=== PATIENT | female | born 1950 | race Hispanic/Latino ===

== ENCOUNTER 2022-05-21 13:04 | Emergency (ER) | payer MEDICARE, OTHER ==
--- OUTSIDE RECORDS SUMMARY | 2022-05-21 13:12 | XMS REPORT | Continuity of Care Document ---
:1950 Author Organization [facility] t Address [address] [place] [address] [address] [place] [address] Care Team Providers Name Role Phone Gisela Diggs MD Primary Care Physician [phone] SHABNAM MILLER Attending Clinician Unavailable QUAN TEMPLE Attending Clinician Unavailable Gisela Diggs MD Attending Clinician [phone] GISELA DIGGS Attending Clinician Unavailable Doctor Unassigned, [place] Attending Clinician Unavailable Quan Temple MD Attending Clinician Kacy Kennedy LMSW Attending Clinician Pob, [facility] Lab Main Attending Clinician Unavailable Richard Chery MD Attending Clinician Radiology Attending Clinician Unavailable BERNARD FREEMAN Attending Clinician Unavailable Ashley Chang Attending Clinician ASHLEY HDEZ Attending Clinician Unavailable CORNELIUS ANTHONY Attending Clinician Unavailable CORNELIUS ANTHONY Attending Clinician Unavailable Cornelius Anthony MD Attending Clinician Bernard Freeman DO Attending Clinician Shabnam Miller MD Attending Clinician Only, Adc Test Attending Clinician Unavailable NURSE, NURSE Attending Clinician Unavailable Gramm ASTROBIOLOGIST, Michell A Attending Clinician Carrillo DO, Darren Attending Clinician Lab, Adc Fam Pob I Attending Clinician Unavailable Gina COPPOLA, Dov Attending Clinician DOV FUENTES Attending Clinician Unavailable Molina Ellis MD Attending Clinician 2, [facility] Attending Clinician Unavailable RICHARD CHERY Attending Clinician Unavailable MOLINA ELLIS Attending Clinician Unavailable Amanda TRIANA Attending Clinician Unavailable Amanda Roth Attending Clinician RJ EMERY Attending Clinician Unavailable Rj Marcus Attending Clinician Molina Ovalle MD Attending Clinician SHABNAM MILLER Admitting Clinician Unavailable Shabnam Miller MD Admitting Clinician Amanda TRIANA Admitting Clinician Unavailable RJ EMERY Admitting Clinician Unavailable Payers Payer Name Policy Type Policy Number Effective Date Expiration Date Mateusz cleaning MEDICARE PART A [id number] 2011 \T\ B 00:00:00 Problems Condition Condition Condition Status Onset Resolution Last Treating Co mments Source Name Details Category Date Date Treatment Clinician Date Bulging of Bulging of Disease Active U nivers cervical cervical 4-17 [place] [place] interverte [place]verte [place] bral disc bral disc 00 [facility] kassandra Branch Spinal Spinal Disease Active Univers stenosis stenosis 4-17 ity of of of 00:00: [place] cervical cervical 00 Medica l region region Branch Myalgia Myalgia Disease Active Univers 4-17 ity of 00:00: [place] 00 Medical Branch Anxiety Anxiety Disease Active Univers 4-17 ity of 00:00: [place] 00 Medical Branch Numbness Numbness Disease Active Unive rs in feet in feet 4-17 ity of 00:00: [place] Medical [facility] Numbness Numbness Disease Active Unive rs in both in both 4-17 ity of hands hands 00:00: [place] 00 Medical Branch Chronic Chronic Disease Active 2020-0 Univers pain of pain of 8-10 ity of both knees both knees 00:00[place] Bilateral Bilateral Disease Active 2020-0 Uni vers arm pain arm pain 8-10 ity of 00:00: [place] 00 Medical Branch Chronic Chronic Disease Active 2020-0 Univers bilateral bilateral 8-10 ity of low back low back 00:00: [place] pain pain 00 Medical without without Branch sciatica sciatica Fibromyalg Fibromyalg Disease Active 2020-0 U nivers ia ia 8-10 ity of 00:00: [place] 00 Medical Branch Chronic Chronic Disease Active 2020-0 Univers pain pain 8-10 ity of syndrome syndrome 00:00: [place] 00 Medical Branch Myofascial Myofascial Disease Active 2020-0 U nivers pain pain 8-10 ity of 00:00: [place] 00 Medical Branch Back Back Disease Active 2019-0 Univers muscle muscle 9-06 ity of spasm spasm 00:00: [place] 00 Medical Branch Chronic Chronic Disease Active 2019-0 Univers neck and neck and 9-06 ity of back pain back pain 00:[place] [facility] [place] Primary Primary Disease Active 2018-0 Univers osteoarthr osteoarthr 1-05 it y of itis of itis of 00:00: [place] both knees both knees 00 Mt dical Branch Essential Essential Disease Active 2017 Uni vers hypertensi hypertensi 5-05 it y of on, benign on, benign 00:00: [place] [facility] Allergies, Adverse Reactions, Alerts Allergy Allergy Status Severity Reaction(s) Onset Inactive Treating Comm ents Source Name Type Date Date Clinician PEACH DRUG Active High SOB 2020-0 Univers INGREDI 3-03 ity of 00:00: [place] 00 Medical Branch [place] Prop[facility] Active Swelling 2020-0 Univer s ty to 3-03 ity of adverse 00:00: [place] reaction 00 Medical s Branch Social History Social Habit Start Date Stop Date Quantity Comments Source History of tobacco 1986-10-23 Cigarette Smoker [facility] use 00:00:00 Medical Branch Sex Assigned At Female [facility] Exposure to 2022-04-21 2022-05-01 Not sure [facility] SARS-CoV-2 (event) 00:00:00 13:00:00 Medica l Branch Alcohol intake 2022-04-15 2022-04-15 Current [facility] 00:00:00 00:00:00 non-drinker of Medical Br anch alcohol (finding) Tobacco use and 2020-07-15 2020-07-15 Smokeless [facility] exposure 00:00:00 00:00:00 tobacco non-user Medical Branch Cigarettes smoked 2020-07-15 2020-07-15 [facility] current (pack per 00:00:00 00:00:00 Medical Branch day) - Reported Cigarette 2020-07-15 2020-07-15 [facility] pack-years 00:00:00 00:00:00 Medical Branch Smoking Status Start Date Stop Date Source Unknown if ever smoked [facility] Ex-smoker 2020-07-15 00:00:00 2020-07-15 [place] [facility] [place] 00:00:00 Medical Branch Medications Ordered Filled Start Stop Current Ordering Indication Dosage Frequency Signature Comments Components Source Medication Medication Date Date Medication? Clinician (SIG) Name Name amitriptyli 2021-06 Yes [id number] TAKE 1 AND Univers ne 50 mg 0-06 1/2 TABLET ity o f tablet 00:00: BY MOUTH [place] 00 AT NIGHT Medical FOR 1 WEEK Branch IF PAIN/ANXIE TY/DEPRESS ION NOT IMPROVED THEN TAKE 2 AT NIGHT lisinopriL- 2021-06 Yes [id number] 1{tbl} Take 1 Univers hydrochloro 0-06 tablet by ity of thiazide 00:00: mouth in [place] 20-25 mg 00 the Medical per tablet morning. Branc h cloNIDine 2021-06 Yes [id number] TAKE ONE U nivers 0.1 mg 0-06 TABLET BY ity of tablet 00:00: MOUTH [place] 00 THREE Medical TIMES A Branch DAY ONLY IF FOR BLOOD PRESSURE HIGHER THAN 180/90 amitriptyli 2021-06 Yes [id number] TAKE 1 AND Univers ne 50 mg 0-06 1/2 TABLET ity o f tablet 00:00: BY MOUTH [place] 00 AT NIGHT Medical FOR 1 WEEK Branch IF PAIN/ANXIE TY/DEPRESS ION NOT IMPROVED THEN TAKE 2 AT NIGHT lisinopriL- 2021-06 Yes [id number] 1{tbl} Take 1 Univers hydrochloro 0-06 tablet by ity of thiazide 00:00: mouth in [place] 20-25 mg 00 the Medical per tablet morning. [facility] cloNIDine 2021-06 Yes [id number] TAKE ONE U nivers 0.1 mg 0-06 TABLET BY ity of tablet 00:00: MOUTH [place] 00 THREE Medical TIMES A Branch DAY ONLY IF FOR BLOOD PRESSURE HIGHER THAN 180/90 amitriptyli 2021-06 Yes [id number] TAKE 1 AND Univers ne 50 mg 0-06 1/2 TABLET ity o f tablet 00:00: BY MOUTH [place] 00 AT NIGHT Medical FOR 1 WEEK Branch IF PAIN/ANXIE TY/DEPRESS ION NOT IMPROVED THEN TAKE 2 AT NIGHT lisinopriL- 2021-06 Yes [id number] 1{tbl} Take 1 Univers hydrochloro 0-06 tablet by ity of thiazide 00:00: mouth in [place] -25 mg 00 the Medical per tablet morning. [facility] cloNIDine 2021-06 Yes [id number] TAKE ONE U nivers 0.1 mg 0-06 TABLET BY ity of tablet 00:00: MOUTH [place] 00 THREE Medical TIMES A Branch DAY ONLY IF FOR BLOOD PRESSURE HIGHER THAN 180/90 amitriptyli 2021-06 Yes [id number] TAKE 1 AND Univers ne 50 mg 0-06 1/2 TABLET ity o f tablet 00:00: BY MOUTH [place] 00 AT NIGHT Medical FOR 1 WEEK Branch IF PAIN/ANXIE TY/DEPRESS ION NOT IMPROVED THEN TAKE 2 AT NIGHT lisinopriL- 2021-06 Yes [id number] 1{tbl} Take 1 Univers hydrochloro 0-06 tablet by ity of thiazide 00:00: mouth in [place] -25 mg 00 the Medical per tablet morning. [facility] cloNIDine 2021-06 Yes [id number] TAKE ONE U nivers 0.1 mg 0-06 TABLET BY ity of tablet 00:00: MOUTH [place] 00 THREE Medical TIMES A Branch DAY ONLY IF FOR BLOOD PRESSURE HIGHER THAN 180/90 amitriptyli 2021-06 Yes [id number] TAKE 1 AND Univers ne 50 mg 0-06 1/2 TABLET ity o f tablet 00:00: BY MOUTH [place] 00 AT NIGHT Medical FOR 1 WEEK Branch IF PAIN/ANXIE TY/DEPRESS ION NOT IMPROVED THEN TAKE 2 AT NIGHT lisinopriL- 2021-06 Yes [id number] 1{tbl} Take 1 Univers hydrochloro 0-06 tablet by ity of thiazide 00:00: mouth in [place] 20-25 mg 00 the Medical per tablet morning. [facility] cloNIDine 2021-06 Yes [id number] TAKE ONE U nivers 0.1 mg 0-06 TABLET BY ity of tablet 00:00: MOUTH [place] 00 THREE Medical TIMES A Branch DAY ONLY IF FOR BLOOD PRESSURE HIGHER THAN 180/90 amitriptyli 2021-06 Yes [id number] TAKE 1 AND Univers ne 50 mg 0-06 1/2 TABLET ity o f tablet 00:00: BY MOUTH [place] 00 AT NIGHT Medical FOR 1 WEEK Branch IF PAIN/ANXIE TY/DEPRESS ION NOT IMPROVED THEN TAKE 2 AT NIGHT lisinopriL- 2021-06 Yes [id number] 1{tbl} Take 1 Univers hydrochloro 0-06 tablet by ity of thiazide 00:00: mouth in [place] 20-25 mg 00 the Medical per tablet morning. [facility] cloNIDine 2021-06 Yes [id number] TAKE ONE U nivers 0.1 mg 0-06 TABLET BY ity of tablet 00:00: MOUTH [place] 00 THREE Medical TIMES A Branch DAY ONLY IF FOR BLOOD PRESSURE HIGHER THAN 180/90 amitriptyli 2021-06 Yes [id number] TAKE 1 AND Univers ne 50 mg 0-06 1/2 TABLET ity o f tablet 00:00: BY MOUTH [place] 00 AT NIGHT Medical FOR 1 WEEK Branch IF PAIN/ANXIE TY/DEPRESS ION NOT IMPROVED THEN TAKE 2 AT NIGHT lisinopriL- 2021-06 Yes [id number] 1{tbl} Take 1 Univers hydrochloro 0-06 tablet by ity of thiazide 00:00: mouth in [place] 20-25 mg 00 the Medical per tablet morning. [facility] cloNIDine 2021-06 Yes [id number] TAKE ONE U nivers 0.1 mg 0-06 TABLET BY ity of tablet 00:00: MOUTH [place] 00 THREE Medical TIMES A Branch DAY ONLY IF FOR BLOOD PRESSURE HIGHER THAN 180/90 amitriptyli 2021-06 Yes [id number] TAKE 1 AND Univers ne 50 mg 0-06 1/2 TABLET ity o f tablet 00:00: BY MOUTH [place] 00 AT NIGHT Medical FOR 1 WEEK Branch IF PAIN/ANXIE TY/DEPRESS ION NOT IMPROVED THEN TAKE 2 AT NIGHT lisinopriL- 2021-06 Yes [id number] 1{tbl} Take 1 Univers hydrochloro 0-06 tablet by ity of thiazide 00:00: mouth in [place] 20-25 mg 00 the Medical per tablet morning. [facility] cloNIDine 2021-06 Yes [id number] TAKE ONE U nivers 0.1 mg 0-06 TABLET BY ity of tablet 00:00: MOUTH [place] 00 THREE Medical TIMES A Branch DAY ONLY IF FOR BLOOD PRESSURE HIGHER THAN 180/90 amitriptyli 2021-06 Yes [id number] TAKE 1 AND Univers ne 50 mg 0-06 1/2 TABLET ity o f tablet 00:00: BY MOUTH [place] 00 AT NIGHT Medical FOR 1 WEEK Branch IF PAIN/ANXIE TY/DEPRESS ION NOT IMPROVED THEN TAKE 2 AT NIGHT lisinopriL- 2021-06 Yes [id number] 1{tbl} Take 1 Univers hydrochloro 0-06 tablet by ity of thiazide 00:00: mouth in [place] 20-25 mg 00 the Medical per tablet morning. [facility] cloNIDine 2021-06 Yes [id number] TAKE ONE U nivers 0.1 mg 0-06 TABLET BY ity of tablet 00:00: MOUTH [place] 00 THREE Medical TIMES A Branch DAY ONLY IF FOR BLOOD PRESSURE HIGHER THAN 180/90 amitriptyli 2021-06 Yes [id number] TAKE 1 AND Univers ne 50 mg 0-06 1/2 TABLET ity o f tablet 00:00: BY MOUTH [place] 00 AT NIGHT Medical FOR 1 WEEK Branch IF PAIN/ANXIE TY/DEPRESS ION NOT IMPROVED THEN TAKE 2 AT NIGHT lisinopriL- 2021-06 Yes [id number] 1{tbl} Take 1 Univers hydrochloro 0-06 tablet by ity of thiazide 00:00: mouth in [place] 20-25 mg 00 the Medical per tablet morning. [facility] cloNIDine 2021-06 Yes [id number] TAKE ONE U nivers 0.1 mg 0-06 TABLET BY ity of tablet 00:00: MOUTH [place] 00 THREE Medical TIMES A Branch DAY ONLY IF FOR BLOOD PRESSURE HIGHER THAN 180/90 amitriptyli 2021-06 Yes [id number] TAKE 1 AND Univers ne 50 mg 0-06 1/2 TABLET ity o f tablet 00:00: BY MOUTH [place] 00 AT NIGHT Medical FOR 1 WEEK Branch IF PAIN/ANXIE TY/DEPRESS ION NOT IMPROVED THEN TAKE 2 AT NIGHT lisinopriL- 2021-06 Yes [id number] 1{tbl} Take 1 Univers hydrochloro 0-06 tablet by ity of thiazide 00:00: mouth in [place] 20-25 mg 00 the Medical per tablet morning. [facility] cloNIDine 2021-06 Yes [id number] TAKE ONE U nivers 0.1 mg 0-06 TABLET BY ity of tablet 00:00: MOUTH [place] 00 THREE Medical TIMES A Branch DAY ONLY IF FOR BLOOD PRESSURE HIGHER THAN 180/90 amitriptyli 2021-06 Yes [id number] TAKE 1 AND Univers ne 50 mg 0-06 1/2 TABLET ity o f tablet 00:00: BY MOUTH [place] 00 AT NIGHT Medical FOR 1 WEEK Branch IF PAIN/ANXIE TY/DEPRESS ION NOT IMPROVED THEN TAKE 2 AT NIGHT lisinopriL- 2021-06 Yes [id number] 1{tbl} Take 1 Univers hydrochloro 0-06 tablet by ity of thiazide 00:00: mouth in [place] 20-25 mg 00 the Medical per tablet morning. [facility] cloNIDine 2021-06 Yes [id number] TAKE ONE U nivers 0.1 mg 0-06 TABLET BY ity of tablet 00:00: MOUTH [place] [address] THREE Medical TIMES A Branch DAY ONLY IF FOR BLOOD PRESSURE HIGHER THAN 180/90 amitriptyli 2021-06 Yes [id number] TAKE 1 AND Univers ne 50 mg 0-06 1/2 TABLET ity o f tablet 00:00: BY MOUTH [place] 00 AT NIGHT Medical FOR 1 WEEK Branch IF PAIN/ANXIE TY/DEPRESS ION NOT IMPROVED THEN TAKE 2 AT NIGHT lisinopriL- 2021-06 Yes [id number] 1{tbl} Take 1 Univers hydrochloro 0-06 tablet by ity of thiazide 00:00: mouth in [place] 20-25 mg 00 the Medical per tablet morning. [facility] cloNIDine 2021-06 Yes [id number] TAKE ONE U nivers 0.1 mg 0-06 TABLET BY ity of tablet 00:00: MOUTH [place] 00 THREE Medical TIMES A Branch DAY ONLY IF FOR BLOOD PRESSURE HIGHER THAN 180/90 amitriptyli 2021-06 Yes [id number] TAKE 1 AND Univers ne 50 mg 0-06 1/2 TABLET ity o f tablet 00:00: BY MOUTH [place] 00 AT NIGHT Medical FOR 1 WEEK Branch IF PAIN/ANXIE TY/DEPRESS ION NOT IMPROVED THEN TAKE 2 AT NIGHT lisinopriL- 2021-06 Yes [id number] 1{tbl} Take 1 Univers hydrochloro 0-06 tablet by ity of thiazide 00:00: mouth in [place] 20-25 mg 00 the Medical per tablet morning. [facility] cloNIDine 2021-06 Yes [id number] TAKE ONE U nivers 0.1 mg 0-06 TABLET BY ity of tablet 00:00: MOUTH [place] 00 THREE Medical TIMES A Branch DAY ONLY IF FOR BLOOD PRESSURE HIGHER THAN 180/90 amitriptyli 2021-06 Yes [id number] TAKE 1 AND Univers ne 50 mg 0-06 1/2 TABLET ity o f tablet 00:00: BY MOUTH [place] 00 AT NIGHT Medical FOR 1 WEEK Branch IF PAIN/ANXIE TY/DEPRESS ION NOT IMPROVED THEN TAKE 2 AT NIGHT lisinopriL- 2021-06 Yes [id number] 1{tbl} Take 1 Univers hydrochloro 0-06 tablet by ity of thiazide 00:00: mouth in [place] 20-25 mg 00 the Medical per tablet morning. [facility] cloNIDine 2021-06 Yes [id number] TAKE ONE U nivers 0.1 mg 0-06 TABLET BY ity of tablet 00:00: MOUTH [place] [address] THREE Medical TIMES A Branch DAY ONLY IF FOR BLOOD PRESSURE HIGHER THAN 180/90 amitriptyli 2021-06 Yes [id number] TAKE 1 AND Univers ne 50 mg 0-06 1/2 TABLET ity o f tablet 00:00: BY MOUTH [place] 00 AT NIGHT Medical FOR 1 WEEK Branch IF PAIN/ANXIE TY/DEPRESS ION NOT IMPROVED THEN TAKE 2 AT NIGHT lisinopriL- 2021-06 Yes [id number] 1{tbl} Take 1 Univers hydrochloro 0-06 tablet by ity of thiazide 00:00: mouth in [place] 20-25 mg 00 the Medical per tablet morning. [facility] cloNIDine 2021-06 Yes [id number] TAKE ONE U nivers 0.1 mg 0-06 TABLET BY ity of tablet 00:00: MOUTH [place] [address] THREE Medical TIMES A Branch DAY ONLY IF FOR BLOOD PRESSURE HIGHER THAN 180/90 tiZANidine 2021-06 Yes Univers 4 mg tablet 0-04 ity of 00:00: [place] Medical Branch tiZANidine 2021-06 Yes Univers 4 mg tablet 0-04 ity of 00:00: [place] Medical [facility] tiZANidine 2021-06 Yes Univers 4 mg tablet 0-04 ity of 00:00: [place] Medical Branch tiZANidine 2021-06 Yes Univers 4 mg tablet 0-04 ity of 00:00: Medical Branch tiZANidine 2021-06 Yes Univers 4 mg tablet 0-04 ity of 00:00: Medical Branch tiZANidine 2021-06 Yes Univers 4 mg tablet 0-04 ity of 00:00: Medical Branch tiZANidine 2021-06 Yes Univers 4 mg tablet 0-04 ity of 00:00: Medical Branch tiZANidine 2021-06 Yes Univers 4 mg tablet 0-04 ity of 00:00: Medical Branch tiZANidine 2021-06 Yes Univers 4 mg tablet 0-04 ity of 00:00: Medical Branch tiZANidine 2021-06 Yes Univers 4 mg tablet 0-04 ity of 00:00: Medical Branch tiZANidine 2021-06 Yes Univers 4 mg tablet 0-04 ity of 00:00: [facility] Branch tiZANidine 2021-06 Yes Univers 4 mg tablet 0-04 ity of 00:00: Medical Branch tiZANidine 2021-06 Yes Univers 4 mg tablet 0-04 ity of 00:00: [facility] Branch tiZANidine 2021-06 Yes Univers 4 mg tablet 0-04 ity of 00:00: [facility] Branch tiZANidine 2021-06 Yes Univers 4 mg tablet 0-04 ity of 00:00: [facility] Branch tiZANidine 2021-06 Yes Univers 4 mg tablet 0-04 ity of 00:00: [facility] ALPRAZolam 2021-0 2021- Yes [id number] 1mg Take 1 Univers 1 mg tablet 03-10 tablet by it y of 00:00: 04:59 mouth once [place] 00 :00 now for 1 Medical dose. Branch albuterol Yes [id number] 2{puff} Inhale 2 Univers 90 9-08 Puffs ity of mcg/actuati 00:00: every 6 [place] as on inhaler 00 (six) Medical hours as Branch needed for Wheezing or Shortness of Breath. albuterol Yes [id number] 2{puff} Inhale 2 Univers 90 9-08 Puffs ity of mcg/actuati 00:00: every 6 [place] as on inhaler 00 (six) Medical hours as Branch needed for Wheezing or Shortness of Breath. albuterol Yes [id number] 2{puff} Inhale 2 Univers 90 9-08 Puffs ity of mcg/actuati 00:00: every 6 [place] as on inhaler 00 (six) Medical hours as Branch needed for Wheezing or Shortness of Breath. albuterol Yes [id number] 2{puff} Inhale 2 Univers 90 9-08 Puffs ity of mcg/actuati 00:00: every 6 [place] as on inhaler 00 (six) Medical hours as Branch needed for Wheezing or Shortness of Breath. albuterol Yes [id number] 2{puff} Inhale 2 Univers 90 9-08 Puffs ity of mcg/actuati 00:00: every 6 [place] as on inhaler 00 (six) Medical hours as Branch needed for Wheezing or Shortness of Breath. albuterol Yes [id number] 2{puff} Inhale 2 Univers 90 9-08 Puffs ity of mcg/actuati 00:00: every 6 [place] as on inhaler 00 (six) Medical hours as Branch needed for Wheezing or Shortness of Breath. albuterol Yes [id number] 2{puff} Inhale 2 Univers 90 9-08 Puffs ity of mcg/actuati 00:00: every 6 [place] as on inhaler 00 (six) Medical hours as Branch needed for Wheezing or Shortness of Breath. albuterol Yes [id number] 2{puff} Inhale 2 Univers 90 9-08 Puffs ity of mcg/actuati 00:00: every 6 [place] as on inhaler 00 (six) Medical hours as Branch needed for Wheezing or Shortness of Breath. albuterol Yes [id number] 2{puff} Inhale 2 Univers 90 9-08 Puffs ity of mcg/actuati 00:00: every 6 [place] as on inhaler 00 (six) Medical hours as Branch needed for Wheezing or Shortness of Breath. albuterol Yes [id number] 2{puff} Inhale 2 Univers 90 9-08 Puffs ity of mcg/actuati 00:00: every 6 [place] as on inhaler 00 (six) Medical hours as Branch needed for Wheezing or Shortness of Breath. albuterol Yes [id number] 2{puff} Inhale 2 Univers 90 9-08 Puffs ity of mcg/actuati 00:00: every 6 [place] as on inhaler 00 (six) Medical hours as Branch needed for Wheezing or Shortness of Breath. albuterol Yes [id number] 2{puff} Inhale 2 Univers 90 9-08 Puffs ity of mcg/actuati 00:00: every 6 [place] as on inhaler 00 (six) Medical hours as Branch needed for Wheezing or Shortness of Breath. albuterol Yes [id number] 2{puff} Inhale 2 Univers 90 9-08 Puffs ity of mcg/actuati 00:00: every 6 [place] as on inhaler 00 (six) Medical hours as Branch needed for Wheezing or Shortness of Breath. albuterol Yes [id number] 2{puff} Inhale 2 Univers 90 9-08 Puffs ity of mcg/actuati 00:00: every 6 [place] as on inhaler 00 (six) Medical hours as Branch needed for Wheezing or Shortness of Breath. albuterol Yes [id number] 2{puff} Inhale 2 Univers 90 9-08 Puffs ity of mcg/actuati 00:00: every 6 [place] as on inhaler 00 (six) Medical hours as Branch needed for Wheezing or Shortness of Breath. albuterol Yes [id number] 2{puff} Inhale 2 Univers 90 9-08 Puffs ity of mcg/actuati 00:00: every 6 [place] as on inhaler 00 (six) Medical hours as Branch needed for Wheezing or Shortness of Breath. albuterol Yes [id number] 2{puff} Inhale 2 Univers 90 9-08 Puffs ity of mcg/actuati 00:00: every 6 [place] as on inhaler 00 (six) Medical hours as Branch needed for Wheezing or Shortness of Breath. albuterol Yes [id number] 2{puff} Inhale 2 Univers 90 9-08 Puffs ity of mcg/actuati 00:00: every 6 [place] as on inhaler 00 (six) Medical hours as Branch needed for Wheezing or Shortness of Breath. albuterol Yes [id number] 2{puff} Inhale 2 Univers 90 9-08 Puffs ity of mcg/actuati 00:00: every 6 [place] as on inhaler 00 (six) Medical hours as Branch needed for Wheezing or Shortness of Breath. albuterol Yes [id number] 2{puff} Inhale 2 Univers 90 9-08 Puffs ity of mcg/actuati 00:00: every 6 [place] as on inhaler 00 (six) Medical hours as Branch needed for Wheezing or Shortness of Breath. albuterol Yes [id number] 2{puff} Inhale 2 Univers 90 9-08 Puffs ity of mcg/actuati 00:00: every 6 [place] as on inhaler 00 (six) Medical hours as Branch needed for Wheezing or Shortness of Breath. albuterol Yes [id number] 2{puff} Inhale 2 Univers 90 9-08 Puffs ity of mcg/actuati 00:00: every 6 [place] as on inhaler 00 (six) Medical hours as Branch needed for Wheezing or Shortness of Breath. albuterol Yes [id number] 2{puff} Inhale 2 Univers 90 9-08 Puffs ity of mcg/actuati 00:00: every 6 [place] as on inhaler 00 (six) Medical hours as Branch needed for Wheezing or Shortness of Breath. albuterol Yes [id number] 2{puff} Inhale 2 Univers 90 9-08 Puffs ity of mcg/actuati 00:00: every 6 [place] as on inhaler 00 (six) Medical hours as Branch needed for Wheezing or Shortness of Breath. albuterol Yes [id number] 2{puff} Inhale 2 Univers 90 9-08 Puffs ity of mcg/actuati 00:00: every 6 [place] as on inhaler 00 (six) Medical hours as Branch needed for Wheezing or Shortness of Breath. albuterol Yes [id number] 2{puff} Inhale 2 Univers 90 9-08 Puffs ity of mcg/actuati 00:00: every 6 [place] as on inhaler 00 (six) Medical hours as Branch needed for Wheezing or Shortness of Breath. albuterol Yes [id number] 2{puff} Inhale 2 Univers 90 9-08 Puffs ity of mcg/actuati 00:00: every 6 [place] as on inhaler 00 (six) Medical hours as Branch needed for Wheezing or Shortness of Breath. albuterol 0 Yes [id number] 2{puff} Inhale 2 Univers 90 9-08 Puffs ity of mcg/actuati 00:00: every 6 [place] as on inhaler 00 (six) Medical hours as Branch needed for Wheezing or Shortness of Breath. albuterol Yes [id number] 2{puff} Inhale 2 Univers 90 9-08 Puffs ity of mcg/actuati 00:00: every 6 [place] as on inhaler 00 (six) Medical hours as Branch needed for Wheezing or Shortness of Breath. albuterol Yes [id number] 2{puff} Inhale 2 Univers 90 9-08 Puffs ity of mcg/actuati 00:00: every 6 [place] as on inhaler 00 (six) Medical hours as Branch needed for Wheezing or Shortness of Breath. albuterol Yes [id number] 2{puff} Inhale 2 Univers 90 9-08 Puffs ity of mcg/actuati 00:00: every 6 [place] as on inhaler 00 (six) Medical hours as Branch needed for Wheezing or Shortness of Breath. SERTRALINE 0 Yes [id number] TAKE ONE Univers 100 mg 8-09 105 TABLET BY ity of tablet 00:00: MOUTH [place] 00 DAILY Medical Branch SERTRALINE 2021-0 Yes [id number] TAKE ONE Univers 100 mg 8-09 105 TABLET BY ity of tablet 00:00: MOUTH [place] 00 DAILY Medical Branch SERTRALINE 2021-0 Yes [id number] TAKE ONE Univers 100 mg 8-09 105 TABLET BY ity of tablet 00:00: MOUTH [place] 00 DAILY Medical Branch SERTRALINE 2021-0 Yes [id number] TAKE ONE Univers 100 mg 8-09 105 TABLET BY ity of tablet 00:00: MOUTH [place] 00 DAILY Medical Branch SERTRALINE 2021-0 Yes [id number] TAKE ONE Univers 100 mg 8-09 105 TABLET BY ity of tablet 00:00: MOUTH [place] 00 DAILY Medical Branch SERTRALINE 2022-0 Yes [id number] TAKE ONE Univers 100 mg 8-09 105 TABLET BY ity of tablet 00:00: MOUTH DAILY Medical Branch SERTRALINE 2-0 Yes [id number] TAKE ONE Univers 100 mg 8-09 105 TABLET BY ity of tablet 00:00: MOUTH DAILY Medical Branch SERTRALINE 2-0 Yes [id number] TAKE ONE Univers 100 mg 8-09 105 TABLET BY ity of tablet 00:00: [facility] DAILY Medical Branch SERTRALINE 2-0 Yes [id number] TAKE ONE Univers 100 mg 8-09 105 TABLET BY ity of tablet 00:00: MOUTH DAILY Medical Branch SERTRALINE 2-0 Yes [id number] TAKE ONE [facility] 100 mg 8-09 105 TABLET BY [facility] tablet 00:00: [facility] DAILY Medical Branch SERTRALINE 2-0 Yes [id number] TAKE ONE [facility] 100 mg 8-09 105 TABLET BY [facility] of tablet 00:00: [facility] DAILY Medical Branch SERTRALINE 2-0 Yes [id number] TAKE ONE [facility] 100 mg 8-09 105 TABLET BY [facility] of tablet 00:00: [facility] DAILY Medical Branch SERTRALINE 2-0 Yes [id number] TAKE ONE [facility] 100 mg 8-09 105 TABLET BY [facility] of tablet 00:00: [facility] DAILY Medical Branch SERTRALINE 2-0 Yes [id number] TAKE ONE [facility] 100 mg 8-09 105 TABLET BY [facility] of tablet 00:00: [facility] DAILY Medical Branch SERTRALINE 2-0 Yes [id number] TAKE ONE [facility] 100 mg 8-09 105 TABLET BY [facility] of tablet 00:00: [facility] DAILY Medical Branch SERTRALINE 2-0 Yes [id number] TAKE ONE [facility] 100 mg 8-09 105 TABLET BY [facility] of tablet 00:00: [facility] DAILY Medical Branch SERTRALINE 2-0 Yes [id number] TAKE ONE [facility] 100 mg 8-09 105 TABLET BY [facility] of tablet 00:00: [facility] DAILY Medical Branch SERTRALINE 2-0 Yes [id number] TAKE ONE [facility] 100 mg 8-09 105 TABLET BY [facility] of tablet 00:00: [facility] DAILY Medical Branch SERTRALINE 2-0 Yes [id number] TAKE ONE [facility] 100 mg 8-09 105 TABLET BY ity of tablet 00:00: MOUTH DAILY Medical Branch SERTRALINE 2-0 Yes [id number] TAKE ONE [facility] 100 mg 8-09 105 TABLET BY [facility] of tablet 00:00: MOUTH DAILY Medical Branch SERTRALINE 2-0 Yes [id number] TAKE ONE [facility] 100 mg 8-09 105 TABLET BY [facility] of tablet 00:00: MOUTH DAILY Medical Branch SERTRALINE 2-0 Yes [id number] TAKE ONE [facility] 100 mg 8-09 105 TABLET BY [facility] of tablet 00:00: MOUTH DAILY Medical Branch SERTRALINE 2-0 Yes [id number] TAKE ONE [facility] 100 mg 8-09 105 TABLET BY [facility] of tablet 00:00: MOUTH DAILY Medical Branch SERTRALINE 2-0 Yes [id number] TAKE ONE [facility] 100 mg 8-09 105 TABLET BY [facility] of tablet 00:00: MOUTH DAILY Medical Branch SERTRALINE 2-0 Yes [id number] TAKE ONE [facility] 100 mg 8-09 105 TABLET BY [facility] of tablet 00:00: MOUTH DAILY Medical Branch SERTRALINE 2-0 Yes [id number] TAKE ONE [facility] 100 mg 8-09 105 TABLET BY [facility] of tablet 00:00: MOUTH DAILY Medical Branch SERTRALINE 2-0 Yes [id number] TAKE ONE [facility] 100 mg 8-09 105 TABLET BY [facility] of tablet 00:00: [facility] DAILY Medical Branch SERTRALINE 2-0 Yes [id number] TAKE ONE [facility] 100 mg 8-09 105 TABLET BY [facility] of tablet 00:00: [facility] DAILY Medical Branch SERTRALINE 2-0 Yes [id number] TAKE ONE [facility] 100 mg 8-09 105 TABLET BY [facility] of tablet 00:00: [facility] DAILY Medical Branch SERTRALINE 2-0 Yes [id number] TAKE ONE [facility] 100 mg 8-09 105 TABLET BY [facility] of tablet 00:00: [facility] DAILY Medical Branch SERTRALINE 2-0 Yes [id number] TAKE ONE [facility] 100 mg 8-09 105 TABLET BY ity of tablet 00:00: [facility] DAILY Medical Branch SERTRALINE 2-0 Yes [id number] TAKE ONE [facility] 100 mg 8-09 105 TABLET BY ity of tablet 00:00: MOUTH DAILY Medical Branch AMITRIPTYLI Yes TAKE 1 AND [facility] [place] 50 mg 5-26 1/2 TABLET ity o f tablet 00:00: BY MOUTH [place] 00 AT NIGHT Medical FOR 1 WEEK Branch IF PAIN/ANXIE TY/DEPRESS ION NOT IMPROVED THEN TAKE 2 AT NIGHT AMITRIPTYLI Yes TAKE 1 AND [facility] [place] 50 mg 5-26 1/2 TABLET ity o f tablet 00:00: BY MOUTH [place] 00 AT NIGHT Medical FOR 1 WEEK Branch IF PAIN/ANXIE TY/DEPRESS ION NOT IMPROVED THEN TAKE 2 AT NIGHT AMITRIPTYLI Yes TAKE 1 AND [facility] [place] 50 mg 5-26 1/2 TABLET ity o f tablet 00:00: BY MOUTH [place] 00 AT NIGHT Medical FOR 1 WEEK Branch IF PAIN/ANXIE TY/DEPRESS ION NOT IMPROVED THEN TAKE 2 AT NIGHT AMITRIPTYLI Yes TAKE 1 AND [facility] [place] 50 mg 5-26 1/2 TABLET ity o f tablet 00:00: BY MOUTH [place] 00 AT NIGHT Medical FOR 1 WEEK Branch IF PAIN/ANXIE TY/DEPRESS ION NOT IMPROVED THEN TAKE 2 AT NIGHT AMITRIPTYLI Yes TAKE 1 AND [facility] [place] 50 mg 5-26 1/2 TABLET ity o f tablet 00:00: BY MOUTH [place] 00 AT NIGHT Medical FOR 1 WEEK Branch IF PAIN/ANXIE TY/DEPRESS ION NOT IMPROVED THEN TAKE 2 AT NIGHT AMITRIPTYLI Yes TAKE 1 AND [facility] [place] 50 mg 5-26 1/2 TABLET ity o f tablet 00:00: BY MOUTH [place] 00 AT NIGHT Medical FOR 1 WEEK Branch IF PAIN/ANXIE TY/DEPRESS ION NOT IMPROVED THEN TAKE 2 AT NIGHT AMITRIPTYLI Yes TAKE 1 AND [facility] [place] 50 mg 5-26 1/2 TABLET ity o f tablet 00:00: BY MOUTH [place] 00 AT NIGHT Medical FOR 1 WEEK Branch IF PAIN/ANXIE TY/DEPRESS ION NOT IMPROVED THEN TAKE 2 AT NIGHT AMITRIPTYLI Yes TAKE 1 AND [facility] [place] 50 mg 5-26 1/2 TABLET ity o f tablet 00:00: BY MOUTH [place] 00 AT NIGHT Medical FOR 1 WEEK Branch IF PAIN/ANXIE TY/DEPRESS ION NOT IMPROVED THEN TAKE 2 AT NIGHT AMITRIPTYLI Yes TAKE 1 AND [facility] [place] 50 mg 5-26 1/2 TABLET ity o f tablet 00:00: BY MOUTH [place] 00 AT NIGHT Medical FOR 1 WEEK Branch IF PAIN/ANXIE TY/DEPRESS ION NOT IMPROVED THEN TAKE 2 AT NIGHT AMITRIPTYLI Yes TAKE 1 AND [facility] [place] 50 mg 5-26 1/2 TABLET ity o f tablet 00:00: BY MOUTH [place] 00 AT NIGHT Medical FOR 1 WEEK Branch IF PAIN/ANXIE TY/DEPRESS ION NOT IMPROVED THEN TAKE 2 AT NIGHT AMITRIPTYLI Yes TAKE 1 AND [facility] NE 50 mg 5-26 1/2 TABLET ity o f tablet 00:00: BY MOUTH [place] 00 AT NIGHT Medical FOR 1 WEEK Branch IF PAIN/ANXIE TY/DEPRESS ION NOT IMPROVED THEN TAKE 2 AT NIGHT AMITRIPTYLI 0 Yes TAKE 1 AND [facility] [place] 50 mg 5-26 1/2 TABLET ity o f tablet 00:00: BY MOUTH [place] 00 AT NIGHT Medical FOR 1 WEEK Branch IF PAIN/ANXIE TY/DEPRESS ION NOT IMPROVED THEN TAKE 2 AT NIGHT AMITRIPTYLI Yes TAKE 1 AND [facility] [place] 50 mg 5-26 1/2 TABLET ity o f tablet 00:00: BY MOUTH [place] 00 AT NIGHT Medical FOR 1 WEEK Branch IF PAIN/ANXIE TY/DEPRESS ION NOT IMPROVED THEN TAKE 2 AT NIGHT AMITRIPTYLI Yes TAKE 1 AND [facility] [place] 50 mg 5-26 1/2 TABLET ity o f tablet 00:00: BY MOUTH [place] 00 AT NIGHT Medical FOR 1 WEEK Branch IF PAIN/ANXIE TY/DEPRESS ION NOT IMPROVED THEN TAKE 2 AT NIGHT AMITRIPTYLI 0 Yes TAKE 1 AND [facility] [place] 50 mg 5-26 1/2 TABLET ity o f tablet 00:00: BY MOUTH [place] 00 AT NIGHT Medical FOR 1 WEEK Branch IF PAIN/ANXIE TY/DEPRESS ION NOT IMPROVED THEN TAKE 2 AT NIGHT AMITRIPTYLI 0 Yes TAKE 1 AND [facility] [place] 50 mg 5-26 1/2 TABLET ity o f tablet 00:00: BY MOUTH [place] 00 AT NIGHT Medical FOR 1 WEEK Branch IF PAIN/ANXIE TY/DEPRESS ION NOT IMPROVED THEN TAKE 2 AT NIGHT AMITRIPTYLI 0 Yes TAKE 1 AND [facility] [place] 50 mg 5-26 1/2 TABLET ity o f tablet 00:00: BY MOUTH [place] 00 AT NIGHT Medical FOR 1 WEEK Branch IF PAIN/ANXIE TY/DEPRESS ION NOT IMPROVED THEN TAKE 2 AT NIGHT AMITRIPTYLI 2021-2021- No TAKE 1 AND [facility] [place] 50 mg 5-26 03-26 1/2 TABLET ity of tablet 00:00: 00:00 BY MOUTH [place] 00 :00 AT NIGHT Medical FOR 1 WEEK Branch IF PAIN/ANXIE TY/DEPRESS ION NOT IMPROVED THEN TAKE 2 AT NIGHT Diclofenac 2021-0 Yes APPLY 2 TO [facility] Sodium 1 % 4-08 4 GRAMS 3 ity of gel 00:00: TIMES [place] 00 DAILY Medical NEEDED FOR Branch PAIN gabapentin 2021-0 Yes [id number] 600mg Take 2 [facility] 300 mg 4-08 105 capsules [facility] capsule 00:00: [place] mouth [place] 00 (three) Medical times Branch daily. SERTraline 2021- Yes [id number] 100mg Take 1 [facility] (ZOLOFT) 4-08 105 tablet by ity of 100 mg 00:00: mouth [place] tablet 00 daily. Medical Branch Diclofenac 2021-0 Yes APPLY 2 TO [facility] Sodium 1 % 4-08 4 GRAMS 3 ity of gel 00:00: TIMES [place] 00 DAILY Medical NEEDED FOR Branch PAIN gabapentin 2021-0 Yes [id number] 600mg Take 2 [facility] 300 mg 4-08 105 capsules [facility] of capsule 00:00: by mouth 3 [place] 00 (three) Medical times Branch daily. SERTraline 2021- Yes [id number] 100mg Take 1 [facility] (ZOLOFT) 4-08 105 tablet by ity of 100 mg 00:00: mouth [place] tablet 00 daily. Medical Branch Diclofenac 2021-0 Yes APPLY 2 TO [facility] Sodium 1 % 4-08 4 GRAMS 3 ity of gel 00:00: TIMES [place] 00 DAILY Medical NEEDED FOR Branch PAIN gabapentin 2021-0 Yes [id number] 600mg Take 2 [facility] 300 mg 4-08 105 capsules [facility] of capsule 00:00: by mouth 3 [place] 00 (three) Medical times Branch daily. Diclofenac 2021-0 Yes APPLY 2 TO [facility] Sodium 1 % 4-08 4 GRAMS 3 ity of gel 00:00: TIMES [place] 00 DAILY Medical NEEDED FOR Branch PAIN gabapentin 2021-0 Yes [id number] 600mg Take 2 [facility] 300 mg 4-08 105 capsules [facility] of capsule 00:00: by mouth 3 [place] 00 (three) Medical times Branch daily. Diclofenac 2021-0 Yes APPLY 2 TO [facility] Sodium 1 % 4-08 4 GRAMS 3 ity of gel 00:00: TIMES [place] 00 DAILY Medical NEEDED FOR Branch PAIN gabapentin 2021-0 Yes [id number] 600mg Take 2 [facility] 300 mg 4-08 105 capsules [facility] of capsule 00:00: by mouth 3 [place] 00 (three) Medical times Branch daily. Diclofenac 2021-0 Yes APPLY 2 TO [facility] Sodium 1 % 4-08 4 GRAMS 3 ity of gel 00:00: TIMES [place] 00 DAILY Medical NEEDED FOR Branch PAIN gabapentin 2021-0 Yes [id number] 600mg Take 2 [facility] 300 mg 4-08 105 capsules [facility] of capsule 00:00: by mouth 3 [place] 00 (three) Medical times Branch daily. Diclofenac 2021-0 Yes APPLY 2 TO [facility] Sodium 1 % 4-08 4 GRAMS 3 ity of gel 00:00: TIMES [place] 00 DAILY Medical NEEDED FOR Branch PAIN gabapentin 2021-0 Yes [id number] 600mg Take 2 [facility] 300 mg 4-08 105 capsules [facility]y of capsule 00:00: by mouth 3 [place] 00 (three) Medical times Branch daily. Diclofenac 2021-0 Yes APPLY 2 TO [facility] Sodium 1 % 4-08 4 GRAMS 3 ity of gel 00:00: TIMES [place] 00 DAILY Medical NEEDED FOR Branch PAIN gabapentin 2021-0 Yes [id number] 600mg Take 2 [facility] 300 mg 4-08 105 capsules [facility]y of capsule 00:00: by mouth 3 [place] 00 (three) Medical times Branch daily. Diclofenac 2021-0 Yes APPLY 2 TO [facility] Sodium 1 % 4-08 4 GRAMS 3 ity of gel 00:00: TIMES [place] 00 DAILY Medical NEEDED FOR Branch PAIN gabapentin 2-0 Yes [id number] 600mg Take 2 [facility] 300 mg 4-08 105 capsules ity of capsule 00:00: by mouth 3 [place] 00 (three) Medical times Branch daily. Diclofenac 2-0 Yes APPLY 2 TO [facility] Sodium 1 % 4-08 4 GRAMS 3 ity of gel 00:00: TIMES [place] 00 DAILY Medical NEEDED FOR Branch PAIN gabapentin 2-0 Yes [id number] 600mg Take 2 [facility] 300 mg 4-08 105 capsules ity of capsule 00:00: by mouth 3 [place] 00 (three) Medical times Branch daily. Diclofenac 2021-0 Yes APPLY 2 TO [facility] Sodium 1 % 4-08 4 GRAMS 3 ity of gel 00:00: TIMES [place] 00 DAILY Medical NEEDED FOR Branch PAIN gabapentin 2021-0 Yes [id number] 600mg Take 2 [facility] 300 mg 4-08 105 capsules [facility]y of capsule 00:00: by mouth 3 [place] 00 (three) Medical times Branch daily. Diclofenac 2021-0 Yes [id number] APPLY 2 TO [facility] Sodium 1 % 4-08 4 GRAMS 3 ity of gel 00:00: TIMES [place] 00 DAILY Medical NEEDED FOR Branch PAIN gabapentin 2021-0 Yes [id number] 600mg Take 2 [facility] 300 mg 4-08 105 capsules ity of capsule 00:00: by mouth 3 [place] 00 (three) Medical times Branch daily. Diclofenac 2021-0 Yes APPLY 2 TO [facility] Sodium 1 % 4-08 4 GRAMS 3 ity of gel 00:00: TIMES [place] 00 DAILY Medical NEEDED FOR Branch PAIN gabapentin 2021-0 Yes [id number] 600mg Take 2 [facility] 300 mg 4-08 105 capsules [facility]y of capsule 00:00: by mouth 3 [place] 00 (three) Medical times Branch daily. Diclofenac 2021-0 Yes APPLY 2 TO [facility] Sodium 1 % 4-08 4 GRAMS 3 ity of gel 00:00: TIMES [place] 00 DAILY Medical NEEDED FOR Branch PAIN gabapentin 2021-0 Yes [id number] 600mg Take 2 [facility] 300 mg 4-08 105 capsules ity of capsule 00:00: by mouth 3 [place] 00 (three) Medical times Branch daily. Diclofenac 2021-0 Yes [id number] APPLY 2 TO [facility] Sodium 1 % 4-08 4 GRAMS 3 ity of gel 00:00: TIMES [place] 00 DAILY Medical NEEDED FOR Branch PAIN gabapentin 2-0 Yes [id number] 600mg Take 2 [facility] 300 mg 4-08 105 capsules ity of capsule 00:00: by mouth 3 [place] 00 (three) Medical times Branch daily. Diclofenac 2021-0 Yes [id number] APPLY 2 TO [facility] Sodium 1 % 4-08 4 GRAMS 3 ity of gel 00:00: TIMES [place] 00 DAILY Medical NEEDED FOR Branch PAIN gabapentin 2021-0 Yes [id number] 600mg Take 2 [facility] 300 mg 4-08 105 capsules ity of capsule 00:00: by mouth 3 [place] 00 (three) Medical times Branch daily. Diclofenac 2022-0 Yes [id number] APPLY 2 TO [facility] Sodium 1 % 4-08 4 GRAMS 3 ity of gel 00:00: TIMES [place] 00 DAILY Medical NEEDED FOR Branch PAIN gabapentin 2021-0 Yes [id number] 600mg Take 2 [facility] 300 mg 4-08 105 capsules ity of capsule 00:00: by mouth 3 [place] 00 (three) Medical times Branch daily. Diclofenac 2021-0 Yes [id number] APPLY 2 TO [facility] Sodium 1 % 4-08 4 GRAMS 3 ity of gel 00:00: TIMES [place] 00 DAILY Medical NEEDED FOR Branch PAIN gabapentin 2021-0 Yes [id number] 600mg Take 2 [facility] 300 mg 4-08 105 capsules ity of capsule 00:00: by mouth 3 [place] 00 (three) Medical times Branch daily. Diclofenac 2021-0 Yes APPLY 2 TO [facility] Sodium 1 % 4-08 4 GRAMS 3 ity of gel 00:00: TIMES [place] 00 DAILY Medical NEEDED FOR Branch PAIN gabapentin 2021-0 Yes [id number] 600mg Take 2 [facility] 300 mg 4-08 105 capsules ity of capsule 00:00: by mouth 3 [place] 00 (three) Medical times Branch daily. Diclofenac 2021-0 Yes APPLY 2 TO [facility] Sodium 1 % 4-08 4 GRAMS 3 ity of gel 00:00: TIMES [place] 00 DAILY Medical NEEDED FOR Branch PAIN gabapentin 2021-0 Yes [id number] 600mg Take 2 [facility] 300 mg 4-08 105 capsules ity of capsule 00:00: by mouth 3 [place] 00 (three) Medical times Branch daily. Diclofenac 2021-0 Yes APPLY 2 TO [facility] Sodium 1 % 4-08 4 GRAMS 3 ity of gel 00:00: TIMES [place] 00 DAILY Medical NEEDED FOR Branch PAIN gabapentin 2-0 Yes [id number] 600mg Take 2 [facility] 300 mg 4-08 105 capsules ity of capsule 00:00: by mouth 3 [place] 00 (three) Medical times Branch daily. Diclofenac 2-0 Yes APPLY 2 TO [facility] Sodium 1 % 4-08 4 GRAMS 3 ity of gel 00:00: TIMES [place] 00 DAILY Medical NEEDED FOR Branch PAIN gabapentin 2021-0 Yes [id number] 600mg Take 2 [facility] 300 mg 4-08 105 capsules ity of capsule 00:00: by mouth 3 [place] 00 (three) Medical times Branch daily. Diclofenac 2021-0 Yes APPLY 2 TO [facility] Sodium 1 % 4-08 4 GRAMS 3 ity of gel 00:00: TIMES [place] 00 DAILY Medical NEEDED FOR Branch PAIN gabapentin 2021-0 Yes [id number] 600mg Take 2 [facility] 300 mg 4-08 105 capsules ity of capsule 00:00: by mouth 3 [place] 00 (three) Medical times Branch daily. Diclofenac 2021-0 Yes [id number] APPLY 2 TO [facility] Sodium 1 % 4-08 4 GRAMS 3 ity of gel 00:00: TIMES [place] 00 DAILY Medical NEEDED FOR Branch PAIN gabapentin 2021-0 Yes [id number] 600mg Take 2 [facility] 300 mg 4-08 105 capsules ity of capsule 00:00: by mouth 3 [place] 00 (three) Medical times Branch daily. Diclofenac 2021-0 Yes APPLY 2 TO [facility] Sodium 1 % 4-08 4 GRAMS 3 ity of gel 00:00: TIMES [place] 00 DAILY Medical NEEDED FOR Branch PAIN gabapentin 2021-0 Yes [id number] 600mg Take 2 [facility] 300 mg 4-08 105 capsules ity of capsule 00:00: by mouth 3 [place] 00 (three) Medical times Branch daily. Diclofenac 2021-0 Yes APPLY 2 TO [facility] Sodium 1 % 4-08 4 GRAMS 3 ity of gel 00:00: TIMES [place] 00 DAILY Medical NEEDED FOR Branch PAIN gabapentin 2021-0 Yes [id number] 600mg Take 2 [facility] 300 mg 4-08 105 capsules ity of capsule 00:00: by mouth 3 [place] 00 (three) Medical times Branch daily. Diclofenac 2021-0 Yes APPLY 2 TO [facility] Sodium 1 % 4-08 4 GRAMS 3 ity of gel 00:00: TIMES [place] 00 DAILY Medical NEEDED FOR Branch PAIN gabapentin 2-0 Yes [id number] 600mg Take 2 [facility] 300 mg 4-08 105 capsules ity of capsule 00:00: by mouth 3 [place] 00 (three) Medical times Branch daily. Diclofenac 2-0 Yes APPLY 2 TO [facility] Sodium 1 % 4-08 4 GRAMS 3 ity of gel 00:00: TIMES [place] 00 DAILY Medical NEEDED FOR Branch PAIN gabapentin 2021-0 Yes [id number] 600mg Take 2 [facility] 300 mg 4-08 105 capsules ity of capsule 00:00: by mouth 3 [place] 00 (three) Medical times Branch daily. Diclofenac 2021-0 Yes APPLY 2 TO [facility] Sodium 1 % 4-08 4 GRAMS 3 ity of gel 00:00: TIMES [place] 00 DAILY Medical NEEDED FOR Branch PAIN gabapentin 2021-0 Yes [id number] 600mg Take 2 [facility] 300 mg 4-08 105 capsules ity of capsule 00:00: by mouth 3 [place] 00 (three) Medical times Branch daily. Diclofenac 2021-0 Yes APPLY 2 TO [facility] Sodium 1 % 4-08 4 GRAMS 3 ity of gel 00:00: TIMES [place] 00 DAILY Medical NEEDED FOR Branch PAIN gabapentin 2021-0 Yes [id number] 600mg Take 2 [facility] 300 mg 4-08 105 capsules ity of capsule 00:00: by mouth 3 [place] 00 (three) Medical times Branch daily. Diclofenac 2021-0 Yes APPLY 2 TO [facility] Sodium 1 % 4-08 4 GRAMS 3 ity of gel 00:00: TIMES [place] 00 DAILY Medical NEEDED FOR Branch PAIN gabapentin 2021-0 Yes [id number] 600mg Take 2 [facility] 300 mg 4-08 105 capsules ity of capsule 00:00: by mouth 3 [place] 00 (three) Medical times Branch daily. Diclofenac 2021-0 Yes APPLY 2 TO [facility] Sodium 1 % 4-08 4 GRAMS 3 ity of gel 00:00: TIMES [place] 00 DAILY Medical NEEDED FOR Branch PAIN gabapentin 2021-0 Yes [id number] 600mg Take 2 [facility] 300 mg 4-08 105 capsules ity of capsule 00:00: by mouth 3 [place] 00 (three) Medical times Branch daily. Diclofenac 2021-0 Yes APPLY 2 TO [facility] Sodium 1 % 4-08 4 GRAMS 3 ity of gel 00:00: TIMES [place] 00 DAILY Medical NEEDED FOR Branch PAIN gabapentin 2021-0 Yes [id number] 600mg Take 2 [facility] 300 mg 4-08 105 capsules ity of capsule 00:00: by mouth 3 [place] 00 (three) Medical times Branch daily. Diclofenac 2-0 Yes APPLY 2 TO [facility] Sodium 1 % 4-08 4 GRAMS 3 ity of gel 00:00: TIMES [place] 00 DAILY Medical NEEDED FOR Branch PAIN gabapentin Yes [id number] 600mg Take 2 [facility] 300 mg 09-26 105 capsules ity of capsule 00:00: by mouth 3 [place] 00 (three) Medical times Branch daily. SERTraline 2021- No [id number] 100mg Take 1 [facility] (ZOLOFT) 09-26- 105 tablet by ity o f 100 mg 00:00: 00:00 mouth [place] tablet 00 :00 daily. Medical Branch amitriptyli 2021- No [id number] TAKE 1 AND [facility] ne 50 mg 09-08 1/2 TABLET ity of tablet 00:00: 00:00 BY MOUTH [place] 00 :00 AT NIGHT Medical FOR 1 WEEK Branch IF PAIN/ANXIE TY/DEPRESS ION NOT IMPROVED THEN TAKE 2 AT NIGHT lisinopriL- 2020-06 Yes [id number] 1{tbl} Take 1 [facility] hydrochloro 0-22 tablet by ity of thiazide 00:00: mouth [place] 20-25 mg 00 daily. Medical per tablet Branch lisinopriL- 2020-06 Yes [id number] 1{tbl} Take 1 [facility] hydrochloro 0-22 tablet by ity of thiazide 00:00: mouth [place] 20-25 mg 00 daily. Medical per tablet Branch lisinopriL- 2020-06 Yes [id number] 1{tbl} Take 1 [facility] hydrochloro 0-22 tablet by ity of thiazide 00:00: mouth [place] 20-25 mg 00 daily. Medical per tablet Branch lisinopriL- 2020-06 Yes [id number] 1{tbl} Take 1 [facility] hydrochloro 0-22 tablet by ity of thiazide 00:00: mouth [place] 20-25 mg 00 daily. Medical per tablet Branch lisinopriL- 2020-06 Yes [id number] 1{tbl} Take 1 [facility] hydrochloro 0-22 tablet by ity of thiazide 00:00: mouth [place] 20-25 mg 00 daily. Medical per tablet Branch lisinopriL- 2020-06 Yes [id number] 1{tbl} Take 1 [facility] hydrochloro 0-22 tablet by ity of thiazide 00:00: mouth [place] 20-25 mg 00 daily. Medical per tablet Branch lisinopriL- 2020-06 Yes [id number] 1{tbl} Take 1 [facility] hydrochloro 0-22 tablet by ity of thiazide 00:00: mouth [place] 20-25 mg 00 daily. Medical per tablet Branch lisinopriL- 2020-06 Yes [id number] 1{tbl} Take 1 [facility] hydrochloro 0-22 tablet by ity of thiazide 00:00: mouth [place] 20-25 mg 00 daily. Medical per tablet Branch lisinopriL- 2020-06 Yes [id number] 1{tbl} Take 1 [facility] hydrochloro 0-22 tablet by ity of thiazide 00:00: mouth [place] 20-25 mg 00 daily. Medical per tablet Branch lisinopriL- 2020-06 Yes [id number] 1{tbl} Take 1 [facility] hydrochloro 0-22 tablet by ity of thiazide 00:00: mouth [place] 20-25 mg 00 daily. Medical per tablet Branch lisinopriL- 2020-06 Yes [id number] 1{tbl} Take 1 [facility] hydrochloro 0-22 tablet by ity of thiazide 00:00: mouth [place] 20-25 mg 00 daily. Medical per tablet Branch lisinopriL- 2020-06 Yes [id number] 1{tbl} Take 1 [facility] hydrochloro 0-22 tablet by ity of thiazide 00:00: mouth [place] 20-25 mg 00 daily. Medical per tablet Branch lisinopriL- 2020-06 Yes [id number] 1{tbl} Take 1 [facility] hydrochloro 0-22 tablet by ity of thiazide 00:00: mouth [place] 20-25 mg 00 daily. Medical per tablet Branch lisinopriL- 2020-06 Yes [id number] 1{tbl} Take 1 [facility] hydrochloro 0-22 tablet by ity of thiazide 00:00: mouth [place] 20-25 mg 00 daily. Medical per tablet Branch lisinopriL- 2020-06 Yes [id number] 1{tbl} Take 1 [facility] hydrochloro 0-22 tablet by ity of thiazide 00:00: mouth [place] 20-25 mg 00 daily. Medical per tablet Branch lisinopriL- 2020-06 Yes [id number] 1{tbl} Take 1 [facility] hydrochloro 0-22 tablet by ity of thiazide 00:00: mouth [place] 20-25 mg 00 daily. Medical per tablet Branch lisinopriL- 2020-06 Yes [id number] 1{tbl} Take 1 [facility] hydrochloro 0-22 tablet by ity of thiazide 00:00: mouth [place] 20-25 mg 00 daily. Medical per tablet Branch lisinopriL- 2020-06 Yes [id number] 1{tbl} Take 1 [facility] hydrochloro 0-22 tablet by ity of thiazide 00:00: mouth [place] 20-25 mg 00 daily. Medical per tablet Branch lisinopriL- 2020-06- No [id number] 1{tbl} Take 1 [facility] hydrochloro 0-22 10-06 tablet by it y of thiazide 00:00: 00:00 mouth [place] 20-25 mg 00 :00 daily. Medical per tablet Branch tiZANidine 2021- No [id number] 2mg Take 1 [facility] 2 mg tablet 03-20 [id number] tablet by ity of 00:00: 00:00 mouth [place] 00 :00 every 8 Medical (eight) Branch hours as needed (muscle spasms). CLONIDINE Yes [id number] TAKE ONE U nivers 0.1 mg 8-19 TABLET BY ity of tablet 00:00: MOUTH [place] 00 THREE Medical TIMES A Branch DAY ONLY IF FOR BLOOD PRESSURE HIGHER THAN 180/90 CLONIDINE 2020-0 Yes [id number] TAKE ONE U nivers 0.1 mg 8-19 TABLET BY ity of tablet 00:00: MOUTH [place] 00 THREE Medical TIMES A Branch DAY ONLY IF FOR BLOOD PRESSURE HIGHER THAN 180/90 CLONIDINE 2020-0 Yes [id number] TAKE ONE U nivers 0.1 mg 8-19 TABLET BY ity of tablet 00:00: MOUTH [place] 00 THREE Medical TIMES A Branch DAY ONLY IF FOR BLOOD PRESSURE HIGHER THAN 180/90 CLONIDINE 2020-0 Yes [id number] TAKE ONE U nivers 0.1 mg 8-19 TABLET BY ity of tablet 00:00: MOUTH [place] 00 THREE Medical TIMES A Branch DAY ONLY IF FOR BLOOD PRESSURE HIGHER THAN 180/90 CLONIDINE 2020-0 Yes [id number] TAKE ONE U nivers 0.1 mg 8-19 TABLET BY ity of tablet 00:00: MOUTH [place] 00 THREE Medical TIMES A Branch DAY ONLY IF FOR BLOOD PRESSURE HIGHER THAN 180/90 CLONIDINE 2020-0 Yes [id number] TAKE ONE U nivers 0.1 mg 8-19 TABLET BY ity of tablet 00:00: MOUTH [place] 00 THREE Medical TIMES A Branch DAY ONLY IF FOR BLOOD PRESSURE HIGHER THAN 180/90 CLONIDINE 2021-0 Yes [id number] TAKE ONE U nivers 0.1 mg 8-19 TABLET BY ity of tablet 00:00: THREE Medical TIMES A Branch DAY ONLY IF FOR BLOOD PRESSURE HIGHER THAN 180/90 CLONIDINE 2021-0 Yes [id number] TAKE ONE U nivers 0.1 mg 8-19 TABLET BY ity of tablet 00:00: THREE Medical TIMES A Branch DAY ONLY IF FOR BLOOD PRESSURE HIGHER THAN 180/90 CLONIDINE 2021-0 Yes [id number] TAKE ONE U nivers 0.1 mg 8-19 TABLET BY ity of tablet 00:00: THREE Medical TIMES A Branch DAY ONLY IF FOR BLOOD PRESSURE HIGHER THAN 180/90 CLONIDINE 2021-0 Yes [id number] TAKE ONE U nivers 0.1 mg 8-19 TABLET BY ity of tablet 00:00: THREE Medical TIMES A Branch DAY ONLY IF FOR BLOOD PRESSURE HIGHER THAN 180/90 CLONIDINE 2021-0 Yes [id number] TAKE ONE U nivers 0.1 mg 8-19 TABLET BY ity of tablet 00:00: THREE Medical TIMES A Branch DAY ONLY IF FOR BLOOD PRESSURE HIGHER THAN 180/90 CLONIDINE 2021-0 Yes [id number] TAKE ONE U nivers 0.1 mg 8-19 TABLET BY ity of tablet 00:00: THREE Medical TIMES A Branch DAY ONLY IF FOR BLOOD PRESSURE HIGHER THAN 180/90 CLONIDINE 2021-0 Yes [id number] TAKE ONE U nivers 0.1 mg 8-19 TABLET BY ity of tablet 00:00: THREE Medical TIMES A Branch DAY ONLY IF FOR BLOOD PRESSURE HIGHER THAN 180/90 CLONIDINE 2021-0 Yes [id number] TAKE ONE U nivers 0.1 mg 8-19 TABLET BY ity of tablet 00:00: THREE Medical TIMES A Branch DAY ONLY IF FOR BLOOD PRESSURE HIGHER THAN 180/90 CLONIDINE 2021-0 Yes [id number] TAKE ONE U nivers 0.1 mg 8-19 TABLET BY ity of tablet 00:00: THREE Medical TIMES A Branch DAY ONLY IF FOR BLOOD PRESSURE HIGHER THAN 180/90 CLONIDINE 2021-0 Yes [id number] TAKE ONE [facility] nivers 0.1 mg 8-19 TABLET BY ity of tablet 00:00: 00 THREE Medical TIMES A Branch DAY ONLY IF FOR BLOOD PRESSURE HIGHER THAN 180/90 CLONIDINE 2020-0 Yes [id number] TAKE ONE U nivers 0.1 mg 8-19 TABLET BY ity of tablet 00:00: MOUTH [place] 00 THREE Medical TIMES A Branch DAY ONLY IF FOR BLOOD PRESSURE HIGHER THAN 180/90 CLONIDINE 2020-0 Yes [id number] TAKE ONE U nivers 0.1 mg 8-19 TABLET BY ity of tablet 00:00: MOUTH [place] 00 THREE Medical TIMES A Branch DAY ONLY IF FOR BLOOD PRESSURE HIGHER THAN 180/90 CLONIDINE 2020-0 2022- No [id number] TAKE ONE Univers 0.1 mg 8-19 10-06 TABLET BY ity of tablet 00:00: 00:00 MOUTH [place] 00 :00 THREE Medical TIMES A Branch DAY ONLY IF FOR BLOOD PRESSURE HIGHER THAN 180/90 Diclofenac 2020-0 2022- No [id number] APPLY 2 TO Univers Sodium 1 % - 04-08 4 GRAMS 3 ity of gel 00:00: 00:00 TIMES [place] 00 :00 DAILY Medical NEEDED FOR Branch PAIN hydrOXYzine 2020-0 202- No [id number] 25mg Take 1 [facility] 25 mg 4-16 -08 capsule by ity of capsule 00:00: 00:00 mouth 4 [place] 00 :00 (four) Medical times Branch daily as needed for Anxiety. HYDROcodone 2020- Yes 1{tbl} 1 tablet 2 Univers -acetaminop 3-23 (two) ity of hen 7.5-325 00:00: times [place] mg per 00 daily. Medical tablet Branch HYDROcodone 2020-0 Yes 1{tbl} 1 tablet 2 Univers -acetaminop 3-23 (two) ity of hen 7.5-325 00:00: times [place] mg per 00 daily. Medical tablet Branch HYDROcodone 2020-0 Yes 1{tbl} 1 tablet 2 Univers -acetaminop 3-23 (two) ity of hen 7.5-325 00:00: times [place] mg per 00 daily. Medical tablet Branch HYDROcodone 2020-0 Yes 1{tbl} 1 tablet 2 Univers -acetaminop 3-23 (two) ity of hen 7.5-325 00:00: times [place] mg per 00 daily. Medical tablet Branch HYDROcodone 2020-0 Yes 1{tbl} 1 tablet 2 Univers -acetaminop 3-23 (two) ity of hen 7.5-325 00:00: times [place] mg per 00 daily. Medical tablet Branch HYDROcodone 2020-0 Yes 1{tbl} 1 tablet 2 Univers -acetaminop 3-23 (two) ity of hen 7.5-325 00:00: times [place] mg per 00 daily. Medical tablet Branch HYDROcodone 2020-0 Yes 1{tbl} 1 tablet 2 Univers -acetaminop 3-23 (two) ity of hen 7.5-325 00:00: times [place] mg per 00 daily. Medical tablet Branch HYDROcodone 2020-0 Yes 1{tbl} 1 tablet 2 Univers -acetaminop 3-23 (two) ity of hen 7.5-325 00:00: times [place] mg per 00 daily. Medical tablet Branch HYDROcodone 2020-0 Yes 1{tbl} 1 tablet 2 Univers -acetaminop 3-23 (two) ity of hen 7.5-325 00:00: times [place] mg per 00 daily. Medical tablet Branch HYDROcodone 2020-0 Yes 1{tbl} 1 tablet 2 Univers -acetaminop 3-23 (two) ity of hen 7.5-325 00:00: times [place] mg per 00 daily. Medical tablet Branch HYDROcodone 2020-0 Yes 1{tbl} 1 tablet 2 Univers -acetaminop 3-23 (two) ity of hen 7.5-325 00:00: times [place] mg per 00 daily. Medical tablet Branch HYDROcodone 2020-0 Yes 1{tbl} 1 tablet 2 Univers -acetaminop 3-23 (two) ity of hen 7.5-325 00:00: times [place] mg per 00 daily. Medical tablet Branch HYDROcodone 2020-0 Yes 1{tbl} 1 tablet 2 Univers -acetaminop 3-23 (two) ity of hen 7.5-325 00:00: times [place] mg per 00 daily. Medical tablet Branch HYDROcodone 2020-0 Yes 1{tbl} 1 tablet 2 Univers -acetaminop 3-23 (two) ity of hen 7.5-325 00:00: times [place] mg per 00 daily. Medical tablet Branch HYDROcodone 2020-0 Yes 1{tbl} 1 tablet 2 Univers -acetaminop 3-23 (two) ity of hen 7.5-325 00:00: times [place] mg per 00 daily. Medical tablet Branch HYDROcodone 2020-0 Yes 1{tbl} 1 tablet 2 Univers -acetaminop 3-23 (two) ity of hen 7.5-325 00:00: times [place] mg per 00 daily. Medical tablet Branch HYDROcodone 2020-0 Yes 1{tbl} 1 tablet 2 Univers -acetaminop 3-23 (two) ity of hen 7.5-325 00:00: times [place] mg per 00 daily. Medical tablet Branch HYDROcodone 2020-0 Yes 1{tbl} 1 tablet 2 Univers -acetaminop 3-23 (two) ity of hen 7.5-325 00:00: times [place] mg per 00 daily. Medical tablet Branch HYDROcodone 2020-0 Yes 1{tbl} 1 tablet 2 Univers -acetaminop 3-23 (two) ity of hen 7.5-325 00:00: times [place] mg per 00 daily. Medical tablet Branch HYDROcodone 2020-0 Yes 1{tbl} 1 tablet 2 Univers -acetaminop 3-23 (two) ity of hen 7.5-325 00:00: times [place] mg per 00 daily. Medical tablet Branch HYDROcodone 2020-0 Yes 1{tbl} 1 tablet 2 Univers -acetaminop 3-23 (two) ity of hen 7.5-325 00:00: times [place] mg per 00 daily. Medical tablet Branch HYDROcodone 2020-0 Yes 1{tbl} 1 tablet 2 Univers -acetaminop 3-23 (two) ity of hen 7.5-325 00:00: times [place] mg per 00 daily. Medical tablet Branch HYDROcodone 2020-0 Yes 1{tbl} 1 tablet 2 Univers -acetaminop 3-23 (two) ity of hen 7.5-325 00:00: times [place] mg per 00 daily. Medical tablet Branch HYDROcodone 2020-0 Yes 1{tbl} 1 tablet 2 Univers -acetaminop 3-23 (two) ity of hen 7.5-325 00:00: times [place] mg per 00 daily. Medical tablet Branch HYDROcodone 2020-0 Yes 1{tbl} 1 tablet 2 Univers -acetaminop 3-23 (two) ity of hen 7.5-325 00:00: times [place] mg per 00 daily. Medical tablet Branch HYDROcodone 2020-0 Yes 1{tbl} 1 tablet 2 Univers -acetaminop 3-23 (two) ity of hen 7.5-325 00:00: times [place] mg per 00 daily. Medical tablet Branch HYDROcodone 2020-0 Yes 1{tbl} 1 tablet 2 Univers -acetaminop 3-23 (two) ity of hen 7.5-325 00:00: times [place] mg per 00 daily. Medical tablet Branch HYDROcodone 2020-0 Yes 1{tbl} 1 tablet 2 Univers -acetaminop 3-23 (two) ity of hen 7.5-325 00:00: times [place] mg per 00 daily. Medical tablet Branch HYDROcodone 2020-0 Yes 1{tbl} 1 tablet 2 Univers -acetaminop 3-23 (two) ity of hen 7.5-325 00:00: times [place] mg per 00 daily. Medical tablet Branch HYDROcodone 2020-0 Yes 1{tbl} 1 tablet 2 Univers -acetaminop 3-23 (two) ity of hen 7.5-325 00:00: times [place] mg per 00 daily. Medical tablet Branch HYDROcodone 2020-0 Yes 1{tbl} 1 tablet 2 Univers -acetaminop 3-23 (two) ity of hen 7.5-325 00:00: times [place] mg per 00 daily. Medical tablet Branch HYDROcodone 2020-0 Yes 1{tbl} 1 tablet 2 Univers -acetaminop 3-23 (two) ity of hen 7.5-325 00:00: times [place] mg per 00 daily. Medical tablet Branch HYDROcodone 2020-0 Yes 1{tbl} 1 tablet 2 Univers -acetaminop 3-23 (two) ity of hen 7.5-325 00:00: times [place] mg per 00 daily. Medical tablet Branch HYDROcodone 2020-0 Yes 1{tbl} 1 tablet 2 Univers -acetaminop 3-23 (two) ity of hen 7.5-325 00:00: times [place] mg per 00 daily. Medical tablet Branch pregabalin 0 2022- No Univer s 150 mg 2-11 22-08 ity of capsule 00:00: 00:00 [place] 00 :00 Medical Branch Immunizations Ordered Filled Immunization Date Status Comments [facility] Immunization Name Name Influenza Virus 2021-05-05 Completed [facility] Vaccine,quad 00:00:00 [place] [facility] 65+ Influenza Virus 2021-05-05 Completed [facility]it [facility] of Vaccine,quad 00:00:00 [place] [facility] 65+ Influenza Virus 2021-05-05 Completed [facility]it y of Vaccine,quad 00:00:00 [place] [facility] 65+ Influenza Virus 2021-05-05 Completed [facility]it y of Vaccine,quad 00:00:00 [place] [facility] 65+ Influenza Virus 2021-05-05 Completed [facility]it y of Vaccine,quad 00:00:00 [place] [facility] 65+ Influenza Virus 2021-05-05 Completed [facility]it y of Vaccine,quad 00:00:00 [place] [facility] Free [facility] 65+ Influenza Virus 2021-05-05 Completed [facility]it y of Vaccine,quad 00:00:00 [place] [facility] 65+ Influenza Virus 2021-05-05 Completed [facility]it y of Vaccine,quad 00:00:00 [place] [facility] 65+ Influenza Virus 2021-05-05 Completed [facility]it y of Vaccine,quad 00:00:00 [place] [facility],preserve Free [facility] 65+ Influenza Virus 2021-05-05 Completed [facility]it y of Vaccine,quad 00:00:00 [place] [facility] 65+ Influenza Virus 2021-05-05 Completed [facility]it y of Vaccine,quad 00:00:00 [place] [facility],preserve [facility] 65+ Influenza Virus 2021-05-05 Completed [facility]it y of Vaccine,quad 00:00:00 [place] [facility] 65+ Influenza Virus 2021-05-05 Completed [facility]it y of Vaccine,quad 00:00:00 [place] [facility] Free [facility] 65+ Influenza Virus 2021-05-05 Completed [facility]it y of Vaccine,quad 00:00:00 [place] [facility] 65+ Influenza Virus 2021-05-05 Completed [facility]it y of Vaccine,quad 00:00:00 [place] [facility] 65+ Influenza Virus 2021-05-05 Completed Universit y of Vaccine,quad 00:00:00 [place] [facility],preserve Free Branch 65+ Influenza Virus 2021-05-05 Completed [facility]it y of Vaccine,quad 00:00:00 [place] [facility] Free Branch 65+ Influenza Virus 2021-05-05 Completed Universit y of Vaccine,quad 00:00:00 [place] [facility] Free Branch 65+ Influenza Virus 2021-05-05 Completed [facility]it y of Vaccine,quad 00:00:00 [place] [facility] Free [facility] 65+ Influenza Virus 2021-05-05 Completed [facility]it y of Vaccine,quad 00:00:00 [place] [facility],preserve Free Branch 65+ Influenza Virus 2021-05-05 Completed [facility]it y of Vaccine,quad 00:00:00 [place] [facility] Free [facility] 65+ Influenza Virus 2021-05-05 Completed [facility]it y of Vaccine,quad 00:00:00 [place] [facility] Free Branch 65+ Influenza Virus 2021-05-05 Completed [facility]it y of Vaccine,quad 00:00:00 [place] [facility],preserve Free Branch 65+ Influenza Virus 2021-05-05 Completed [facility]it y of Vaccine,quad 00:00:00 [place] [facility] Free Branch 65+ Influenza Virus 2021-05-05 Completed Universit y of Vaccine,quad 00:00:00 [place] [facility],preserve Free Branch 65+ Influenza Virus 2021-05-05 Completed Universit y of Vaccine,quad 00:00:00 [place] [facility],preserve Free Branch 65+ Influenza Virus 2021-05-05 Completed Universit y of Vaccine,quad 00:00:00 [place] [facility],preserve Free Branch 65+ Influenza Virus 2021-05-05 Completed Universit y of Vaccine,quad 00:00:00 [place] [facility],preserve Free Branch 65+ Influenza Virus 2021-05-05 Completed Universit y of Vaccine,quad 00:00:00 [place] [facility] Free Branch 65+ Influenza Virus 2021-05-05 Completed Universit y of Vaccine,quad 00:00:00 [place] [facility],preserve Free Branch 65+ Influenza Virus 2021-05-05 Completed Universit y of Vaccine,quad 00:00:00 [place] [facility] Free Branch 65+ Influenza Virus 2021-05-05 Completed Universit y of Vaccine,quad 00:00:00 [place] [facility] Branch 65+ Influenza Virus 2021-05-05 Completed Universit y of Vaccine,quad 00:00:00 [place] [facility],preserve Free Branch 65+ Influenza Virus 2021-05-05 Completed Universit y of Vaccine,quad 00:00:00 [place] [facility],preserve Free Branch 65+ SARS-COV-2 COVID-19 2020-09-04 Completed Unive rsity of PFIZER VACCINE 00:00:00 [facility] Branch SARS-COV-2 COVID-19 2020-09-04 Completed Unive rsity of PFIZER VACCINE 00:00:00 [facility] Branch SARS-COV-2 COVID-19 2020-09-04 Completed Unive rsity of PFIZER VACCINE 00:00:00 [facility] Branch SARS-COV-2 COVID-19 2020-09-04 Completed Unive rsity of PFIZER VACCINE 00:00:00 [facility] Branch SARS-COV-2 COVID-19 2020-09-04 Completed Unive rsity of PFIZER VACCINE 00:00:00 [facility] Branch SARS-COV-2 COVID-19 2020-09-04 Completed Unive rsity of PFIZER VACCINE 00:00:00 [facility] Branch SARS-COV-2 COVID-19 2020-09-04 Completed Unive rsity of PFIZER VACCINE 00:00:00 [facility] Branch SARS-COV-2 COVID-19 2020-09-04 Completed Unive rsity of PFIZER VACCINE 00:00:00 [facility] Branch SARS-COV-2 COVID-19 2020-09-04 Completed Unive rsity of PFIZER VACCINE 00:00:00 [facility] Branch SARS-COV-2 COVID-19 2020-09-04 Completed Unive rsity of PFIZER VACCINE 00:00:00 [facility] Branch SARS-COV-2 COVID-19 2020-09-04 Completed Unive rsity of PFIZER VACCINE 00:00:00 [facility] SARS-COV-2 COVID-19 2020-09-04 Completed Unive rsity of PFIZER VACCINE 00:00:00 [facility] SARS-COV-2 COVID-19 2020-09-04 Completed Unive rsity of PFIZER VACCINE 00:00:00 [facility] Branch SARS-COV-2 COVID-19 2020-09-04 Completed Unive rsity of PFIZER VACCINE 00:00:00 [place] [facility] Branch SARS-COV-2 COVID-19 2020-09-04 Completed Unive rsity of PFIZER VACCINE 00:00:00 [facility] Branch SARS-COV-2 COVID-19 2020-09-04 Completed Unive rsity of PFIZER VACCINE 00:00:00 [place] [facility] Branch SARS-COV-2 COVID-19 2020-09-04 Completed Unive rsity of PFIZER VACCINE 00:00:00 [facility] Branch SARS-COV-2 COVID-19 2020-09-04 Completed Unive rsity of PFIZER VACCINE 00:00:00 [facility] Branch SARS-COV-2 COVID-19 2020-09-04 Completed Unive rsity of PFIZER VACCINE 00:00:00 [facility] Branch SARS-COV-2 COVID-19 2020-09-04 Completed Unive rsity of PFIZER VACCINE 00:00:00 [facility] Branch SARS-COV-2 COVID-19 2020-09-04 Completed Unive rsity of PFIZER VACCINE 00:00:00 [facility] Branch SARS-COV-2 COVID-19 2020-09-04 Completed Unive rsity of PFIZER VACCINE 00:00:00 [facility] Branch SARS-COV-2 COVID-19 2020-09-04 Completed Unive rsity of PFIZER VACCINE 00:00:00 [facility] Branch SARS-COV-2 COVID-19 2020-09-04 Completed Unive rsity of PFIZER VACCINE 00:00:00 [facility] Branch SARS-COV-2 COVID-19 2020-09-04 Completed Unive rsity of PFIZER VACCINE 00:00:00 [facility] Branch SARS-COV-2 COVID-19 2020-09-04 Completed Unive rsity of PFIZER VACCINE 00:00:00 [facility] Branch SARS-COV-2 COVID-19 2020-09-04 Completed Unive rsity of PFIZER VACCINE 00:00:00 [facility] Branch SARS-COV-2 COVID-19 2020-09-04 Completed Unive rsity of PFIZER VACCINE 00:00:00 [facility] Branch SARS-COV-2 COVID-19 2020-09-04 Completed Unive rsity of PFIZER VACCINE 00:00:00 [facility] SARS-COV-2 COVID-19 2020-09-04 Completed Unive rsity of PFIZER VACCINE 00:00:00 [facility] SARS-COV-2 COVID-19 2020-09-04 Completed Unive rsity of PFIZER VACCINE 00:00:00 [facility] SARS-COV-2 COVID-19 2020-09-04 Completed Unive rsity of PFIZER VACCINE 00:00:00 [facility] Branch SARS-COV-2 COVID-19 2020-09-04 Completed Unive rsity of PFIZER VACCINE 00:00:00 [facility] SARS-COV-2 COVID-19 2020-09-04 Completed Unive rsity of PFIZER VACCINE 00:00:00 [facility] SARS-COV-2 COVID-19 2020-08-11 Completed Unive rsity of PFIZER VACCINE 00:00:00 [facility] SARS-COV-2 COVID-19 2020-08-11 Completed Unive rsity of PFIZER VACCINE 00:00:00 [facility] Branch SARS-COV-2 COVID-19 2020-08-11 Completed Unive rsity of PFIZER VACCINE 00:00:00 [facility] SARS-COV-2 COVID-19 2020-08-11 Completed Unive rsity of PFIZER VACCINE 00:00:00 [facility] SARS-COV-2 COVID-19 2020-08-11 Completed Unive rsity of PFIZER VACCINE 00:00:00 [facility] SARS-COV-2 COVID-19 2020-08-11 Completed Unive rsity of PFIZER VACCINE 00:00:00 [facility] Branch SARS-COV-2 COVID-19 2020-08-11 Completed Unive rsity of PFIZER VACCINE 00:00:00 [facility] SARS-COV-2 COVID-19 2020-08-11 Completed Unive rsity of PFIZER VACCINE 00:00:00 [facility] SARS-COV-2 COVID-19 2020-08-11 Completed Unive rsity of PFIZER VACCINE 00:00:00 [facility] SARS-COV-2 COVID-19 2020-08-11 Completed Unive rsity of PFIZER VACCINE 00:00:00 [place] [facility] SARS-COV-2 COVID-19 2020-08-11 Completed Unive rsity of PFIZER VACCINE 00:00:00 [facility] Branch SARS-COV-2 COVID-19 2020-08-11 Completed Unive rsity of PFIZER VACCINE 00:00:00 [facility] Branch SARS-COV-2 COVID-19 2020-08-11 Completed Unive rsity of PFIZER VACCINE 00:00:00 [facility] Branch SARS-COV-2 COVID-19 2020-08-11 Completed Unive rsity of PFIZER VACCINE 00:00:00 [facility] Branch SARS-COV-2 COVID-19 2020-08-11 Completed Unive rsity of PFIZER VACCINE 00:00:00 [facility] Branch SARS-COV-2 COVID-19 2020-08-11 Completed Unive rsity of PFIZER VACCINE 00:00:00 [facility] Branch SARS-COV-2 COVID-19 2020-08-11 Completed Unive rsity of PFIZER VACCINE 00:00:00 [facility] Branch SARS-COV-2 COVID-19 2020-08-11 Completed Unive rsity of PFIZER VACCINE 00:00:00 [facility] Branch SARS-COV-2 COVID-19 2020-08-11 Completed Unive rsity of PFIZER VACCINE 00:00:00 [facility] Branch SARS-COV-2 COVID-19 2020-08-11 Completed Unive rsity of PFIZER VACCINE 00:00:00 [facility] Branch SARS-COV-2 COVID-19 2020-08-11 Completed Unive rsity of PFIZER VACCINE 00:00:00 [facility] Branch SARS-COV-2 COVID-19 2020-08-11 Completed Unive rsity of PFIZER VACCINE 00:00:00 [facility] Branch SARS-COV-2 COVID-19 2020-08-11 Completed Unive rsity of PFIZER VACCINE 00:00:00 [facility] Branch SARS-COV-2 COVID-19 2020-08-11 Completed Unive rsity of PFIZER VACCINE 00:00:00 [facility] SARS-COV-2 COVID-19 2020-08-11 Completed Unive rsity of PFIZER VACCINE 00:00:00 [facility] Branch SARS-COV-2 COVID-19 2020-08-11 Completed Unive rsity of PFIZER VACCINE 00:00:00 [facility] SARS-COV-2 COVID-19 2020-08-11 Completed Unive rsity of PFIZER VACCINE 00:00:00 [facility] SARS-COV-2 COVID-19 2020-08-11 Completed Unive rsity of PFIZER VACCINE 00:00:00 [facility] SARS-COV-2 COVID-19 2020-08-11 Completed Unive rsity of PFIZER VACCINE 00:00:00 [facility] SARS-COV-2 COVID-19 2020-08-11 Completed Unive rsity of PFIZER VACCINE 00:00:00 [facility] SARS-COV-2 COVID-19 2020-08-11 Completed Unive rsity of PFIZER VACCINE 00:00:00 [facility] SARS-COV-2 COVID-19 2020-08-11 Completed Unive rsity of PFIZER VACCINE 00:00:00 [facility] SARS-COV-2 COVID-19 2020-08-11 Completed Unive rsity of PFIZER VACCINE 00:00:00 [facility] SARS-COV-2 COVID-19 2020-08-11 Completed Unive rsity of PFIZER VACCINE 00:00:00 [facility] Influenza High Dose 2020-03-28 Completed Unive rsity of Quad 00:00:00 [facility] Influenza High Dose 2020-03-28 Completed Unive rsity of Quad 00:00:00 [facility] Influenza High Dose 2020-03-28 Completed Unive rsity of Quad 00:00:00 [facility] Influenza High Dose 2020-03-28 Completed Unive rsity of Quad 00:00:00 [facility] Influenza High Dose 2020-03-28 Completed Unive rsity of Quad 00:00:00 [facility] Influenza High Dose 2020-03-28 Completed Unive rsity of Quad 00:00:00 [facility] Influenza High Dose 2020-03-28 Completed Unive rsity of Quad 00:00:00 [facility] Influenza High Dose 2020-03-28 Completed Unive rsity of Quad 00:00:00 [facility] Influenza High Dose 2020-03-28 Completed Unive rsity of Quad 00:00:00 [facility] Influenza High Dose 2020-03-28 Completed Unive rsity of Quad 00:00:00 [place] [facility] Influenza High Dose 2020-03-28 Completed Unive rsity of Quad 00:00:00 [place] [facility] Influenza High Dose 2020-03-28 Completed Unive rsity of Quad 00:00:00 [place] [facility] Influenza High Dose 2020-03-28 Completed Unive rsity of Quad 00:00:00 [facility] Influenza High Dose 2020-03-28 Completed Unive rsity of Quad 00:00:00 [place] [facility] Influenza High Dose 2020-03-28 Completed Unive rsity of Quad 00:00:00 [place] [facility] Influenza High Dose 2020-03-28 Completed Unive rsity of Quad 00:00:00 [place] [facility] Influenza High Dose 2020-03-28 Completed Unive rsity of Quad 00:00:00 [place] [facility] Influenza High Dose 2020-03-28 Completed Unive rsity of Quad 00:00:00 [facility] Influenza High Dose 2020-03-28 Completed Unive rsity of Quad 00:00:00 [facility] Influenza High Dose 2020-03-28 Completed Unive rsity of Quad 00:00:00 [facility] Influenza High Dose 2020-03-28 Completed Unive rsity of Quad 00:00:00 [facility] Influenza High Dose 2020-03-28 Completed Unive rsity of Quad 00:00:00 [facility] Influenza High Dose 2020-03-28 Completed Unive rsity of Quad 00:00:00 [place] [facility] Influenza High Dose 2020-03-28 Completed Unive rsity of Quad 00:00:00 [facility] Influenza High Dose 2020-03-28 Completed Unive rsity of Quad 00:00:00 [facility] Influenza High Dose 2020-03-28 Completed Unive rsity of Quad 00:00:00 [facility] Influenza High Dose 2020-03-28 Completed Unive rsity of Quad 00:00:00 [facility] Influenza High Dose 2020-03-28 Completed Unive rsity of Quad 00:00:00 [facility] Influenza High Dose 2020-03-28 Completed Unive rsity of Quad 00:00:00 [place] [facility] Influenza High Dose 2020-03-28 Completed Unive rsity of Quad 00:00:00 [place] [facility] Influenza High Dose 2020-03-28 Completed Unive rsity of Quad 00:00:00 [facility] Influenza High Dose 2020-03-28 Completed Unive rsity of Quad 00:00:00 [facility] Influenza High Dose 2020-03-28 Completed Unive rsity of Quad 00:00:00 [facility] Influenza High Dose 2020-03-28 Completed Unive rsity of Quad 00:00:00 [facility] Influenza High Dose 2019-05-07 Completed Unive rsity of 00:00:00 [facility] Influenza High Dose 2019-05-07 Completed Unive rsity of 00:00:00 [facility] Influenza High Dose 2019-05-07 Completed Unive rsity of 00:00:00 [facility] Influenza High Dose 2019-05-07 Completed Unive rsity of 00:00:00 [facility] Influenza High Dose 2019-05-07 Completed Unive rsity of 00:00:00 [facility] Influenza High Dose 2019-05-07 Completed Unive rsity of 00:00:00 [facility] Influenza High Dose 2019-05-07 Completed Unive rsity of 00:00:00 [facility] Influenza High Dose 2019-05-07 Completed Unive rsity of 00:00:00 [facility] Influenza High Dose 2019-05-07 Completed Unive rsity of 00:00:00 [facility] Influenza High Dose 2019-05-07 Completed Unive rsity of 00:00:00 [facility] Influenza High Dose 2019-05-07 Completed Unive rsity of 00:00:00 [facility] Influenza High Dose 2019-05-07 Completed Unive rsity of 00:00:00 [facility] Influenza High Dose 2019-05-07 Completed Unive rsity of 00:00:00 [facility] Influenza High Dose 2019-05-07 Completed Unive rsity of 00:00:00 [facility] Influenza High Dose 2019-05-07 Completed Unive rsity of 00:00:00 [facility] Influenza High Dose 2019-05-07 Completed Unive rsity of 00:00:00 [facility] Influenza High Dose 2019-05-07 Completed Unive rsity of 00:00:00 [facility] Influenza High Dose 2019-05-07 Completed Unive rsity of 00:00:00 [facility] Influenza High Dose 2019-05-07 Completed Unive rsity of 00:00:00 [facility] Influenza High Dose 2019-05-07 Completed Unive rsity of 00:00:00 [facility] Influenza High Dose 2019-05-07 Completed Unive rsity of 00:00:00 [facility] Influenza High Dose 2019-05-07 Completed Unive rsity of 00:00:00 [facility] Influenza High Dose 2019-05-07 Completed Unive rsity of 00:00:00 [facility] Influenza High Dose 2019-05-07 Completed Unive rsity of 00:00:00 [facility] Influenza High Dose 2019-05-07 Completed Unive rsity of 00:00:00 [facility] Influenza High Dose 2019-05-07 Completed Unive rsity of 00:00:00 [facility] Influenza High Dose 2019-05-07 Completed Unive rsity of 00:00:00 [facility] Influenza High Dose 2019-05-07 Completed Unive rsity of 00:00:00 [facility] Influenza High Dose 2019-05-07 Completed Unive rsity of 00:00:00 [facility] Influenza High Dose 2019-05-07 Completed Unive rsity of 00:00:00 [facility] Influenza High Dose 2019-05-07 Completed [facility] 00:00:00 [facility] [facility] Influ[facility] High Dose 2019-05-07 Completed [facility]ity of 00:00:00 [facility] Influenza High Dose 2019-05-07 Completed [facility]ity of 00:00:00 [facility] Influenza High Dose 2019-05-07 Completed [facility]ive [facility]ity of 00:00:00 [facility] Zoster(Zostavax)( 2018-10-10 Completed Unive rsity of ingles) 00:00:00 [facility] Zoster(Zostavax)( 2018-10-10 Completed Unive rsity of ingles) 00:00:00 [facility] Zoster(Zostavax)( 2018-10-10 Completed Unive rsity of ingles) 00:00:00 [facility] Zoster(Zostavax)( 2018-10-10 Completed Unive rsity of ingles) 00:00:00 [facility] Zoster(Zostavax)( 2018-10-10 Completed Unive rsity of ingles) 00:00:00 [facility] Zoster(Zostavax)( 2018-10-10 Completed Unive rsity of ingles) 00:00:00 [facility] Zoster(Zostavax)( 2018-10-10 Completed Unive rsity of ingles) 00:00:00 [facility] Zoster(Zostavax)( 2018-10-10 Completed Unive rsity of ingles) 00:00:00 [facility] Zoster(Zostavax)( 2018-10-10 Completed Unive rsity of ingles) 00:00:00 [facility] Zoster(Zostavax)( 2018-10-10 Completed Unive rsity of ingles) 00:00:00 [facility] Zoster(Zostavax)( 2018-10-10 Completed Unive rsity of ingles) 00:00:00 [facility] Zoster(Zostavax)( 2018-10-10 Completed Unive rsity of ingles) 00:00:00 [facility] Zoster(Zostavax)( 2018-10-10 Completed Unive rsity of ingles) 00:00:00 [facility] Zoster(Zostavax)( 2018-10-10 Completed Unive rsity of ingles) 00:00:00 [facility] Zoster(Zostavax)( 2018-10-10 Completed Unive rsity of ingles) 00:00:00 [facility] Zoster(Zostavax)( 2018-10-10 Completed Unive rsity of ingles) 00:00:00 [facility] Zoster(Zostavax)( 2018-10-10 Completed Unive rsity of ingles) 00:00:00 [facility] Zoster(Zostavax)( 2018-10-10 Completed Unive rsity of ingles) 00:00:00 [facility] Zoster(Zostavax)( 2018-10-10 Completed Unive rsity of ingles) 00:00:00 [facility] Zoster(Zostavax)( 2018-10-10 Completed [facility]ive rsity of ingles) 00:00:00 [facility] Zoster(Zostavax)( 2018-10-10 Completed Unive rsity of ingles) 00:00:00 [facility] Zoster(Zostavax)( 2018-10-10 Completed Unive rsity of ingles) 00:00:00 [facility] Zoster(Zostavax)( 2018-10-10 Completed Unive rsity of ingles) 00:00:00 [facility] Zoster(Zostavax)( 2018-10-10 Completed Unive rsity of ingles) 00:00:00 [facility] Zoster(Zostavax)( 2018-10-10 Completed Unive rsity of ingles) 00:00:00 [facility] Zoster(Zostavax)( 2018-10-10 Completed Unive rsity of ingles) 00:00:00 [facility] Zoster(Zostavax)( 2018-10-10 Completed Unive rsity of ingles) 00:00:00 [facility] Zoster(Zostavax)( 2018-10-10 Completed Unive rsity of ingles) 00:00:00 [facility] Zoster(Zostavax)( 2018-10-10 Completed Unive rsity of ingles) 00:00:00 [facility] Zoster(Zostavax)( 2018-10-10 Completed Unive rsity of ingles) 00:00:00 [facility] Zoster(Zostavax)( 2018-10-10 Completed Unive rsity of ingles) 00:00:00 [facility] Zoster(Zostavax)( 2018-10-10 Completed Unive rsity of ingles) 00:00:00 [facility] Zoster(Zostavax)( 2018-10-10 Completed Unive rsity of ingles) 00:00:00 [facility] Zoster(Zostavax)( 2018-10-10 Completed Unive rsity of ingles) 00:00:00 [facility] Influenza High Dose 2018-04-15 Completed [facility]ive rsity of 00:00:00 [facility] Influenza High Dose 2018-04-15 Completed [facility]ity of 00:00:00 [facility] Influenza High Dose 2018-04-15 Completed [facility]ive [facility]ity of 00:00:00 [facility] Influenza High Dose 2018-04-15 Completed [facility]ive [facility]ity of 00:00:00 [facility] Influenza High Dose 2018-04-15 Completed [facility]ive [facility]ity of 00:00:00 [facility] Influenza High Dose 2018-04-15 Completed [facility]ive [facility]ity of 00:00:00 [facility] Influenza High Dose 2018-04-15 Completed [facility]ity of 00:00:00 [facility] Influenza High Dose 2018-04-15 Completed [facility]ive rsity of 00:00:00 [facility] Influenza High Dose 2018-04-15 Completed [facility]ive rsity of 00:00:00 [facility] Influenza High Dose 2018-04-15 Completed [facility]ive rsity of 00:00:00 [facility] Influenza High Dose 2018-04-15 Completed [facility]ive rsity of 00:00:00 [facility] Influenza High Dose 2018-04-15 Completed [facility]ive rsity of 00:00:00 [facility] Influenza High Dose 2018-04-15 Completed [facility]ive rsity of 00:00:00 [facility] Influenza High Dose 2018-04-15 Completed [facility]ive rsity of 00:00:00 [facility] Influenza High Dose 2018-04-15 Completed [facility]ive rsity of 00:00:00 [facility] Influenza High Dose 2018-04-15 Completed [facility]ity of 00:00:00 [facility] Influenza High Dose 2018-04-15 Completed [facility]ive rsity of 00:00:00 [facility] Influenza High Dose 2018-04-15 Completed [facility]ive rsity of 00:00:00 [facility] Influenza High Dose 2018-04-15 Completed [facility]ive [facility]ity of 00:00:00 [facility] Influenza High Dose 2018-04-15 Completed [facility]ive rsity of 00:00:00 [facility] Influenza High Dose 2018-04-15 Completed [facility]ive [facility]ity of 00:00:00 [facility] Influenza High Dose 2018-04-15 Completed [facility] of 00:00:00 [facility] Influenza High Dose 2018-04-15 Completed [facility]ive rsity of 00:00:00 [facility] Influenza High Dose 2018-04-15 Completed [facility]ity of 00:00:00 [facility] Influenza High Dose 2018-04-15 Completed [facility]ive [facility] of 00:00:00 [facility] Influenza High Dose 2018-04-15 Completed [facility]ive rsity of 00:00:00 [facility] Influenza High Dose 2018-04-15 Completed [facility]ive rsity of 00:00:00 [facility] Influenza High Dose 2018-04-15 Completed [facility]ive rsity of 00:00:00 [facility] Influenza High Dose 2018-04-15 Completed [facility]ive [facility]ity of 00:00:00 [facility] Influenza High Dose 2018-04-15 Completed [facility]ive [facility]ity of 00:00:00 [facility] Influenza High Dose 2018-04-15 Completed [facility]ive [facility]ity of 00:00:00 [facility] Influenza High Dose 2018-04-15 Completed [facility]ive [facility]ity of 00:00:00 [facility] Influenza High Dose 2018-04-15 Completed [facility]ive [facility]ity of 00:00:00 [facility] Influenza High Dose 2018-04-15 Completed [facility]ity of 00:00:00 [facility] Influenza High Dose 2017-04-08 Completed [facility]ive [facility]ity of 00:00:00 [facility] Influenza High Dose 2017-04-08 Completed [facility]ive rsity of 00:00:00 [facility] Influenza High Dose 2017-04-08 Completed [facility]ive [facility]ity of 00:00:00 [facility] Influenza High Dose 2017-04-08 Completed [facility]ive [facility]ity of 00:00:00 [facility] Influenza High Dose 2017-04-08 Completed [facility]ive [facility]ity of 00:00:00 [facility] Influenza High Dose 2017-04-08 Completed [facility]ive [facility]ity of 00:00:00 [facility] Influenza High Dose 2017-04-08 Completed [facility]ive [facility]ity of 00:00:00 [facility] Influenza High Dose 2017-04-08 Completed [facility] of 00:00:00 [facility] Influenza High Dose 2017-04-08 Completed [facility] of 00:00:00 [facility] Influenza High Dose 2017-04-08 Completed [facility] of 00:00:00 [facility] Influenza High Dose 2017-04-08 Completed [facility] of 00:00:00 [facility] Influenza High Dose 2017-04-08 Completed [facility]ive [facility]ity of 00:00:00 [facility] Influenza High Dose 2017-04-08 Completed [facility]ive [facility]ity of 00:00:00 [facility] Influenza High Dose 2017-04-08 Completed [facility] of 00:00:00 [facility] Influenza High Dose 2017-04-08 Completed [facility] of 00:00:00 [facility] Influenza High Dose 2017-04-08 Completed [facility]ive [facility]ity of 00:00:00 [facility] Influenza High Dose 2017-04-08 Completed [facility] of 00:00:00 [facility] Influenza High Dose 2017-04-08 Completed [facility] of 00:00:00 [facility] Influenza High Dose 2017-04-08 Completed [facility]ive [facility]ity of 00:00:00 [facility] Influenza High Dose 2017-04-08 Completed [facility] of 00:00:00 [facility] Influenza High Dose 2017-04-08 Completed [facility]ive [facility]ity of 00:00:00 [facility] Influenza High Dose 2017-04-08 Completed [facility]ive [facility]ity of 00:00:00 [facility] Influenza High Dose 2017-04-08 Completed [facility]ive [facility]ity of 00:00:00 [facility] Influenza High Dose 2017-04-08 Completed [facility]ive [facility]ity of 00:00:00 [facility] Influenza High Dose 2017-04-08 Completed [facility]ive [facility]ity of 00:00:00 [facility] Influenza High Dose 2017-04-08 Completed [facility] of 00:00:00 [facility] Influenza High Dose 2017-04-08 Completed [facility]ive [facility]ity of 00:00:00 [facility] Influenza High Dose 2017-04-08 Completed [facility]ive [facility] of 00:00:00 [facility] Influenza High Dose 2017-04-08 Completed [facility]ive [facility] of 00:00:00 [facility] Influenza High Dose 2017-04-08 Completed [facility]ive [facility]ity of 00:00:00 [facility] Influenza High Dose 2017-04-08 Completed [facility]ive [facility]ity of 00:00:00 [facility] Influenza High Dose 2017-04-08 Completed [facility]ive [facility]ity of 00:00:00 [facility] Influenza High Dose 2017-04-08 Completed [facility]ive [facility]ity of 00:00:00 [facility] Influenza High Dose 2017-04-08 Completed [facility]ive [facility]ity of 00:00:00 [facility] Zoster(Zostavax)( 2016-06-24 Completed Unive rsity of ingles) 00:00:00 [facility] Zoster(Zostavax)( 2016-06-24 Completed Unive rsity of ingles) 00:00:00 [facility] Zoster(Zostavax)( 2016-06-24 Completed Unive rsity of ingles) 00:00:00 [facility] Zoster(Zostavax)( 2016-06-24 Completed Unive rsity of ingles) 00:00:00 [facility] Zoster(Zostavax)( 2016-06-24 Completed Unive rsity of ingles) 00:00:00 [facility] Zoster(Zostavax)( 2016-06-24 Completed Unive rsity of ingles) 00:00:00 [facility] Zoster(Zostavax)( 2016-06-24 Completed Unive rsity of ingles) 00:00:00 [facility] Zoster(Zostavax)( 2016-06-24 Completed Unive rsity of ingles) 00:00:00 [facility] Zoster(Zostavax)( 2016-06-24 Completed Unive rsity of ingles) 00:00:00 [facility] Zoster(Zostavax)( 2016-06-24 Completed Unive rsity of ingles) 00:00:00 [facility] Zoster(Zostavax)( 2016-06-24 Completed Unive rsity of ingles) 00:00:00 [facility] Zoster(Zostavax)( 2016-06-24 Completed Unive rsity of ingles) 00:00:00 [facility] Zoster(Zostavax)( 2016-06-24 Completed Unive rsity of ingles) 00:00:00 [facility] Zoster(Zostavax)( 2016-06-24 Completed Unive rsity of ingles) 00:00:00 [facility] Zoster(Zostavax)( 2016-06-24 Completed Unive rsity of ingles) 00:00:00 [facility] Zoster(Zostavax)( 2016-06-24 Completed Unive rsity of ingles) 00:00:00 [facility] Zoster(Zostavax)( 2016-06-24 Completed Unive rsity of ingles) 00:00:00 [facility] Zoster(Zostavax)( 2016-06-24 Completed Unive rsity of ingles) 00:00:00 [facility] Zoster(Zostavax)( 2016-06-24 Completed Unive rsity of ingles) 00:00:00 [facility] Zoster(Zostavax)( 2016-06-24 Completed Unive rsity of ingles) 00:00:00 [facility] Zoster(Zostavax)( 2016-06-24 Completed Unive rsity of ingles) 00:00:00 [facility] Zoster(Zostavax)( 2016-06-24 Completed Unive rsity of ingles) 00:00:00 [facility] Zoster(Zostavax)( 2016-06-24 Completed Unive rsity of ingles) 00:00:00 [facility] Zoster(Zostavax)( 2016-06-24 Completed Unive rsity of ingles) 00:00:00 [facility] Zoster(Zostavax)( 2016-06-24 Completed Unive rsity of ingles) 00:00:00 [facility] Zoster(Zostavax)( 2016-06-24 Completed Unive rsity of ingles) 00:00:00 [facility] Zoster(Zostavax)( 2016-06-24 Completed Unive rsity of ingles) 00:00:00 [facility] Zoster(Zostavax)( 2016-06-24 Completed Unive rsity of ingles) 00:00:00 [facility] Zoster(Zostavax)( 2016-06-24 Completed Unive rsity of ingles) 00:00:00 [facility] Zoster(Zostavax)( 2016-06-24 Completed Unive rsity of ingles) 00:00:00 [facility] Zoster(Zostavax)( 2016-06-24 Completed Unive rsity of ingles) 00:00:00 [facility] Zoster(Zostavax)( 2016-06-24 Completed Unive rsity of ingles) 00:00:00 [facility] Zoster(Zostavax)( 2016-06-24 Completed Unive rsity of ingles) 00:00:00 [facility] Zoster(Zostavax)( 2016-06-24 Completed Unive rsity of ingles) 00:00:00 [facility] Pneumococcal 13 2016-04-29 Completed Universit y of Conjugate, PCV13 00:00:00 [place] [facility] (Prevnar 13) [facility] Influenza High Dose 2016-04-29 Completed [facility]ive [facility]ity of 00:00:00 [facility] Pneumococcal 13 2016-04-29 Completed Universit y of Conjugate, PCV13 00:00:00 [place] [facility] (Prevnar 13) [facility] Influenza High Dose 2016-04-29 Completed [facility]ive [facility]ity of 00:00:00 [facility] Pneumococcal 13 2016-04-29 Completed Universit y of Conjugate, PCV13 00:00:00 [place] [facility] (Prevnar 13) [facility] Influenza High Dose 2016-04-29 Completed Unive rsity of 00:00:00 [facility] Pneumococcal 13 2016-04-29 Completed Universit y of Conjugate, PCV13 00:00:00 [place] [facility] (Prevnar 13) [facility] Influenza High Dose 2016-04-29 Completed Unive [facility]ity of 00:00:00 [facility] Pneumococcal 13 2016-04-29 Completed Universit y of Conjugate, PCV13 00:00:00 [place] [facility] (Prevnar 13) [facility] Influenza High Dose 2016-04-29 Completed Unive rsity of 00:00:00 [facility] Pneumococcal 13 2016-04-29 Completed Universit y of Conjugate, PCV13 00:00:00 [facility] (Prevnar 13) [facility] Influenza High Dose 2016-04-29 Completed [facility]ive rsity of 00:00:00 [facility] Pneumococcal 13 2016-04-29 Completed Universit y of Conjugate, PCV13 00:00:00 [place] [facility] (Prevnar 13) [facility] Influenza High Dose 2016-04-29 Completed Unive rsity of 00:00:00 [facility] Pneumococcal 13 2016-04-29 Completed Universit y of Conjugate, PCV13 00:00:00 [place] [facility] (Prevnar 13) [facility] Influenza High Dose 2016-04-29 Completed Unive rsity of 00:00:00 [facility] Pneumococcal 13 2016-04-29 Completed Universit y of Conjugate, PCV13 00:00:00 [place] [facility] (Prevnar 13) [facility] Influenza High Dose 2016-04-29 Completed [facility]ive rsity of 00:00:00 [facility] Pneumococcal 13 2016-04-29 Completed Universit y of Conjugate, PCV13 00:00:00 [place] [facility] (Prevnar 13) [facility] Influenza High Dose 2016-04-29 Completed Unive rsity of 00:00:00 [facility] Pneumococcal 13 2016-04-29 Completed Universit y of Conjugate, PCV13 00:00:00 [place] [facility] (Prevnar 13) [facility] Influenza High Dose 2016-04-29 Completed Unive rsity of 00:00:00 [facility] Pneumococcal 13 2016-04-29 Completed Universit y of Conjugate, PCV13 00:00:00 [place] [facility] (Prevnar 13) [facility] Influenza High Dose 2016-04-29 Completed [facility]ive rsity of 00:00:00 [facility] Pneumococcal 13 2016-04-29 Completed Universit y of Conjugate, PCV13 00:00:00 [place] [facility] (Prevnar 13) [facility] Influenza High Dose 2016-04-29 Completed Unive rsity of 00:00:00 [facility] Pneumococcal 13 2016-04-29 Completed Universit y of Conjugate, PCV13 00:00:00 [place] [facility] (Prevnar 13) [facility] Influenza High Dose 2016-04-29 Completed Unive rsity of 00:00:00 [facility] Pneumococcal 13 2016-04-29 Completed Universit y of Conjugate, PCV13 00:00:00 [place] [facility] (Prevnar 13) [facility] Influenza High Dose 2016-04-29 Completed Unive rsity of 00:00:00 [facility] Pneumococcal 13 2016-04-29 Completed Universit y of Conjugate, PCV13 00:00:00 [place] [facility] (Prevnar 13) [facility] Influenza High Dose 2016-04-29 Completed Unive rsity of 00:00:00 [facility] Pneumococcal 13 2016-04-29 Completed Universit y of Conjugate, PCV13 00:00:00 [place] [facility] (Prevnar 13) [facility] Influenza High Dose 2016-04-29 Completed Unive rsity of 00:00:00 [facility] Pneumococcal 13 2016-04-29 Completed Universit y of Conjugate, PCV13 00:00:00 [place] [facility] (Prevnar 13) [facility] Influenza High Dose 2016-04-29 Completed Unive rsity of 00:00:00 [facility] Pneumococcal 13 2016-04-29 Completed Universit y of Conjugate, PCV13 00:00:00 [place] [facility] (Prevnar 13) [facility] Influenza High Dose 2016-04-29 Completed Unive rsity of 00:00:00 [facility] Pneumococcal 13 2016-04-29 Completed Universit y of Conjugate, PCV13 00:00:00 [place] [facility] (Prevnar 13) [facility] Influenza High Dose 2016-04-29 Completed Unive rsity of 00:00:00 [facility] Pneumococcal 13 2016-04-29 Completed Universit y of Conjugate, PCV13 00:00:00 [place] [facility] (Prevnar 13) [facility] Influenza High Dose 2016-04-29 Completed [facility]ive rsity of 00:00:00 [facility] Pneumococcal 13 2016-04-29 Completed Universit y of Conjugate, PCV13 00:00:00 [place] [facility] (Prevnar 13) [facility] Influenza High Dose 2016-04-29 Completed [facility]ive rsity of 00:00:00 [facility] Pneumococcal 13 2016-04-29 Completed Universit y of Conjugate, PCV13 00:00:00 [place] [facility] (Prevnar 13) [facility] Influenza High Dose 2016-04-29 Completed [facility]ive rsity of 00:00:00 [facility] Pneumococcal 13 2016-04-29 Completed Universit y of Conjugate, PCV13 00:00:00 [place] [facility] (Prevnar 13) [facility] Influenza High Dose 2016-04-29 Completed Unive rsity of 00:00:00 [facility] Pneumococcal 13 2016-04-29 Completed Universit y of Conjugate, PCV13 00:00:00 [place] [facility] (Prevnar 13) [facility] Influenza High Dose 2016-04-29 Completed Unive rsity of 00:00:00 [facility] Pneumococcal 13 2016-04-29 Completed Universit y of Conjugate, PCV13 00:00:00 [place] [facility] (Prevnar 13) [facility] Influenza High Dose 2016-04-29 Completed Unive rsity of 00:00:00 [facility] Pneumococcal 13 2016-04-29 Completed Universit y of Conjugate, PCV13 00:00:00 [place] [facility] (Prevnar 13) [facility] Influenza High Dose 2016-04-29 Completed Unive rsity of 00:00:00 [facility] Pneumococcal 13 2016-04-29 Completed Universit [facility] of Conjugate, PCV13 00:00:00 [place] [facility] (Prevnar 13) [facility] Influenza High Dose 2016-04-29 Completed [facility]ive rsity of 00:00:00 [facility] Pneumococcal 13 2016-04-29 Completed Universit y of Conjugate, PCV13 00:00:00 [place] [facility] (Prevnar 13) [facility] Influenza High Dose 2016-04-29 Completed Unive rsity of 00:00:00 [facility] Pneumococcal 13 2016-04-29 Completed Universit y of Conjugate, PCV13 00:00:00 [place] [facility] (Prevnar 13) [facility] Influenza High Dose 2016-04-29 Completed [facility]ive [facility]ity of 00:00:00 [facility] Pneumococcal 13 2016-04-29 Completed Universit y of Conjugate, PCV13 00:00:00 [place] [facility] (Prevnar 13) [facility] Influenza High Dose 2016-04-29 Completed Unive rsity of 00:00:00 [facility] Pneumococcal 13 2016-04-29 Completed Universit y of Conjugate, PCV13 00:00:00 [facility] dical (Prevnar 13) Branch Influenza High Dose 2016-04-29 Completed Unive rsity of 00:00:00 [facility] Pneumococcal 13 2016-04-29 Completed Universit y of Conjugate, PCV13 00:00:00 [place] [facility] (Prevnar 13) [facility] Influenza High Dose 2016-04-29 Completed Unive rsity of 00:00:00 [facility] Pneumococcal 13 2016-04-29 Completed Universit y of Conjugate, PCV13 00:00:00 [facility] dical (Prevnar 13) Branch Influenza High Dose 2016-04-29 Completed Unive rsity of 00:00:00 [facility] Vital Signs Vital Name Observation Time Observation Value Comments Source Systolic blood 2022-04-15 19:04:00 158 mm[Hg] Univer sity of pressure [facility] Diastolic blood 2022-04-15 19:04:00 71 mm[Hg] Unive rsity of [facility] Heart rate 2022-04-15 19:04:00 88 /min [facility] Respiratory rate 2022-04-15 19:04:00 17 /min [facility] Oxygen saturation in 2022-04-15 19:04:00 94 /min [facility] Arterial blood by [facility] Pulse oximetry [place] Body temperature 2022-04-15 19:02:00 36.89 [facility] 2022-04-15 19:02:00 157.5 cm [facility] Body weight 2022-04-15 19:02:00 85.548 kg [facility] BMI 2022-04-15 19:02:00 34.50 kg/m2 [facility] Systolic blood 2022-02-26 19:11:00 127 mm[Hg] Univer sity of pressure [facility] Diastolic blood 2022-02-26 19:11:00 74 mm[Hg] Unive rsity of pressure [facility] Heart rate 2022-02-26 19:11:00 85 /min [facility] Body temperature 2022-02-26 19:11:00 36.33 Dianne [facility] ersity of [facility] Respiratory rate 2022-02-26 19:11:00 20 /min Univ ersity of [facility] Body height 2022-02-26 19:11:00 157.5 cm [facility] Body weight 2022-02-26 19:11:00 89.585 kg [facility] BMI 2022-02-26 19:11:00 36.12 kg/m2 [facility] Oxygen saturation in 2022-02-26 19:11:00 97 /min [facility] Arterial blood by [facility] Pulse oximetry Branch Systolic blood 2021-09-26 18:50:00 102 mm[Hg] Univer sity of [facility] Diastolic blood 2021-09-26 18:50:00 49 mm[Hg] Unive [facility] Heart rate 2021-09-26 18:45:00 75 /min [facility] Body temperature 2021-09-26 18:45:00 36.44 [facility] [place] [facility] Respiratory rate 2021-09-26 18:45:00 18 /min [facility] ersity of [facility] Body height 2021-09-26 18:45:00 157.5 cm [facility] Body weight 2021-09-26 18:45:00 89.359 kg [facility] BMI 2021-09-26 18:45:00 36.03 kg/m2 [facility] Oxygen saturation in 2021-09-26 18:45:00 95 /min [facility] Arterial blood by [facility] Pulse oximetry Branch Procedures Procedure Date / Time Performing Clinician Source Performed HOME HEALTH - OTHER 2022-04-17 05:01:00 Doctor Unassigned, [facility] PHYSICIAN ORDERS 2022-03-26 05:01:00 Doctor Unassigned, [facility] [place] [facility] MR LUMBAR SPINE WO 2022-03-11 20:49:31 Gisela Dig[facility] [facility] CONTR[facility] A Medical [facility] MR CERVICAL SPINE WO 2022-03-11 20:48:39 [facility] [place] OUTPATIENT CARDIAC 2022-03-10 05:01:00 Doctor Unassigned, Travis mercado [facility] CATHETERIZATION DOCUMENTS [place] [facility] Encounters Start End Encounter Admission Attending Care Care Encounter Source Date/Time Date/Time Type Type Clinicians Facility Department ID 2021-04-19 Outpatient Gila MILLER [facility] [place] [id number] Univers 19:37:13 SHABNAM itboom [facility] 2021-04-19 Emergency [facility] [id number] Univers 18:16:35 ity [facility] 2021-04-17 Emergency [facility] [id number] Univers 12:15:48 ity [facility] 2022-05-12 2022-05-12 Outpatient [facility] [id number] Univers 00:00:00 00:00:00 QUAN benites [facility] 2022-05-01 2022-05-01 Outpatient [facility] [id number] Univers 13:01:47 23:59:00 QUAN benites [facility] 2022-04-29 2022-04-29 [facility] 1.2.840.114 [id number] Univers 00:00:00 00:00:00 Gisela GORMAN 350.1.13.10 it[place] [id number] [facility] 2022-04-27 2022-04-27 Telephone Diggs, [facility] 12.840.114 9 [id number] Univers 00:00:00 00:00:00 Gisela GORMAN 350.1.13.10 it[place] of [place] [id number] [facility] 044 [facility] 2022-04-20 2022-04-20 Outpatient [facility] 1042 [id number] Univers 13:00:00 13:00:00 GISELA levine [facility] 2022-04-17 2022-04-17 Telephone [facility] 1.2.840.114 [id number] Univers 00:00:00 00:00:00 Gisela GORMAN 350.1.13.10 ity of [place] [id number] Mt dical NAL 231 [facility] 2022-04-17 2022-04-17 Orders Doctor KEITH 1.2.840.114 [id number] Univers 00:00:00 00:00:00 Only Unassigned, YULISSA 350.1.13.10 ity of [place] [facility] 4.2.7.2.686 Thiago as [id number] [address] 2022-04-15 2022-04-15 Outpatient R JOSE ROBERTO [facility] [id number] Univers 14:00:00 14:26:29 QUAN levine o f [facility] 2022-04-15 2022-04-15 Office [facility] 1.2.840.114 [id number] Univers 14:00:00 14:26:29 Visit Quan GORMAN 350.1.13.10 ity [facility] 4.2.[place] [id number] Mt dical [facility] 059 [facility] 2022-04-09 2022-04-09 Telephone [facility] 1.2.840.114 [id number] Univers 00:00:00 00:00:00 Gisela GORMAN 350.1.13.10 ity [facility] 4.[place] [id number] Mt dical NAL 044 [facility] 2022-04-08 2022-04-08 Telephone [facility] 1.2.840.114 9 [id number] Univers 00:00:00 00:00:00 Gisela GORMAN 350.1.13.10 it[place] of [place] [id number] Mt dical NAL 231 [facility] 2022-03-31 2022-03-31 Patient Brent [facility] 1.2.840.114 [id number] Univers 00:00:00 00:00:00 Outreach Kacy Rivera SHERIF 350.1.13.10 ity of [facility] 4.2.7.[place] [id number] [address] 2022-03-30 2022-03-30 [facility] 1.2.840.114 [id number] Univers 00:00:00 00:00:00 Gisela A SHERIF 350.1.13.10 it[place] of [place] [id number] [address] 2022-03-26 2022-03-26 Outpatient [facility] 1042 [id number] Univers 15:00:00 16:10:21 GISELA itboom [facility] 2022-03-26 2022-03-26 Telemedici [facility] 1.2.840.114 [id number] Univers 15:00:00 16:10:21 ne Visit Gisela GORMAN 350.1.13.10 it[place] of [place] [id number] [address] 2022-03-26 2022-03-26 Outpatient [facility] 1041 [id number] Univers 08:00:00 08:00:00 GISELA levine [facility] 2022-03-26 2022-03-26 Orders Doctor KEITH 1.2.840.114 [id number] Univers 00:00:00 00:00:00 Only Unassigned, YULISSA 350.1.13.10 ity of [place] [facility] 4.2.7.2.686 Thiago as [id number] [address] 2022-03-20 2022-03-20 Patient Brent [facility] 1.2.840.114 [id number] Univers 00:00:00 00:00:00 Outreach Kacy Rivera SHERIF 350.1.13.10 ity of [facility] 4.2.7.2.[place] [id number] [address] 2022-03-11 2022-03-11 Outpatient [facility] 1041 [id number] Univers 13:52:51 23:59:00 GISELA levine [facility] 2022-03-11 2022-03-11 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 13.10 ity of [place] [id number] Mt dical [facility] 353 [facility] 2022-03-11 2022-03-11 [facility] 1.2.840.114 [id number] Univers 13:50:13 13:51:00 Encounter Gisela GORMAN 350.1.13.10 it[place] of [place].2.7.2.[place] [id number] [address] 2022-03-11 2022-03-11 [facility] 1.2.840.114 [id number] Univers 13:45:15 13:49:00 Encounter Gisela GORMAN 350.1.13.10 it[place] of [place] [id number] [address] 2022-03-10 2022-03-10 [facility] 10[facility] [id number] Univers 00:00:00 00:00:00 GISELA levine [facility] 2022-03-10 2022-03-10 Telephone [facility] 1.2.840.114 [id number] Univers 00:00:00 00:00:00 Richard GORMAN 350.1.13.10 i ty of [place].7.2.[place] [id number] Mt dical [facility] 044 [facility] 2022-03-10 2022-03-10 Orders Doctor PARKER 1.2.840.114 [id number] Univers 00:00:00 00:00:00 Only Unassigned, YULISSA 350.1.13.10 ity of [facility] 4.2.7.2.686 Thiago as [phone] [address] 2022-03-09 2022-03-09 [facility] 1.2.840.114 9 [id number] Univers 00:00:00 00:00:00 Gisela Autumn [place] 350.1.13.10 it[place] of [place] [phone] [facility] 044 [facility] 2022-03-03 2022-03-03 Telephone [facility] 1.2.840.114 9 [id number] Univers 00:00:00 00:00:00 Gisela A ARANZATON 350.1.13.10 it[place] of [place] [id number] [address] 2022-02-26 2022-02-26 Outpatient [facility] 1040 [id number] Univers 13:40:00 15:09:54 GISELA ity of [facility] 2022-02-26 2022-02-26 Office [facility] 1.2.840.114 [id number] Univers 13:40:00 15:09:54 Visit Gisela GORMAN 350.1.13.10 it[place] of [place] [id number] [address] 2022-01-27 2022-01-27 Refill [facility] 1.2.840.114 [id number] [id number] Univers 00:00:00 00:00:00 Gisela Autumn [place] 350.1.13.10 it[place] of [place] [phone] [address] 2021-11-13 2021-11-13 Refill Diggs, [facility] 1.2.840.114 [id number] Univers 00:00:00 00:00:00 Gisela [place] 350.1.13.10 ity of [facility] 4.2.7.2.[place] [id number] [address] 2021-10-03 2021-10-03 Outpatient R CATERINA [facility] 1039 [id number] Univers 08:00:00 08:00:00 GISELA ity of [facility] 2021-09-26 2021-09-26 Hospital Radiology [facility] 1.2.840.114 [id number] Univers 15:03:30 23:59:00 Encounter SHERIF 350.1.13.10 it[place] of [place] 4[place]2.7.2.[place] [id number] [facility] [address] [place] 2021-09-26 2021-09-26 Outpatient R CATERINA [facility] [id number] [id number] Univers 13:40:00 14:30:16 GISELA stolly [facility] 2021-09-26 2021-09-26 Office [facility] 1.2.840.114 [id number] Univers 13:40:00 14:30:16 Visit Gisela GORMAN 350.1.13.10 it[place] of [place] [id number] [address] 2021-09-26 2021-09-26 Orders Doctor PARKER 1.2.840.114 [id number] Univers 00:00:00 00:00:00 Only Unassigned, YULISSA 350.1.13.10 ity of [place] [facility] 4.2.7.2.686 Thiago as [id number] [facility] 009 [address] 2021-09-06 2021-09-06 [facility] 1.2.840.114 [id number] Univers 00:00:00 00:00:00 Gisela GORMAN 350.1.13.10 it[place] of [place] [id number] [address] 2021-05-14 2021-05-14 Orders Doctor KEITH 1.2.840.114 [id number] Univers 00:00:00 00:00:00 Only Unassigned, YULISSA 350.1.13.10 ity of [place] [facility] 4.2.7.2.686 Thi[place] as [id number] [address] 2021-05-12 2021-05-12 [facility]phone [facility] 1.2.840.114 [id number] Univers 00:00:00 00:00:00 Gisela GORMAN 350.1.13.10 [place] of [place] [id number] [facility] 044 [facility] 2021-04-17 2021-04-17 Telephone [facility] 1.2.840.114 [id number] Univers 00:00:00 00:00:00 Gisela GORMAN 350.1.13.10 it[place] of [place] [id number] [facility] 231 [facility] 2021-04-14 2021-04-14 Outpatient [facility] [id number] Univers 15:10:00 15:10:00 [facility] 2021-04-11 2021-04-11 Outpatient [facility] [id number] Univers 15:10:00 15:10:00 [facility] 2021-04-11 2021-04-11 Outpatient R CATERINA [facility] 1032 [id number] Univers 13:40:00 14:45:00 GISELA [facility] 2021-04-11 2021-04-11 Office [facility] 12.840.114 [id number] Univers 13:30:15 14:45:00 Visit Gisela GORMAN 350.1.13.10 it[place] of [place] [id number] [address] 2021-04-11 2021-04-11 Outpatient [facility] 1032 [id number] Univers 13:40:00 13:40:00 GISELA levine [facility] 2021-04-01 2021-04-01 Outpatient R [facility] [id number] Univers 09:00:00 09:00:00 ity of [facility] 2021-03-18 2021-03-18 Refill [facility] 1.2.840.114 [id number] Univers 00:00:00 00:00:00 Ashley [place] 350.1.13.10 ity of [place] [phone] Mt dical nal 044 [facility] 2021-01-08 2021-01-08 Refill [facility] 1.2.840.114 [id number] Univers 00:00:00 00:00:00 Ashley [place] 350.1.13.10 it[place] of [place] [id number] Mt dicwa nal 044 [facility] 2020-12-04 2020-12-04 [facility] 1.2.840.114 [id number] Univers 11:20:00 23:59:00 Encounter Gisela [place] 350.1.13.10 ity of [place].2.[place] [id number] [facility] [address] [place] 2020-12-04 2020-12-04 Outpatient R [facility] [id number] Univers 00:00:00 00:00:00 GISELA ity of [facility] 2020-12-04 2020-12-04 Orders Doctor PARKER 1.2.840.114 [id number] Univers 00:00:00 00:00:00 Only Unassigned, YULISSA 350.1.13.10 ity of [place] [facility] 4.2.7.2.686 Thiago as [id number] [facility] 009 [address] 2020-11-27 2020-11-27 [facility] 1.2.817.267 [id number] Univers 10:04:26 23:59:00 Encounter Ashley [place] 350.1.13.10 ity of [place] 4.2.7.2.[place] [id number] [facility] 801 [address] 2020-11-27 2020-11-27 Hospital [facility] 1.2.166.945 [id number] Univers 09:38:36 10:03:00 Encounter Ashley Gorman 350.1.13.10 ity of [place] 4.2.7.2.[place] [id number] [facility] 800 [address] 2020-11-27 2020-11-27 English Composition Teacher Leigh, Jens Lab Main [facility] 1.2.8 40.114 [id number] Univers 09:37:22 09:52:22 Visit Ashley Hdez 350.1.13.10 ity of [place].2.[place] [id number] Mt dical nal 353 [facility] 2020-11-27 2020-11-27 Outpatient R [facility] [id number] Univers 00:00:00 00:00:00 ASHLEY ity o f [facility] 2020-11-27 2020-11-27 Orders Doctor KEITH 1.2.840.114 [id number] Univers 00:00:00 00:00:00 Only Unassigned, YULISSA 350.1.13.10 ity of [place] [facility] 4.2.7.2.686 Thiago as [id number] [facility] 009 [address] 2020-11-06 2020-11-06 Outpatient R CORNELIUS ANTHONY [facility] [id number] Univers 11:00:00 11:00:00 CORNELIUS ANTHONY ity of [facility] 2020-10-30 2020-10-30 Telephone [facility] 1.2.840.114 [id number] Univers 00:00:00 00:00:00 Ashley Gorman 350.1.13.10 ity of [place] [phone] Mt dical nal 044 [facility] 2020-10-10 2020-10-10 Office [facility] 1.2.840.114 [id number] Univers 12:53:29 13:43:24 Visit Ashley Gorman 350.1.13.10 ity of [place] [id number] Mt dical nal [address] [place] [address] 2020-10-10 2020-10-10 Office [facility] 1.2.840.114 [id number] Univers 12:52:50 13:22:50 Visit Ashley Gorman 350.1.13.10 ity of [place].2.[place] [id number] Mt dical nal [address] [place] [address] 2020-10-10 2020-10-10 Outpatient [facility] [id number] Univers 13:00:00 13:00:00 ASHLEY levine o f [facility] 2020-10-04 2020-10-04 Office [facility] 1.2.840.114 [id number] Univers 14:07:51 15:24:51 Visit Gisela Gorman 350.1.13.10 ity of [place].2.[place] 574.3564349 Mt dic[address] 2020-10-04 2020-10-04 Office [facility] 1.2.840.114 [id number] [facility] 14:00:00 14:20:00 Visit Gisela Gorman 350.1.13.10 ity of [place] 4.[place].2.[place] [id number] Mt dical nal [address] [place] [address] 2020-10-04 2020-10-04 Outpatient [facility] [id number] Univers 14:00:00 14:00:00 GISELA itboom of [facility] 2020-09-30 2020-09-30 Refill [facility] 1.2.840.114 [id number] Univers 00:00:00 00:00:00 Gisela Gorman 350.1.13.10 ity of [place] [phone] Mt dical nal [address] [place] [address] 2020-09-20 2020-09-20 Telephone Atanasov, [facility] 1.2.840.114 [id number] Univers 00:00:00 00:00:00 Straernestinal Kassidy Gorman 350.1.13.10 ity of [place] 4[place] [phone] Mt chacewa melvina [address] [place] [address] 2020-09-17 2020-09-17 Orders Doctor KEITH 1.2.840.114 [id number] Univers 00:00:00 00:00:00 Only Unassigned, YULISSA 350.1.13.10 ity of [place] [facility] 4.2.7.2.686 Thiago as [id number] [address] 2020-09-16 2020-09-16 Telephone Raj [facility] 1.2.840.114 [id number] Univers 00:00:00 00:00:00 Strahil T MULTISPEC 350.1.13.10 [place] of [place].2.[place].2.[place] [id number] [facility] AND [address] [facility] 2020-09-04 2020-09-04 Office [facility] 1.2.998.149 [id number] Univers 14:59:48 15:29:48 Visit Cornelius [place]orman 350.1.13.10 ity of [place] [id number] [address] 2020-09-04 2020-09-04 Outpatient R CORNELIUS ANTHONY [facility] [id number] Univers 15:00:00 15:00:00 CORNELIUS ANTHONY ity of [facility] 2020-09-04 2020-09-04 Orders Doctor KEITH 1.2.840.114 [id number] Univers 00:00:00 00:00:00 Only Unassigned, YULISSA 350.1.13.10 ity of [place] [facility] 4.2.7.2.686 [place] as [id number] [address] 2020-08-26 2020-08-26 Patient Alex [facility] 1.2.840.114 [id number] Univers 00:00:00 00:00:00 Outreach Bernard PRIMARY 350.1.13.10 i ty of [facility] 4.2.7.2.[place] [phone] Mt dical [address] [place] 2020-08-13 2020-08-13 Office [facility] 1.2.472.764 [id number] [facility] 15:25:40 16:26:34 Visit Shabnam Gorman 350.1.13.10 i ty of [place] 4.2.7.2.[place] [id number] Mt dical nal 188 [facility] 2020-08-13 2020-08-13 Outpatient [facility] [id number] Univers 15:45:00 15:45:00 SHABNAM levine [facility] 2020-07-31 2020-07-31 [facility]medici [facility] 1.2.840.114 [id number] Univers 09:15:00 09:30:00 ne Visit Cornelius Gorman 350.1.13.10 ity of [place] 4.[place].2.[place] [phone] Mt dical nal 085 [facility] 2020-07-31 2020-07-31 Outpatient R CORNELIUS ANTHONY [facility] [id number] Univers 09:15:00 09:15:00 [facility] 2020-07-22 2020-07-22 [facility] 1.2.840.114 [id number] Univers 10:47:00 14:48:00 Encounter Shabnam [place]orman 350.1.13.10 ity of [place]2.[place].2.[place] Surgical [id number] [facility] 071 [address] 2020-07-22 2020-07-22 Orders Doctor PARKER 1.2.840.114 [id number] Univers 00:00:00 00:00:00 Only Unassigned, YULISSA 350.1.13.10 ity of [place] [facility] 4.2.7.2.686 [place]iago as [phone] [place] [address] [address] 2020-07-19 2020-07-19 Outpatient R PAUL [facility] [id number] Univers 14:00:00 14:00:00 SHABNAM levine [facility] 2020-07-19 2020-07-19 Laboratory Only, Adc Test [facility] 1.2.840. 114 [id number] Univers 13:25:07 13:40:07 Only Shabnma Miller Sherif 350.1.13.10 ity of [place] 4.2.7.2.686 [facility] [phone] [facility] 353 [address] 2020-07-19 2020-07-19 Orders Doctor KEITH 1.2.840.114 [id number] Univers 00:00:00 00:00:00 Only Unassigned, YULISSA 350.1.13.10 ity of [place] [facility] 4.2.7.2.686 Thiago [id number] [facility] [address] [place] 2020-07-18 2020-07-18 [facility] 1.2.840.114 [id number] Univers 13:49:13 23:59:00 Encounter Gisela Gorman 350.1.13.10 ity of [place] 4.2.7.2.686 [facility] [id number] [facility] [address] [place] 2020-07-18 2020-07-18 Outpatient R CATERINA [facility] 1030 [id number] Univers 00:00:00 00:00:00 GISELA levine [facility] 2020-07-17 2020-07-17 Outpatient R CORNELIUS ANTHONY [facility] [id number] Univers 13:30:00 13:30:00 CORNELIUS ANTHONY [facility] 2020-07-17 2020-07-17 Outpatient NURSE, [facility] [id number] Access 10:07:00 10:07:00 NURSE [facility] 2020-07-17 2020-07-17 Outpatient NURSE, [facility] [id number] Access 10:07:00 10:07:00 NURSE [id number] [facility] [id number] 2020-07-15 2020-07-15 Telemedici Caterina [facility] 1.2.840.114 [id number] Univers 11:17:59 11:57:59 ne Visit Gisela Leyva Sherif 350.1.13.10 ity of [place] [phone] [facility] 231 [facility] 2020-07-15 2020-07-15 Office [facility] 1.2.713.461 [id number] Univers 09:35:14 10:36:24 Visit Shabnam Gorman 350.1.13.10 i ty of [place] 4.2.7.2.[place] [phone] Mt dicwa nal 188 [facility] 2020-07-15 2020-07-15 Outpatient R PAUL [facility] [id number] Univers 09:30:00 09:30:00 SHABNAM levine [facility] 2020-07-15 2020-07-15 Prep For [facility] 1.2.840.114 [id number] Univers 00:00:00 00:00:00 Surgery Michell [place] 350.1.13.10 ity of [place] [phone] [facility] 204 [facility] 2020-07-15 2020-07-15 Orders Doctor KEITH 1.2.840.114 [id number] Univers 00:00:00 00:00:00 Only Unassigned, YULISSA 350.1.13.10 ity of [place] [facility] 4.2.7.2.686 Thiago as [phone] [facility] [address] [place] 2020-07-10 2020-07-10 Emergency Singer [facility] 1.2.430.749 [id number] Univers 11:10:00 13:27:00 Darren Gorman 350.1.13.10 i ty of [place] 4.2.7.2.[place] 334.9409251 [facility] [address] [place] 2020-07-05 2020-07-05 Patient Caterina [facility] 1.2.840.114 [id number] Univers 00:00:00 00:00:00 Secure Msg Gisela Leyva [place] 350.1.13.10 ity of [place] [phone] [facility] 231 [facility] 2020-07-03 2020-07-03 Outpatient R RAJ DOMINICMSNicole [facility] [id number] Univers 13:00:00 13:00:00 [facility] 2020-07-03 2020-07-03 [facility] 1.2.840.114 [id number] Univers 11:51:23 12:21:23 ne Visit Cornelius Kassidy Sherif 350.1.13.10 ity of [place] [id number] [facility] 085 [facility] 2020-07-03 2020-07-03 Outpatient R DOMINIC ANTHONYMSNicole [facility] [id number] [facility] 11:30:00 11:30:00 [facility] 2020-07-02 2020-07-02 Laboratory Lab, [facility] I [facility] 1.2. 840.114 [id number] [facility] 09:42:10 10:02:10 Only Dov Fuentes [facility] [id number] ity of [place] 4.2.7.2.686 [place] Professio [phone] [facility] 044 [place] [facility] 2020-07-02 2020-07-02 Outpatient R GINA [facility] [id number] Univers 09:40:00 09:40:00 [facility]-28 2020-06-28 Outpatient R CATERINA [facility] [id number] Univers 16:40:00 16:40:00 GISELA [facility] 2020-06-28 2020-06-28 [facility] 1.2.840.114 [id number] Univers 08:50:39 09:10:39 ne Visit Gisela Gorman 350.1.13.10 [place] [phone] [facility] 231 [facility] 2020-06-27 2020-06-27 Telephone [facility] 1.2.840.114 [id number] Univers 00:00:00 00:00:00 Gisela Gorman 350.1.13.10 [place] [phone] [address] 2020-06-27 2020-06-27 [facility]ill [facility] 1.2.840.114 [id number] Univers 00:00:00 00:00:00 Molina Gorman 350.1.13.10 i ty of [place] [phone] [address] 2020-06-27 2020-06-27 [facility] 1.2.840.114 [id number] Univers 00:00:00 00:00:00 Gisela Gorman 350.1.13.10 [place] [phone] [address] 2020-06-27 2020-06-27 [facility] 1.2.840.114 [id number] Univers 00:00:00 00:00:00 Richard Gorman 350.1.13.10 i [place] [phone] [address] 2020-06-20 2020-06-20 Outpatient R CATERINA [facility] [id number] Univers 00:00:00 00:00:00 GISELA levine of [facility] 2020-05-31 2020-05-31 English Composition Teacher 2, Adc Lab [facility] 1.2.840.114 [id number] Univers 10:26:07 10:41:07 Visit Gisela Diggs 350.1. 13.10 it[place] Professio [phone] [facility] [address] [facility] 2020-05-31 2020-05-31 Office [facility] 1.2.840.114 [id number] Univers 08:27:25 10:13:34 Visit Gisela Gorman 350.1.13.10 it[id number] [phone] [facility] [address] [facility] 2020-05-31 2020-05-31 [facility] [id number] Univers 08:40:00 08:40:00 GISELA ity of [facility] 2020-05-31 2020-05-31 Orders Doctor KEITH 1.2.840.114 [id number] Univers 00:00:00 00:00:00 Only Unassigned, YULISSA 350.1.13.10 ity of [place] [facility] 4.2.7.2.686 [place] [phone] [address] 2020-05-30 2020-05-30 Telephone [facility] 1.2.840.114 [id number] Univers 00:00:00 00:00:00 Gisela Gorman 350.1.13.10 [place] [phone] [facility] [address] [facility] 2020-05-27 2020-05-27 Case [facility] 1.2.840.114 [id number] Univers 00:00:00 00:00:00 Management Gisela Gorman 350.1.13.10 [id number] [phone] [facility] [address] [facility] 2020-05-21 2020-05-21 [facility] 1.2.840.114 [id number] Univers 00:00:00 00:00:00 Molina Gorman 350.1.13.10 i ty [place] [phone] [address] 2020-05-15 2020-05-15 [facility] 1.2.840.114 [id number] Univers 00:00:00 00:00:00 Gisela Gorman 350.1.13.10 [place] [phone] [facility] [address] [facility] 2020-03-08 2020-03-08 Out[facility] [id number] Univers 08:20:00 08:20:00 GISELA levine [facility] 2020-01-29 2020-01-29 [facility] 1.2.840.114 [id number] Univers 08:41:57 16:01:58 ne Visit Richard Gorman 350.1.13.10 [place] [phone] [address] 2020-01-29 2020-01-29 Outpatient R ALL [facility] [id number] Univers 15:00:00 15:00:00 RICHARD levine [facility] 2020-01-22 2020-01-22 [facility] 1.2.840.114 [id number] Univers 00:00:00 00:00:00 Richard Gorman 350.1.13.10 i [place] [phone] [address] 2020-01-22 2020-01-22 Telephone [facility] 1.2.840.114 [id number] Univers 00:00:00 00:00:00 Gisela Gorman 350.1.13.10 [place] [phone] [address] 2020-01-20 2020-01-20 [facility] 1.2.840.114 [id number] Univers 00:00:00 00:00:00 Gisela Gorman 350.1.13.10 [place] [phone] [address] 2020-01-13 2020-01-13 [facility] 1.2.840.114 [id number] Univers 00:00:00 00:00:00 Richard Gorman 350.1.13.10 i [place] [phone] [address] 2020-01-09 2020-01-09 Orders Doctor KEITH 1.2.840.114 [id number] Univers 00:00:00 00:00:00 Only Unassigned, YULISSA 350.1.13.10 ity of [place] [facility] 4.2.7.2.686 [place] [phone] [address] 2020-01-09 2020-01-09 Telephone [facility] 1.2.840.114 [id number] Univers 00:00:00 00:00:00 Molina Gorman 350.1.13.10 i ty [place] [phone] [address] 2019-12-18 2019-12-18 Telephone [facility] 1.2.840.114 [id number] Univers 00:00:00 00:00:00 Gisela Gorman 350.1.13.10 it[place] [phone] [address] 2019-11-27 2019-11-27 Office [facility] 1.2.840.114 [id number] Univers 14:21:39 14:51:39 Visit Molina Gorman 350.1.13.10 i ty [place] [phone] [address] 2019-11-27 2019-11-27 [facility] [id number] Univers 14:15:00 14:15:00 MOLINA ity [facility] 2019-11-06 2019-11-06 Outpatient [facility] [id number] [facility] 09:00:00 09:00:00 GISELA stolly [facility] 2019-11-06 2019-11-06 Telemedici [facility] 1.2.840.114 [id number] [facility] 08:03:48 08:43:48 ne Visit Gisela Med[place] 350.1.13.10 it[place] [phone] [address] 2019-10-31 2019-10-31 Telephone [facility] 1.2.840.114 [id number] [facility] 00:00:00 00:00:00 Gisela Leyva [place] 350.1.13.10 it[place] [phone] [facility] [address] [facility] 2019-09-19 2019-09-19 Telephone [facility] 1.2.840.114 [id number] [facility] 00:00:00 00:00:00 Cornelius Mede[place] 350.1.13.10 [place] [phone] [facility] 0[address] [facility] 2019-09-06 2019-09-06 Pre Visit [facility] 1.2.840.114 [id number] Univers 00:00:00 00:00:00 Outreach Gisela Med[place] 350.1.13.10 [place] [phone] [facility] nal 0[address] [facility] 2019-09-05 2019-09-05 Telemedici [facility] 1.2.840.114 [id number] Univers 14:51:59 14:54:16 ne Visit Gisela Mede[place] 350.1.13.10 it[place] [phone] Me dical nal [address] [facility] 2019-09-05 2019-09-05 Outpatient R CATERINA, [facility] [id number] Univers 13:00:00 13:00:00 GISELA ity of [facility] 2019-08-22 2019-08-22 Emergency X Amanda TRIANA [facility] ERT [id number] Univers 12:17:26 15:09:00 ity of [facility] 2019-08-22 2019-08-22 Emergency Amanda Triana [facility] 1.2.840.114 [id number] Univers 12:17:26 15:09:00 Marah Gorman 350.1.13.10 i ty [place] [phone] [address] 2019-08-22 2019-08-22 Orders Doctor KEITH 1.2.840.114 [id number] Univers 00:00:00 00:00:00 Only Unassigned, YULISSA 350.1.13.10 [facility] [place] 4.2.7.2.686 [place] [phone] [address] 2019-08-08 2019-08-08 Emergency X [facility] E[facility] [id number] Univers 16:52:04 19:09:00 FOLUSHO ity [facility] 2019-08-08 2019-08-08 Emergency X IBSHANNAN, [facility] ERT [id number] Univers 16:52:04 19:09:00 [facility] 2019-08-08 2019-08-08 Emergency [facility] 1.2.840.114 [id number] Univers 16:52:04 19:09:00 Rj Gorman 350.1.13.10 it[place] [phone] [address] 2019-02-24 2019-02-24 Office [facility] 1.2.840.114 [id number] Univers 08:44:14 09:52:58 Visit Richard Gorman 350.1.13.10 i ty [place] [phone] Mt dical nal [address] 2019-01-20 2019-01-20 Hospital [facility] 1.2.840.114 [id number] [facility] 13:08:36 23:59:00 Encounter Richard Sherif 350.1.13.10 it[place] [phone] [facility] [address] 2019-01-20 2019-01-20 Office [facility] 1.2.840.114 [id number] [facility] 10:56:06 12:53:12 Visit Richard Gorman 350.1.13.10 [place] [phone] Mt [address] 2019-01-20 2019-01-20 Orders Doctor KEITH 1.2.840.114 [id number] Univers 00:00:00 00:00:00 Only Unassigned, YULISSA 350.1.13.10 ity of [place] [facility] 4.2.7.2.686 [place] [phone] [facility] [address] 2019-01-18 2019-01-18 Molina Coffey [facility] 1.2.840.114 [id number] Univers 00:00:00 00:00:00 Anne-Marie Gorman 350.1.13.10 i ty [place] [phone] [address] Results This patient has no known results.
[2022-05-21] MEDS ORDERED: CEFTRIAXONE 1000 MG/VIAL ONE (13:47)
[2022-05-21] MEDS ORDERED: NA CHLORIDE 0.9% 1,000 ML ONE (13:48)
[2022-05-21] MEDS ORDERED: FAMOTIDINE 20 MG/2 ML VIAL IV ONE (13:48)
[2022-05-21] MEDS ORDERED: NA CHLORIDE 0.9% 500 ML ONE (13:48)
[2022-05-21] MEDS ORDERED: NA CHLORIDE 0.9% 50 ML IV ONE (13:48)
[2022-05-21 14:25] LABS: Hematocrit 37.6 % (36.0-45.0); Lymphocytes % 26.6 % (15.3-44.8); MCV 93.3 fL (80-100); MPV 9.5 fL (7.6-11.3); Protime INR 1.06; RBC Red Blood Cell Count 4.03 M/uL (3.86-4.86)
[2022-05-21 14:39] LABS: Albumin 3.7 g/dL (3.4-5.0); Bilirubin Direct 0.1 mg/dL (0-0.2); Bilirubin Total 0.3 mg/dL (0.2-1.0); Magnesium 2.1 mg/dL (1.8-2.4); Potassium 4.2 mmol/L (3.5-5.1); Protein, Total 8.9 g/dL (6.4-8.2); Troponin High Sensitivity 7.2 pg/mL (<58.9)
--- NOTE | 2022-05-21 14:45 | RAD REPORT ---
EXAM DESCRIPTION: RAD - Chest Single View - 05/21/2022 2:13 pm CLINICAL HISTORY: COUGH Chest pain. COMPARISON: Chest Single View dated 10/22/2015 FINDINGS: Portable technique limits examination quality. Mild interstitial pulmonary edema versus viral bronchitis pattern. The heart is upper limit normal in size. No displaced fractures. IMPRESSION: Mild CHF suspected.
[2022-05-21 14:52] LABS: SARS-CoV-2 Antigen Rapid Res Negative (Negative)
[2022-05-21] MEDS ORDERED: ONDANSETRON 4 MG/2 ML VIAL ONE (15:56)
[2022-05-21] MEDS ORDERED: FENTANYL CITR 100 MCG/2 ML ONE (15:56)
[2022-05-21 16:45] LABS: Urine Blood Negative (Negative); Urine Glucose Negative (Negative); Urine Protein Negative (Negative); Urine Specific Gravity >=1.030 (1.005-1.030)
--- NOTE | 2022-05-21 16:47 | EDPHYS ---
Physician Documentation [facility] Name: Fatoumata Velazquez Age: 72 yrs Sex: Female : 1950 Arrival Date: 05/21/2022 Time: 13:05 Bed 18 Private MD: ED Physician Mihai Blanco HPI: 05/21 15:59 This 72 yrs old Female presents to ER via EMS with complaints of low blood efrain pressure. 15:59 LOW BP. Onset: The symptoms/episode began/occurred just prior to arrival. Severity of efrain symptoms: At their worst the symptoms were very mild in the emergency department the symptoms are unchanged. It is unknown whether or not the patient has had similar symptoms in the past. Historical: - Allergies: 13:14 No Known Allergies; ap3 - PMHx: 13:14 Chronic pain; Diabetes - NIDDM; Hyperlipidemia; Hypertension; Hypothyroidism; ap3 - Immunization history:: Client reports receiving the 2nd dose of the Covid vaccine. - Social history:: Smoking status: Patient/guardian denies using tobacco. ROS: 16:00 Constitutional: Negative for fever, chills, and weight loss, Eyes: Negative for injury, efrain pain, redness, and discharge, ENT: Negative for injury, pain, and discharge, Neck: Negative for injury, pain, and swelling, Cardiovascular: Negative for chest pain, palpitations, and edema, Respiratory: Negative for shortness of breath, cough, wheezing, and pleuritic chest pain, Abdomen/GI: Negative for abdominal pain, nausea, vomiting, diarrhea, and constipation, Back: Negative for injury and pain, : Negative for injury, bleeding, discharge, and swelling, MS/Extremity: Negative for injury and deformity, Skin: Negative for injury, rash, and discoloration, Neuro: Negative for headache, weakness, numbness, tingling, and seizure, Psych: Negative for depression, anxiety, suicide ideation, homicidal ideation, and hallucinations, Allergy/Immunology: Negative for hives, rash, and allergies, Endocrine: Negative for neck swelling, polydipsia, polyuria, polyphagia, and marked weight changes, Hematologic/Lymphatic: Negative for swollen nodes, abnormal bleeding, and unusual bruising. Exam: 16:00 Constitutional: This is a well developed, well nourished patient who is awake, alert, efrain and in no acute distress. Head/Face: Normocephalic, atraumatic. Eyes: Pupils equal round and reactive to light, extra-ocular motions intact. Lids and lashes normal. Conjunctiva and sclera are non-icteric and not injected. Cornea within normal limits. Periorbital areas with no swelling, redness, or edema. ENT: Nares patent. No nasal discharge, no septal abnormalities noted. Tympanic membranes are normal and external auditory canals are clear. Oropharynx with no redness, swelling, or masses, exudates, or evidence of obstruction, uvula midline. Mucous membranes moist. Neck: Trachea midline, no thyromegaly or masses palpated, and no cervical lymphadenopathy. Supple, full range of motion without nuchal rigidity, or vertebral point tenderness. No Meningismus. Chest/axilla: Normal chest wall appearance and motion. Nontender with no deformity. No lesions are appreciated. Cardiovascular: Regular rate and rhythm with a normal S1 and S2. No gallops, murmurs, or rubs. Normal PMI, no JVD. No pulse deficits. Respiratory: Lungs have equal breath sounds bilaterally, clear to auscultation and percussion. No rales, rhonchi or wheezes noted. No increased work of breathing, no retractions or nasal flaring. Abdomen/GI: Soft, non-tender, with normal bowel sounds. No distension or tympany. No guarding or rebound. No evidence of tenderness throughout. Back: No spinal tenderness. No costovertebral tenderness. Full range of motion. Female : Normal external genitalia. Skin: Warm, dry with normal turgor. Normal color with no rashes, no lesions, and no evidence of cellulitis. MS/ Extremity: Pulses equal, no cyanosis. Neurovascular intact. Full, normal range of motion. Neuro: Awake and alert, GCS 15, oriented to person, place, time, and situation. Cranial nerves II-XII grossly intact. Motor strength 5/5 in all extremities. Sensory grossly intact. Cerebellar exam normal. Normal gait. Psych: Awake, alert, with orientation to person, place and time. Behavior, mood, and affect are within normal limits. 16:36 ECG was reviewed by the Attending Physician. [facility] Vital Signs: 13:10 BP 95 / 52; Pulse 63; Resp 18; Temp 98.2; Pulse Ox 97% ; Weight 85.28 kg; Height 5 ft. ap3 2 in. (157.48 cm); 14:49 BP 109 / 62; Pulse 66; Pulse Ox 100% on R/A; ap3 15:51 BP 132 / 61; Pulse 66; Pulse Ox 100% on R/A; ap3 17:10 BP 121 / 58 Supine; Pulse 64; ap3 17:15 BP 125 / 54 Sitting; Pulse 66; ap3 17:20 BP 119 / 56 Standing; Pulse 68; ap3 13:10 Body Mass Index 34.39 (85.28 kg, 157.48 cm) ap3 MDM: 13:18 Patient medically screened. efrain 16:02 Data reviewed: vital signs, nurses notes, lab test result(s), EKG, radiologic studies, efrain plain films. Data interpreted: library monitor: rate is 66 beats/min, rhythm is regular, Pulse oximetry: on room air is 100 %. Test interpretation: by ED physician or midlevel provider: ECG, plain radiologic studies. Counseling: I had a detailed discussion with the patient and/or guardian regarding: the historical points, exam findings, and any diagnostic results supporting the discharge/admit diagnosis, lab results, radiology results, the need for outpatient follow up, for definitive care, a family practitioner. 05/21 13:18 Order name: Basic Metabolic Panel; Complete Time: 15:58 [facility] 05/21 13:18 Order name: CBC with Diff; Complete Time: 15:58 [facility] 05/21 13:18 Order name: LFT's; Complete Time: 15:58 [facility] 05/21 13:18 Order name: Magnesium; Complete Time: 15:58 [facility] 05/21 13:18 Order name: NT PRO-BNP; Complete Time: 15:58 [facility] 05/21 13:18 Order name: PT-INR; Complete Time: 15:58 [facility] 05/21 13:18 Order name: Troponin HS; Complete Time: 15:58 [facility] 05/21 13:18 Order name: XRAY Chest (1 view); Complete Time: 15:58 [facility] 05/21 13:18 Order name: Lipase; Complete Time: 15:58 [facility] 05/21 13:18 Order name: SARS RAPID; Complete Time: 15:58 [facility] 05/21 13:18 Order name: Blood Culture Adult (2) [facility] 05/21 13:18 Order name: Lactate w/ 2H reflex if indic.; Complete Time: 15:58 [facility] 05/21 16:45 Order name: Urine Dipstick-Ancillary EDNC 05/21 13:18 Order name: EKG; Complete Time: 13:18 [facility] 05/21 13:18 Order name: Cardiac monitoring; Complete Time: 16:23 [facility] 05/21 13:18 Order name: EKG - Nurse/Tech; Complete Time: 16:23 [facility] 05/21 13:18 Order name: IV Saline Lock; Complete Time: 14:09 [facility] 05/21 13:18 Order name: Labs collected and sent; Complete Time: 14:09 [facility] 05/21 13:18 Order name: O2 Per Protocol; Complete Time: 13:30 [facility] 05/21 13:18 Order name: O2 Sat Monitoring; Complete Time: 13:30 [facility] 05/21 13:18 Order name: Urine Dipstick-Ancillary (obtain specimen); Complete Time: 16:52 [facility] 05/21 16:36 Order name: Orthostatics; Complete Time: 17:26 [facility] EC:36 Rate is 68 beats/min. Rhythm is regular. QRS [place] is Normal. [place] interval is normal. QRS efrain interval is normal. QT interval is normal. No Q waves. T waves are Normal. No ST changes noted. Clinical impression: NSR w/ Non-specific ST/T Changes and No evidence of ischemia. Interpreted by me. Reviewed by me. Administered Medications: 14:08 Drug: Pepcid (famotidine) 20 mg Route: IVP; Site: right antecubital; ap3 15:14 Follow up: Response: No adverse reaction ap3 14:09 Drug: Rocephin (cefTRIAXone) 1 grams Route: IV; Rate: per protocol; Site: right ap3 antecubital; 17:25 Follow up: IV Status: Completed infusion ap3 14:09 Drug: NS 0.9% 500 ml Route: IV; Rate: bolus; Site: right antecubital; ap3 17:25 Follow up: IV Status: Completed infusion; IV Intake: 500ml ap3 16:23 Drug: fentaNYL (PF) 25 mcg Route: IVP; Site: right antecubital; ap3 16:53 Follow up: Response: No adverse reaction ap3 16:53 Follow up: Response: Pain is decreased ap3 16:23 Drug: Zofran (Ondansetron) 4 mg Route: IVP; Site: right antecubital; ap3 16:53 Follow up: Response: No adverse reaction ap3 16:24 Drug: NS 0.9% 1000 ml Route: IV; Rate: 125 ml/hr; Site: right antecubital; ap3 17:25 Follow up: IV Status: Completed infusion; IV Intake: 1000ml ap3 Disposition Summary: 05/21/22 16:47 Discharge Ordered Location: Home [facility] Problem: new efrain Symptoms: have improved efrain Condition: Stable efrain Diagnosis - Hypotension, unspecified - RESOLVED efrain - Unspecified kidney failure - CHRONIC efrain - UTI/ Urinary tract infection, site not specified efrain Followup: efrain - With: Private Physician - When: 2 - 3 days - Reason: Recheck today's complaints, Continuance of care, Re-evaluation by your physician Discharge Instructions: - Discharge Summary Sheet efrain - Hypotension efrain - Hypotension, Iotv-mi-Heeh efrain - Chronic Kidney Disease, Adult, Efcd-gv-Itqx efrain - Urinary Tract Infection, Adult efrain - Urinary Tract Infection, Adult, Slgr-aq-Aoco efrain Forms: - Medication Reconciliation Form [facility] - Thank You Letter efrain - Antibiotic Education efrain - Prescription Opioid Use efrain Prescriptions: - Bactrim DS 800-160 mg Oral Tablet - take 1 tablet by ORAL route every 12 hours for 7 days; 14 tablet; Refills: 0, efrain Product Selection Permitted Signatures: Dispatcher [employer] Mihai Smith MD MD cha Prokisch, Amanda RN RN ap3
--- NOTE | 2022-05-21 16:47 | ER ---
Nurse's Notes [facility] Name: Fatoumata Velazquez Age: 72 yrs Sex: Female : 1950 Arrival Date: 05/21/2022 Time: 13:05 Bed 18 Private MD: Diagnosis: Hypotension, unspecified-RESOLVED;Unspecified kidney failure-CHRONIC;UTI/ Urinary tract infection, site not specified Presentation: 05/21 13:10 Chief complaint: EMS states: the patient was visited by her home health nurse this ap3 morning and they called EMS for the patient being hypotensive. it is reported the home health nurse was getting readings of 80s/40s blood pressure. patient is asymptomatic. Coronavirus screen: At this time, the client does not indicate any symptoms associated with coronavirus-19. Ebola Screen: No symptoms or risks identified at this time. Initial Sepsis Screen: Does the patient meet any 2 criteria? Mean Arterial Pressure (MAP) < 65. Does the patient have a suspected source of infection? No. Patient's initial sepsis screen is negative. Risk Assessment: Do you want to hurt yourself or someone else? Patient reports no desire to harm self or others. Onset of symptoms was May 21, 2022. 13:10 Method Of Arrival: EMS: [facility] ap3 13:10 Acuity: RAFAEL 3 ap3 Historical: - Allergies: 13:14 No Known Allergies; ap3 - PMHx: 13:14 Chronic pain; Diabetes - NIDDM; Hyperlipidemia; Hypertension; Hypothyroidism; ap3 - Immunization history:: Client reports receiving the 2nd dose of the Covid vaccine. - Social history:: Smoking status: Patient/guardian denies using tobacco. Screenin:16 Abuse screen: Denies threats or abuse. Nutritional screening: No deficits noted. ap3 Tuberculosis screening: No symptoms or risk factors identified. Fall Risk Secondary diagnosis (15 points) hypotensive. IV access (20 points). Ambulatory Aid- None/Bed Rest/Nurse Assist (0 pts). Gait- Normal/Bed Rest/Wheelchair (0 pts) Mental Status- Oriented to own ability (0 pts). Total Alvarez Fall Scale indicates Low Risk Score (25-44 pts). Fall prevention measures have been instituted. Side Rails Up X 2 Placed close to Nursing Station Frequent Obs/Assesments occuring As available Patient and Family Educated on Fall Prevention Program and strategies. Assessment: 13:17 General: Appears in no apparent distress. distressed, Behavior is calm, cooperative, ap3 appropriate for age. Pain: Denies pain. Neuro: Level of Consciousness is awake, alert, obeys commands, Oriented to person, place, time, situation, Appropriate for age Speech is normal, Facial symmetry appears normal. Cardiovascular: Patient's skin is warm and dry. Respiratory: Airway is patent Respiratory effort is even, unlabored. Vital Signs: 13:10 BP 95 / 52; Pulse 63; Resp 18; Temp 98.2; Pulse Ox 97% ; Weight 85.28 kg; Height 5 ft. ap3 2 in. (157.48 cm); 14:49 BP 109 / 62; Pulse 66; Pulse Ox 100% on R/A; ap3 15:51 BP 132 / 61; Pulse 66; Pulse Ox 100% on R/A; ap3 17:10 BP 121 / 58 Supine; Pulse 64; ap3 17:15 BP 125 / 54 Sitting; Pulse 66; ap3 17:20 BP 119 / 56 Standing; Pulse 68; ap3 13:10 Body Mass Index 34.39 (85.28 kg, 157.48 cm) ap3 ED Course: 13:05 Patient arrived in ED. am2 13:10 Sangeeta Bah, RN is Primary Nurse. ap3 13:14 Triage completed. ap3 13:15 Mihai Blanco MD is Attending Physician. efrain 13:16 Arm band placed on right wrist. ap3 13:16 Patient has correct armband on for positive identification. Bed in low position. Call ap3 light in reach. Side rails up X2. monitoring engineer on. Pulse ox on. NIBP on. Door closed. Noise minimized. 14:08 Inserted saline lock: 20 gauge in right antecubital area, using aseptic technique. ap3 Blood collected. 14:08 First set of blood cultures drawn by me. ap3 14:15 XRAY Chest (1 view) In Process Unspecified. EDMS 14:15 SARS RAPID Sent. ap3 17:24 No provider procedures requiring assistance completed. IV discontinued, intact, ap3 bleeding controlled, No redness/swelling at site. Pressure dressing applied. Administered Medications: 14:08 Drug: Pepcid (famotidine) 20 mg Route: IVP; Site: right antecubital; ap3 15:14 Follow up: Response: No adverse reaction ap3 14:09 Drug: Rocephin (cefTRIAXone) 1 grams Route: IV; Rate: per protocol; Site: right ap3 antecubital; 17:25 Follow up: IV Status: Completed infusion ap3 14:09 Drug: NS 0.9% 500 ml Route: IV; Rate: bolus; Site: right antecubital; ap3 17:25 Follow up: IV Status: Completed infusion; IV Intake: 500ml ap3 16:23 Drug: fentaNYL (PF) 25 mcg Route: IVP; Site: right antecubital; ap3 16:53 Follow up: Response: No adverse reaction ap3 16:53 Follow up: Response: Pain is decreased ap3 16:23 Drug: Zofran (Ondansetron) 4 mg Route: IVP; Site: right antecubital; ap3 16:53 Follow up: Response: No adverse reaction ap3 16:24 Drug: NS 0.9% 1000 ml Route: IV; Rate: 125 ml/hr; Site: right antecubital; ap3 17:25 Follow up: IV Status: Completed infusion; IV Intake: 1000ml ap3 Medication: 13:17 VIS not applicable for this client. ap3 Intake: 17:25 IV: 1000ml; Total: 1000ml. ap3 17:25 IV: 500ml; Total: 1500ml. ap3 Outcome: 16:47 Discharge ordered by . efrain 17:24 Discharged to home via wheelchair, with family. ap3 17:24 Condition: good 17:24 Discharge instructions given to patient, Instructed on discharge instructions, follow up and referral plans. medication usage, Demonstrated understanding of instructions, follow-up care, medications, Prescriptions given X 1. 18:19 Patient left the ED. ap3 Signatures: Dispatcher [employer] Mihai Smith MD MD cha Moreno, Amanda am2 Prokisch, Amanda, RN RN ap3
[2022-05-21 18:29] VITALS: TEMP 98.2
[2022-05-21 18:30] VITALS: O2SAT 100
[2022-05-21 18:34] VITALS: BP 119/56
--- NOTE | 2022-05-22 07:51 | EKG ---
Test Date: 2022-05-21 Test Time: 16:21:40 Immigration Investigator: ALP MEASUREMENT RESULTS: Intervals: Rate: 67 OK: QRSD: 80 QT: 402 QTc: 424 Dike: P: OK: QRS: 32 T: 67 INTERPRETIVE STATEMENTS: Accelerated Junctional rhythm Abnormal ECG Compared to ECG 05/21/2022 16:21:02 No significant changes Electronically Signed On 05-22-22 07:48:55 EVAPORATOR REPAIRER by Naga Whittaker
--- NOTE | 2022-05-22 07:51 | EKG ---
Test Date: 2022-05-21 Test Time: 16:21:02 Hospital Ward Clerk: ALP MEASUREMENT RESULTS: Intervals: Rate: 68 MN: QRSD: 80 QT: 402 QTc: 427 Healy: P: MN: QRS: 30 T: 61 INTERPRETIVE STATEMENTS: Accelerated Junctional rhythm Abnormal ECG Compared to ECG 06/03/2017 02:21:19 Accelerated junctional rhythm now present Sinus rhythm no longer present T-wave abnormality no longer present Electronically Signed On 05-22-22 07:48:56 IC DESIGN MANAGER by Naga Whittaker
== END 2022-05-21 18:19 | disposition home or self-care (01) ==
LOC: ER 13:04
DX: N39.0 Urinary tract infection, site not specified (principal); E11.22 Type 2 diabetes mellitus with diabetic chronic kidney disease; I12.9 Hypertensive chronic kidney disease with stage 1 through stage 4 chronic kidney disease, or unspecified chronic kidney disease; N18.9 Chronic kidney disease, unspecified; Z20.822 Contact with and (suspected) exposure to COVID-19
CPT/HCPCS: 96365; 93005 ×2; 87040 ×2; 85025; 80048; 36415; 83735; 87205; 85610; 80076; 83605; 81003; 84484; 83690; 83880; 71045; 96375; 99285; 96366; 87811; J3010; J7040; J7030; J2405

== ENCOUNTER 2023-02-02 15:42 | Emergency (ER) | payer OTHER ==
--- OUTSIDE RECORDS SUMMARY | 2023-02-02 15:58 | XMS REPORT | Continuity of Care Document ---
:1950 Author Organization [facility] t Address [address] [place] [address] Care Team Providers Name Role Phone Ann-Marie Bolanos NP Primary Care Physician SHABNAM MILLER Attending Clinician Unavailable Doctor Unassigned, [place] Attending Clinician Unavailable Ann-Marie Bolanos NP Attending Clinician ANN-MARIE BOLANOS Attending Clinician Unavailable Richard Chery MD Attending Clinician LETTY NEGRETE Attending Clinician Unavailable Kacy Kennedy LMSW Attending Clinician 2, [facility] Attending Clinician Unavailable Quan Temple MD Attending Clinician QUAN TEMPLE Attending Clinician Unavailable Gisela Diggs MD Attending Clinician [phone] GISELA DIGGS Attending Clinician Unavailable Pob, [facility] Main Attending Clinician Unavailable Radiology Attending Clinician Unavailable BERNARD FREEMAN Attending Clinician Unavailable Ashley Chang Attending Clinician ASHLEY HDEZ Attending Clinician Unavailable CORNELIUS ANTHONY Attending Clinician Unavailable CORNELIUS ANTHONY Attending Clinician Unavailable Cornelius Anthony MD Attending Clinician Bernard Freeman DO Attending Clinician Shabnam Miller MD Attending Clinician Only, Adc Test Attending Clinician Unavailable Gramm ANATMichell Attending Clinician Darren Carrillo DO Attending Clinician Lab, Ad[facility] Fam Pob I Attending Clinician Unavailable Dov Brennan Attending Clinician DOV FUENTES Attending Clinician Unavailable Molina Ellis MD Attending Clinician RICHARD CHERY Attending Clinician Unavailable MOLINA ELLIS [...] Type Policy Number Effective Date Expiration Date Pedro cleaning MEDICARE PART A [id number] 2011 \T\ B 00:00:00 Problems Condition Condition Condition Status Onset Resolution Last Treating Co mments Source Name Details Category Date Date Treatment Clinician Date At risk At risk Disease Active Univers for falls for falls -19 ity of 00:00: [place] 00 Medical Branch Unspecifie Unspecifie Disease Active U nivers d d 4-19 [place] abnormalit abnormalit [place] 00 Medical gait and gait and Branch mobility mobility Bulging of Bulging of Disease Active U nivers cervical cervical 4-17 ity [place] interverte interverte [place] bral disc bral disc 00 Medi kassandra Branch Spinal Spinal Disease Active Univers stenosis stenosis 4-17 ity of of of 00:00: [place] cervical cervical 00 Medica l region region Branch Myalgia Myalgia Disease Active 2020-0 Univers 4-17 ity of 00:00: [place] 00 Medical Branch Anxiety Anxiety Disease Active 2020-0 Univers 4-17 ity of 00:00: [place] 00 Medical Branch Numbness Numbness Disease Active 2020-0 Unive rs in feet in feet 4-17 ity of 00:00: [place] 00 Medical Branch Numbness Numbness Disease Active 2020-0 Unive rs in both in both 4-17 [...] pain 8-10 ity of syndrome syndrome 00:00: [place] 00 Medical Branch Myofascial Myofascial Disease Active 2020-0 U nivers pain pain 8-10 ity of 00:00: [place] 00 Medical Branch Back Back Disease Active 2019-0 Univers muscle muscle 9-06 ity of spasm spasm 00:00: [place] 00 Medical Branch Chronic Chronic Disease Active 2019-0 Univers neck and neck and 9-06 it[facility] of back pain [place] pain [place] Primary Primary Disease Active 2018-0 Univers osteoarthr osteoarthr 1-05 it y of itis of itis of 00:00: [place] both knees both knees 00 Co dical Branch Essential Essential Disease Active 2017-0 Uni vers hypertensi hypertensi 5-05 it y of on, benign [place], benign [place] Allergies, Adverse Reactions, Alerts Allergy Allergy Status Severity Reaction(s) Onset Inactive Treating Comm ents Source Name Type Date Date Clinician PEACH DRUG Active High SOB 2020-0 Univers INGREDI 3-03 ity of 00:00: [place] 00 Medical Branch [place] Propensi Active Swelling Univer s ty to 3-03 ity of adverse 00:00: [place] reaction Medical [facility] Social History Social Habit Start Date Stop Date Quantity Comments Source History of tobacco 1986-10-23 Cigarette Smoker University of use 00:00:00 [facility] Gender identity Universit y of [facility] Sexual orientation Univer sity of [facility] Exposure to 2022-09-27 2022-10-07 Not sure University of SARS-CoV-2 (event) 00:00:00 15:35:00 [facility] Alcohol intake 2022-10-07 2022-10-07 Current University of 00:00:00 00:00:00 non-drinker of [facility] alcohol [place] (finding) History of Social 2022-09-09 2022-09-09 Univers ity of function 00:00:00 00:00:00 [facility] Tobacco use and 2022-09-09 2022-09-09 Smokeless Universit y of exposure 00:00:00 00:00:00 tobacco [facility]-user [facility] Cigarettes smoked 2022-09-09 2022-09-09 Univers ity of current (pack per 00:00:00 00:00:00 ) - Reported Branch Cigarette 2022-09-09 2022-09-09 University of pack-years 00:00:00 00:00:00 [facility] Sex Ass[birth year] Universit y of 00:00:00 00:00:00 [facility] Smoking Status Start Date Stop Date Source Ex-smoker 2022-09-09 00:00:00 2022-09-09 00:00:00 Universi ty of [facility] Medications Ordered Filled Start Stop Current Ordering Indication Dosage Frequency Signature Comments Components Source Medication Medication Date Date Medication? Clinician (SIG) Name Name Jimmy Yes [id number] Use as Univ ers (ULTRA-LIGH 4-19 directed ity of T ROLLATOR) 00:00: [place] [address] Medical [place] DULoxetine Yes [id number] 60mg Take 1 Univers 60 mg 4-19 capsule by ity of capsule 00:00: mouth in [place] 00 the Medical morning. Branch tiZANidine Yes [id number] 4mg Take 1 U nivers 4 mg tablet 4-19 tablet by ity of 00:00: mouth [place] 00 every 6 Medical (six) Branch hours as needed for Pain (scale 7-10). gabapentin 2022-0 Yes [id number] 800mg Take 1 Univers 800 mg 4-19 tablet by ity of tablet 00:00: mouth in [place] 00 the Medical morning Branch and 1 tablet at noon and 1 tablet in the evening. Walker 2022-0 Yes [id number] Use as Univ ers (ULTRA-LIGH 4-19 directed ity of T ROLLATOR) 00:00: [facility] 00 Medical Branch DULoxetine 2022-0 Yes [id number] 60mg Take 1 Univers 60 mg 4-19 capsule by ity of capsule 00:00: mouth in [place] 00 the Medical morning. Branch tiZANidine 2022-0 Yes [id number] 4mg Take 1 U nivers 4 mg tablet 4-19 tablet by ity of 00:00: mouth [place] 00 every 6 Medical (six) Branch hours as needed for Pain (scale 7-10). gabapentin 2022-0 Yes [id number] 800mg Take 1 Univers 800 mg 4-19 tablet by ity of tablet 00:00: mouth in [place] 00 the Medical morning Branch and 1 tablet at noon and 1 tablet in the evening. Walker 2022-0 Yes [id number] Use as Univ ers (ULTRA-LIGH 4-19 directed ity of T ROLLATOR) 00:00: [facility] Medical Branch DULoxetine 2022-0 Yes [id number] 60mg Take 1 Univers 60 mg 4-19 capsule by ity of capsule 00:00: mouth in [place] 00 the Medical morning. Branch tiZANidine 2022-0 Yes [id number] 4mg Take 1 U nivers 4 mg tablet 4-19 tablet by ity of 00:00: mouth [place] 00 every 6 Medical (six) Branch hours as needed for Pain (scale 7-10). gabapentin 2022-0 Yes [id number] 800mg Take 1 Univers 800 mg 4-19 tablet by ity of tablet 00:00: mouth in [place] 00 the Medical morning Branch and 1 tablet at noon and 1 tablet in the evening. Walker 2022-0 Yes [id number] Use as Univ ers (ULTRA-LIGH 4-19 directed ity of T ROLLATOR) 00:00: [place] [address] Medical Branch DULoxetine 2022-0 Yes [id number] 60mg Take 1 Univers 60 mg 4-19 capsule by ity of capsule 00:00: mouth in [place] the Medical morning. Branch tiZANidine 2022-0 Yes [id number] 4mg Take 1 U nivers 4 mg tablet 4-19 tablet by ity of 00:00: mouth [place] [address] every 6 Medical (six) Branch hours as needed for Pain (scale 7-10). gabapentin 2022-0 Yes [id number] 800mg Take 1 Univers 800 mg 4-19 tablet by ity of tablet 00:00: mouth in [place] the Medical morning Branch and 1 tablet at noon and 1 tablet in the evening. Jimmy 2022-0 Yes [id number] Use as Univ ers (ULTRA-LIGH 4-19 directed ity of T ROLLATOR) 00:00: [facility] Medical Branch DULoxetine 2022-0 Yes [id number] 60mg Take 1 Univers 60 mg 4-19 capsule by ity of capsule 00:00: mouth in [place] [address] the Medical morning. Branch tiZANidine 2022-0 Yes [id number] 4mg Take 1 U nivers 4 mg tablet 4-19 tablet by ity of 00:00: mouth [place] [address] every 6 Medical (six) Branch hours as needed for Pain (scale 7-10). gabapentin 2022-0 Yes [id number] 800mg Take 1 Univers 800 mg 4-19 tablet by ity of tablet 00:00: mouth in [place] the Medical morning Branch and 1 tablet at noon and 1 tablet in the evening. Jimmy 2022-0 Yes [id number] Use as Univ ers (ULTRA-LIGH 4-19 directed ity of T ROLLATOR) 00:00: [place] [address] Medical Branch DULoxetine 2022-0 Yes [id number] 60mg Take 1 Univers 60 mg 4-19 capsule by ity of capsule 00:00: mouth in [place] [address] the Medical morning. Branch tiZANidine 2022-0 Yes [id number] 4mg Take 1 U nivers 4 mg tablet 4-19 tablet by ity of 00:00: mouth [place] [address] every 6 Medical (six) Branch hours as needed for Pain (scale 7-10). gabapentin 2022-0 Yes [id number] 800mg Take 1 Univers 800 mg 4-19 tablet by ity of tablet 00:00: mouth in [place] the Medical morning Branch and 1 tablet at noon and 1 tablet in the evening. Walker 2022-0 Yes [id number] Use as Univ ers (ULTRA-LIGH 4-19 directed ity of T ROLLATOR) 00:00: [facility] Medical Branch DULoxetine 3-0 Yes [id number] 60mg Take 1 Univers 60 mg 4-19 capsule by ity of capsule 00:00: mouth in [place] [address] the Medical morning. Branch tiZANidine 2022-0 Yes [id number] 4mg Take 1 U nivers 4 mg tablet 4-19 tablet by ity of 00:00: mouth [place] 00 every 6 Medical (six) Branch hours as needed for Pain (scale 7-10). gabapentin 2022-0 Yes [id number] 800mg Take 1 Univers 800 mg 4-19 tablet by ity of tablet 00:00: mouth in [place] the Medical morning Branch and 1 tablet at noon and 1 tablet in the evening. Walker 2022-0 Yes [id number] Use as Univ ers (ULTRA-LIGH 4-19 directed ity of T ROLLATOR) 00:00: [facility] Medical Branch DULoxetine 2022-0 Yes [id number] 60mg Take 1 Univers 60 mg 4-19 capsule by ity of capsule 00:00: mouth in [place] [address] the Medical morning. Branch tiZANidine 2022-0 Yes [id number] 4mg Take 1 U nivers 4 mg tablet 4-19 tablet by ity of 00:00: mouth [place] [address] every 6 Medical (six) Branch hours as needed for Pain (scale 7-10). gabapentin 2022-0 Yes [id number] 800mg Take 1 Univers 800 mg 4-19 tablet by ity of tablet 00:00: mouth in [place] the Medical morning Branch and 1 tablet at noon and 1 tablet in the evening. Walker 2022-0 Yes [id number] Use as Univ ers (ULTRA-LIGH 4-19 directed ity of T ROLLATOR) 00:00: [facility] Medical Branch DULoxetine 2022-0 Yes [id number] 60mg Take 1 Univers 60 mg 4-19 capsule by ity of capsule 00:00: mouth in [place] [address] the Medical morning. Branch tiZANidine 2022-0 Yes [id number] 4mg Take 1 U nivers 4 mg tablet 4-19 tablet by ity of 00:00: mouth [place] 00 every 6 Medical (six) Branch hours as needed for Pain (scale 7-10). gabapentin 2022-0 Yes [id number] 800mg Take 1 Univers 800 mg 4-19 tablet by ity of tablet 00:00: mouth in [place] 00 the Medical morning Branch and 1 tablet at noon and 1 tablet in the evening. Walker 2022-0 Yes [id number] Use as Univ ers (ULTRA-LIGH 4-19 directed ity of T ROLLATOR) 00:00: [facility] Medical Branch DULoxetine 3-0 Yes [id number] 60mg Take 1 Univers 60 mg 4-19 capsule by ity of capsule 00:00: mouth in [place] [address] the Medical morning. Branch tiZANidine 2022-0 Yes [id number] 4mg Take 1 U nivers 4 mg tablet 4-19 tablet by ity of 00:00: mouth [place] [address] every 6 Medical (six) Branch hours as needed for Pain (scale 7-10). gabapentin 2022-0 Yes [id number] 800mg Take 1 Univers 800 mg 4-19 tablet by ity of tablet 00:00: mouth in [place] 00 the Medical morning Branch and 1 tablet at noon and 1 tablet in the evening. Walker 2022-0 Yes [id number] Use as Univ ers (ULTRA-LIGH 4-19 directed ity of T ROLLATOR) 00:00: [facility] Medical Branch DULoxetine 3-0 Yes [id number] 60mg Take 1 Univers 60 mg 4-19 capsule by ity of capsule 00:00: mouth in [place] [address] the Medical morning. Branch tiZANidine 2022-0 Yes [id number] 4mg Take 1 U nivers 4 mg tablet 4-19 tablet by ity of 00:00: mouth [place] 00 every 6 Medical (six) Branch hours as needed for Pain (scale 7-10). gabapentin 2022-0 Yes [id number] 800mg Take 1 Univers 800 mg 4-19 tablet by ity of tablet 00:00: mouth in [place] 00 the Medical morning Branch and 1 tablet at noon and 1 tablet in the evening. Walker 2022-0 Yes [id number] Use as Univ ers (ULTRA-LIGH 4-19 directed ity of T ROLLATOR) 00:00: [place] [address] Medical Branch DULoxetine 3-0 Yes [id number] 60mg Take 1 Univers 60 mg 4-19 capsule by ity of capsule 00:00: mouth in [place] 00 the Medical morning. Branch tiZANidine 3-0 Yes [id number] 4mg Take 1 U nivers 4 mg tablet 4-19 tablet by ity of 00:00: mouth [place] 00 every 6 Medical (six) Branch hours as needed for Pain (scale 7-10). gabapentin 2022-0 Yes [id number] 800mg Take 1 Univers 800 mg 4-19 tablet by ity of tablet 00:00: mouth in [place] 00 the Medical morning Branch and 1 tablet at noon and 1 tablet in the evening. Walker 2022-0 Yes [id number] Use as Univ ers (ULTRA-LIGH 4-19 directed ity of T ROLLATOR) 00:00: [facility] 00 Medical Branch DULoxetine 2022-0 Yes [id number] 60mg Take 1 Univers 60 mg 4-19 capsule by ity of capsule 00:00: mouth in [place] [address] the Medical morning. Branch tiZANidine 2022-0 Yes [id number] 4mg Take 1 U nivers 4 mg tablet 4-19 tablet by ity of 00:00: mouth [place] [address] every 6 Medical (six) Branch hours as needed for Pain (scale 7-10). gabapentin 2022-0 Yes [id number] 800mg Take 1 Univers 800 mg 4-19 tablet by ity of tablet 00:00: mouth in [place] the Medical morning Branch and 1 tablet at noon and 1 tablet in the evening. Walker 3-0 Yes [id number] Use as Univ ers (ULTRA-LIGH 4-19 directed ity of T ROLLATOR) 00:00: [facility] 00 Medical Branch DULoxetine 3-0 Yes [id number] 60mg Take 1 Univers 60 mg 4-19 capsule by ity of capsule 00:00: mouth in [place] [address] the Medical morning. Branch tiZANidine 2022-0 Yes [id number] 4mg Take 1 U nivers 4 mg tablet 4-19 tablet by ity of 00:00: mouth [place] [address] every 6 Medical (six) Branch hours as needed for Pain (scale 7-10). gabapentin 2022-0 Yes [id number] 800mg Take 1 Univers 800 mg 4-19 tablet by ity of tablet 00:00: mouth in [place] the Medical morning Branch and 1 tablet at noon and 1 tablet in the evening. Walker 2022-0 Yes [id number] Use as Univ ers (ULTRA-LIGH 4-19 directed ity of T ROLLATOR) 00:00: [facility] 00 Medical Branch DULoxetine 2022-0 Yes [id number] 60mg Take 1 Univers 60 mg 4-19 capsule by ity of capsule 00:00: mouth in [place] 00 the Medical morning. Branch tiZANidine 2022-0 Yes [id number] 4mg Take 1 U nivers 4 mg tablet 4-19 tablet by ity of 00:00: mouth [place] 00 every 6 Medical (six) Branch hours as needed for Pain (scale 7-10). gabapentin 2022-0 Yes [id number] 800mg Take 1 Univers 800 mg 4-19 tablet by ity of tablet 00:00: mouth in [place] 00 the Medical morning Branch and 1 tablet at noon and 1 tablet in the evening. Walker 2022-0 Yes [id number] Use as Univ ers (ULTRA-LIGH 4-19 directed ity of T ROLLATOR) 00:00: [facility] Medical Branch DULoxetine 2022-0 Yes [id number] 60mg Take 1 Univers 60 mg 4-19 capsule by ity of capsule 00:00: mouth in [place] 00 the Medical morning. Branch tiZANidine 2022-0 Yes [id number] 4mg Take 1 U nivers 4 mg tablet 4-19 tablet by ity of 00:00: mouth [place] [address] every 6 Medical (six) Branch hours as needed for Pain (scale 7-10). gabapentin 2022-0 Yes [id number] 800mg Take 1 Univers 800 mg 4-19 tablet by ity of tablet 00:00: mouth in [place] 00 the Medical morning Branch and 1 tablet at noon and 1 tablet in the evening. Walker 2022-0 Yes [id number] Use as Univ ers (ULTRA-LIGH 4-19 directed ity of T ROLLATOR) 00:00: [facility] 00 Medical Branch DULoxetine 2022-0 Yes [id number] 60mg Take 1 Univers 60 mg 4-19 capsule by ity of capsule 00:00: mouth in [place] 00 the Medical morning. Branch tiZANidine 2022-0 Yes [id number] 4mg Take 1 U nivers 4 mg tablet 4-19 tablet by ity of 00:00: mouth [place] 00 every 6 Medical (six) Branch hours as needed for Pain (scale 7-10). gabapentin 3-0 Yes [id number] 800mg Take 1 Univers 800 mg 4-19 tablet by ity of tablet 00:00: mouth in [place] 00 the Medical morning Branch and 1 tablet at noon and 1 tablet in the evening. Walker 2022-0 Yes [id number] Use as Univ ers (ULTRA-LIGH 4-19 directed ity of T ROLLATOR) 00:00: [place] [address] Medical Branch DULoxetine 3-0 Yes [id number] 60mg Take 1 Univers 60 mg 4-19 capsule by ity of capsule 00:00: mouth in [place] [address] the Medical morning. Branch tiZANidine 2022-0 Yes [id number] 4mg Take 1 U nivers 4 mg tablet 4-19 tablet by ity of 00:00: mouth [place] [address] every 6 Medical (six) Branch hours as needed for Pain (scale 7-10). gabapentin 2022-0 Yes [id number] 800mg Take 1 Univers 800 mg 4-19 tablet by ity of tablet 00:00: mouth in [place] the Medical morning Branch and 1 tablet at noon and 1 tablet in the evening. Walker 2022-0 Yes [id number] Use as Univ ers (ULTRA-LIGH 4-19 directed ity of T ROLLATOR) 00:00: [facility] 00 Medical Branch DULoxetine 2022-0 Yes [id number] 60mg Take 1 Univers 60 mg 4-19 capsule by ity of capsule 00:00: mouth in [place] [address] the Medical morning. Branch tiZANidine 2022-0 Yes [id number] 4mg Take 1 U nivers 4 mg tablet 4-19 tablet by ity of 00:00: mouth [place] [address] every 6 Medical (six) Branch hours as needed for Pain (scale 7-10). gabapentin 3-0 Yes [id number] 800mg Take 1 Univers 800 mg 4-19 tablet by ity of tablet 00:00: mouth in [place] 00 the Medical morning Branch and 1 tablet at noon and 1 tablet in the evening. amitriptyli 3-0 Yes [id number] 100mg Take 1 Univers ne 100 mg 3-22 tablet by ity o f tablet 00:00: mouth at [place] [address] bedtime. Medical Branch tiZANidine 2022-0 Yes [id number] 4mg Take 1 U nivers 4 mg tablet 3-22 tablet by ity of 00:00: mouth [place] 00 every 6 Medical (six) Branch hours as needed for Pain (scale 7-10). levothyroxi 3-0 Yes [id number] 25ug Take 1 Univers ne 25 mcg 3-22 tablet by ity o f tablet 00:00: mouth [place] 00 every Medical morning. Branch DULoxetine 3-0 Yes [id number] 30mg Take 1 U nivers 30 mg 3-22 capsule by ity of capsule 00:00: mouth in [place] 00 the Medical morning. Branch amitriptyli 2022-0 Yes [id number] 100mg Take 1 Univers ne 100 mg 3-22 tablet by ity o f tablet 00:00: mouth at [place] 00 bedtime. Medical Branch tiZANidine 2022-0 Yes [id number] 4mg Take 1 U nivers 4 mg tablet 3-22 tablet by ity of 00:00: mouth [place] 00 every 6 Medical (six) Branch hours as needed for Pain (scale 7-10). levothyroxi 3-0 Yes [id number] 25ug Take 1 Univers ne 25 mcg 3-22 tablet by ity o f tablet 00:00: mouth [place] 00 every Medical morning. Branch DULoxetine 3-0 Yes [id number] 30mg Take 1 U nivers 30 mg 3-22 capsule by ity of capsule 00:00: mouth in [place] 00 the Medical morning. Branch amitriptyli 2022-0 Yes [id number] 100mg Take 1 Univers ne 100 mg 3-22 tablet by ity o f tablet 00:00: mouth at [place] 00 bedtime. Medical Branch tiZANidine 3-0 Yes [id number] 4mg Take 1 U nivers 4 mg tablet 3-22 tablet by ity of 00:00: mouth [place] 00 every 6 Medical (six) Branch hours as needed for Pain (scale 7-10). levothyroxi 3-0 Yes [id number] 25ug Take 1 Univers ne 25 mcg 3-22 tablet by ity o f tablet 00:00: mouth [place] 00 every Medical morning. Branch DULoxetine 3-0 Yes [id number] 30mg Take 1 U nivers 30 mg 3-22 capsule by ity of capsule 00:00: mouth in [place] 00 the Medical morning. Branch amitriptyli 3-0 Yes [id number] 100mg Take 1 Univers ne 100 mg 3-22 tablet by ity o f tablet 00:00: mouth at [place] 00 bedtime. Medical Branch tiZANidine 2022-0 Yes [id number] 4mg Take 1 U nivers 4 mg tablet 3-22 tablet by ity of 00:00: mouth [place] 00 every 6 Medical (six) Branch hours as needed for Pain (scale 7-10). levothyroxi 2022-0 Yes [id number] 25ug Take 1 Univers ne 25 mcg 3-22 tablet by ity o f tablet 00:00: mouth [place] 00 every Medical morning. Branch DULoxetine 2022-0 Yes [id number] 30mg Take 1 U nivers 30 mg 3-22 capsule by ity of capsule 00:00: mouth in [place] 00 the Medical morning. Branch amitriptyli 2022-0 Yes [id number] 100mg Take 1 Univers ne 100 mg 3-22 tablet by ity o f tablet 00:00: mouth at [place] 00 bedtime. Medical Branch tiZANidine 2022-0 Yes [id number] 4mg Take 1 U nivers 4 mg tablet 3-22 tablet by ity of 00:00: mouth [place] 00 every 6 Medical (six) Branch hours as needed for Pain (scale 7-10). levothyroxi 2022-0 Yes [id number] 25ug Take 1 Univers ne 25 mcg 3-22 tablet by ity o f tablet 00:00: mouth [place] 00 every Medical morning. Branch DULoxetine 2022-0 Yes [id number] 30mg Take 1 U nivers 30 mg 3-22 capsule by ity of capsule 00:00: mouth in [place] 00 the Medical morning. Branch amitriptyli 2022-0 Yes [id number] 100mg Take 1 Univers ne 100 mg 3-22 tablet by ity o f tablet 00:00: mouth at [place] 00 bedtime. Medical Branch tiZANidine 2022-0 Yes [id number] 4mg Take 1 U nivers 4 mg tablet 3-22 tablet by ity of 00:00: mouth [place] 00 every 6 Medical (six) Branch hours as needed for Pain (scale 7-10). levothyroxi 2022-0 Yes [id number] 25ug Take 1 Univers ne 25 mcg 3-22 tablet by ity o f tablet 00:00: mouth [place] 00 every Medical morning. Branch DULoxetine 2023-0 Yes [id number] 30mg Take 1 U nivers 30 mg 3-22 capsule by ity of capsule 00:00: mouth in [place] 00 the Medical morning. Branch amitriptyli 3-0 Yes [id number] 100mg Take 1 Univers ne 100 mg 3-22 tablet by ity o f tablet 00:00: mouth at [place] 00 bedtime. Medical Branch tiZANidine 3-0 Yes [id number] 4mg Take 1 U nivers 4 mg tablet 3-22 tablet by ity of 00:00: mouth [place] 00 every 6 Medical (six) Branch hours as needed for Pain (scale 7-10). levothyroxi 3-0 Yes [id number] 25ug Take 1 Univers ne 25 mcg 3-22 tablet by ity o f tablet 00:00: mouth [place] 00 every Medical morning. Branch DULoxetine 2022-0 Yes [id number] 30mg Take 1 U nivers 30 mg 3-22 capsule by ity of capsule 00:00: mouth in [place] 00 the Medical morning. Branch amitriptyli 2022-0 Yes [id number] 100mg Take 1 Univers ne 100 mg 3-22 tablet by ity o f tablet 00:00: mouth at [place] 00 bedtime. Medical Branch tiZANidine 2022-0 Yes [id number] 4mg Take 1 U nivers 4 mg tablet 3-22 tablet by ity of 00:00: mouth [place] 00 every 6 Medical (six) Branch hours as needed for Pain (scale 7-10). levothyroxi 3-0 Yes [id number] 25ug Take 1 Univers ne 25 mcg 3-22 tablet by ity o f tablet 00:00: mouth [place] 00 every Medical morning. Branch DULoxetine 3-0 Yes [id number] 30mg Take 1 U nivers 30 mg 3-22 capsule by ity of capsule 00:00: mouth in [place] 00 the Medical morning. Branch amitriptyli 3-0 Yes [id number] 100mg Take 1 Univers ne 100 mg 3-22 tablet by ity o f tablet 00:00: mouth at [place] 00 bedtime. Medical Branch levothyroxi 3-0 Yes [id number] 25ug Take 1 Univers ne 25 mcg 3-22 tablet by ity o f tablet 00:00: mouth [place] 00 every Medical morning. Branch amitriptyli 3-0 Yes [id number] 100mg Take 1 Univers ne 100 mg 3-22 tablet by ity o f tablet 00:00: mouth at [place] 00 bedtime. Medical Branch levothyroxi 2022-0 Yes [id number] 25ug Take 1 Univers ne 25 mcg 3-22 tablet by ity o f tablet 00:00: mouth [place] 00 every Medical morning. Branch amitriptyli 2022-0 Yes [id number] 100mg Take 1 Univers ne 100 mg 3-22 tablet by ity o f tablet 00:00: mouth at [place] 00 bedtime. Medical Branch levothyroxi 2022-0 Yes [id number] 25ug Take 1 Univers ne 25 mcg 3-22 tablet by ity o f tablet 00:00: mouth [place] 00 every Medical morning. Branch amitriptyli 2022-0 Yes [id number] 100mg Take 1 Univers ne 100 mg 3-22 tablet by ity o f tablet 00:00: mouth at [place] 00 bedtime. Medical Branch levothyroxi 2022-0 Yes [id number] 25ug Take 1 [facility] 25 mcg 3-22 tablet by [facility] o f tablet 00:00: mouth [place] 00 every Medical morning. Branch amitriptyli 2022-0 Yes [id number] 100mg Take 1 [facility] ne 100 mg 3-22 tablet by [facility] o f tablet 00:00: mouth at [place] 00 bedtime. Medical Branch levothyroxi 2022-0 Yes [id number] 25ug Take 1 [facility] ne 25 mcg 3-22 tablet by [facility] o f tablet 00:00: mouth [place] 00 every Medical morning. Branch amitriptyli 2022-0 Yes [id number] 100mg Take 1 [facility] ne 100 mg 3-22 tablet by [facility] o f tablet 00:00: mouth at [place] 00 bedtime. Medical Branch levothyroxi 2022-0 Yes [id number] 25ug Take 1 [facility] ne 25 mcg 3-22 tablet by [facility] o f tablet 00:00: mouth [place] 00 every Medical morning. Branch amitriptyli 2022-0 Yes [id number] 100mg Take 1 [facility] ne 100 mg 3-22 tablet by [facility] o f tablet 00:00: mouth at [place] 00 bedtime. Medical Branch levothyroxi 2022-0 Yes [id number] 25ug Take 1 [facility] ne 25 mcg 3-22 tablet by [facility] o f tablet 00:00: mouth [place] 00 every Medical morning. Branch amitriptyli 2022-0 Yes [id number] 100mg Take 1 [facility] 100 mg 3-22 tablet by [facility] o f tablet 00:00: mouth at [place] 00 bedtime. Medical Branch levothyroxi 2022-0 Yes [id number] 25ug Take 1 [facility] ne 25 mcg 3-22 tablet by [facility] o f tablet 00:00: mouth [place] 00 every Medical morning. Branch amitriptyli 2022-0 Yes [id number] 100mg Take 1 [facility] ne 100 mg 3-22 tablet by [facility] o f tablet 00:00: mouth at [place] 00 bedtime. Medical Branch levothyroxi 2022-0 Yes [id number] 25ug Take 1 [facility] 25 mcg 3-22 tablet by [facility] o f tablet 00:00: mouth [place] 00 every Medical morning. Branch amitriptyli 2022-0 Yes [id number] 100mg Take 1 [facility] 100 mg 3-22 tablet by [facility] o f tablet 00:00: mouth at [place] 00 bedtime. Medical Branch levothyroxi 2022-0 Yes [id number] 25ug Take 1 [facility] 25 mcg 3-22 tablet by [facility] o f tablet 00:00: mouth [place] 00 every Medical morning. Branch amitriptyli 2022-0 Yes [id number] 100mg Take 1 [facility] 100 mg 3-22 tablet by [facility] o f tablet 00:00: mouth at [place] 00 bedtime. Medical Branch levothyroxi 2022-0 Yes [id number] 25ug Take 1 [facility] 25 mcg 3-22 tablet by [facility] o f tablet 00:00: mouth [place] 00 every Medical morning. Branch amitriptyli 2022-0 Yes [id number] 100mg Take 1 [facility] 100 mg 3-22 tablet by [facility] o f tablet 00:00: mouth at [place] 00 bedtime. Medical Branch levothyroxi 2022-0 Yes [id number] 25ug Take 1 [facility] 25 mcg 3-22 tablet by [facility] o f tablet 00:00: mouth [place] 00 every Medical morning. Branch amitriptyli 2022-0 Yes [id number] 100mg Take 1 [facility] 100 mg 3-22 tablet by [facility] o f tablet 00:00: mouth at [place] 00 bedtime. Medical Branch levothyroxi 2022-0 Yes [id number] 25ug Take 1 [facility] 25 mcg 3-22 tablet by [facility] o f tablet 00:00: mouth [place] 00 every Medical morning. Branch amitriptyli 2022-0 Yes [id number] 100mg Take 1 [facility] 100 mg 3-22 tablet by [facility] o f tablet 00:00: mouth at [place] 00 bedtime. Medical Branch levothyroxi 2022-0 Yes [id number] 25ug Take 1 [facility] 25 mcg 3-22 tablet by [facility] o f tablet 00:00: mouth [place] 00 every Medical morning. Branch amitriptyli 2022-0 Yes [id number] 100mg Take 1 [facility] 100 mg 3-22 tablet by [facility] o f tablet 00:00: mouth at [place] 00 bedtime. Medical Branch levothyroxi 2022-0 Yes [id number] 25ug Take 1 [facility] 25 mcg 3-22 tablet by [facility] o f tablet 00:00: mouth [place] 00 every Medical morning. Branch amitriptyli 2022-0 Yes [id number] 100mg Take 1 [facility] 100 mg 3-22 tablet by [facility] o f tablet 00:00: mouth at [place] 00 bedtime. Medical Branch levothyroxi 2022-0 Yes [id number] 25ug Take 1 [facility] 25 mcg 3-22 tablet by [facility] o f tablet 00:00: mouth [place] 00 every Medical morning. Branch amitriptyli 2022-0 Yes [id number] 100mg Take 1 [facility] 100 mg 3-22 tablet by [facility] o f tablet 00:00: mouth at [place] 00 bedtime. Medical Branch levothyroxi 2022-0 Yes [id number] 25ug Take 1 [facility] 25 mcg 3-22 tablet by [facility] o f tablet 00:00: mouth [place] 00 every Medical morning. Branch amitriptyli 2022-0 Yes [id number] 100mg Take 1 [facility] ne 100 mg 3-22 tablet by [facility] o f tablet 00:00: mouth at [place] 00 bedtime. Medical Branch levothyroxi 2022-0 Yes [id number] 25ug Take 1 [facility] 25 mcg 3-22 tablet by [facility] o f tablet 00:00: mouth [place] 00 every Medical morning. Branch amitriptyli 2022-0 Yes [id number] 100mg Take 1 [facility] 100 mg 3-22 tablet by [facility] o f tablet 00:00: mouth at [place] 00 bedtime. Medical Branch levothyroxi 2023-0 Yes [id number] 25ug Take 1 [facility] ne 25 mcg 3-22 tablet by [facility] o f tablet 00:00: mouth [place] 00 every Medical morning. Branch amitriptyli Yes [id number] 100mg Take 1 [facility] 100 mg 3-22 tablet by [facility] o f tablet 00:00: mouth at [place] 00 bedtime. Medical Branch levothyroxi 2022- Yes [id number] 25ug Take 1 [facility] ne 25 mcg 3-22 tablet by [facility] o f tablet 00:00: mouth [place] 00 every Medical morning. Branch tiZANidine 2022- No [id number] 4mg Take 1 [facility] 4 mg tablet -10 10-19 tablet by it y of 00:00: 00:00 mouth [place] 00 :00 every 6 Medical (six) Branch hours as needed for Pain (scale 7-10). DULoxetine 2022- No [id number] 30mg Take 1 [facility] 30 mg -10 10-19 capsule by ity of capsule 00:00: 00:00 mouth in [place] 00 :00 the Medical morning. Branch tiZANidine 2022- No [id number] 4mg Take 1 [facility] 4 mg tablet -10 10-19 tablet by it y of 00:00: 00:00 mouth [place] 00 :00 every 6 Medical (six) Branch hours as needed for Pain (scale 7-10). DULoxetine 2022- No [id number] 30mg Take 1 [facility] 30 mg 3-10 10-19 capsule by ity of capsule 00:00: 00:00 mouth in [place] 00 :00 the Medical morning. Branch Lidocaine 5 2022- No Apply to [facility] % cream 2-12 08-22 area(s) 2 ity of 15:29: 00:00 (two) [place] 04 :00 times Medical daily. Branch Diclofenac Yes APPLY 2 TO [facility] Sodium 1 % 2-22 4 GRAMS 3 ity of gel 00:00: TIMES [place] 00 DAILY Medical NEEDED FOR Branch PAIN Lidocaine 5 Yes Apply to [facility] % cream 2-22 area(s) 2 ity of 00:00: (two) [place] 00 times Medical daily. Branch Diclofenac Yes APPLY 2 TO [facility] Sodium 1 % 2-22 4 GRAMS 3 ity of gel 00:00: TIMES [place] 00 DAILY Medical NEEDED FOR Branch PAIN Diclofenac 2022-0 Yes APPLY 2 TO [facility] Sodium 1 % 2-22 4 GRAMS 3 ity of gel 00:00: TIMES [place] 00 DAILY Medical NEEDED FOR Branch PAIN Diclofenac 2022-0 Yes APPLY 2 TO [facility] Sodium 1 % 2-22 4 GRAMS 3 ity of gel 00:00: TIMES [place] 00 DAILY Medical NEEDED FOR Branch PAIN Lidocaine 5 2022-0 Yes Apply to [facility] % cream 2-22 area(s) 2 ity of 00:00: (two) [place] 00 times Medical daily. Branch Diclofenac 2022-0 Yes APPLY 2 TO [facility] Sodium 1 % 2-22 4 GRAMS 3 ity of gel 00:00: TIMES [place] 00 DAILY Medical NEEDED FOR Branch PAIN Lidocaine 5 2022-0 Yes Apply to [facility] % cream 2-22 area(s) 2 ity of 00:00: (two) [place] 00 times Medical daily. Branch Diclofenac 2022-0 Yes APPLY 2 TO [facility] Sodium 1 % 2-22 4 GRAMS 3 ity of gel 00:00: TIMES [place] 00 DAILY Medical NEEDED FOR Branch PAIN Lidocaine 5 2022-0 Yes Apply to [facility] % cream 2-22 area(s) 2 ity of 00:00: (two) [place] 00 times Medical daily. Branch Diclofenac 2022-0 Yes APPLY 2 TO [facility] Sodium 1 % 2-22 4 GRAMS 3 ity of gel 00:00: TIMES [place] 00 DAILY Medical NEEDED FOR Branch PAIN Lidocaine 5 2022-0 Yes Apply to [facility] % cream 2-22 area(s) 2 ity of 00:00: (two) [place] 00 times Medical daily. Branch Diclofenac 2022-0 Yes APPLY 2 TO [facility] Sodium 1 % 2-22 4 GRAMS 3 ity of gel 00:00: TIMES [place] 00 DAILY Medical NEEDED FOR Branch PAIN Lidocaine 5 2022-0 Yes Apply to [facility] % cream 2-22 area(s) 2 ity of 00:00: (two) [place] 00 times Medical daily. Branch Diclofenac 2022-0 Yes APPLY 2 TO [facility] Sodium 1 % 2-22 4 GRAMS 3 ity of gel 00:00: TIMES [place] 00 DAILY Medical NEEDED FOR Branch PAIN Lidocaine 5 2023-0 Yes Apply to [facility] % cream 2-22 area(s) 2 ity of 00:00: (two) [place] 00 times Medical daily. Branch Diclofenac 2022-0 Yes APPLY 2 TO [facility] Sodium 1 % 2-22 4 GRAMS 3 ity of gel 00:00: TIMES [place] 00 DAILY Medical NEEDED FOR Branch PAIN Lidocaine 5 2022-0 Yes Apply to [facility] % cream 2-22 area(s) 2 ity of 00:00: (two) [place] 00 times Medical daily. Branch Diclofenac 2022-0 Yes APPLY 2 TO [facility] Sodium 1 % 2-22 4 GRAMS 3 ity of gel 00:00: TIMES [place] 00 DAILY Medical NEEDED FOR Branch PAIN Lidocaine 5 0 Yes Apply to [facility] % cream 2-22 area(s) 2 ity of 00:00: (two) [place] 00 times Medical daily. Branch Diclofenac 2022-0 Yes APPLY 2 TO [facility] Sodium 1 % 2-22 4 GRAMS 3 ity of gel 00:00: TIMES [place] 00 DAILY Medical NEEDED FOR Branch PAIN Lidocaine 5 0 Yes Apply to [facility] % cream 2-22 area(s) 2 ity of 00:00: (two) [place] 00 times Medical daily. Branch Diclofenac 2022-0 Yes APPLY 2 TO [facility] Sodium 1 % 2-22 4 GRAMS 3 ity of gel 00:00: TIMES [place] 00 DAILY Medical NEEDED FOR Branch PAIN Lidocaine 5 2022-0 Yes Apply to [facility] % cream 2-22 area(s) 2 ity of 00:00: (two) [place] 00 times Medical daily. Branch Diclofenac 2022-0 Yes APPLY 2 TO [facility] Sodium 1 % 2-22 4 GRAMS 3 ity of gel 00:00: TIMES [place] 00 DAILY Medical NEEDED FOR Branch PAIN Lidocaine 5 0 Yes Apply to [facility] % cream 2-22 area(s) 2 ity of 00:00: (two) [place] 00 times Medical daily. Branch Diclofenac 2022-0 Yes APPLY 2 TO [facility] Sodium 1 % 2-22 4 GRAMS 3 ity of gel 00:00: TIMES [place] 00 DAILY Medical NEEDED FOR Branch PAIN Lidocaine 5 2022-0 Yes Apply to [facility] % cream 2-22 area(s) 2 ity of 00:00: (two) [place] 00 times Medical daily. Branch Diclofenac 3-0 Yes APPLY 2 TO [facility] Sodium 1 % 2-22 4 GRAMS 3 ity of gel 00:00: TIMES [place] 00 DAILY Medical NEEDED FOR Branch PAIN Lidocaine 5 2022-0 Yes Apply to [facility] % cream 2-22 area(s) 2 ity of 00:00: (two) [place] 00 times Medical daily. Branch Diclofenac 2022-0 Yes APPLY 2 TO [facility] Sodium 1 % 2-22 4 GRAMS 3 ity of gel 00:00: TIMES [place] 00 DAILY Medical NEEDED FOR Branch PAIN Lidocaine 5 2022-0 Yes Apply to [facility] % cream 2-22 area(s) 2 ity of 00:00: (two) [place] 00 times Medical daily. Branch Diclofenac 2022-0 Yes APPLY 2 TO [facility] Sodium 1 % 2-22 4 GRAMS 3 it[facility] of gel 00:00: TIMES [place] 00 DAILY Medical NEEDED FOR Branch PAIN Lidocaine 5 2022-0 Yes Apply to [facility] % cream 2-22 area(s) 2 ity of 00:00: (two) [place] 00 times Medical daily. Branch Diclofenac 2022-0 Yes APPLY 2 TO [facility] Sodium 1 % 2-22 4 GRAMS 3 ity of gel 00:00: TIMES [place] 00 DAILY Medical NEEDED FOR Branch PAIN Lidocaine 5 2022-0 Yes Apply to [facility] % cream 2-22 area(s) 2 ity of 00:00: (two) [place] 00 times Medical daily. Branch Diclofenac 2022-0 Yes APPLY 2 TO [facility] Sodium 1 % 2-22 4 GRAMS 3 ity of gel 00:00: TIMES [place] 00 DAILY Medical NEEDED FOR Branch PAIN Lidocaine 5 2022-0 Yes Apply to [facility] % cream 2-22 area(s) 2 ity of 00:00: (two) [place] 00 times Medical daily. Branch Diclofenac 2022-0 Yes APPLY 2 TO [facility] Sodium 1 % 2-22 4 GRAMS 3 ity of gel 00:00: TIMES [place] 00 DAILY Medical NEEDED FOR Branch PAIN Lidocaine 5 2022-0 Yes Apply to [facility] % cream 2-22 area(s) 2 ity of 00:00: (two) [place] 00 times Medical daily. Branch Diclofenac 3-0 Yes APPLY 2 TO [facility] Sodium 1 % 2-22 4 GRAMS 3 ity of gel 00:00: TIMES [place] 00 DAILY Medical NEEDED FOR Branch PAIN Lidocaine 5 2022-0 Yes Apply to [facility] % cream 2-22 area(s) 2 ity of 00:00: (two) [place] 00 times Medical daily. Branch Diclofenac 2022-0 Yes APPLY 2 TO [facility] Sodium 1 % 2-22 4 GRAMS 3 ity of gel 00:00: TIMES [place] 00 DAILY Medical NEEDED FOR Branch PAIN Lidocaine 5 2022-0 Yes Apply to [facility] % cream 2-22 area(s) 2 ity of 00:00: (two) [place] 00 times Medical daily. Branch Diclofenac 2022-0 Yes APPLY 2 TO [facility] Sodium 1 % 2-22 4 GRAMS 3 ity of gel 00:00: TIMES [place] 00 DAILY Medical NEEDED FOR Branch PAIN Lidocaine 5 2022-0 Yes Apply to [facility] % cream 2-22 area(s) 2 ity of 00:00: (two) [place] 00 times Medical daily. Branch Diclofenac 2022-0 Yes APPLY 2 TO [facility] Sodium 1 % 2-22 4 GRAMS 3 ity of gel 00:00: TIMES [place] 00 DAILY Medical NEEDED FOR Branch PAIN Lidocaine 5 2022-0 Yes Apply to [facility] % cream 2-22 area(s) 2 ity of 00:00: (two) [place] 00 times Medical daily. Branch Diclofenac 2022-0 Yes APPLY 2 TO [facility] Sodium 1 % 2-22 4 GRAMS 3 ity of gel 00:00: TIMES [place] 00 DAILY Medical NEEDED FOR Branch PAIN Lidocaine 5 2022-0 Yes Apply to [facility] % cream 2-22 area(s) 2 ity of 00:00: (two) [place] 00 times Medical daily. Branch Diclofenac 2022-0 Yes APPLY 2 TO [facility] Sodium 1 % 2-22 4 GRAMS 3 ity of gel 00:00: TIMES [place] 00 DAILY Medical NEEDED FOR Branch PAIN Lidocaine 5 2022-0 Yes Apply to [facility] % cream 2-22 area(s) 2 ity of 00:00: (two) [place] 00 times Medical daily. Branch Diclofenac 2022-0 Yes APPLY 2 TO [facility] Sodium 1 % 2-22 4 GRAMS 3 ity of gel 00:00: TIMES [place] 00 DAILY Medical NEEDED FOR Branch PAIN Lidocaine 5 2023-0 Yes Apply to [facility] % cream 2-22 area(s) 2 ity of 00:00: (two) [place] 00 times Medical daily. Branch Diclofenac 2022-0 Yes APPLY 2 TO [facility] Sodium 1 % 2-22 4 GRAMS 3 ity of gel 00:00: TIMES [place] 00 DAILY Medical NEEDED FOR Branch PAIN Lidocaine 5 0 Yes Apply to [facility] % cream 2-22 area(s) 2 ity of 00:00: (two) [place] 00 times Medical daily. Branch Diclofenac 2022-0 Yes APPLY 2 TO [facility] Sodium 1 % 2-22 4 GRAMS 3 ity of gel 00:00: TIMES [place] 00 DAILY Medical NEEDED FOR Branch PAIN Lidocaine 5 0 Yes Apply to [facility] % cream 2-22 area(s) 2 ity of 00:00: (two) [place] 00 times Medical daily. Branch Diclofenac 2022-0 Yes APPLY 2 TO [facility] Sodium 1 % 2-22 4 GRAMS 3 ity of gel 00:00: TIMES [place] 00 DAILY Medical NEEDED FOR Branch PAIN Lidocaine 5 0 Yes Apply to [facility] % cream 2-22 area(s) 2 ity of 00:00: (two) [place] 00 times Medical daily. Branch Diclofenac 2022-0 Yes APPLY 2 TO [facility] Sodium 1 % 2-22 4 GRAMS 3 ity of gel 00:00: TIMES [place] 00 DAILY Medical NEEDED FOR Branch PAIN Lidocaine 5 2022-0 Yes Apply to [facility] % cream 2-22 area(s) 2 ity of 00:00: (two) [place] 00 times Medical daily. Branch Diclofenac 2022-0 Yes APPLY 2 TO [facility] Sodium 1 % 2-22 4 GRAMS 3 ity of gel 00:00: TIMES [place] 00 DAILY Medical NEEDED FOR Branch PAIN Lidocaine 5 0 Yes Apply to [facility] % cream 2-22 area(s) 2 ity of 00:00: (two) [place] 00 times Medical daily. Branch Diclofenac 2022-0 Yes APPLY 2 TO [facility] Sodium 1 % 2-22 4 GRAMS 3 ity of gel 00:00: TIMES [place] 00 DAILY Medical NEEDED FOR Branch PAIN Lidocaine 5 2022-0 Yes Apply to [facility] % cream 2-22 area(s) 2 ity of 00:00: (two) [place] 00 times Medical daily. Branch Diclofenac 2022-0 Yes APPLY 2 TO [facility] Sodium 1 % 2-22 4 GRAMS 3 ity of gel 00:00: TIMES [place] 00 DAILY Medical NEEDED FOR Branch PAIN Lidocaine 5 2022-0 Yes Apply to [facility] % cream 2-22 area(s) 2 ity of 00:00: (two) [place] 00 times Medical daily. Branch Diclofenac 2022-0 Yes APPLY 2 TO [facility] Sodium 1 % 2-22 4 GRAMS 3 ity of gel 00:00: TIMES [place] 00 DAILY Medical NEEDED FOR Branch PAIN Lidocaine 5 2022-0 Yes Apply to [facility] % cream 2-22 area(s) 2 ity of 00:00: (two) [place] 00 times Medical daily. Branch Diclofenac 2022-0 Yes APPLY 2 TO [facility] Sodium 1 % 2-22 4 GRAMS 3 ity of gel 00:00: TIMES [place] 00 DAILY Medical NEEDED FOR Branch PAIN Lidocaine 5 2022-0 Yes Apply to [facility] % cream 2-22 area(s) 2 ity of 00:00: (two) [place] 00 times Medical daily. Branch lidocaine 5 2022-0 2022- No [id number] Apply to [facility] % gel 2-22 -22 [id number] area(s) 2 ity of 00:00: 00:00 (two) [place] 00 :00 times Medical daily. Branch lidocaine 5 2022-0 2022- No [id number] Apply to [facility] % gel 2-22 -22 [id number] area(s) 2 ity of 00:00: 00:00 (two) [place] 00 :00 times Medical daily. Branch lidocaine 5 2022-0 2022- No [id number] Apply to [facility] % gel 2-22 -22 [id number] area(s) 2 ity of 00:00: 00:00 (two) [place] 00 :00 times Medical daily. Branch molnupiravi 2022-0 Yes [id number] 800mg Take 4 [facility] r 200 mg 1-13 capsules ity of capsule 00:00: by mouth [place] every 12 Medical (twelve) Branch hours. molnupiravi 2022-0 Yes [id number] 800mg Take 4 [facility] r 200 mg 1-13 capsules ity of capsule 00:00: by mouth [place] every 12 Medical (twelve) Branch hours. molnupiravi 2023-0 Yes [id number] 800mg Take 4 [facility] r 200 mg 1-13 capsules ity of capsule 00:00: by mouth [place] 00 every 12 Medical (twelve) Branch hours. molnupiravi 2022-0 Yes [id number] 800mg Take 4 [facility] r 200 mg 1-13 capsules ity of capsule 00:00: by mouth [place] 00 every 12 Medical (twelve) Branch hours. molnupiravi 2022-0 Yes [id number] 800mg Take 4 [facility] r 200 mg 1-13 capsules ity of capsule 00:00: by mouth [place] 00 every 12 Medical (twelve) Branch hours. molnupiravi 2022-0 Yes [id number] 800mg Take 4 [facility] r 200 mg 1-13 capsules ity of capsule 00:00: by mouth [place] 00 every 12 Medical (twelve) Branch hours. molnupiravi 0 Yes [id number] 800mg Take 4 [facility] r 200 mg 1-13 capsules ity of capsule 00:00: by mouth [place] 00 every 12 Medical (twelve) Branch hours. molnupiravi 0 3- No [id number] 800mg Take 4 [facility] r 200 mg 1-13 02-22 capsules ity of capsule 00:00: 00:00 by mouth [place] 00 :00 every 12 Medical (twelve) Branch hours. molnupiravi 0 2023- No [id number] 800mg Take 4 [facility] r 200 mg 1-13 02-22 capsules ity of capsule 00:00: 00:00 by mouth [place] 00 :00 every 12 Medical (twelve) Branch hours. cloNIDine 2021-06 Yes [id number] TAKE ONE [facility] n[facility] 0.1 mg 0-06 TABLET BY ity of tablet 00:00: MOUTH [place] 00 THREE Medical TIMES A Branch DAY ONLY IF FOR BLOOD PRESSURE HIGHER THAN 180/90 lisinopriL- 2021-06 Yes [id number] 1{tbl} Take 1 [facility] hydrochloro 0-06 tablet by ity of thiazide 00:00: mouth in [place] 20-25 mg 00 the Medical per tablet morning. Branc h cloNIDine 2021-06 Yes [id number] TAKE ONE [facility] 0.1 mg 0-06 TABLET BY ity of tablet 00:00: MOUTH [place] 00 THREE Medical TIMES A Branch DAY ONLY IF FOR BLOOD PRESSURE HIGHER THAN 180/90 lisinopriL- 2021-06 Yes [id number] 1{tbl} Take 1 [facility] hydrochloro 0-06 tablet by ity of thiazide 00:00: mouth in [place] 20-25 mg 00 the Medical per tablet morning. [facility] cloNIDine 2021-06 Yes [id number] TAKE ONE U nivers 0.1 mg 0-06 TABLET BY ity of tablet 00:00: MOUTH [place] 00 THREE Medical TIMES A Branch DAY ONLY IF FOR BLOOD PRESSURE HIGHER THAN 180/90 lisinopriL- 2021-06 Yes [id number] 1{tbl} Take 1 [facility] hydrochloro 0-06 tablet by ity of thiazide 00:00: mouth in [place] 20-25 mg 00 the Medical per tablet morning. [facility] cloNIDine 2021-06 Yes [id number] TAKE ONE U nivers 0.1 mg 0-06 TABLET BY ity of tablet 00:00: MOUTH [place] 00 THREE Medical TIMES A Branch DAY ONLY IF FOR BLOOD PRESSURE HIGHER THAN 180/90 lisinopriL- 2021-06 Yes [id number] 1{tbl} Take 1 [facility] hydrochloro 0-06 tablet by ity of thiazide 00:00: mouth in [place] 20-25 mg 00 the Medical per tablet morning. [facility] cloNIDine 2021-06 Yes [id number] TAKE ONE U nivers 0.1 mg 0-06 TABLET BY ity of tablet 00:00: MOUTH [place] 00 THREE Medical TIMES A Branch DAY ONLY IF FOR BLOOD PRESSURE HIGHER THAN 180/90 lisinopriL- 2021-06 Yes [id number] 1{tbl} Take 1 [facility] hydrochloro 0-06 tablet by ity of thiazide 00:00: mouth in [place] 20-25 mg 00 the Medical per tablet morning. [facility] cloNIDine 2021-06 Yes [id number] TAKE ONE U nivers 0.1 mg 0-06 TABLET BY ity of tablet 00:00: MOUTH [place] 00 THREE Medical TIMES A Branch DAY ONLY IF FOR BLOOD PRESSURE HIGHER THAN 180/90 lisinopriL- 2021-06 Yes [id number] 1{tbl} Take 1 [facility] hydrochloro 0-06 tablet by ity of thiazide 00:00: mouth in [place] 20-25 mg 00 the Medical per tablet morning. [facility] cloNIDine 2021-06 Yes [id number] TAKE ONE U nivers 0.1 mg 0-06 TABLET BY ity of tablet 00:00: MOUTH [place] 00 THREE Medical TIMES A Branch DAY ONLY IF FOR BLOOD PRESSURE HIGHER THAN 180/90 lisinopriL- 2021-06 Yes [id number] 1{tbl} Take 1 [facility] hydrochloro 0-06 tablet by ity of thiazide 00:00: mouth in [place] 20-25 mg 00 the Medical per tablet morning. [facility] cloNIDine 2021-06 Yes [id number] TAKE ONE U nivers 0.1 mg 0-06 TABLET BY ity of tablet 00:00: MOUTH [place] 00 THREE Medical TIMES A Branch DAY ONLY IF FOR BLOOD PRESSURE HIGHER THAN 180/90 lisinopriL- 2021-06 Yes [id number] 1{tbl} Take 1 [facility] hydrochloro 0-06 tablet by ity of thiazide 00:00: mouth in [place] 20-25 mg 00 the Medical per tablet morning. [facility] cloNIDine 2021-06 Yes [id number] TAKE ONE U nivers 0.1 mg 0-06 TABLET BY ity of tablet 00:00: MOUTH [place] THREE Medical TIMES A Branch DAY ONLY IF FOR BLOOD PRESSURE HIGHER THAN 180/90 lisinopriL- 2021-06 Yes [id number] 1{tbl} Take 1 [facility] hydrochloro 0-06 tablet by ity of thiazide 00:00: mouth in [place] 20-25 mg 00 the Medical per tablet morning. [facility] cloNIDine 2021-06 Yes [id number] TAKE ONE U nivers 0.1 mg 0-06 TABLET BY ity of tablet 00:00: MOUTH [place] 00 THREE Medical TIMES A Branch DAY ONLY IF FOR BLOOD PRESSURE HIGHER THAN 180/90 lisinopriL- 2021-06 Yes [id number] 1{tbl} Take 1 [facility] hydrochloro 0-06 tablet by ity of thiazide 00:00: mouth in [place] 20-25 mg 00 the Medical per tablet morning. [facility] cloNIDine 2021-06 Yes [id number] TAKE ONE U nivers 0.1 mg 0-06 TABLET BY ity of tablet 00:00: MOUTH [place] 00 THREE Medical TIMES A Branch DAY ONLY IF FOR BLOOD PRESSURE HIGHER THAN 180/90 lisinopriL- 2021-06 Yes [id number] 1{tbl} Take 1 [facility] hydrochloro 0-06 tablet by ity of thiazide 00:00: mouth in [place] 20-25 mg 00 the Medical per tablet morning. [facility] cloNIDine 2021-06 Yes [id number] TAKE ONE U nivers 0.1 mg 0-06 TABLET BY ity of tablet 00:00: MOUTH [place] 00 THREE Medical TIMES A Branch DAY ONLY IF FOR BLOOD PRESSURE HIGHER THAN 180/90 lisinopriL- 2021-06 Yes [id number] 1{tbl} Take 1 [facility] hydrochloro 0-06 tablet by ity of thiazide 00:00: mouth in [place] 20-25 mg 00 the Medical per tablet morning. [facility] cloNIDine 2021-06 Yes [id number] TAKE ONE U nivers 0.1 mg 0-06 TABLET BY ity of tablet 00:00: MOUTH [place] 00 THREE Medical TIMES A Branch DAY ONLY IF FOR BLOOD PRESSURE HIGHER THAN 180/90 lisinopriL- 2021-06 Yes [id number] 1{tbl} Take 1 [facility] hydrochloro 0-06 tablet by ity of thiazide 00:00: mouth in [place] 20-25 mg 00 the Medical per tablet morning. [facility] cloNIDine 2021-06 Yes [id number] TAKE ONE U nivers 0.1 mg 0-06 TABLET BY ity of tablet 00:00: MOUTH [place] 00 THREE Medical TIMES A Branch DAY ONLY IF FOR BLOOD PRESSURE HIGHER THAN 180/90 lisinopriL- 2021-06 Yes [id number] 1{tbl} Take 1 [facility] hydrochloro 0-06 tablet by ity of thiazide 00:00: mouth in [place] 20-25 mg 00 the Medical per tablet morning. [facility] cloNIDine 2021-06 Yes [id number] TAKE ONE U nivers 0.1 mg 0-06 TABLET BY ity of tablet 00:00: MOUTH [place] 00 THREE Medical TIMES A Branch DAY ONLY IF FOR BLOOD PRESSURE HIGHER THAN 180/90 lisinopriL- 2021-06 Yes [id number] 1{tbl} Take 1 [facility] hydrochloro 0-06 tablet by ity of thiazide 00:00: mouth in [place] 20-25 mg 00 the Medical per tablet morning. [facility] cloNIDine 2021-06 Yes [id number] TAKE ONE U nivers 0.1 mg 0-06 TABLET BY ity of tablet 00:00: MOUTH [place] 00 THREE Medical TIMES A Branch DAY ONLY IF FOR BLOOD PRESSURE HIGHER THAN 180/90 lisinopriL- 2021-06 Yes [id number] 1{tbl} Take 1 [facility] hydrochloro 0-06 tablet by ity of thiazide 00:00: mouth in [place] 20-25 mg 00 the Medical per tablet morning. [facility] cloNIDine 2021-06 Yes [id number] TAKE ONE U nivers 0.1 mg 0-06 TABLET BY ity of tablet 00:00: MOUTH [place] 00 THREE Medical TIMES A Branch DAY ONLY IF FOR BLOOD PRESSURE HIGHER THAN 180/90 lisinopriL- 2021-06 Yes [id number] 1{tbl} Take 1 [facility] hydrochloro 0-06 tablet by ity of thiazide 00:00: mouth in [place] 20-25 mg 00 the Medical per tablet morning. [facility] cloNIDine 2021-06 Yes [id number] TAKE ONE U nivers 0.1 mg 0-06 TABLET BY ity of tablet 00:00: MOUTH [place] 00 THREE Medical TIMES A Branch DAY ONLY IF FOR BLOOD PRESSURE HIGHER THAN 180/90 amitriptyli 2021-06 Yes [id number] TAKE 1 AND [facility] ne 50 mg 0-06 1/2 TABLET ity o f tablet 00:00: BY MOUTH [place] 00 AT NIGHT Medical FOR 1 WEEK Branch IF PAIN/ANXIE TY/DEPRESS ION NOT IMPROVED THEN TAKE 2 AT NIGHT lisinopriL- 2021-06 Yes [id number] 1{tbl} Take 1 [facility] hydrochloro 0-06 tablet by ity of thiazide 00:00: mouth in [place] 20-25 mg 00 the Medical per tablet morning. [facility] cloNIDine 2021-06 Yes [id number] TAKE ONE U nivers 0.1 mg 0-06 TABLET BY ity of tablet 00:00: MOUTH [place] 00 THREE Medical TIMES A Branch DAY ONLY IF FOR BLOOD PRESSURE HIGHER THAN 180/90 amitriptyli 2021-06 Yes [id number] TAKE 1 AND [facility] ne 50 mg 0-06 1/2 TABLET ity o f tablet 00:00: BY MOUTH [place] 00 AT NIGHT Medical FOR 1 WEEK Branch IF PAIN/ANXIE TY/DEPRESS ION NOT IMPROVED THEN TAKE 2 AT NIGHT lisinopriL- 2021-06 Yes [id number] 1{tbl} Take 1 [facility]-06 tablet by [facility] thiazide 00:00: mouth in [place] 20-25 mg 00 the Medical per tablet morning. [facility] cloNIDine 2021-06 Yes [id number] TAKE ONE U nivers 0.1 mg 0-06 TABLET BY ity of tablet 00:00: MOUTH [place] 00 THREE Medical TIMES A Branch DAY ONLY IF FOR BLOOD PRESSURE HIGHER THAN 180/90 amitriptyli 2021-06 Yes [id number] TAKE 1 AND [facility] 50 mg 0-06 1/2 TABLET ity o f tablet 00:00: BY MOUTH [place] 00 AT NIGHT Medical FOR 1 WEEK Branch IF PAIN/ANXIE TY/DEPRESS ION NOT IMPROVED THEN TAKE 2 AT NIGHT lisinopriL- 2021-06 Yes [id number] 1{tbl} Take 1 [facility] hydrochlor[facility] 0-06 tablet by [facility] of thiazide 00:00: mouth in [place] 20-25 mg 00 the Medical per tablet morning. [facility] cloNIDine 2021-06 Yes [id number] TAKE ONE U nivers 0.1 mg 0-06 TABLET BY ity of tablet 00:00: MOUTH [place] 00 THREE Medical TIMES A Branch DAY ONLY IF FOR BLOOD PRESSURE HIGHER THAN 180/90 amitriptyli 2021-06 Yes [id number] TAKE 1 AND [facility] 50 mg 0-06 1/2 TABLET ity o f tablet 00:00: BY MOUTH [place] 00 AT NIGHT Medical FOR 1 WEEK Branch IF PAIN/ANXIE TY/DEPRESS ION NOT IMPROVED THEN TAKE 2 AT NIGHT lisinopriL- 2021-06 Yes [id number] 1{tbl} Take 1 [facility] hydrochlor[facility] 0-06 tablet by [facility] of thiazide 00:00: mouth in [place] 20-25 mg 00 the Medical per tablet morning. [facility] cloNIDine 2021-06 Yes [id number] TAKE ONE U nivers 0.1 mg 0-06 TABLET BY ity of tablet 00:00: MOUTH [place] 00 THREE Medical TIMES A Branch DAY ONLY IF FOR BLOOD PRESSURE HIGHER THAN 180/90 amitriptyli 2021-06 Yes [id number] TAKE 1 AND [facility] 50 mg 0-06 1/2 TABLET ity o f tablet 00:00: BY MOUTH [place] 00 AT NIGHT Medical FOR 1 WEEK Branch IF PAIN/ANXIE TY/DEPRESS ION NOT IMPROVED THEN TAKE 2 AT NIGHT lisinopriL- 2021-06 Yes [id number] 1{tbl} Take 1 [facility] hydrochlor[facility] 0-06 tablet by [facility] of thiazide 00:00: mouth in [place] 20-25 mg 00 the Medical per tablet morning. [facility] cloNIDine 2021-06 Yes [id number] TAKE ONE U nivers 0.1 mg 0-06 TABLET BY ity of tablet 00:00: MOUTH [place] 00 THREE Medical TIMES A Branch DAY ONLY IF FOR BLOOD PRESSURE HIGHER THAN 180/90 amitriptyli 2021-06 Yes [id number] TAKE 1 AND [facility] 50 mg 0-06 1/2 TABLET ity o f tablet 00:00: BY MOUTH [place] 00 AT NIGHT Medical FOR 1 WEEK Branch IF PAIN/ANXIE TY/DEPRESS ION NOT IMPROVED THEN TAKE 2 AT NIGHT lisinopriL- 2021-06 Yes [id number] 1{tbl} Take 1 [facility] hydrochlor[facility] 0-06 tablet by [facility] of thiazide 00:00: mouth in [place] 20-25 mg 00 the Medical per tablet morning. [facility] cloNIDine 2021-06 Yes [id number] TAKE ONE [facility] nivers 0.1 mg 0-06 TABLET BY ity of tablet 00:00: MOUTH [place] 00 THREE Medical TIMES A Branch DAY ONLY IF FOR BLOOD PRESSURE HIGHER THAN 180/90 amitriptyli 2021-06 Yes [id number] TAKE 1 AND [facility] 50 mg 0-06 1/2 TABLET ity o f tablet 00:00: BY MOUTH [place] 00 AT NIGHT Medical FOR 1 WEEK Branch IF PAIN/ANXIE TY/DEPRESS ION NOT IMPROVED THEN TAKE 2 AT NIGHT lisinopriL- 2021-06 Yes [id number] 1{tbl} Take 1 [facility] hydrochlor[facility] 0-06 tablet by [facility] of thiazide 00:00: mouth in [place] 20-25 mg 00 the Medical per tablet morning. [facility] cloNIDine 2021-06 Yes [id number] TAKE ONE [facility] nivers 0.1 mg 0-06 TABLET BY ity of tablet 00:00: MOUTH [place] 00 THREE Medical TIMES A Branch DAY ONLY IF FOR BLOOD PRESSURE HIGHER THAN 180/90 amitriptyli 2021-06 Yes [id number] TAKE 1 AND [facility] 50 mg 0-06 1/2 TABLET ity o f tablet 00:00: BY MOUTH [place] 00 AT NIGHT Medical FOR 1 WEEK Branch IF PAIN/ANXIE TY/DEPRESS ION NOT IMPROVED THEN TAKE 2 AT NIGHT lisinopriL- 2021-06 Yes [id number] 1{tbl} Take 1 [facility] hydrochlor[facility] 0-06 tablet by [facility] of thiazide 00:00: mouth in [place] 20-25 mg 00 the Medical per tablet morning. [facility] cloNIDine 2021-06 Yes [id number] TAKE ONE [facility] nivers 0.1 mg 0-06 TABLET BY ity of tablet 00:00: MOUTH [place] 00 THREE Medical TIMES A Branch DAY ONLY IF FOR BLOOD PRESSURE HIGHER THAN 180/90 amitriptyli 2021-06 Yes [id number] TAKE 1 AND [facility] 50 mg 0-06 1/2 TABLET ity o f tablet 00:00: BY MOUTH [place] 00 AT NIGHT Medical FOR 1 WEEK Branch IF PAIN/ANXIE TY/DEPRESS ION NOT IMPROVED THEN TAKE 2 AT NIGHT lisinopriL- 2021-06 Yes [id number] 1{tbl} Take 1 [facility] hydrochlor[facility] 0-06 tablet by [facility] of thiazide 00:00: mouth in [place] 20-25 mg 00 the Medical per tablet morning. [facility] cloNIDine 2021-06 Yes [id number] TAKE ONE [facility] nivers 0.1 mg 0-06 TABLET BY ity of tablet 00:00: MOUTH [place] 00 THREE Medical TIMES A Branch DAY ONLY IF FOR BLOOD PRESSURE HIGHER THAN 180/90 amitriptyli 2021-06 Yes [id number] TAKE 1 AND [facility] 50 mg 0-06 1/2 TABLET ity o f tablet 00:00: BY MOUTH [place] 00 AT NIGHT Medical FOR 1 WEEK Branch IF PAIN/ANXIE TY/DEPRESS ION NOT IMPROVED THEN TAKE 2 AT NIGHT lisinopriL- 2021-06 Yes [id number] 1{tbl} Take 1 [facility] hydrochlor[facility] 0-06 tablet by [facility] of thiazide 00:00: mouth in [place] 20-25 mg 00 the Medical per tablet morning. [facility] cloNIDine 2021-06 Yes [id number] TAKE ONE [facility] nivers 0.1 mg 0-06 TABLET BY ity of tablet 00:00: MOUTH [place] 00 THREE Medical TIMES A Branch DAY ONLY IF FOR BLOOD PRESSURE HIGHER THAN 180/90 amitriptyli 2021-06 Yes [id number] TAKE 1 AND [facility] 50 mg 0-06 1/2 TABLET ity o f tablet 00:00: BY MOUTH [place] 00 AT NIGHT Medical FOR 1 WEEK Branch IF PAIN/ANXIE TY/DEPRESS ION NOT IMPROVED THEN TAKE 2 AT NIGHT lisinopriL- 2021-06 Yes [id number] 1{tbl} Take 1 [facility] hydrochlor[facility] 0-06 tablet by [facility] of thiazide 00:00: mouth in [place] 20-25 mg 00 the Medical per tablet morning. [facility] cloNIDine 2021-06 Yes [id number] TAKE ONE [facility] nivers 0.1 mg 0-06 TABLET BY ity of tablet 00:00: MOUTH [place] 00 THREE Medical TIMES A Branch DAY ONLY IF FOR BLOOD PRESSURE HIGHER THAN 180/90 amitriptyli 2021-06 Yes [id number] TAKE 1 AND [facility] 50 mg 0-06 1/2 TABLET ity o f tablet 00:00: BY MOUTH [place] 00 AT NIGHT Medical FOR 1 WEEK Branch IF PAIN/ANXIE TY/DEPRESS ION NOT IMPROVED THEN TAKE 2 AT NIGHT lisinopriL- 2021-06 Yes [id number] 1{tbl} Take 1 [facility] hydrochlor[facility] 0-06 tablet by [facility] of thiazide 00:00: mouth in [place] 20-25 mg 00 the Medical per tablet morning. [facility] cloNIDine 2021-06 Yes [id number] TAKE ONE [facility] nivers 0.1 mg 0-06 TABLET BY ity of tablet 00:00: MOUTH [place] 00 THREE Medical TIMES A Branch DAY ONLY IF FOR BLOOD PRESSURE HIGHER THAN 180/90 amitriptyli 2021-06 Yes [id number] TAKE 1 AND [facility] 50 mg 0-06 1/2 TABLET ity o f tablet 00:00: BY MOUTH [place] 00 AT NIGHT Medical FOR 1 WEEK Branch IF PAIN/ANXIE TY/DEPRESS ION NOT IMPROVED THEN TAKE 2 AT NIGHT lisinopriL- 2021-06 Yes [id number] 1{tbl} Take 1 [facility] hydrochlor[facility] 0-06 tablet by [facility] of thiazide 00:00: mouth in [place] 20-25 mg 00 the Medical per tablet morning. [facility] cloNIDine 2021-06 Yes [id number] TAKE ONE [facility] nivers 0.1 mg 0-06 TABLET BY ity of tablet 00:00: MOUTH [place] 00 THREE Medical TIMES A Branch DAY ONLY IF FOR BLOOD PRESSURE HIGHER THAN 180/90 amitriptyli 2021-06 Yes [id number] TAKE 1 AND [facility] 50 mg 0-06 1/2 TABLET ity o f tablet 00:00: BY MOUTH [place] 00 AT NIGHT Medical FOR 1 WEEK Branch IF PAIN/ANXIE TY/DEPRESS ION NOT IMPROVED THEN TAKE 2 AT NIGHT lisinopriL- 2021-06 Yes [id number] 1{tbl} Take 1 [facility] 0-06 tablet by [facility] of thiazide 00:00: mouth in [place] 20-25 mg 00 the Medical per tablet morning. [facility] cloNIDine 2021-06 Yes [id number] TAKE ONE [facility] nivers 0.1 mg 0-06 TABLET BY ity of tablet 00:00: MOUTH [place] 00 THREE Medical TIMES A Branch DAY ONLY IF FOR BLOOD PRESSURE HIGHER THAN 180/90 amitriptyli 2021-06 Yes [id number] TAKE 1 AND [facility] 50 mg 0-06 1/2 TABLET ity o f tablet 00:00: BY MOUTH [place] 00 AT NIGHT Medical FOR 1 WEEK Branch IF PAIN/ANXIE TY/DEPRESS ION NOT IMPROVED THEN TAKE 2 AT NIGHT lisinopriL- 2021-06 Yes [id number] 1{tbl} Take 1 [facility] hydrochlor[facility] 0-06 tablet by [facility] of thiazide 00:00: mouth in [place] 20-25 mg 00 the Medical per tablet morning. [facility] cloNIDine 2021-06 Yes [id number] TAKE ONE [facility] nivers 0.1 mg 0-06 TABLET BY ity of tablet 00:00: MOUTH [place] 00 THREE Medical TIMES A Branch DAY ONLY IF FOR BLOOD PRESSURE HIGHER THAN 180/90 amitriptyli 2021-06 Yes [id number] TAKE 1 AND [facility] 50 mg 0-06 1/2 TABLET ity o f tablet 00:00: BY MOUTH [place] 00 AT NIGHT Medical FOR 1 WEEK Branch IF PAIN/ANXIE TY/DEPRESS ION NOT IMPROVED THEN TAKE 2 AT NIGHT lisinopriL- 2021-06 Yes [id number] 1{tbl} Take 1 [facility] hydrochlor[facility] 0-06 tablet by [facility] of thiazide 00:00: mouth in [place] 20-25 mg 00 the Medical per tablet morning. [facility] cloNIDine 2021-06 Yes [id number] TAKE ONE [facility] nivers 0.1 mg 0-06 TABLET BY ity of tablet 00:00: MOUTH [place] 00 THREE Medical TIMES A Branch DAY ONLY IF FOR BLOOD PRESSURE HIGHER THAN 180/90 amitriptyli 2021-06 Yes [id number] TAKE 1 AND [facility] ne 50 mg 0-06 1/2 TABLET ity o f tablet 00:00: BY MOUTH [place] 00 AT NIGHT Medical FOR 1 WEEK Branch IF PAIN/ANXIE TY/DEPRESS ION NOT IMPROVED THEN TAKE 2 AT NIGHT lisinopriL- 2021-06 Yes [id number] 1{tbl} Take 1 [facility] hydrochlor[facility] 0-06 tablet by [facility] of thiazide 00:00: mouth in [place] 20-25 mg 00 the Medical per tablet morning. [facility] cloNIDine 2021-06 Yes [id number] TAKE ONE U nivers 0.1 mg 0-06 TABLET BY ity of tablet 00:00: MOUTH [place] 00 THREE Medical TIMES A Branch DAY ONLY IF FOR BLOOD PRESSURE HIGHER THAN 180/90 amitriptyli 2021-06 Yes [id number] TAKE 1 AND [facility] ne 50 mg 0-06 1/2 TABLET ity o f tablet 00:00: BY MOUTH [place] 00 AT NIGHT Medical FOR 1 WEEK Branch IF PAIN/ANXIE TY/DEPRESS ION NOT IMPROVED THEN TAKE 2 AT NIGHT lisinopriL- 2021-06 Yes [id number] 1{tbl} Take 1 [facility] hydrochlor[facility] 0-06 tablet by [facility] of thiazide 00:00: mouth in [place] 20-25 mg 00 the Medical per tablet morning. [facility] cloNIDine 2021-06 Yes [id number] TAKE ONE U nivers 0.1 mg 0-06 TABLET BY ity of tablet 00:00: MOUTH [place] 00 THREE Medical TIMES A Branch DAY ONLY IF FOR BLOOD PRESSURE HIGHER THAN 180/90 amitriptyli 2021-06 Yes [id number] TAKE 1 AND [facility] ne 50 mg 0-06 1/2 TABLET ity o f tablet 00:00: BY MOUTH [place] 00 AT NIGHT Medical FOR 1 WEEK Branch IF PAIN/ANXIE TY/DEPRESS ION NOT IMPROVED THEN TAKE 2 AT NIGHT lisinopriL- 2021-06 Yes [id number] 1{tbl} Take 1 [facility] hydrochlor[facility] 0-06 tablet by [facility] of thiazide 00:00: mouth in [place] 20-25 mg 00 the Medical per tablet morning. [facility] cloNIDine 2021-06 Yes [id number] TAKE ONE U nivers 0.1 mg 0-06 TABLET BY ity of tablet 00:00: MOUTH [place] 00 THREE Medical TIMES A Branch DAY ONLY IF FOR BLOOD PRESSURE HIGHER THAN 180/90 amitriptyli 2021-06 Yes [id number] TAKE 1 AND [facility] ne 50 mg 0-06 1/2 TABLET ity o f tablet 00:00: BY MOUTH [place] 00 AT NIGHT Medical FOR 1 WEEK Branch IF PAIN/ANXIE TY/DEPRESS ION NOT IMPROVED THEN TAKE 2 AT NIGHT lisinopriL- 2021-06 Yes [id number] 1{tbl} Take 1 [facility] hydrochlor[facility] 0-06 tablet by [facility] of thiazide 00:00: mouth in [place] 20-25 mg 00 the Medical per tablet morning. [facility] cloNIDine 2021-06 Yes [id number] TAKE ONE U nivers 0.1 mg 0-06 TABLET BY ity of tablet 00:00: MOUTH [place] 00 THREE Medical TIMES A Branch DAY ONLY IF FOR BLOOD PRESSURE HIGHER THAN 180/90 amitriptyli 2021-06 Yes [id number] TAKE 1 AND [facility] ne 50 mg 0-06 1/2 TABLET ity o f tablet 00:00: BY MOUTH [place] 00 AT NIGHT Medical FOR 1 WEEK Branch IF PAIN/ANXIE TY/DEPRESS ION NOT IMPROVED THEN TAKE 2 AT NIGHT lisinopriL- 2021-06 Yes [id number] 1{tbl} Take 1 [facility] hydrochlor[facility] 0-06 tablet by [facility]y of thiazide 00:00: mouth in [place] 20-25 mg 00 the Medical per tablet morning. [facility] cloNIDine 2021-06 Yes [id number] TAKE ONE U nivers 0.1 mg 0-06 TABLET BY ity of tablet 00:00: MOUTH [place] 00 THREE Medical TIMES A Branch DAY ONLY IF FOR BLOOD PRESSURE HIGHER THAN 180/90 amitriptyli 2021-06 Yes [id number] TAKE 1 AND [facility] ne 50 mg 0-06 1/2 TABLET ity o f tablet 00:00: BY MOUTH [place] 00 AT NIGHT Medical FOR 1 WEEK Branch IF PAIN/ANXIE TY/DEPRESS ION NOT IMPROVED THEN TAKE 2 AT NIGHT lisinopriL- 2021-06 Yes [id number] 1{tbl} Take 1 [facility] hydrochlor[facility] 0-06 tablet by [facility] of thiazide 00:00: mouth in [place] 20-25 mg 00 the Medical per tablet morning. [facility] cloNIDine 2021-06 Yes [id number] TAKE ONE U nivers 0.1 mg 0-06 TABLET BY ity of tablet 00:00: MOUTH [place] 00 THREE Medical TIMES A Branch DAY ONLY IF FOR BLOOD PRESSURE HIGHER THAN 180/90 amitriptyli 2021-06 Yes [id number] TAKE 1 AND [facility] ne 50 mg 0-06 1/2 TABLET ity o f tablet 00:00: BY MOUTH [place] 00 AT NIGHT Medical FOR 1 WEEK Branch IF PAIN/ANXIE TY/DEPRESS ION NOT IMPROVED THEN TAKE 2 AT NIGHT lisinopriL- 2021-06 Yes [id number] 1{tbl} Take 1 [facility] hydrochlor[facility] 0-06 tablet by [facility]y of thiazide 00:00: mouth in [place] 20-25 mg 00 the Medical per tablet morning. [facility] cloNIDine 2021-06 Yes [id number] TAKE ONE U nivers 0.1 mg 0-06 TABLET BY ity of tablet 00:00: MOUTH [place] 00 THREE Medical TIMES A Branch DAY ONLY IF FOR BLOOD PRESSURE HIGHER THAN 180/90 amitriptyli 2021-06 Yes [id number] TAKE 1 AND [facility] ne 50 mg 0-06 1/2 TABLET ity o f tablet 00:00: BY MOUTH [place] 00 AT NIGHT Medical FOR 1 WEEK Branch IF PAIN/ANXIE TY/DEPRESS ION NOT IMPROVED THEN TAKE 2 AT NIGHT lisinopriL- 2021-06 Yes [id number] 1{tbl} Take 1 [facility] hydrochlor[facility] 0-06 tablet by [facility]y of thiazide 00:00: mouth in [place] 20-25 mg 00 the Medical per tablet morning. [facility] cloNIDine 2021-06 Yes [id number] TAKE ONE U nivers 0.1 mg 0-06 TABLET BY ity of tablet 00:00: MOUTH [place] 00 THREE Medical TIMES A Branch DAY ONLY IF FOR BLOOD PRESSURE HIGHER THAN 180/90 amitriptyli 2021-06 Yes [id number] TAKE 1 AND [facility] ne 50 mg 0-06 1/2 TABLET ity o f tablet 00:00: BY MOUTH [place] 00 AT NIGHT Medical FOR 1 WEEK Branch IF PAIN/ANXIE TY/DEPRESS ION NOT IMPROVED THEN TAKE 2 AT NIGHT lisinopriL- 2021-06 Yes [id number] 1{tbl} Take 1 [facility] hydrochlor[facility] 0-06 tablet by [facility] of thiazide 00:00: mouth in [place] 20-25 mg 00 the Medical per tablet morning. [facility] cloNIDine 2021-06 Yes [id number] TAKE ONE U nivers 0.1 mg 0-06 TABLET BY ity of tablet 00:00: MOUTH [place] 00 THREE Medical TIMES A Branch DAY ONLY IF FOR BLOOD PRESSURE HIGHER THAN 180/90 amitriptyli 2021-06 Yes [id number] TAKE 1 AND [facility] ne 50 mg 0-06 1/2 TABLET ity o f tablet 00:00: BY MOUTH [place] 00 AT NIGHT Medical FOR 1 WEEK Branch IF PAIN/ANXIE TY/DEPRESS ION NOT IMPROVED THEN TAKE 2 AT NIGHT lisinopriL- 2021-06 Yes [id number] 1{tbl} Take 1 [facility] hydrochlor[facility] 0-06 tablet by [facility] of thiazide 00:00: mouth in [place] 20-25 mg 00 the Medical per tablet morning. [facility] cloNIDine 2021-06 Yes [id number] TAKE ONE U nivers 0.1 mg 0-06 TABLET BY ity of tablet 00:00: MOUTH [place] 00 THREE Medical TIMES A Branch DAY ONLY IF FOR BLOOD PRESSURE HIGHER THAN 180/90 amitriptyli 2021-06 Yes [id number] TAKE 1 AND [facility] ne 50 mg 0-06 1/2 TABLET ity o f tablet 00:00: BY MOUTH [place] 00 AT NIGHT Medical FOR 1 WEEK Branch IF PAIN/ANXIE TY/DEPRESS ION NOT IMPROVED THEN TAKE 2 AT NIGHT lisinopriL- 2021-06 Yes [id number] 1{tbl} Take 1 [facility] hydrochlor[facility] 0-06 tablet by [facility] of thiazide 00:00: mouth in [place] 20-25 mg 00 the Medical per tablet morning. [facility] cloNIDine 2021-06 Yes [id number] TAKE ONE U nivers 0.1 mg 0-06 TABLET BY ity of tablet 00:00: MOUTH [place] 00 THREE Medical TIMES A Branch DAY ONLY IF FOR BLOOD PRESSURE HIGHER THAN 180/90 amitriptyli 2021-06 Yes [id number] TAKE 1 AND [facility] ne 50 mg 0-06 1/2 TABLET ity o f tablet 00:00: BY MOUTH [place] 00 AT NIGHT Medical FOR 1 WEEK Branch IF PAIN/ANXIE TY/DEPRESS ION NOT IMPROVED THEN TAKE 2 AT NIGHT lisinopriL- 2021-06 Yes [id number] 1{tbl} Take 1 [facility] hydrochlor[facility] 0-06 tablet by [facility]y of thiazide 00:00: mouth in [place] 20-25 mg 00 the Medical per tablet morning. [facility] cloNIDine 2021-06 Yes [id number] TAKE ONE U nivers 0.1 mg 0-06 TABLET BY ity of tablet 00:00: MOUTH [place] 00 THREE Medical TIMES A Branch DAY ONLY IF FOR BLOOD PRESSURE HIGHER THAN 180/90 amitriptyli 2021-06 Yes [id number] TAKE 1 AND [facility] ne 50 mg 0-06 1/2 TABLET ity o f tablet 00:00: BY MOUTH [place] 00 AT NIGHT Medical FOR 1 WEEK Branch IF PAIN/ANXIE TY/DEPRESS ION NOT IMPROVED THEN TAKE 2 AT NIGHT lisinopriL- 2021-06 Yes [id number] 1{tbl} Take 1 [facility] hydrochlor[facility] 0-06 tablet by [facility] of thiazide 00:00: mouth in [place] 20-25 mg 00 the Medical per tablet morning. [facility] cloNIDine 2021-06 Yes [id number] TAKE ONE U nivers 0.1 mg 0-06 TABLET BY ity of tablet 00:00: MOUTH [place] 00 THREE Medical TIMES A Branch DAY ONLY IF FOR BLOOD PRESSURE HIGHER THAN 180/90 amitriptyli 2021-06 Yes [id number] TAKE 1 AND [facility] ne 50 mg 0-06 1/2 TABLET ity o f tablet 00:00: BY MOUTH [place] 00 AT NIGHT Medical FOR 1 WEEK Branch IF PAIN/ANXIE TY/DEPRESS ION NOT IMPROVED THEN TAKE 2 AT NIGHT lisinopriL- 2021-06 Yes [id number] 1{tbl} Take 1 [facility] hydrochlor[facility] 0-06 tablet by [facility] of thiazide 00:00: mouth in [place] 20-25 mg 00 the Medical per tablet morning. [facility] cloNIDine 2021-06 Yes [id number] TAKE ONE U nivers 0.1 mg 0-06 TABLET BY ity of tablet 00:00: MOUTH [place] 00 THREE Medical TIMES A Branch DAY ONLY IF FOR BLOOD PRESSURE HIGHER THAN 180/90 amitriptyli 2021-06 Yes [id number] TAKE 1 AND [facility] ne 50 mg 0-06 1/2 TABLET ity o f tablet 00:00: BY MOUTH [place] 00 AT NIGHT Medical FOR 1 WEEK Branch IF PAIN/ANXIE TY/DEPRESS ION NOT IMPROVED THEN TAKE 2 AT NIGHT lisinopriL- 2021-06 Yes [id number] 1{tbl} Take 1 [facility] hydrochlor[facility] 0-06 tablet by [facility] of thiazide 00:00: mouth in [place] 20-25 mg 00 the Medical per tablet morning. [facility] cloNIDine 2021-06 Yes [id number] TAKE ONE U nivers 0.1 mg 0-06 TABLET BY ity of tablet 00:00: MOUTH [place] 00 THREE Medical TIMES A Branch DAY ONLY IF FOR BLOOD PRESSURE HIGHER THAN 180/90 amitriptyli 2021-06 Yes [id number] TAKE 1 AND [facility] ne 50 mg 0-06 1/2 TABLET ity o f tablet 00:00: BY MOUTH [place] 00 AT NIGHT Medical FOR 1 WEEK Branch IF PAIN/ANXIE TY/DEPRESS ION NOT IMPROVED THEN TAKE 2 AT NIGHT lisinopriL- 2021-06 Yes [id number] 1{tbl} Take 1 [facility] hydrochlor[facility] 0-06 tablet by [facility] of thiazide 00:00: mouth in [place] 20-25 mg 00 the Medical per tablet morning. [facility] cloNIDine 2021-06 Yes [id number] TAKE ONE [facility] nivers 0.1 mg 0-06 TABLET BY ity of tablet 00:00: MOUTH [place] 00 THREE Medical TIMES A Branch DAY ONLY IF FOR BLOOD PRESSURE HIGHER THAN 180/90 amitriptyli 2021-06 Yes [id number] TAKE 1 AND [facility] ne 50 mg 0-06 1/2 TABLET ity o f tablet 00:00: BY MOUTH [place] 00 AT NIGHT Medical FOR 1 WEEK Branch IF PAIN/ANXIE TY/DEPRESS ION NOT IMPROVED THEN TAKE 2 AT NIGHT lisinopriL- 2021-06 Yes [id number] 1{tbl} Take 1 [facility] hydrochlor[facility] 0-06 tablet by [facility] of thiazide 00:00: mouth in [place] 20-25 mg 00 the Medical per tablet morning. [facility] cloNIDine 2021-06 Yes [id number] TAKE ONE U nivers 0.1 mg 0-06 TABLET BY ity of tablet 00:00: MOUTH [place] 00 THREE Medical TIMES A Branch DAY ONLY IF FOR BLOOD PRESSURE HIGHER THAN 180/90 amitriptyli 2021-06 Yes [id number] TAKE 1 AND [facility] ne 50 mg 0-06 1/2 TABLET ity o f tablet 00:00: BY MOUTH [place] 00 AT NIGHT Medical FOR 1 WEEK Branch IF PAIN/ANXIE TY/DEPRESS ION NOT IMPROVED THEN TAKE 2 AT NIGHT lisinopriL- 2021-06 Yes [id number] 1{tbl} Take 1 [facility] hydrochlor[facility] 0-06 tablet by [facility] of thiazide 00:00: mouth in [place] 20-25 mg 00 the Medical per tablet morning. [facility] cloNIDine 2021-06 Yes [id number] TAKE ONE U nivers 0.1 mg 0-06 TABLET BY ity of tablet 00:00: MOUTH [place] 00 THREE Medical TIMES A Branch DAY ONLY IF FOR BLOOD PRESSURE HIGHER THAN 180/90 amitriptyli 2021-06 Yes [id number] TAKE 1 AND [facility] ne 50 mg 0-06 1/2 TABLET ity o f tablet 00:00: BY MOUTH [place] 00 AT NIGHT Medical FOR 1 WEEK Branch IF PAIN/ANXIE TY/DEPRESS ION NOT IMPROVED THEN TAKE 2 AT NIGHT lisinopriL- 2021-06 Yes [id number] 1{tbl} Take 1 [facility] 0-06 tablet by [facility] of thiazide 00:00: mouth in [place] 20-25 mg 00 the Medical per tablet morning. [facility] cloNIDine 2021-06 Yes [id number] TAKE ONE U nivers 0.1 mg 0-06 TABLET BY ity of tablet 00:00: MOUTH [place] 00 THREE Medical TIMES A Branch DAY ONLY IF FOR BLOOD PRESSURE HIGHER THAN 180/90 amitriptyli 2021-06 Yes [id number] TAKE 1 AND [facility] ne 50 mg 0-06 1/2 TABLET ity o f tablet 00:00: BY MOUTH [place] 00 AT NIGHT Medical FOR 1 WEEK Branch IF PAIN/ANXIE TY/DEPRESS ION NOT IMPROVED THEN TAKE 2 AT NIGHT lisinopriL- 2021-06 Yes [id number] 1{tbl} Take 1 [facility] 0-06 tablet by [facility] of thiazide 00:00: mouth in [place] 20-25 mg 00 the Medical per tablet morning. [facility] cloNIDine 2021-06 Yes [id number] TAKE ONE [facility] nivers 0.1 mg 0-06 TABLET BY ity of tablet 00:00: MOUTH [place] 00 THREE Medical TIMES A Branch DAY ONLY IF FOR BLOOD PRESSURE HIGHER THAN 180/90 amitriptyli 2021-06 Yes [id number] TAKE 1 AND [facility] ne 50 mg 0-06 1/2 TABLET ity o f tablet 00:00: BY MOUTH [place] 00 AT NIGHT Medical FOR 1 WEEK Branch IF PAIN/ANXIE TY/DEPRESS ION NOT IMPROVED THEN TAKE 2 AT NIGHT lisinopriL- 2021-06 Yes [id number] 1{tbl} Take 1 [facility] 0-06 tablet by [facility] of thiazide 00:00: mouth in [place] 20-25 mg 00 the Medical per tablet morning. [facility] cloNIDine 2021-06 Yes [id number] TAKE ONE [facility] nivers 0.1 mg 0-06 TABLET BY ity of tablet 00:00: MOUTH [place] 00 THREE Medical TIMES A Branch DAY ONLY IF FOR BLOOD PRESSURE HIGHER THAN 180/90 amitriptyli 2021-06 Yes [id number] TAKE 1 AND [facility] ne 50 mg 0-06 1/2 TABLET ity o f tablet 00:00: BY MOUTH [place] 00 AT NIGHT Medical FOR 1 WEEK Branch IF PAIN/ANXIE TY/DEPRESS ION NOT IMPROVED THEN TAKE 2 AT NIGHT lisinopriL- 2021-06 Yes [id number] 1{tbl} Take 1 [facility] 0-06 tablet by [facility]y of thiazide 00:00: mouth in [place] 20-25 mg 00 the Medical per tablet morning. [facility] cloNIDine 2021-06 Yes [id number] TAKE ONE U nivers 0.1 mg 0-06 TABLET BY ity of tablet 00:00: MOUTH [place] 00 THREE Medical TIMES A Branch DAY ONLY IF FOR BLOOD PRESSURE HIGHER THAN 180/90 amitriptyli 2021-06 Yes [id number] TAKE 1 AND [facility] ne 50 mg 0-06 1/2 TABLET ity o f tablet 00:00: BY MOUTH [place] 00 AT NIGHT Medical FOR 1 WEEK Branch IF PAIN/ANXIE TY/DEPRESS ION NOT IMPROVED THEN TAKE 2 AT NIGHT lisinopriL- 2021-06 Yes [id number] 1{tbl} Take 1 [facility] 0-06 tablet by [facility]y of thiazide 00:00: mouth in [place] 20-25 mg 00 the Medical per tablet morning. [facility] cloNIDine 2021-06 Yes [id number] TAKE ONE U nivers 0.1 mg 0-06 TABLET BY ity of tablet 00:00: MOUTH [place] 00 THREE Medical TIMES A Branch DAY ONLY IF FOR BLOOD PRESSURE HIGHER THAN 180/90 amitriptyli 2021-06 Yes [id number] TAKE 1 AND [facility] ne 50 mg 0-06 1/2 TABLET ity o f tablet 00:00: BY MOUTH [place] 00 AT NIGHT Medical FOR 1 WEEK Branch IF PAIN/ANXIE TY/DEPRESS ION NOT IMPROVED THEN TAKE 2 AT NIGHT lisinopriL- 2021-06 Yes [id number] 1{tbl} Take 1 [facility] 0-06 tablet by [facility] of thiazide 00:00: mouth in [place] 20-25 mg 00 the Medical per tablet morning. [facility] cloNIDine 2021-06 Yes [id number] TAKE ONE U nivers 0.1 mg 0-06 TABLET BY ity of tablet 00:00: MOUTH [place] 00 THREE Medical TIMES A Branch DAY ONLY IF FOR BLOOD PRESSURE HIGHER THAN 180/90 amitriptyli 2021-06 Yes [id number] TAKE 1 AND [facility] ne 50 mg 0-06 1/2 TABLET ity o f tablet 00:00: BY MOUTH [place] 00 AT NIGHT Medical FOR 1 WEEK Branch IF PAIN/ANXIE TY/DEPRESS ION NOT IMPROVED THEN TAKE 2 AT NIGHT lisinopriL- 2021-06 Yes [id number] 1{tbl} Take 1 [facility] 0-06 tablet by [facility]y of thiazide 00:00: mouth in [place] 20-25 mg 00 the Medical per tablet morning. [facility] cloNIDine 2021-06 Yes [id number] TAKE ONE U nivers 0.1 mg 0-06 TABLET BY ity of tablet 00:00: MOUTH [place] 00 THREE Medical TIMES A Branch DAY ONLY IF FOR BLOOD PRESSURE HIGHER THAN 180/90 amitriptyli 2021-06 Yes [id number] TAKE 1 AND [facility] ne 50 mg 0-06 1/2 TABLET ity o f tablet 00:00: BY MOUTH [place] 00 AT NIGHT Medical FOR 1 WEEK Branch IF PAIN/ANXIE TY/DEPRESS ION NOT IMPROVED THEN TAKE 2 AT NIGHT lisinopriL- 2021-06 Yes [id number] 1{tbl} Take 1 [facility] 0-06 tablet by [facility]y of thiazide 00:00: mouth in [place] 20-25 mg 00 the Medical per tablet morning. [facility] cloNIDine 2021-06 Yes [id number] TAKE ONE U nivers 0.1 mg 0-06 TABLET BY ity of tablet 00:00: MOUTH [place] 00 THREE Medical TIMES A Branch DAY ONLY IF FOR BLOOD PRESSURE HIGHER THAN 180/90 amitriptyli 2021-06 Yes [id number] TAKE 1 AND [facility] ne 50 mg 0-06 1/2 TABLET ity o f tablet 00:00: BY MOUTH [place] 00 AT NIGHT Medical FOR 1 WEEK Branch IF PAIN/ANXIE TY/DEPRESS ION NOT IMPROVED THEN TAKE 2 AT NIGHT lisinopriL- 2021-06 Yes [id number] 1{tbl} Take 1 [facility] 0-06 tablet by ity of thiazide 00:00: mouth in [place] 20-25 mg 00 the Medical per tablet morning. [facility] cloNIDine 2021-06 Yes [id number] TAKE ONE U nivers 0.1 mg 0-06 TABLET BY ity of tablet 00:00: MOUTH [place] 00 THREE Medical TIMES A Branch DAY ONLY IF FOR BLOOD PRESSURE HIGHER THAN 180/90 lisinopriL- 2021-06 Yes [id number] 1{tbl} Take 1 [facility] hydrochloro 0-06 tablet by ity of thiazide 00:00: mouth in [place] 20-25 mg 00 the Medical per tablet morning. [facility] cloNIDine 2021-06 Yes [id number] TAKE ONE U nivers 0.1 mg 0-06 TABLET BY ity of tablet 00:00: MOUTH [place] 00 THREE Medical TIMES A Branch DAY ONLY IF FOR BLOOD PRESSURE HIGHER THAN 180/90 lisinopriL- 2021-06 Yes [id number] 1{tbl} Take 1 [facility] hydrochloro 0-06 tablet by ity of thiazide 00:00: mouth in [place] 20-25 mg 00 the Medical per tablet morning. [facility] cloNIDine 2021-06 Yes [id number] TAKE ONE U nivers 0.1 mg 0-06 TABLET BY ity of tablet 00:00: MOUTH [place] 00 THREE Medical TIMES A Branch DAY ONLY IF FOR BLOOD PRESSURE HIGHER THAN 180/90 lisinopriL- 2021-06 Yes [id number] 1{tbl} Take 1 [facility] hydrochloro 0-06 tablet by ity of thiazide 00:00: mouth in [place] 20-25 mg 00 the Medical per tablet morning. [facility] cloNIDine 2021-06 Yes [id number] TAKE ONE U nivers 0.1 mg 0-06 TABLET BY ity of tablet 00:00: MOUTH [place] 00 THREE Medical TIMES A Branch DAY ONLY IF FOR BLOOD PRESSURE HIGHER THAN 180/90 lisinopriL- 2021-06 Yes [id number] 1{tbl} Take 1 [facility] hydrochloro 0-06 tablet by ity of thiazide 00:00: mouth in [place] 20-25 mg 00 the Medical per tablet morning. [facility] cloNIDine 2021-06 Yes [id number] TAKE ONE U nivers 0.1 mg 0-06 TABLET BY ity of tablet 00:00: MOUTH [place] 00 THREE Medical TIMES A Branch DAY ONLY IF FOR BLOOD PRESSURE HIGHER THAN 180/90 lisinopriL- 2021-06 Yes [id number] 1{tbl} Take 1 [facility] hydrochloro 0-06 tablet by ity of thiazide 00:00: mouth in [place] 20-25 mg 00 the Medical per tablet morning. [facility] cloNIDine 2021-06 Yes [id number] TAKE ONE U nivers 0.1 mg 0-06 TABLET BY ity of tablet 00:00: MOUTH [place] 00 THREE Medical TIMES A Branch DAY ONLY IF FOR BLOOD PRESSURE HIGHER THAN 180/90 lisinopriL- 2021-06 Yes [id number] 1{tbl} Take 1 [facility] hydrochloro 0-06 tablet by ity of thiazide 00:00: mouth in [place] 20-25 mg 00 the Medical per tablet morning. [facility] cloNIDine 2021-06 Yes [id number] TAKE ONE U nivers 0.1 mg 0-06 TABLET BY ity of tablet 00:00: MOUTH [place] 00 THREE Medical TIMES A Branch DAY ONLY IF FOR BLOOD PRESSURE HIGHER THAN 180/90 lisinopriL- 2021-06 Yes [id number] 1{tbl} Take 1 [facility] hydrochloro 0-06 tablet by ity of thiazide 00:00: mouth in [place] 20-25 mg 00 the Medical per tablet morning. [facility] cloNIDine 2021-06 Yes [id number] TAKE ONE U nivers 0.1 mg 0-06 TABLET BY ity of tablet 00:00: MOUTH [place] 00 THREE Medical TIMES A Branch DAY ONLY IF FOR BLOOD PRESSURE HIGHER THAN 180/90 lisinopriL- 2021-06 Yes [id number] 1{tbl} Take 1 [facility] hydrochloro 0-06 tablet by ity of thiazide 00:00: mouth in [place] 20-25 mg 00 the Medical per tablet morning. [facility] cloNIDine 2021-06 Yes [id number] TAKE ONE U nivers 0.1 mg 0-06 TABLET BY ity of tablet 00:00: MOUTH [place] 00 THREE Medical TIMES A Branch DAY ONLY IF FOR BLOOD PRESSURE HIGHER THAN 180/90 lisinopriL- 2021-06 Yes [id number] 1{tbl} Take 1 [facility] hydrochloro 0-06 tablet by ity of thiazide 00:00: mouth in [place] 20-25 mg 00 the Medical per tablet morning. [facility] cloNIDine 2021-06 Yes [id number] TAKE ONE U nivers 0.1 mg 0-06 TABLET BY ity of tablet 00:00: MOUTH [place] 00 THREE Medical TIMES A Branch DAY ONLY IF FOR BLOOD PRESSURE HIGHER THAN 180/90 lisinopriL- 2021-06 Yes [id number] 1{tbl} Take 1 [facility] hydrochloro 0-06 tablet by ity of thiazide 00:00: mouth in [place] 20-25 mg 00 the Medical per tablet morning. [facility] cloNIDine 2021-06 Yes [id number] TAKE ONE U nivers 0.1 mg 0-06 TABLET BY ity of tablet 00:00: MOUTH [place] 00 THREE Medical TIMES A Branch DAY ONLY IF FOR BLOOD PRESSURE HIGHER THAN 180/90 lisinopriL- 2021-06 Yes [id number] 1{tbl} Take 1 [facility] hydrochloro 0-06 tablet by ity of thiazide 00:00: mouth in [place] 20-25 mg 00 the Medical per tablet morning. [facility] cloNIDine 2021-06 Yes [id number] TAKE ONE U nivers 0.1 mg 0-06 TABLET BY ity of tablet 00:00: MOUTH [place] 00 THREE Medical TIMES A Branch DAY ONLY IF FOR BLOOD PRESSURE HIGHER THAN 180/90 lisinopriL- 2021-06 Yes [id number] 1{tbl} Take 1 [facility] hydrochloro 0-06 tablet by ity of thiazide 00:00: mouth in [place] 20-25 mg 00 the Medical per tablet morning. [facility] cloNIDine 2021-06 Yes [id number] TAKE ONE U nivers 0.1 mg 0-06 TABLET BY ity of tablet 00:00: MOUTH [place] 00 THREE Medical TIMES A Branch DAY ONLY IF FOR BLOOD PRESSURE HIGHER THAN 180/90 lisinopriL- 2021-06 Yes [id number] 1{tbl} Take 1 [facility] hydrochloro 0-06 tablet by ity of thiazide 00:00: mouth in [place] 20-25 mg 00 the Medical per tablet morning. [facility] amitriptyli 2021-06- No [id number] TAKE 1 AND Univers ne 50 mg 0-06 03-22 1/2 TABLET ity of tablet 00:00: 00:00 BY MOUTH [place] 00 :00 AT NIGHT Medical FOR 1 WEEK Branch IF PAIN/ANXIE TY/DEPRESS ION NOT IMPROVED THEN TAKE 2 AT NIGHT amitriptyli 2021-06- No [id number] TAKE 1 AND [facility] ne 50 mg 0-06 03-22 1/2 TABLET ity of tablet 00:00: 00:00 BY MOUTH [place] 00 :00 AT NIGHT Medical FOR 1 WEEK Branch IF PAIN/ANXIE TY/DEPRESS ION NOT IMPROVED THEN TAKE 2 AT NIGHT amitriptyli 2021-06- No [id number] TAKE 1 AND Univers ne 50 mg 0-06 03-22 1/2 TABLET ity of tablet 00:00: 00:00 BY MOUTH [place] 00 :00 AT NIGHT Medical FOR 1 WEEK Branch IF PAIN/ANXIE TY/DEPRESS ION NOT IMPROVED THEN TAKE 2 AT NIGHT amitriptyli 2021-06- No [id number] TAKE 1 AND [facility] ne 50 mg 0-06 03-22 1/2 TABLET ity of tablet 00:00: 00:00 BY MOUTH [place] 00 :00 AT NIGHT Medical FOR 1 WEEK Branch IF PAIN/ANXIE TY/DEPRESS ION NOT IMPROVED THEN TAKE 2 AT NIGHT tiZANidine 2021-06 Yes Univers 4 mg tablet 0-04 ity of 00:00: [place] 00 Medical Branch tiZANidine 2021-06 Yes Univers 4 mg tablet 0-04 ity of 00:00: [place] 00 Medical Branch tiZANidine 2021-06 Yes Univers 4 [...] 4 mg tablet 0-04 ity of 00:00: [place] Medical Branch tiZANidine 2021-06 Yes Univers 4 mg tablet 0-04 ity of 00:00: Medical Branch tiZANidine 2021-06 Yes Univers 4 mg tablet 0-04 ity of 00:00: [facility] tiZANidine 2021-06 Yes Univers 4 mg tablet 0-04 ity of 00:00: [place] [facility] tiZANidine 2021-06 Yes Univers 4 mg tablet 0-04 ity of 00:00: [place] [facility] tiZANidine 2021-06 Yes Univers 4 mg tablet 0-04 ity of 00:00: [facility] tiZANidine 2021-06 Yes Univers 4 mg tablet 0-04 ity of 00:00: [facility] tiZANidine 2021-06 Yes Univers 4 mg tablet 0-04 ity of 00:00: Medical Branch tiZANidine 2021-06 Yes Univers 4 mg tablet 0-04 ity of 00:00: Medical Branch tiZANidine 2021-06 Yes [facility] 4 mg tablet 0-04 ity of 00:00: [place] [facility] tiZANidine 2021-06 Yes Univers 4 mg tablet 0-04 ity of 00:00: [place] [facility] tiZANidine 2021-06 Yes Univers 4 mg tablet 0-04 ity of 00:00: [place] [facility] tiZANidine 2021-06 Yes Univers 4 mg [...] 4 mg tablet 0-04 ity of 00:00: [facility] tiZANidine 2021-06 Yes Univers 4 mg tablet 0-04 ity of 00:00: [place] [facility] tiZANidine 2021-06 Yes Univers 4 mg tablet 0-04 ity of 00:00: [place] [facility] tiZANidine 2021-06 Yes Univers 4 mg tablet 0-04 ity of 00:00: [facility] tiZANidine 2021-06 Yes Univers 4 mg tablet 0-04 ity of 00:00: [facility] tiZANidine 2021-06 Yes Univers 4 mg tablet 0-04 ity of 00:00: [place] [facility] tiZANidine 2021-06 Yes Univers 4 mg tablet 0-04 ity of 00:00: [facility] tiZANidine 2021-06 Yes Univers 4 mg tablet 0-04 ity of 00:00: [facility] tiZANidine 2021-06 Yes Univers 4 mg tablet 0-04 ity of 00:00: [facility] tiZANidine 2021-06 Yes Univers 4 mg tablet 0-04 ity of 00:00: [place] [facility] tiZANidine 2021-06 Yes Univers 4 mg tablet 0-04 ity of 00:00: [place] [facility] tiZANidine 2021-06 Yes Univers 4 mg tablet 0-04 ity of 00:00: [place] [facility] tiZANidine 2021-06 Yes Univers 4 mg tablet 0-04 ity of 00:00: [place] [facility] tiZANidine 2021-06 Yes Univers 4 mg tablet 0-04 ity of 00:00: [place] [facility] tiZANidine 2021-06 Yes Univers 4 mg tablet 0-04 ity of 00:00: [place] 00 Medical Branch tiZANidine 2021-06 Yes Univers 4 mg tablet 0-04 ity of 00:00: [place] 00 Medical Branch tiZANidine 2021-06 Yes Univers 4 mg tablet 0-04 ity of 00:00: [place] 00 Medical Branch tiZANidine 2021-06 Yes Univers 4 mg tablet 0-04 ity of 00:00: [place] 00 Medical Branch tiZANidine 2021-2022- No Univer s 4 mg tablet 0-04 - ity of 00:00: 00:00 [place] 00 :00 Medical Branch tiZANidine 2021-2022- No Univer s 4 mg tablet 0-09 21- ity of 00:00: 00:00 [place] 00 :00 Medical Branch tiZANidine 2021-1 2022- No Univer s 4 mg tablet 0-09 21- ity of 00:00: 00:00 [place] 00 :00 Medical Branch tiZANidine 2021-1 2022- No Univer s 4 mg tablet 0-09 21- ity of 00:00: 00:00 [place] 00 :00 Medical Branch ALPRAZolam 2021-0 2021- No [id number] 1mg Take 1 [facility] 1 mg tablet 03-10 tablet by it y of 00:00: 04:59 mouth once [place] 00 :00 now for 1 Medical dose. Branch albuterol Yes [id number] 2{puff} Inhale 2 Univers 90 9-08 Puffs ity of mcg/actuati 00:00: every 6 [place] on inhaler 00 (six) Medical hours as Branch needed for Wheezing or Shortness of Breath. albuterol Yes [id number] 2{puff} Inhale 2 [facility] 90 9-08 Puffs ity of mcg/actuati 00:00: every 6 [place] as on inhaler 00 (six) Medical hours as Branch needed for Wheezing or Shortness of Breath. albuterol Yes [id number] 2{puff} Inhale 2 [facility] 90 9-08 Puffs ity of mcg/actuati 00:00: every 6 [place] as on inhaler 00 (six) Medical hours as Branch needed for Wheezing or Shortness of Breath. albuterol Yes [id number] 2{puff} Inhale 2 [facility] 90 9-08 Puffs ity of mcg/actuati 00:00: every 6 [place] as on inhaler 00 (six) Medical hours as Branch needed for Wheezing or Shortness of Breath. albuterol Yes [id number] 2{puff} Inhale 2 [facility] 90 9-08 Puffs ity of mcg/actuati 00:00: every 6 [place] as on inhaler 00 (six) Medical hours as Branch needed for Wheezing or Shortness of Breath. albuterol Yes [id number] 2{puff} Inhale 2 [facility] 90 9-08 Puffs ity of mcg/actuati 00:00: every 6 [place] as on inhaler 00 (six) Medical hours as Branch needed for Wheezing or Shortness of Breath. albuterol Yes [id number] 2{puff} Inhale 2 [facility] 90 9-08 Puffs ity of mcg/actuati 00:00: every 6 [place] as on inhaler 00 (six) Medical hours as Branch needed for Wheezing or Shortness of Breath. albuterol Yes [id number] 2{puff} Inhale 2 [facility] 90 9-08 Puffs ity of mcg/actuati 00:00: every 6 [place] as on inhaler 00 (six) Medical hours as Branch needed for Wheezing or Shortness of Breath. albuterol Yes [id number] 2{puff} Inhale 2 [facility] 90 9-08 Puffs ity of mcg/actuati 00:00: every 6 [place] as on inhaler 00 (six) Medical hours as Branch needed for Wheezing or Shortness of Breath. albuterol Yes [id number] 2{puff} Inhale 2 Univers 90 9-08 Puffs ity of mcg/actuati 00:00: every 6 [place] as on inhaler 00 (six) Medical hours as Branch needed for Wheezing or Shortness of Breath. albuterol Yes [id number] 2{puff} Inhale 2 Univers 90 9-08 Puffs ity of mcg/actuati 00:00: every 6 [place] as on inhaler 00 (six) Medical hours as Branch needed for Wheezing or Shortness of Breath. albuterol Yes [id number] 2{puff} Inhale 2 [facility] 90 9-08 Puffs ity of mcg/actuati 00:00: every 6 [place] as on inhaler 00 (six) Medical hours as Branch needed for Wheezing or Shortness of Breath. albuterol Yes [id number] 2{puff} Inhale 2 [facility] 90 9-08 Puffs ity of mcg/actuati 00:00: every 6 [place] as on inhaler 00 (six) Medical hours as Branch needed for Wheezing or Shortness of Breath. albuterol Yes [id number] 2{puff} Inhale 2 [facility] 90 9-08 Puffs ity of mcg/actuati 00:00: every 6 [place] as on inhaler 00 (six) Medical hours as Branch needed for Wheezing or Shortness of Breath. albuterol Yes [id number] 2{puff} Inhale 2 [facility] 90 9-08 Puffs ity of mcg/actuati 00:00: every 6 [place] as on inhaler 00 (six) Medical hours as Branch needed for Wheezing or Shortness of Breath. albuterol Yes [id number] 2{puff} Inhale 2 [facility] 90 9-08 Puffs ity of mcg/actuati 00:00: every 6 [place] as on inhaler 00 (six) Medical hours as Branch needed for Wheezing or Shortness of Breath. albuterol Yes [id number] 2{puff} Inhale 2 [facility] 90 9-08 Puffs ity of mcg/actuati 00:00: every 6 [place] as on inhaler 00 (six) Medical hours as Branch needed for Wheezing or Shortness of Breath. albuterol Yes [id number] 2{puff} Inhale 2 [facility] 90 9-08 Puffs ity of mcg/actuati 00:00: every 6 [place] as on inhaler 00 (six) Medical hours as Branch needed for Wheezing or Shortness of Breath. albuterol Yes [id number] 2{puff} Inhale 2 [facility] 90 9-08 Puffs ity of mcg/actuati 00:00: every 6 [place] as on inhaler 00 (six) Medical hours as Branch needed for Wheezing or Shortness of Breath. albuterol Yes [id number] 2{puff} Inhale 2 [facility] 90 9-08 Puffs ity of mcg/actuati 00:00: every 6 [place] as on inhaler 00 (six) Medical hours as Branch needed for Wheezing or Shortness of Breath. albuterol Yes [id number] 2{puff} Inhale 2 [facility] 90 9-08 Puffs ity of mcg/actuati 00:00: every 6 [place] as on inhaler 00 (six) Medical hours as Branch needed for Wheezing or Shortness of Breath. albuterol Yes [id number] 2{puff} Inhale 2 [facility] 90 9-08 Puffs ity of mcg/actuati 00:00: every 6 [place] as on inhaler 00 (six) Medical hours as Branch needed for Wheezing or Shortness of Breath. albuterol Yes [id number] 2{puff} Inhale 2 [facility] 90 9-08 Puffs ity of mcg/actuati 00:00: every 6 [place] as on inhaler 00 (six) Medical hours as Branch needed for Wheezing or Shortness of Breath. albuterol Yes [id number] 2{puff} Inhale 2 [facility] 90 9-08 Puffs ity of mcg/actuati 00:00: every 6 [place] as on inhaler 00 (six) Medical hours as Branch needed for Wheezing or Shortness of Breath. albuterol Yes [id number] 2{puff} Inhale 2 [facility] 90 9-08 Puffs ity of mcg/actuati 00:00: every 6 [place] as on inhaler 00 (six) Medical hours as Branch needed for Wheezing or Shortness of Breath. albuterol Yes [id number] 2{puff} Inhale 2 [facility] 90 9-08 Puffs ity of mcg/actuati 00:00: every 6 [place] as on inhaler 00 (six) Medical hours as Branch needed for Wheezing or Shortness of Breath. albuterol Yes [id number] 2{puff} Inhale 2 [facility] 90 9-08 Puffs ity of mcg/actuati 00:00: every 6 [place] as on inhaler 00 (six) Medical hours as Branch needed for Wheezing or Shortness of Breath. albuterol Yes [id number] 2{puff} Inhale 2 [facility] 90 9-08 Puffs ity of mcg/actuati 00:00: every 6 [place] as on inhaler 00 (six) Medical hours as Branch needed for Wheezing or Shortness of Breath. albuterol Yes [id number] 2{puff} Inhale 2 [facility] 90 9-08 Puffs ity of mcg/actuati 00:00: every 6 [place] as on inhaler 00 (six) Medical hours as Branch needed for Wheezing or Shortness of Breath. albuterol Yes [id number] 2{puff} Inhale 2 [facility] 90 9-08 Puffs ity of mcg/actuati 00:00: every 6 [place] as on inhaler 00 (six) Medical hours as Branch needed for Wheezing or Shortness of Breath. albuterol Yes [id number] 2{puff} Inhale 2 [facility] 90 9-08 Puffs ity of mcg/actuati 00:00: every 6 [place] as on inhaler 00 (six) Medical hours as Branch needed for Wheezing or Shortness of Breath. albuterol Yes [id number] 2{puff} Inhale 2 [facility] 90 9-08 Puffs ity of mcg/actuati 00:00: every 6 [place] as on inhaler 00 (six) Medical hours as Branch needed for Wheezing or Shortness of Breath. albuterol Yes [id number] 2{puff} Inhale 2 [facility] 90 9-08 Puffs ity of mcg/actuati 00:00: every 6 [place] as on inhaler 00 (six) Medical hours as Branch needed for Wheezing or Shortness of Breath. albuterol Yes [id number] 2{puff} Inhale 2 [facility] 90 9-08 Puffs ity of mcg/actuati 00:00: every 6 [place] as on inhaler 00 (six) Medical hours as Branch needed for Wheezing or Shortness of Breath. albuterol Yes [id number] 2{puff} Inhale 2 [facility] 90 9-08 Puffs ity of mcg/actuati 00:00: every 6 [place] as on inhaler 00 (six) Medical hours as Branch needed for Wheezing or Shortness of Breath. albuterol Yes [id number] 2{puff} Inhale 2 [facility] 90 9-08 Puffs ity of mcg/actuati 00:00: every 6 [place] as on inhaler 00 (six) Medical hours as Branch needed for Wheezing or Shortness of Breath. albuterol Yes [id number] 2{puff} Inhale 2 [facility] 90 9-08 Puffs ity of mcg/actuati 00:00: every 6 [place] as on inhaler 00 (six) Medical hours as Branch needed for Wheezing or Shortness of Breath. albuterol Yes [id number] 2{puff} Inhale 2 [facility] 90 9-08 Puffs ity of mcg/actuati 00:00: every 6 [place] as on inhaler 00 (six) Medical hours as Branch needed for Wheezing or Shortness of Breath. albuterol Yes [id number] 2{puff} Inhale 2 [facility] 90 9-08 Puffs ity of mcg/actuati 00:00: every 6 [place] as on inhaler 00 (six) Medical hours as Branch needed for Wheezing or Shortness of Breath. albuterol Yes [id number] 2{puff} Inhale 2 [facility] 90 9-08 Puffs ity of mcg/actuati 00:00: every 6 [place] as on inhaler 00 (six) Medical hours as Branch needed for Wheezing or Shortness of Breath. albuterol Yes [id number] 2{puff} Inhale 2 [facility] 90 9-08 Puffs ity of mcg/actuati 00:00: every 6 [place] as on inhaler 00 (six) Medical hours as Branch needed for Wheezing or Shortness of Breath. albuterol Yes [id number] 2{puff} Inhale 2 [facility] 90 9-08 Puffs ity of mcg/actuati 00:00: every 6 [place] as on inhaler 00 (six) Medical hours as Branch needed for Wheezing or Shortness of Breath. albuterol Yes [id number] 2{puff} Inhale 2 [facility] 90 9-08 Puffs ity of mcg/actuati 00:00: every 6 [place] as on inhaler 00 (six) Medical hours as Branch needed for Wheezing or Shortness of Breath. albuterol Yes [id number] 2{puff} Inhale 2 [facility] 90 9-08 Puffs ity of mcg/actuati 00:00: every 6 [place] as on inhaler 00 (six) Medical hours as Branch needed for Wheezing or Shortness of Breath. albuterol Yes [id number] 2{puff} Inhale 2 [facility] 90 9-08 Puffs ity of mcg/actuati 00:00: every 6 [place] as on inhaler 00 (six) Medical hours as Branch needed for Wheezing or Shortness of Breath. albuterol Yes [id number] 2{puff} Inhale 2 [facility] 90 9-08 Puffs ity of mcg/actuati 00:00: every 6 [place] as on inhaler 00 (six) Medical hours as Branch needed for Wheezing or Shortness of Breath. albuterol Yes [id number] 2{puff} Inhale 2 [facility] 90 9-08 Puffs ity of mcg/actuati 00:00: every 6 [place] as on inhaler 00 (six) Medical hours as Branch needed for Wheezing or Shortness of Breath. albuterol Yes [id number] 2{puff} Inhale 2 [facility] 90 9-08 Puffs ity of mcg/actuati 00:00: every 6 [place] as on inhaler 00 (six) Medical hours as Branch needed for Wheezing or Shortness of Breath. albuterol Yes [id number] 2{puff} Inhale 2 [facility] 90 9-08 Puffs ity of mcg/actuati 00:00: every 6 [place] as on inhaler 00 (six) Medical hours as Branch needed for Wheezing or Shortness of Breath. albuterol Yes [id number] 2{puff} Inhale 2 [facility] 90 9-08 Puffs ity of mcg/actuati 00:00: every 6 [place] as on inhaler 00 (six) Medical hours as Branch needed for Wheezing or Shortness of Breath. albuterol Yes [id number] 2{puff} Inhale 2 [facility] 90 9-08 Puffs ity of mcg/actuati 00:00: every 6 [place] as on inhaler 00 (six) Medical hours as Branch needed for Wheezing or Shortness of Breath. albuterol Yes [id number] 2{puff} Inhale 2 [facility] 90 9-08 Puffs ity of mcg/actuati 00:00: every 6 [place] as on inhaler 00 (six) Medical hours as Branch needed for Wheezing or Shortness of Breath. albuterol Yes [id number] 2{puff} Inhale 2 [facility] 90 9-08 Puffs ity of mcg/actuati 00:00: every 6 [place] as on inhaler 00 (six) Medical hours as Branch needed for Wheezing or Shortness of Breath. albuterol Yes [id number] 2{puff} Inhale 2 [facility] 90 9-08 Puffs ity of mcg/actuati 00:00: every 6 [place] as on inhaler 00 (six) Medical hours as Branch needed for Wheezing or Shortness of Breath. albuterol Yes [id number] 2{puff} Inhale 2 [facility] 90 9-08 Puffs ity of mcg/actuati 00:00: every 6 [place] as on inhaler 00 (six) Medical hours as Branch needed for Wheezing or Shortness of Breath. albuterol Yes [id number] 2{puff} Inhale 2 [facility] 90 9-08 Puffs ity of mcg/actuati 00:00: every 6 [place] as on inhaler 00 (six) Medical hours as Branch needed for Wheezing or Shortness of Breath. albuterol Yes [id number] 2{puff} Inhale 2 [facility] 90 9-08 Puffs ity of mcg/actuati 00:00: every 6 [place] as on inhaler 00 (six) Medical hours as Branch needed for Wheezing or Shortness of Breath. albuterol Yes [id number] 2{puff} Inhale 2 [facility] 90 9-08 Puffs ity of mcg/actuati 00:00: every 6 [place] as on inhaler 00 (six) Medical hours as Branch needed for Wheezing or Shortness of Breath. albuterol Yes [id number] 2{puff} Inhale 2 [facility] 90 9-08 Puffs ity of mcg/actuati 00:00: every 6 [place] as on inhaler 00 (six) Medical hours as Branch needed for Wheezing or Shortness of Breath. albuterol Yes [id number] 2{puff} Inhale 2 [facility] 90 9-08 Puffs ity of mcg/actuati 00:00: every 6 [place] as on inhaler 00 (six) Medical hours as Branch needed for Wheezing or Shortness of Breath. albuterol Yes [id number] 2{puff} Inhale 2 [facility] 90 9-08 Puffs ity of mcg/actuati 00:00: every 6 [place] as on inhaler 00 (six) Medical hours as Branch needed for Wheezing or Shortness of Breath. albuterol Yes [id number] 2{puff} Inhale 2 [facility] 90 9-08 Puffs ity of mcg/actuati 00:00: every 6 [place] as on inhaler 00 (six) Medical hours as Branch needed for Wheezing or Shortness of Breath. albuterol Yes [id number] 2{puff} Inhale 2 [facility] 90 9-08 Puffs ity of mcg/actuati 00:00: every 6 [place] as on inhaler 00 (six) Medical hours as Branch needed for Wheezing or Shortness of Breath. albuterol Yes [id number] 2{puff} Inhale 2 [facility] 90 9-08 Puffs ity of mcg/actuati 00:00: every 6 [place] as on inhaler 00 (six) Medical hours as Branch needed for Wheezing or Shortness of Breath. albuterol Yes [id number] 2{puff} Inhale 2 [facility] 90 9-08 Puffs ity of mcg/actuati 00:00: every 6 [place] as on inhaler 00 (six) Medical hours as Branch needed for Wheezing or Shortness of Breath. albuterol Yes [id number] 2{puff} Inhale 2 [facility] 90 9-08 Puffs ity of mcg/actuati 00:00: every 6 [place] as on inhaler 00 (six) Medical hours as Branch needed for Wheezing or Shortness of Breath. albuterol Yes [id number] 2{puff} Inhale 2 [facility] 90 9-08 Puffs ity of mcg/actuati 00:00: every 6 [place] as on inhaler 00 (six) Medical hours as Branch needed for Wheezing or Shortness of Breath. albuterol Yes [id number] 2{puff} Inhale 2 [facility] 90 9-08 Puffs ity of mcg/actuati 00:00: every 6 [place] as on inhaler 00 (six) Medical hours as Branch needed for Wheezing or Shortness of Breath. albuterol Yes [id number] 2{puff} Inhale 2 [facility] 90 9-08 Puffs ity of mcg/actuati 00:00: every 6 [place] as on inhaler 00 (six) Medical hours as Branch needed for Wheezing or Shortness of Breath. albuterol Yes [id number] 2{puff} Inhale 2 [facility] 90 9-08 Puffs ity of mcg/actuati 00:00: every 6 [place] as on inhaler 00 (six) Medical hours as Branch needed for Wheezing or Shortness of Breath. albuterol Yes [id number] 2{puff} Inhale 2 [facility] 90 9-08 Puffs ity of mcg/actuati 00:00: every 6 [place] as on inhaler 00 (six) Medical hours as Branch needed for Wheezing or Shortness of Breath. albuterol Yes [id number] 2{puff} Inhale 2 [facility] 90 9-08 Puffs ity of mcg/actuati 00:00: every 6 [place] as on inhaler 00 (six) Medical hours as Branch needed for Wheezing or Shortness of Breath. albuterol Yes [id number] 2{puff} Inhale 2 [facility] 90 9-08 Puffs ity of mcg/actuati 00:00: every 6 [place] as on inhaler 00 (six) Medical hours as Branch needed for Wheezing or Shortness of Breath. albuterol Yes [id number] 2{puff} Inhale 2 [facility] 90 9-08 Puffs ity of mcg/actuati 00:00: every 6 [place] as on inhaler 00 (six) Medical hours as Branch needed for Wheezing or Shortness of Breath. albuterol Yes [id number] 2{puff} Inhale 2 [facility] 90 9-08 Puffs ity of mcg/actuati 00:00: every 6 [place] as on inhaler 00 (six) Medical hours as Branch needed for Wheezing or Shortness of Breath. albuterol Yes [id number] 2{puff} Inhale 2 [facility] 90 9-08 Puffs ity of mcg/actuati 00:00: every 6 [place] as on inhaler 00 (six) Medical hours as Branch needed for Wheezing or Shortness of Breath. albuterol Yes [id number] 2{puff} Inhale 2 [facility] 90 9-08 Puffs ity of mcg/actuati 00:00: every 6 [place] as on inhaler 00 (six) Medical hours as Branch needed for Wheezing or Shortness of Breath. albuterol Yes [id number] 2{puff} Inhale 2 [facility] 90 9-08 Puffs ity of mcg/actuati 00:00: every 6 [place] as on inhaler 00 (six) Medical hours as Branch needed for Wheezing or Shortness of Breath. albuterol Yes [id number] 2{puff} Inhale 2 [facility] 90 9-08 Puffs ity of mcg/actuati 00:00: every 6 [place] as on inhaler 00 (six) Medical hours as Branch needed for Wheezing or Shortness of Breath. albuterol Yes [id number] 2{puff} Inhale 2 [facility] 90 9-08 Puffs ity of mcg/actuati 00:00: every 6 [place] as on inhaler 00 (six) Medical hours as Branch needed for Wheezing or Shortness of Breath. albuterol Yes [id number] 2{puff} Inhale 2 [facility] 90 9-08 Puffs ity of mcg/actuati 00:00: every 6 [place] as on inhaler 00 (six) Medical hours as Branch needed for Wheezing or Shortness of Breath. albuterol Yes [id number] 2{puff} Inhale 2 [facility] 90 9-08 Puffs ity of mcg/actuati 00:00: every 6 [place] as on inhaler 00 (six) Medical hours as Branch needed for Wheezing or Shortness of Breath. albuterol Yes [id number] 2{puff} Inhale 2 [facility] 90 9-08 Puffs ity of mcg/actuati 00:00: every 6 [place] as on inhaler 00 (six) Medical hours as Branch needed for Wheezing or Shortness of Breath. albuterol Yes [id number] 2{puff} Inhale 2 [facility] 90 9-08 Puffs ity of mcg/actuati 00:00: every 6 [place] as on inhaler 00 (six) Medical hours as Branch needed for Wheezing or Shortness of Breath. albuterol 0 Yes [id number] 2{puff} Inhale 2 [facility] 90 9-08 Puffs ity of mcg/actuati 00:00: every 6 [place] as on inhaler 00 (six) Medical hours as Branch needed for Wheezing or Shortness of Breath. albuterol 0 Yes [id number] 2{puff} Inhale 2 [facility] 90 9-08 Puffs ity of mcg/actuati 00:00: every 6 [place] as on inhaler 00 (six) Medical hours as Branch needed for Wheezing or Shortness of Breath. albuterol 0 Yes [id number] 2{puff} Inhale 2 [facility] 90 9-08 Puffs ity of mcg/actuati 00:00: every 6 [place] as on inhaler 00 (six) Medical hours as Branch needed for Wheezing or Shortness of Breath. albuterol 0 Yes [id number] 2{puff} Inhale 2 [facility] 90 9-08 Puffs ity of mcg/actuati 00:00: every 6 [place] as on inhaler 00 (six) Medical hours as Branch needed for Wheezing or Shortness of Breath. SERTRALINE 0 Yes [id number] TAKE ONE [facility] 100 mg 8-09 105 TABLET BY ity of tablet 00:00: MOUTH [place] 00 DAILY Medical Branch SERTRALINE 2021-0 Yes [id number] TAKE ONE [facility] 100 mg 8-09 105 TABLET BY ity of tablet 00:00: MOUTH [place] 00 DAILY Medical Branch SERTRALINE 2021-0 Yes [id number] TAKE ONE [facility] 100 mg 8-09 105 TABLET BY it[facility] of tablet 00:00: MOUTH [place] 00 DAILY Medical Branch SERTRALINE 2021-0 Yes [id number] TAKE ONE [facility] 100 mg 8-09 105 TABLET BY it[facility] of tablet 00:00: MOUTH [place] 00 DAILY Medical Branch SERTRALINE 2021-0 Yes [id number] TAKE ONE [facility] 100 mg 8-09 105 TABLET BY it[facility] of tablet 00:00: MOUTH [place] 00 DAILY Medical Branch SERTRALINE 2021-0 Yes [id number] TAKE ONE [facility] 100 mg 8-09 105 TABLET BY [facility] of tablet 00:00: MOUTH [place] 00 DAILY Medical Branch SERTRALINE 2022-0 Yes [id number] TAKE ONE [facility] 100 mg 8-09 105 TABLET BY ity of tablet 00:00: MOUTH DAILY Medical Branch SERTRALINE 2-0 Yes [id number] TAKE ONE [facility] 100 mg 8-09 105 TABLET BY ity of tablet 00:00: MOUTH DAILY Medical Branch SERTRALINE 2-0 Yes [id number] TAKE ONE [facility] 100 mg 8-09 105 TABLET BY ity of tablet 00:00: [facility] DAILY Medical Branch SERTRALINE 2-0 Yes [id number] TAKE ONE [facility] 100 mg 8-09 105 TABLET BY ity of tablet 00:00: MOUTH DAILY Medical Branch SERTRALINE 2-0 Yes [id number] TAKE ONE [facility] 100 mg 8-09 105 TABLET BY ity of tablet 00:00: [facility] DAILY Medical Branch SERTRALINE 2-0 Yes [id number] TAKE ONE [facility] 100 mg 8-09 105 TABLET BY ity of tablet 00:00: [facility] DAILY Medical Branch SERTRALINE 2-0 Yes [id number] TAKE ONE [facility] 100 mg 8-09 105 TABLET BY ity of tablet 00:00: [facility] DAILY Medical Branch SERTRALINE 2-0 Yes [id number] TAKE ONE [facility] 100 mg 8-09 105 TABLET BY ity of tablet 00:00: [facility] DAILY Medical Branch SERTRALINE 2-0 Yes [id number] TAKE ONE [facility] 100 mg 8-09 105 TABLET BY ity of tablet 00:00: [facility] DAILY Medical Branch SERTRALINE 2-0 Yes [id number] TAKE ONE [facility] 100 mg 8-09 105 TABLET BY ity of tablet 00:00: [facility] DAILY Medical Branch SERTRALINE 2-0 Yes [id number] TAKE ONE [facility] 100 mg 8-09 105 TABLET BY ity of tablet 00:00: [facility] DAILY Medical Branch SERTRALINE 2-0 Yes [id number] TAKE ONE [facility] 100 mg 8-09 105 TABLET BY ity of tablet 00:00: [facility] DAILY Medical Branch SERTRALINE 2-0 Yes [id number] TAKE ONE [facility] 100 mg 8-09 105 TABLET BY ity of tablet 00:00: [facility] DAILY Medical Branch SERTRALINE 2-0 Yes [id number] TAKE ONE [facility] 100 mg 8-09 105 TABLET BY ity of tablet 00:00: MOUTH DAILY Medical Branch SERTRALINE 2-0 Yes [id number] TAKE ONE [facility] 100 mg 8-09 105 TABLET BY ity of tablet 00:00: MOUTH DAILY Medical Branch SERTRALINE 2-0 Yes [id number] TAKE ONE [facility] 100 mg 8-09 105 TABLET BY ity of tablet 00:00: MOUTH DAILY Medical Branch SERTRALINE 2-0 Yes [id number] TAKE ONE [facility] 100 mg 8-09 105 TABLET BY ity of tablet 00:00: MOUTH DAILY Medical Branch SERTRALINE 2-0 Yes [id number] TAKE ONE [facility] 100 mg 8-09 105 TABLET BY ity of tablet 00:00: MOUTH DAILY Medical Branch SERTRALINE 2-0 Yes [id number] TAKE ONE [facility] 100 mg 8-09 105 TABLET BY ity of tablet 00:00: MOUTH DAILY Medical Branch SERTRALINE 2-0 Yes [id number] TAKE ONE [facility] 100 mg 8-09 105 TABLET BY ity of tablet 00:00: MOUTH DAILY Medical Branch SERTRALINE 2-0 Yes [id number] TAKE ONE [facility] 100 mg 8-09 105 TABLET BY ity of tablet 00:00: MOUTH DAILY Medical Branch SERTRALINE 2-0 Yes [id number] TAKE ONE [facility] 100 mg 8-09 105 TABLET BY [facility]y of tablet 00:00: [facility] DAILY Medical Branch SERTRALINE 2-0 Yes [id number] TAKE ONE [facility] 100 mg 8-09 105 TABLET BY ity of tablet 00:00: [facility] DAILY Medical Branch SERTRALINE 2-0 Yes [id number] TAKE ONE [facility] 100 mg 8-09 105 TABLET BY ity of tablet 00:00: [facility] DAILY Medical Branch SERTRALINE 2-0 Yes [id number] TAKE ONE [facility] 100 mg 8-09 105 TABLET BY ity of tablet 00:00: [facility] DAILY Medical Branch SERTRALINE 2-0 Yes [id number] TAKE ONE [facility] 100 mg 8-09 105 TABLET BY ity of tablet 00:00: [facility] DAILY Medical Branch SERTRALINE 2-0 Yes [id number] TAKE ONE [facility] 100 mg 8-09 105 TABLET BY ity of tablet 00:00: [facility] DAILY Medical Branch SERTRALINE 2-0 Yes [id number] TAKE ONE [facility] 100 mg 8-09 105 TABLET BY ity of tablet 00:00: MOUTH DAILY Medical Branch SERTRALINE 2-0 Yes [id number] TAKE ONE [facility] 100 mg 8-09 105 TABLET BY ity of tablet 00:00: [facility] DAILY Medical Branch SERTRALINE 2-0 Yes [id number] TAKE ONE [facility] 100 mg 8-09 105 TABLET BY ity of tablet 00:00: [facility] DAILY Medical Branch SERTRALINE 2-0 Yes [id number] TAKE ONE [facility] 100 mg 8-09 105 TABLET BY ity of tablet 00:00: MOUTH DAILY Medical Branch SERTRALINE 2-0 Yes [id number] TAKE ONE [facility] 100 mg 8-09 105 TABLET BY ity of tablet 00:00: [facility] DAILY Medical Branch SERTRALINE 2-0 Yes [id number] TAKE ONE [facility] 100 mg 8-09 105 TABLET BY ity of tablet 00:00: [facility] DAILY Medical Branch SERTRALINE 2-0 Yes [id number] TAKE ONE [facility] 100 mg 8-09 105 TABLET BY ity of tablet 00:00: [facility] DAILY Medical Branch SERTRALINE 2-0 Yes [id number] TAKE ONE [facility] 100 mg 8-09 105 TABLET BY ity of tablet 00:00: [facility] DAILY Medical Branch SERTRALINE 2-0 Yes [id number] TAKE ONE [facility] 100 mg 8-09 105 TABLET BY ity of tablet 00:00: [facility] DAILY Medical Branch SERTRALINE 2-0 Yes [id number] TAKE ONE [facility] 100 mg 8-09 105 TABLET BY ity of tablet 00:00: [facility] DAILY Medical Branch SERTRALINE 2-0 Yes [id number] TAKE ONE [facility] 100 mg 8-09 105 TABLET BY ity of tablet 00:00: [facility] DAILY Medical Branch SERTRALINE 2-0 Yes [id number] TAKE ONE [facility] 100 mg 8-09 105 TABLET BY ity of tablet 00:00: [facility] DAILY Medical Branch SERTRALINE 2-0 Yes [id number] TAKE ONE [facility] 100 mg 8-09 105 TABLET BY ity of tablet 00:00: [facility] DAILY Medical Branch SERTRALINE 2-0 Yes [id number] TAKE ONE [facility] 100 mg 8-09 105 TABLET BY ity of tablet 00:00: [facility] DAILY Medical Branch SERTRALINE 2-0 Yes [id number] TAKE ONE [facility] 100 mg 8-09 105 TABLET BY ity of tablet 00:00: [facility] DAILY Medical Branch SERTRALINE 2-0 Yes [id number] TAKE ONE [facility] 100 mg 8-09 105 TABLET BY ity of tablet 00:00: [facility] DAILY Medical Branch SERTRALINE 2-0 Yes [id number] TAKE ONE [facility] 100 mg 8-09 105 TABLET BY ity of tablet 00:00: [facility] DAILY Medical Branch SERTRALINE 2-0 Yes [id number] TAKE ONE [facility] 100 mg 8-09 105 TABLET BY ity of tablet 00:00: [facility] DAILY Medical Branch SERTRALINE 2-0 Yes [id number] TAKE ONE [facility] 100 mg 8-09 105 TABLET BY ity of tablet 00:00: [facility] DAILY Medical Branch SERTRALINE 2-0 Yes [id number] TAKE ONE [facility] 100 mg 8-09 105 TABLET BY ity of tablet 00:00: [facility] DAILY Medical Branch SERTRALINE 2-0 Yes [id number] TAKE ONE [facility] 100 mg 8-09 105 TABLET BY ity of tablet 00:00: [facility] DAILY Medical Branch SERTRALINE 2-0 Yes [id number] TAKE ONE [facility] 100 mg 8-09 105 TABLET BY ity of tablet 00:00: [facility] DAILY Medical Branch SERTRALINE 2-0 Yes [id number] TAKE ONE [facility] 100 mg 8-09 105 TABLET BY ity of tablet 00:00: [facility] DAILY Medical Branch SERTRALINE 2-0 Yes [id number] TAKE ONE [facility] 100 mg 8-09 105 TABLET BY ity of tablet 00:00: [facility] DAILY Medical Branch SERTRALINE 2-0 Yes [id number] TAKE ONE [facility] 100 mg 8-09 105 TABLET BY ity of tablet 00:00: [facility] DAILY Medical Branch SERTRALINE 2-0 Yes [id number] TAKE ONE [facility] 100 mg 8-09 105 TABLET BY ity of tablet 00:00: [facility] DAILY Medical Branch SERTRALINE 2022-0 2023- No [id number] TAKE ONE [facility] 100 mg 8-09 03-22 105 TABLET BY ity of tablet 00:00: 00:00 [facility] [place] 00 :00 DAILY Medical Branch SERTRALINE 2021-0 3- No [id number] TAKE ONE [facility] 100 mg 01-27 105 TABLET BY ity of tablet 00:00: 00:00 MOUTH [place] 00 :00 DAILY Medical Branch SERTRALINE 2021-0 3- No [id number] TAKE ONE [facility] 100 mg 01-27 105 TABLET BY ity of tablet 00:00: 00:00 MOUTH [place] 00 :00 DAILY Medical Branch SERTRALINE 2021-0 2022- No [id number] TAKE ONE [facility] 100 mg 01-27 105 TABLET BY ity of tablet 00:00: 00:00 MOUTH [place] 00 :00 DAILY Medical Branch AMITRIPTYLI Yes TAKE 1 AND [facility] [place] 50 mg 5-26 1/2 TABLET ity o f tablet 00:00: BY MOUTH [place] 00 AT NIGHT Medical FOR 1 WEEK Branch IF PAIN/ANXIE TY/DEPRESS ION NOT IMPROVED THEN TAKE 2 AT NIGHT AMITRIPTYLI Yes TAKE 1 AND [facility] [place] 50 mg 5-26 1/2 TABLET ity o f tablet 00:00: BY MOUTH [place] [address] AT NIGHT Medical FOR 1 WEEK Branch IF PAIN/ANXIE TY/DEPRESS ION NOT IMPROVED THEN TAKE 2 AT NIGHT AMITRIPTYLI Yes TAKE 1 AND [facility] [place] 50 mg 5-26 1/2 TABLET ity o f tablet 00:00: BY MOUTH [place] [address] AT NIGHT Medical FOR 1 WEEK Branch IF PAIN/ANXIE TY/DEPRESS ION NOT IMPROVED THEN TAKE 2 AT NIGHT AMITRIPTYLI Yes TAKE 1 AND [facility] [place] 50 mg 5-26 1/2 TABLET ity o f tablet 00:00: BY MOUTH [place] [address] AT NIGHT Medical FOR 1 WEEK Branch IF PAIN/ANXIE TY/DEPRESS ION NOT IMPROVED THEN TAKE 2 AT NIGHT AMITRIPTYLI Yes TAKE 1 AND [facility] [place] 50 mg 5-26 1/2 TABLET ity o f tablet 00:00: BY MOUTH [place] [address] AT NIGHT Medical FOR 1 WEEK Branch IF PAIN/ANXIE TY/DEPRESS ION NOT IMPROVED THEN TAKE 2 AT NIGHT AMITRIPTYLI 0 Yes TAKE 1 AND [facility] [place] 50 mg 5-26 1/2 TABLET ity o f tablet 00:00: BY MOUTH [place] [address] AT NIGHT Medical FOR 1 WEEK Branch IF PAIN/ANXIE TY/DEPRESS ION NOT IMPROVED THEN TAKE 2 AT NIGHT AMITRIPTYLI Yes TAKE 1 AND [facility] [place] 50 mg 5-26 1/2 TABLET ity o f tablet 00:00: BY MOUTH [place] 00 AT NIGHT Medical FOR 1 WEEK Branch IF PAIN/ANXIE TY/DEPRESS ION NOT IMPROVED THEN TAKE 2 AT NIGHT AMITRIPTYLI Yes TAKE 1 AND [facility] [place] 50 mg 5-26 1/2 TABLET ity o f tablet 00:00: BY MOUTH [place] 00 AT NIGHT Medical FOR 1 WEEK Branch IF PAIN/ANXIE TY/DEPRESS ION NOT IMPROVED THEN TAKE 2 AT NIGHT AMITRIPTYLI Yes TAKE 1 AND [facility] [place] 50 mg 5-26 1/2 TABLET ity o f tablet 00:00: BY MOUTH [place] 00 AT NIGHT Medical FOR 1 WEEK Branch IF PAIN/ANXIE TY/DEPRESS ION NOT IMPROVED THEN TAKE 2 AT NIGHT AMITRIPTYLI Yes TAKE 1 AND [facility] 50 mg 5-26 1/2 TABLET ity o f tablet 00:00: BY MOUTH [place] 00 AT NIGHT Medical FOR 1 WEEK Branch IF PAIN/ANXIE TY/DEPRESS ION NOT IMPROVED THEN TAKE 2 AT NIGHT AMITRIPTYLI Yes TAKE 1 AND [facility] 50 mg 5-26 1/2 TABLET ity o f tablet 00:00: BY MOUTH [place] 00 AT NIGHT Medical FOR 1 WEEK Branch IF PAIN/ANXIE TY/DEPRESS ION NOT IMPROVED THEN TAKE 2 AT NIGHT AMITRIPTYLI Yes TAKE 1 AND [facility] 50 mg 5-26 1/2 TABLET ity o f tablet 00:00: BY MOUTH [place] 00 AT NIGHT Medical FOR 1 WEEK Branch IF PAIN/ANXIE TY/DEPRESS ION NOT IMPROVED THEN TAKE 2 AT NIGHT AMITRIPTYLI Yes TAKE 1 AND [facility] [place] 50 mg 5-26 1/2 TABLET ity o f tablet 00:00: BY MOUTH [place] 00 AT NIGHT Medical FOR 1 WEEK Branch IF PAIN/ANXIE TY/DEPRESS ION NOT IMPROVED THEN TAKE 2 AT NIGHT AMITRIPTYLI 0 Yes TAKE 1 AND [facility] 50 mg 5-26 1/2 TABLET ity o f tablet 00:00: BY MOUTH [place] 00 AT NIGHT Medical FOR 1 WEEK Branch IF PAIN/ANXIE TY/DEPRESS ION NOT IMPROVED THEN TAKE 2 AT NIGHT AMITRIPTYLI 2022-0 Yes TAKE 1 AND [facility] [place] 50 [...] IMPROVED THEN TAKE 2 AT NIGHT AMITRIPTYLI 2021- No TAKE 1 AND [facility] NE 50 mg 5-26 10- 1/2 TABLET ity of tablet 00:00: 00:00 BY MOUTH [place] 00 :00 AT NIGHT Medical FOR 1 WEEK Branch IF PAIN/ANXIE TY/DEPRESS ION NOT IMPROVED THEN TAKE 2 AT NIGHT Diclofenac Yes [id number] APPLY 2 TO [facility] Sodium 1 % 4-08 4 GRAMS 3 ity of gel 00:00: TIMES [place] 00 DAILY Medical NEEDED FOR Branch PAIN gabapentin Yes [id number] 600mg Take 2 [facility] 300 mg 4-08 105 capsules ity of capsule 00:00: by mouth 3 [place] 00 (three) Medical times Branch daily. SERTraline Yes [id number] 100mg Take 1 [facility] ([place]) 4-08 105 tablet by ity of 100 mg 00:00: mouth [place] tablet 00 daily. Medical Branch Diclofenac Yes [id number] APPLY 2 TO [facility] Sodium 1 % 4-08 4 GRAMS 3 ity of gel 00:00: TIMES [place] 00 DAILY Medical NEEDED FOR Branch PAIN gabapentin 2021-0 Yes [id number] 600mg Take 2 [facility] 300 mg 4-08 105 capsules ity of capsule 00:00: by mouth 3 [place] 00 (three) Medical times Branch daily. SERTraline Yes [id number] 100mg Take 1 [facility] ([place]) 4-08 105 tablet by ity of 100 mg 00:00: mouth [place] tablet 00 daily. Medical Branch Diclofenac 2022-0 Yes APPLY 2 TO [facility] Sodium 1 % 4-08 4 GRAMS 3 ity of gel 00:00: TIMES [place] 00 DAILY Medical NEEDED FOR Branch PAIN gabapentin 2-0 Yes [id number] 600mg Take 2 [facility] 300 mg 4-08 105 capsules ity of capsule 00:00: by mouth 3 [place] (three) Medical times Branch daily. Diclofenac 2021-0 Yes APPLY 2 TO [facility] Sodium 1 % 4-08 4 GRAMS 3 ity of gel 00:00: TIMES [place] 00 DAILY Medical NEEDED FOR Branch PAIN gabapentin 2021-0 Yes [id number] 600mg Take 2 [facility] 300 mg 4-08 105 capsules ity of capsule 00:00: by mouth 3 [place] (three) Medical times Branch daily. Diclofenac 2021-0 Yes APPLY 2 TO [facility] Sodium 1 % 4-08 4 GRAMS 3 ity of gel 00:00: TIMES [place] 00 DAILY Medical NEEDED FOR Branch PAIN gabapentin 2021-0 Yes [id number] 600mg Take 2 [facility] 300 mg 4-08 105 capsules ity of capsule 00:00: by mouth 3 [place] (three) Medical times Branch daily. Diclofenac 2021-0 Yes APPLY 2 TO [facility] Sodium 1 % 4-08 4 GRAMS 3 ity of gel 00:00: TIMES [place] 00 DAILY Medical NEEDED FOR Branch PAIN gabapentin 2021-0 Yes [id number] 600mg Take 2 [facility] 300 mg 4-08 105 capsules ity of capsule 00:00: by mouth 3 [place] (three) Medical times Branch daily. Diclofenac 2021-0 Yes APPLY 2 TO [facility] Sodium 1 % 4-08 4 GRAMS 3 ity of gel 00:00: TIMES [place] 00 DAILY Medical NEEDED FOR Branch PAIN gabapentin 2-0 Yes [id number] 600mg Take 2 [facility] 300 mg 4-08 105 capsules ity of capsule 00:00: by mouth 3 [place] (three) Medical times Branch daily. Diclofenac 2-0 Yes [id number] APPLY 2 TO [facility] Sodium 1 % 4-08 4 GRAMS 3 ity of gel 00:00: TIMES [place] 00 DAILY Medical NEEDED FOR Branch PAIN gabapentin 2-0 Yes [id number] 600mg Take 2 [facility] 300 mg 4-08 105 capsules ity of capsule 00:00: by mouth 3 [place] (three) Medical times Branch daily. Diclofenac 2021-0 Yes APPLY 2 TO [facility] Sodium 1 % 4-08 4 GRAMS 3 ity of gel 00:00: TIMES [place] 00 DAILY Medical NEEDED FOR Branch PAIN gabapentin 2021-0 Yes [id number] 600mg Take 2 [facility] 300 mg 4-08 105 capsules ity of capsule 00:00: by mouth 3 [place] (three) Medical times Branch daily. Diclofenac 2021-0 Yes APPLY 2 TO [facility] Sodium 1 % 4-08 4 GRAMS 3 ity of gel 00:00: TIMES [place] 00 DAILY Medical NEEDED FOR Branch PAIN gabapentin 2021-0 Yes [id number] 600mg Take 2 [facility] 300 mg 4-08 105 capsules ity of capsule 00:00: by mouth 3 [place] (three) Medical times Branch daily. Diclofenac 2021-0 Yes APPLY 2 TO [facility] Sodium 1 % 4-08 4 GRAMS 3 ity of gel 00:00: TIMES [place] 00 DAILY Medical NEEDED FOR Branch PAIN gabapentin 2021-0 Yes [id number] 600mg Take 2 [facility] 300 mg 4-08 105 capsules ity of capsule 00:00: by mouth 3 [place] (three) Medical times Branch daily. Diclofenac 2021-0 Yes APPLY 2 TO [facility] Sodium 1 % 4-08 4 GRAMS 3 ity of gel 00:00: TIMES [place] 00 DAILY Medical NEEDED FOR Branch PAIN gabapentin 2021-0 Yes [id number] 600mg Take 2 [facility] 300 mg 4-08 105 capsules ity of capsule 00:00: by mouth 3 [place] (three) Medical times Branch daily. Diclofenac 2021-0 Yes APPLY 2 TO [facility] Sodium 1 % 4-08 4 GRAMS 3 ity of gel 00:00: TIMES [place] 00 DAILY Medical NEEDED FOR Branch PAIN gabapentin 2021-0 Yes [id number] 600mg Take 2 [facility] 300 mg 4-08 105 capsules ity of capsule 00:00: by mouth 3 [place] (three) Medical times Branch daily. Diclofenac 2-0 Yes [id number] APPLY 2 TO [facility] Sodium 1 % 4-08 4 GRAMS 3 ity of gel 00:00: TIMES [place] 00 DAILY Medical NEEDED FOR Branch PAIN gabapentin 2-0 Yes [id number] 600mg Take 2 [facility] 300 mg 4-08 105 capsules ity of capsule 00:00: by mouth 3 [place] (three) Medical times Branch daily. Diclofenac 2022-0 Yes APPLY 2 TO [facility] Sodium 1 % 4-08 4 GRAMS 3 ity of gel 00:00: TIMES [place] 00 DAILY Medical NEEDED FOR Branch PAIN gabapentin 2-0 Yes [id number] 600mg Take 2 [facility] 300 mg 4-08 105 capsules ity of capsule 00:00: by mouth 3 [place] (three) Medical times Branch daily. Diclofenac 2-0 Yes APPLY 2 TO [facility] Sodium 1 % 4-08 4 GRAMS 3 ity of gel 00:00: TIMES [place] 00 DAILY Medical NEEDED FOR Branch PAIN gabapentin 2-0 Yes [id number] 600mg Take 2 [facility] 300 mg 4-08 105 capsules ity of capsule 00:00: by mouth 3 [place] (three) Medical times Branch daily. Diclofenac 2021-0 Yes APPLY 2 TO [facility] Sodium 1 % 4-08 4 GRAMS 3 ity of gel 00:00: TIMES [place] 00 DAILY Medical NEEDED FOR Branch PAIN gabapentin 2021-0 Yes [id number] 600mg Take 2 [facility] 300 mg 4-08 105 capsules ity of capsule 00:00: by mouth 3 [place] (three) Medical times Branch daily. Diclofenac 2021-0 Yes APPLY 2 TO [facility] Sodium 1 % 4-08 4 GRAMS 3 ity of gel 00:00: TIMES [place] 00 DAILY Medical NEEDED FOR Branch PAIN gabapentin 2-0 Yes [id number] 600mg Take 2 [facility] 300 mg 4-08 105 capsules ity of capsule 00:00: by mouth 3 [place] 00 (three) Medical times Branch daily. Diclofenac 2021-0 Yes APPLY 2 TO [facility] Sodium 1 % 4-08 4 GRAMS 3 ity of gel 00:00: TIMES [place] 00 DAILY Medical NEEDED FOR Branch PAIN gabapentin 2022-0 Yes [id number] 600mg Take 2 [facility] 300 mg 4-08 105 capsules ity of capsule 00:00: by mouth 3 [place] 00 (three) Medical times Branch daily. Diclofenac 2-0 Yes APPLY 2 TO [facility] Sodium 1 % 4-08 4 GRAMS 3 ity of gel 00:00: TIMES [place] 00 DAILY Medical NEEDED FOR Branch PAIN gabapentin 2022-0 Yes [id number] 600mg Take 2 [facility] 300 mg 4-08 105 capsules ity of capsule 00:00: by mouth 3 [place] 00 (three) Medical times Branch daily. Diclofenac 2021-0 Yes APPLY 2 TO [facility] Sodium 1 % 4-08 4 GRAMS 3 ity of gel 00:00: TIMES [place] 00 DAILY Medical NEEDED FOR Branch PAIN gabapentin 2021-0 Yes [id number] 600mg Take 2 [facility] 300 mg 4-08 105 capsules ity of capsule 00:00: by mouth 3 [place] 00 (three) Medical times Branch daily. Diclofenac 2021-0 Yes APPLY 2 TO [facility] Sodium 1 % 4-08 4 GRAMS 3 ity of gel 00:00: TIMES [place] 00 DAILY Medical NEEDED FOR Branch PAIN gabapentin 2021-0 Yes [id number] 600mg Take 2 [facility] 300 mg 4-08 105 capsules ity of capsule 00:00: by mouth 3 [place] 00 (three) Medical times Branch daily. Diclofenac 2021-0 Yes APPLY 2 TO [facility] Sodium 1 % 4-08 4 GRAMS 3 ity of gel 00:00: TIMES [place] 00 DAILY Medical NEEDED FOR Branch PAIN gabapentin 2021-0 Yes [id number] 600mg Take 2 [facility] 300 mg 4-08 105 capsules ity of capsule 00:00: by mouth 3 [place] 00 (three) Medical times Branch daily. Diclofenac 2021-0 Yes APPLY 2 TO [facility] Sodium 1 % 4-08 4 GRAMS 3 ity of gel 00:00: TIMES [place] 00 DAILY Medical NEEDED FOR Branch PAIN gabapentin 2021-0 Yes [id number] 600mg Take 2 [facility] 300 mg 4-08 105 capsules ity of capsule 00:00: by mouth 3 [place] 00 (three) Medical times Branch daily. Diclofenac 2021-0 Yes APPLY 2 TO [facility] Sodium 1 % 4-08 4 GRAMS 3 ity of gel 00:00: TIMES [place] 00 DAILY Medical NEEDED FOR Branch PAIN gabapentin 2-0 Yes [id number] 600mg Take 2 [facility] 300 mg 4-08 105 capsules ity of capsule 00:00: by mouth 3 [place] 00 (three) Medical times Branch daily. Diclofenac 2021-0 Yes APPLY 2 TO [facility] Sodium 1 % 4-08 4 GRAMS 3 ity of gel 00:00: TIMES [place] 00 DAILY Medical NEEDED FOR Branch PAIN gabapentin 2021-0 Yes [id number] 600mg Take 2 [facility] 300 mg 4-08 105 capsules ity of capsule 00:00: by mouth 3 [place] 00 (three) Medical times Branch daily. Diclofenac 2021-0 Yes APPLY 2 TO [facility] Sodium 1 % 4-08 4 GRAMS 3 ity of gel 00:00: TIMES [place] 00 DAILY Medical NEEDED FOR Branch PAIN gabapentin 2-0 Yes [id number] 600mg Take 2 [facility] 300 mg 4-08 105 capsules ity of capsule 00:00: by mouth 3 [place] 00 (three) Medical times Branch daily. Diclofenac 2021-0 Yes APPLY 2 TO [facility] Sodium 1 % 4-08 4 GRAMS 3 ity of gel 00:00: TIMES [place] 00 DAILY Medical NEEDED FOR Branch PAIN gabapentin 2021-0 Yes [id number] 600mg Take 2 [facility] 300 mg 4-08 105 capsules ity of capsule 00:00: by mouth 3 [place] 00 (three) Medical times Branch daily. Diclofenac 2021-0 Yes APPLY 2 TO [facility] Sodium 1 % 4-08 4 GRAMS 3 ity of gel 00:00: TIMES [place] 00 DAILY Medical NEEDED FOR Branch PAIN gabapentin 2021-0 Yes [id number] 600mg Take 2 [facility] 300 mg 4-08 105 capsules ity of capsule 00:00: by mouth 3 [place] 00 (three) Medical times Branch daily. Diclofenac 2021-0 Yes APPLY 2 TO [facility] Sodium 1 % 4-08 4 GRAMS 3 ity of gel 00:00: TIMES [place] 00 DAILY Medical NEEDED FOR Branch PAIN gabapentin 2-0 Yes [id number] 600mg Take 2 [facility] 300 mg 4-08 105 capsules ity of capsule 00:00: by mouth 3 [place] 00 (three) Medical times Branch daily. Diclofenac 2021-0 Yes APPLY 2 TO [facility] Sodium 1 % 4-08 4 GRAMS 3 ity of gel 00:00: TIMES [place] 00 DAILY Medical NEEDED FOR Branch PAIN gabapentin 2022-0 Yes [id number] 600mg Take 2 [facility] 300 mg 4-08 105 capsules ity of capsule 00:00: by mouth 3 [place] 00 (three) Medical times Branch daily. Diclofenac 2-0 Yes APPLY 2 TO [facility] Sodium 1 % 4-08 4 GRAMS 3 ity of gel 00:00: TIMES [place] 00 DAILY Medical NEEDED FOR Branch PAIN gabapentin 2021-0 Yes [id number] 600mg Take 2 [facility] 300 mg 4-08 105 capsules ity of capsule 00:00: by mouth 3 [place] 00 (three) Medical times Branch daily. Diclofenac 2021-0 Yes APPLY 2 TO [facility] Sodium 1 % 4-08 4 GRAMS 3 ity of gel 00:00: TIMES [place] 00 DAILY Medical NEEDED FOR Branch PAIN gabapentin 2021-0 Yes [id number] 600mg Take 2 [facility] 300 mg 4-08 105 capsules ity of capsule 00:00: by mouth 3 [place] 00 (three) Medical times Branch daily. Diclofenac 2021-0 Yes [id number] APPLY 2 TO [facility] Sodium 1 % 4-08 4 GRAMS 3 ity of gel 00:00: TIMES [place] 00 DAILY Medical NEEDED FOR Branch PAIN gabapentin 2021-0 Yes [id number] 600mg Take 2 [facility] 300 mg 4-08 105 capsules [facility] capsule 00:00: [place] mouth [place] (three) Medical times Branch daily. Diclofenac 2021-0 Yes APPLY 2 TO [facility] Sodium 1 % 4-08 4 GRAMS 3 ity of gel 00:00: TIMES [place] 00 DAILY Medical NEEDED FOR Branch PAIN gabapentin 2021-0 Yes [id number] 600mg Take 2 [facility] 300 mg 4-08 105 capsules [facility] capsule 00:00: [place] mouth [place] (three) Medical times Branch daily. Diclofenac 2021-0 Yes APPLY 2 TO [facility] Sodium 1 % 4-08 4 GRAMS 3 [facility]y of gel 00:00: TIMES [place] 00 DAILY Medical NEEDED FOR Branch PAIN gabapentin 2021-0 Yes [id number] 600mg Take 2 [facility] 300 mg 4-08 105 capsules [facility] capsule 00:00: [place] mouth [place] (three) Medical times Branch daily. Diclofenac 2021-0 Yes [id number] APPLY 2 TO [facility] Sodium 1 % 4-08 4 GRAMS 3 ity of gel 00:00: TIMES [place] 00 DAILY Medical NEEDED FOR Branch PAIN gabapentin 2021-0 Yes [id number] 600mg Take 2 [facility] 300 mg 4-08 105 capsules [facility] capsule 00:00: [place] mouth [place] (three) Medical times [facility] daily. Diclofenac 2-0 Yes APPLY 2 TO [facility] Sodium 1 % 4-08 4 GRAMS 3 [facility]y of gel 00:00: TIMES [place] 00 DAILY Medical NEEDED FOR Branch PAIN gabapentin 2-0 Yes [id number] 600mg Take 2 [facility] 300 mg 4-08 105 capsules [facility] capsule 00:00: [place] mouth 3 [place] (three) Medical times Branch daily. Diclofenac 2-0 Yes [id number] APPLY 2 TO [facility] Sodium 1 % 4-08 4 GRAMS 3 [facility]y of gel 00:00: TIMES [place] 00 DAILY Medical NEEDED FOR Branch PAIN gabapentin 2021-0 Yes [id number] 600mg Take 2 [facility] 300 mg 4-08 105 capsules [facility] capsule 00:00: by mouth 3 [place] (three) Medical times [facility] daily. Diclofenac 2021-0 Yes [id number] APPLY 2 TO [facility] Sodium 1 % 4-08 4 GRAMS 3 [facility] of gel 00:00: TIMES [place] 00 DAILY Medical NEEDED FOR Branch PAIN gabapentin 2021-0 Yes [id number] 600mg Take 2 [facility] 300 mg 4-08 105 capsules [facility] capsule 00:00: by mouth 3 [place] 00 (three) Medical times Branch daily. Diclofenac 2021-0 Yes APPLY 2 TO [facility] Sodium 1 % 4-08 4 GRAMS 3 [facility] of gel 00:00: TIMES [place] 00 DAILY Medical NEEDED FOR Branch PAIN gabapentin 2021-0 Yes [id number] 600mg Take 2 [facility] 300 mg 4-08 105 capsules [facility] capsule 00:00: by mouth 3 [place] 00 (three) Medical times [facility] daily. Diclofenac 2021-0 Yes APPLY 2 TO [facility] Sodium 1 % 4-08 4 GRAMS 3 [facility] gel 00:00: TIMES [place] 00 DAILY Medical NEEDED FOR Branch PAIN gabapentin 2021-0 Yes [id number] 600mg Take 2 [facility] 300 mg 4-08 105 capsules [facility] capsule 00:00: by mouth 3 [place] (three) Medical times [facility] daily. Diclofenac 2021-0 Yes [id number] APPLY 2 TO [facility] Sodium 1 % 4-08 4 GRAMS 3 [facility] of gel 00:00: TIMES [place] 00 DAILY Medical NEEDED FOR Branch PAIN gabapentin 2-0 Yes [id number] 600mg Take 2 [facility] 300 mg 4-08 105 capsules [facility] capsule 00:00: by mouth 3 [place] 00 (three) Medical times Branch daily. Diclofenac 2021-0 Yes APPLY 2 TO [facility] Sodium 1 % 4-08 4 GRAMS 3 [facility] of gel 00:00: TIMES [place] 00 DAILY Medical NEEDED FOR Branch PAIN gabapentin 2021-0 Yes [id number] 600mg Take 2 [facility] 300 mg 4-08 105 capsules [facility] capsule 00:00: by mouth 3 [place] 00 (three) Medical times Branch daily. Diclofenac 2021-0 Yes APPLY 2 TO [facility] Sodium 1 % 4-08 4 GRAMS 3 [facility] gel 00:00: TIMES [place] 00 DAILY Medical NEEDED FOR Branch PAIN gabapentin 2021-0 Yes [id number] 600mg Take 2 [facility] 300 mg 4-08 105 capsules [facility] capsule 00:00: by mouth 3 [place] 00 (three) Medical times Branch daily. Diclofenac 2021-0 Yes APPLY 2 TO [facility] Sodium 1 % 4-08 4 GRAMS 3 [facility] of gel 00:00: TIMES [place] 00 DAILY Medical NEEDED FOR Branch PAIN gabapentin 2021-0 Yes [id number] 600mg Take 2 [facility] 300 mg 4-08 105 capsules [facility] capsule 00:00: by mouth 3 [place] 00 (three) Medical times Branch daily. Diclofenac 2021-0 Yes APPLY 2 TO [facility] Sodium 1 % 4-08 4 GRAMS 3 [facility] of gel 00:00: TIMES [place] 00 DAILY Medical NEEDED FOR Branch PAIN gabapentin 2021-0 Yes [id number] 600mg Take 2 [facility] 300 mg 4-08 105 capsules [facility] capsule 00:00: by mouth 3 [place] 00 (three) Medical times Branch daily. Diclofenac 2021-0 Yes APPLY 2 TO [facility] Sodium 1 % 4-08 4 GRAMS 3 [facility] of gel 00:00: TIMES [place] 00 DAILY Medical NEEDED FOR Branch PAIN gabapentin 2021-0 Yes [id number] 600mg Take 2 [facility] 300 mg 4-08 105 capsules [facility] capsule 00:00: by mouth 3 [place] 00 (three) Medical times Branch daily. Diclofenac 2021-0 Yes APPLY 2 TO [facility] Sodium 1 % 4-08 4 GRAMS 3 [facility] of gel 00:00: TIMES [place] 00 DAILY Medical NEEDED FOR Branch PAIN gabapentin 2021-0 Yes [id number] 600mg Take 2 [facility] 300 mg 4-08 105 capsules [facility] capsule 00:00: by mouth 3 [place] 00 (three) Medical times Branch daily. Diclofenac 2021-0 Yes APPLY 2 TO [facility] Sodium 1 % 4-08 4 GRAMS 3 [facility] of gel 00:00: TIMES [place] 00 DAILY Medical NEEDED FOR Branch PAIN gabapentin 2022-0 Yes [id number] 600mg Take 2 [facility] 300 mg 4-08 105 capsules [facility] capsule 00:00: by mouth 3 [place] 00 (three) Medical times Branch daily. Diclofenac 2022-0 Yes APPLY 2 TO [facility] Sodium 1 % 4-08 4 GRAMS 3 [facility] of gel 00:00: TIMES [place] 00 DAILY Medical NEEDED FOR Branch PAIN gabapentin 2022-0 Yes [id number] 600mg Take 2 [facility] 300 mg 4-08 105 capsules [facility] capsule 00:00: by mouth 3 [place] 00 (three) Medical times Branch daily. Diclofenac 2022-0 Yes APPLY 2 TO [facility] Sodium 1 % 4-08 4 GRAMS 3 [facility] of gel 00:00: TIMES [place] 00 DAILY Medical NEEDED FOR Branch PAIN gabapentin 2022-0 Yes [id number] 600mg Take 2 [facility] 300 mg 4-08 105 capsules [facility] capsule 00:00: by mouth 3 [place] 00 (three) Medical times Branch daily. gabapentin 2022-0 Yes [id number] 600mg Take 2 [facility] 300 mg 4-08 105 capsules [facility] capsule 00:00: by mouth 3 [place] 00 (three) Medical times Branch daily. gabapentin 2022-0 Yes [id number] 600mg Take 2 [facility] 300 mg 4-08 105 capsules [facility] capsule 00:00: by mouth 3 [place] 00 (three) Medical times Branch daily. gabapentin 2022-0 Yes [id number] 600mg Take 2 [facility] 300 mg 4-08 105 capsules [facility] capsule 00:00: by mouth 3 [place] 00 (three) Medical times Branch daily. gabapentin 2022-0 Yes [id number] 600mg Take 2 [facility] 300 mg 4-08 105 capsules [facility] capsule 00:00: by mouth 3 [place] 00 (three) Medical times Branch daily. gabapentin 2022-0 Yes [id number] 600mg Take 2 [facility] 300 mg 4-08 105 capsules [facility] capsule 00:00: by mouth 3 [place] 00 (three) Medical times Branch daily. gabapentin 2022-0 Yes [id number] 600mg Take 2 [facility] 300 mg 4-08 105 capsules [facility] capsule 00:00: by mouth 3 [place] 00 (three) Medical times Branch daily. gabapentin 2022-0 Yes [id number] 600mg Take 2 [facility] 300 mg 4-08 105 capsules [facility] capsule 00:00: by mouth 3 [place] 00 (three) Medical times Branch daily. gabapentin 2022-0 Yes [id number] 600mg Take 2 [facility] 300 mg 4-08 105 capsules [facility] capsule 00:00: by mouth 3 [place] 00 (three) Medical times Branch daily. gabapentin 2022-0 Yes [id number] 600mg Take 2 [facility] 300 mg 4-08 105 capsules [facility] capsule 00:00: by mouth 3 [place] 00 (three) Medical times Branch daily. gabapentin 2022-0 Yes [id number] 600mg Take 2 [facility] 300 mg 4-08 105 capsules [facility] capsule 00:00: by mouth 3 [place] 00 (three) Medical times Branch daily. gabapentin 2022-0 Yes [id number] 600mg Take 2 [facility] 300 mg 4-08 105 capsules [facility] capsule 00:00: by mouth 3 [place] 00 (three) Medical times Branch daily. gabapentin 2022-0 Yes [id number] 600mg Take 2 [facility] 300 mg 4-08 105 capsules [facility] capsule 00:00: by mouth 3 [place] 00 (three) Medical times Branch daily. gabapentin 2022-0 Yes [id number] 600mg Take 2 [facility] 300 mg 4-08 105 capsules [facility] capsule 00:00: by mouth 3 [place] 00 (three) Medical times Branch daily. gabapentin 2022-0 Yes [id number] 600mg Take 2 [facility] 300 mg 4-08 105 capsules [facility] capsule 00:00: by mouth 3 [place] 00 (three) Medical times Branch daily. gabapentin 2022-0 Yes [id number] 600mg Take 2 [facility] 300 mg 4-08 105 capsules [facility] capsule 00:00: by mouth 3 [place] 00 (three) Medical times Branch daily. gabapentin 2022-0 Yes [id number] 600mg Take 2 [facility] 300 mg 4-08 105 capsules [facility] capsule 00:00: by mouth 3 [place] 00 (three) Medical times Branch daily. gabapentin 2022-0 Yes [id number] 600mg Take 2 [facility] 300 mg 4-08 105 capsules [facility] capsule 00:00: by mouth 3 [place] 00 (three) Medical times Branch daily. gabapentin Yes [id number] 600mg Take 2 [facility] 300 mg - 105 capsules [facility] capsule 00:00: by mouth 3 [place] 00 (three) Medical times [facility] daily. gabapentin Yes [id number] 600mg Take 2 [facility] 300 mg 4- 105 capsules [facility] capsule 00:00: by mouth 3 [place] 00 (three) Medical times [facility] daily. gabapentin 2022- No [id number] 600mg Take 2 [facility] 300 mg 09-26- 105 capsules [facility] of capsule 00:00: 00:00 by mouth 3 [place] 00 :00 (three) Medical times [facility] daily. gabapentin 2022- No [id number] 600mg Take 2 [facility] 300 mg 09-26- 105 capsules [facility] of capsule 00:00: 00:00 by mouth 3 [place] 00 :00 (three) Medical times [facility] daily. Diclofenac 2022- No [id number] APPLY 2 TO [facility] Sodium 1 % 09-26- 4 GRAMS 3 [facility] of gel 00:00: 00:00 TIMES [place] 00 :00 DAILY Medical NEEDED FOR Branch PAIN Diclofenac 2022- No [id number] APPLY 2 TO [facility] Sodium 1 % 09-26- 4 GRAMS 3 [facility] of gel 00:00: 00:00 TIMES [place] 00 :00 DAILY Medical NEEDED FOR Branch PAIN SERTraline 2021- No [id number] 100mg Take 1 [facility] (ZOLOFT) 09-26 105 tablet by ity o f 100 mg 00:00: 00:00 mouth [place] tablet 00 :00 daily. Medical Branch amitriptyli 2021- No [id number] TAKE 1 AND [facility] ne 50 mg 09-08- 1/2 TABLET ity of tablet 00:00: 00:00 BY MOUTH [place] 00 :00 AT NIGHT Medical FOR 1 WEEK Branch IF PAIN/ANXIE TY/DEPRESS ION NOT IMPROVED THEN TAKE 2 AT NIGHT lisinopriL- 2020-06 Yes [id number] 1{tbl} Take 1 [facility] hydrochloro 0-22 tablet by ity of thiazide 00:00: mouth [place] 20-25 mg 00 daily. Medical per tablet Branch lisinopriL- 2020-06 Yes [id number] 1{tbl} Take 1 [facility] hydrochloro 0-22 tablet by ity of thiazide 00:00: mouth [place] 20-25 mg 00 daily. Medical per tablet Branch lisinopriL- 2020-06 Yes [id number] 1{tbl} Take 1 [facility] hydrochloro 0-22 tablet by ity of thiazide 00:00: mouth [place] 20-25 mg 00 daily. Medical per tablet Branch lisinopriL- 2020-06 Yes [id number] 1{tbl} Take 1 [facility] hydrochloro 0-22 tablet by ity of thiazide 00:00: mouth [place] 20-25 mg 00 daily. Medical per tablet Branch lisinopriL- 2020-06 Yes [id number] 1{tbl} Take 1 [facility] hydrochloro 0-22 tablet by ity of thiazide 00:00: mouth [place] 20-25 mg 00 daily. Medical per tablet Branch lisinopriL- 2020-06 Yes [id number] 1{tbl} Take 1 [facility] hydrochloro 0-22 tablet by ity of thiazide 00:00: mouth [place] 20-25 mg 00 daily. Medical per tablet Branch lisinopriL- 2020-06 Yes [id number] 1{tbl} Take 1 [facility] hydrochloro 0-22 tablet by ity of thiazide 00:00: mouth [place] 20-25 mg 00 daily. Medical per tablet Branch lisinopriL- 2020-06 Yes [id number] 1{tbl} Take 1 [facility] hydrochloro 0-22 tablet by ity of thiazide 00:00: mouth [place] 20-25 mg 00 daily. Medical per tablet Branch lisinopriL- 2020-06 Yes [id number] 1{tbl} Take 1 [facility] hydrochloro 0-22 tablet by ity of thiazide 00:00: mouth [place] 20-25 mg 00 daily. Medical per tablet Branch lisinopriL- 2020-06 Yes [id number] 1{tbl} Take 1 [facility] hydrochloro 0-22 tablet by ity of thiazide 00:00: mouth [place] 20-25 mg 00 daily. Medical per tablet Branch lisinopriL- 2020-06 Yes [id number] 1{tbl} Take 1 [facility] hydrochloro 0-22 tablet by ity of thiazide 00:00: mouth [place] 20-25 mg 00 daily. Medical per tablet Branch lisinopriL- 2020-06 Yes [id number] 1{tbl} Take 1 [facility] hydrochloro 0-22 tablet by ity of thiazide 00:00: mouth [place] 20-25 mg 00 daily. Medical per tablet Branch lisinopriL- 2020-06 Yes [id number] 1{tbl} Take 1 [facility] hydrochloro 0-22 tablet by ity of thiazide 00:00: mouth [place] 20-25 mg 00 daily. Medical per tablet Branch lisinopriL- 2020-06 Yes [id number] 1{tbl} Take 1 [facility] hydrochloro 0-22 tablet by ity of thiazide 00:00: mouth [place] 20-25 mg 00 daily. Medical per tablet Branch lisinopriL- 2020-06 Yes [id number] 1{tbl} Take 1 [facility] hydrochloro 0-22 tablet by ity of thiazide 00:00: mouth [place] 20-25 mg 00 daily. Medical per tablet Branch lisinopriL- 2020-06 Yes [id number] 1{tbl} Take 1 [facility] hydrochloro 0-22 tablet by ity of thiazide 00:00: mouth [place] 20-25 mg 00 daily. Medical per tablet Branch lisinopriL- 2020-06 Yes [id number] 1{tbl} Take 1 [facility] hydrochloro 0-22 tablet by ity of thiazide 00:00: mouth [place] 20-25 mg 00 daily. Medical per tablet Branch lisinopriL- 2020-06 Yes [id number] 1{tbl} Take 1 [facility] hydrochloro 0-22 tablet by ity of thiazide 00:00: mouth [place] 20-25 mg 00 daily. Medical per tablet Branch lisinopriL- 2020-06- No [id number] 1{tbl} Take 1 [facility] hydrochloro 0-22 10-06 tablet by it y of thiazide 00:00: 00:00 mouth [place] 20-25 mg 00 :00 daily. Medical per tablet Branch tiZANidine 2021- No [id number] 2mg Take 1 [facility] 2 mg tablet 03-2008 [id number] tablet by ity of 00:00: 00:00 mouth [place] 00 :00 every 8 Medical (eight) Branch hours as needed (muscle spasms). CLONIDINE Yes [id number] TAKE ONE U nivers 0.1 mg 8-19 TABLET BY ity of tablet 00:00: MOUTH THREE Medical TIMES A Branch DAY ONLY IF FOR BLOOD PRESSURE HIGHER THAN 180/90 CLONIDINE 2021-0 Yes [id number] TAKE ONE U nivers 0.1 mg 8-19 TABLET BY ity of tablet 00:00: MOUTH THREE Medical TIMES A Branch DAY ONLY IF FOR BLOOD PRESSURE HIGHER THAN 180/90 CLONIDINE 2021-0 Yes [id number] TAKE ONE [facility] nivers 0.1 mg 8-19 TABLET BY ity of tablet 00:00: THREE Medical TIMES A Branch DAY ONLY IF FOR BLOOD PRESSURE HIGHER THAN 180/90 CLONIDINE 2021-0 Yes [id number] TAKE ONE [facility] nivers 0.1 mg 8-19 TABLET BY ity of tablet 00:00: THREE Medical TIMES A Branch DAY ONLY IF FOR BLOOD PRESSURE HIGHER THAN 180/90 CLONIDINE 2021-0 Yes [id number] TAKE ONE [facility] nivers 0.1 mg 8-19 TABLET BY ity of tablet 00:00: THREE Medical TIMES A Branch DAY ONLY IF FOR BLOOD PRESSURE HIGHER THAN 180/90 CLONIDINE 2021-0 Yes [id number] TAKE ONE [facility] nivers 0.1 mg 8-19 TABLET BY ity of tablet 00:00: THREE Medical TIMES A Branch DAY ONLY IF FOR BLOOD PRESSURE HIGHER THAN 180/90 CLONIDINE 2021-0 Yes [id number] TAKE ONE [facility] nivers 0.1 mg 8-19 TABLET BY ity of tablet 00:00: THREE Medical TIMES A Branch DAY ONLY IF FOR BLOOD PRESSURE HIGHER THAN 180/90 CLONIDINE 2021-0 Yes [id number] TAKE ONE [facility] nivers 0.1 mg 8-19 TABLET BY ity of tablet 00:00: THREE Medical TIMES A Branch DAY ONLY IF FOR BLOOD PRESSURE HIGHER THAN 180/90 CLONIDINE 2021-0 Yes [id number] TAKE ONE [facility] nivers 0.1 mg 8-19 TABLET BY ity of tablet 00:00: THREE Medical TIMES A Branch DAY ONLY IF FOR BLOOD PRESSURE HIGHER THAN 180/90 CLONIDINE 2021-0 Yes [id number] TAKE ONE [facility] nivers 0.1 mg 8-19 TABLET BY ity of tablet 00:00: MOUTH THREE Medical TIMES A Branch DAY ONLY IF FOR BLOOD PRESSURE HIGHER THAN 180/90 CLONIDINE 2021-0 Yes [id number] TAKE ONE [facility] nivers 0.1 mg 8-19 TABLET BY ity of tablet 00:00: MOUTH [place] 00 THREE Medical TIMES A Branch DAY ONLY IF FOR BLOOD PRESSURE HIGHER THAN 180/90 CLONIDINE 2020-0 Yes [id number] TAKE ONE [facility] nivers 0.1 mg 8-19 TABLET BY ity of tablet 00:00: 00 THREE Medical TIMES A Branch DAY ONLY IF FOR BLOOD PRESSURE HIGHER THAN 180/90 CLONIDINE 2021-0 Yes [id number] TAKE ONE [facility] nivers 0.1 mg 8-19 TABLET BY ity of tablet 00:00: THREE Medical TIMES A Branch DAY ONLY IF FOR BLOOD PRESSURE HIGHER THAN 180/90 CLONIDINE 202-0 Yes [id number] TAKE ONE [facility] nivers 0.1 mg 8-19 TABLET BY ity of tablet 00:00: THREE Medical TIMES A Branch DAY ONLY IF FOR BLOOD PRESSURE HIGHER THAN 180/90 CLONIDINE 2020-0 Yes [id number] TAKE ONE [facility]ivers 0.1 mg 8-19 TABLET BY ity of tablet 00:00: THREE Medical TIMES A Branch DAY ONLY IF FOR BLOOD PRESSURE HIGHER THAN 180/90 CLONIDINE 2020-0 Yes [id number] TAKE ONE [facility] nivers 0.1 mg 8-19 TABLET BY ity of tablet 00:00: 00 THREE Medical TIMES A Branch DAY ONLY IF FOR BLOOD PRESSURE HIGHER THAN 180/90 CLONIDINE 2020-0 Yes [id number] TAKE ONE [facility] nivers 0.1 mg 8-19 TABLET BY ity of tablet 00:00: 00 THREE Medical TIMES A Branch DAY ONLY IF FOR BLOOD PRESSURE HIGHER THAN 180/90 CLONIDINE 1-0 Yes [id number] TAKE ONE [facility] nivers 0.1 mg 8-19 TABLET BY ity of tablet 00:00: THREE Medical TIMES A Branch DAY ONLY IF FOR BLOOD PRESSURE HIGHER THAN 180/90 CLONIDINE 2020-0 202- No [id number] TAKE ONE [facility] 0.1 mg 8-19 10- TABLET BY ity of tablet 00:00: 00:00 MOUTH [place] 00 :00 THREE Medical TIMES A Branch DAY ONLY IF FOR BLOOD PRESSURE HIGHER THAN 180/90 Diclofenac 2020-0 202- No [id number] APPLY 2 TO [facility] Sodium 1 % 01-09-08 4 GRAMS 3 ity of gel 00:00: 00:00 00 :00 DAILY Medical NEEDED FOR Branch PAIN hydrOXYzine 2020-0 2021- No [id number] 25mg Take 1 [facility] 25 mg 4-16 08 capsule by ity of capsule 00:00: 00:00 mouth 4 [place] 00 :00 (four) Medical times Branch daily as needed for Anxiety. HYDROcodone 2020-0 Yes 1{tbl} 1 tablet 2 [...] per 00 daily. Medical tablet Branch HYDROcodone 2021-0 Yes 1{tbl} 1 tablet 2 [facility] -acetaminop 3-23 (two) ity of hen 7.5-325 00:00: times [place] mg per 00 daily. Medical tablet Branch HYDROcodone 2021-0 Yes 1{tbl} 1 tablet 2 [facility] -acetaminop [...] per 00 daily. Medical tablet Branch HYDROcodone 1-0 Yes 1{tbl} 1 tablet 2 [facility] -acetaminop [...] per 00 daily. Medical tablet Branch HYDROcodone Yes 1{tbl} 1 tablet 2 [facility] -acetaminop 3-23 (two) ity of hen 7.5-325 00:00: times [place] mg per 00 daily. Medical tablet Branch HYDROcodone 2020- Yes 1{tbl} 1 tablet 2 [facility] -acetaminop 3-23 (two) ity of hen 7.5-325 00:00: times [place] mg per 00 daily. Medical tablet Branch HYDROcodone 0 Yes 1{tbl} 1 tablet 2 [facility] -acetaminop [...] per 00 daily. Medical tablet Branch pregabalin 2021- No [facility] 150 mg 2-11 22-08 ity of capsule 00:00: 00:00 [place] 00 :00 Medical Branch Immunizations Ordered Filled Immunization Date Status Comments Sour e Immunization Name Name Influenza High Dose 2022-04-15 Completed [facility] 00:00:00 [place] [facility] Influenza High Dose 2022-04-15 Completed [facility] 00:00:00 [place] [facility] Influenza High Dose 2022-04-15 Completed [facility] 00:00:00 [place] [facility] Influenza High Dose 2022-04-15 Completed [facility] 00:00:00 [place] [facility] Influenza High Dose 2022-04-15 Completed [facility] 00:00:00 [place] [facility] Influenza High Dose 2022-04-15 Completed [facility] 00:00:00 [place] [facility] Influenza High Dose 2022-04-15 Completed [facility] 00:00:00 [place] [facility] Influenza High Dose 2022-04-15 Completed [facility] 00:00:00 [place] [facility] Influenza High Dose 2022-04-15 Completed [facility] 00:00:00 [place] [facility] Influenza High Dose 2022-04-15 Completed [facility] 00:00:00 [place] [facility] Influenza High Dose 2022-04-15 Completed [facility] 00:00:00 [place] [facility] Influenza High Dose 2022-04-15 Completed [facility] 00:00:00 [place] [facility] Influenza High Dose 2022-04-15 Completed [facility] 00:00:00 [place] [facility] Influenza High Dose 2022-04-15 Completed [facility] 00:00:00 [place] [facility] Influenza High Dose 2022-04-15 Completed [facility] 00:00:00 [place] [facility] Influenza High Dose 2022-04-15 Completed [facility] 00:00:00 [place] [facility] Influenza High Dose 2022-04-15 Completed [facility] 00:00:00 [place] [facility] Influenza High Dose 2022-04-15 Completed [facility] 00:00:00 [place] [facility] Influenza High Dose 2022-04-15 Completed [facility] 00:00:00 [place] [facility] Influenza High Dose 2022-04-15 Completed [facility] 00:00:00 [place] [facility] Influenza High Dose 2022-04-15 Completed [facility] 00:00:00 [place] [facility] Influenza High Dose 2022-04-15 Completed [facility] 00:00:00 [place] [facility] Influenza High Dose 2022-04-15 Completed [facility] 00:00:00 [place] [facility] Influenza High Dose 2022-04-15 Completed [facility] 00:00:00 [place] [facility] Influenza High Dose 2022-04-15 Completed [facility] 00:00:00 [place] [facility] Influenza High Dose 2022-04-15 Completed [facility] 00:00:00 [place] [facility] Influenza High Dose 2022-04-15 Completed [facility] 00:00:00 [place] [facility] Influenza High Dose 2022-04-15 Completed [facility] 00:00:00 [place] [facility] Influenza High Dose 2022-04-15 Completed [facility] 00:00:00 [place] [facility] Influenza High Dose 2022-04-15 Completed [facility] 00:00:00 [place] [facility] Influenza High Dose 2022-04-15 Completed [facility] 00:00:00 [place] [facility] Influenza High Dose 2022-04-15 Completed [facility] 00:00:00 [place] [facility] Influenza High Dose 2022-04-15 Completed [facility] 00:00:00 [place] [facility] Influenza High Dose 2022-04-15 Completed [facility] 00:00:00 [place] [facility] Influenza High Dose 2022-04-15 Completed [facility] 00:00:00 [place] [facility] Influenza High Dose 2022-04-15 Completed [facility] 00:00:00 [place] [facility] Influenza High Dose 2022-04-15 Completed [facility] 00:00:00 [place] [facility] Influenza High Dose 2022-04-15 Completed [facility] 00:00:00 [place] [facility] Influenza High Dose 2022-04-15 Completed [facility] 00:00:00 [facility] Influenza Virus 2021-05-05 Completed [facility] of [...] l Im,preserve Free Branch 65+ SARS-COV-2 COVID-19 2021-04-14 Completed [facility] of PFIZER VACCINE 00:00:00 [facility] SARS-COV-2 COVID-19 2021-04-14 Completed [facility]ive rs[facility] of PFIZER VACCINE 00:00:00 [facility] SARS-COV-2 COVID-19 2021-04-14 Completed [facility]ive rs[facility] of PFIZER VACCINE 00:00:00 [facility] SARS-COV-2 COVID-19 2021-04-14 Completed [facility]ive rs[facility] of PFIZER VACCINE 00:00:00 [facility] SARS-COV-2 COVID-19 2021-04-14 Completed [facility] of PFIZER VACCINE 00:00:00 [facility] SARS-COV-2 COVID-19 2021-04-14 Completed [facility] rs[facility] of PFIZER VACCINE 00:00:00 [facility] SARS-COV-2 COVID-19 2021-04-14 Completed [facility]ive rs[facility] of PFIZER VACCINE 00:00:00 [facility] SARS-COV-2 COVID-19 2021-04-14 Completed [facility]ive rs[facility] of PFIZER VACCINE 00:00:00 [facility] SARS-COV-2 COVID-19 2021-04-14 Completed [facility]ive rs[facility] of PFIZER VACCINE 00:00:00 [facility] SARS-COV-2 COVID-19 2021-04-14 Completed [facility]ive rsity of PFIZER VACCINE 00:00:00 [facility] SARS-COV-2 COVID-19 2021-04-14 Completed Unive rsity of PFIZER VACCINE 00:00:00 [place] [facility] SARS-COV-2 COVID-19 2021-04-14 Completed Unive rsity of PFIZER VACCINE 00:00:00 [facility] SARS-COV-2 COVID-19 2021-04-14 Completed Unive rsity of PFIZER VACCINE 00:00:00 [facility] SARS-COV-2 COVID-19 2021-04-14 Completed Unive rsity of PFIZER VACCINE 00:00:00 [facility] SARS-COV-2 COVID-19 2021-04-14 Completed Unive rsity of PFIZER VACCINE 00:00:00 [facility] SARS-COV-2 COVID-19 2021-04-14 Completed Unive rsity of PFIZER VACCINE 00:00:00 [facility] SARS-COV-2 COVID-19 2021-04-14 Completed Unive rsity of PFIZER VACCINE 00:00:00 [facility] SARS-COV-2 COVID-19 2021-04-14 Completed Unive rsity of PFIZER VACCINE 00:00:00 [facility] SARS-COV-2 COVID-19 2021-04-14 Completed Unive rsity of PFIZER VACCINE 00:00:00 [facility] SARS-COV-2 COVID-19 2021-04-14 Completed Unive rsity of PFIZER VACCINE 00:00:00 [facility] SARS-COV-2 COVID-19 2021-04-14 Completed Unive rsity of PFIZER VACCINE 00:00:00 [facility] SARS-COV-2 COVID-19 2021-04-14 Completed Unive rsity of PFIZER VACCINE 00:00:00 [facility] SARS-COV-2 COVID-19 2021-04-14 Completed Unive rsity of PFIZER VACCINE 00:00:00 [facility] SARS-COV-2 COVID-19 2021-04-14 Completed [facility] PFIZER VACCINE 00:00:00 [facility] SARS-COV-2 COVID-19 2021-04-14 Completed [facility] PFIZER VACCINE 00:00:00 [facility] SARS-COV-2 COVID-19 2021-04-14 Completed [facility] PFIZER VACCINE 00:00:00 [facility] SARS-COV-2 COVID-19 2021-04-14 Completed [facility] PFIZER VACCINE 00:00:00 [facility] SARS-COV-2 COVID-19 2021-04-14 Completed [facility] PFIZER VACCINE 00:00:00 [facility] SARS-COV-2 COVID-19 2021-04-14 Completed [facility] PFIZER VACCINE 00:00:00 [facility] SARS-COV-2 COVID-19 2021-04-14 Completed [facility] PFIZER VACCINE 00:00:00 [facility] SARS-COV-2 COVID-19 2021-04-14 Completed [facility] PFIZER VACCINE 00:00:00 [facility] SARS-COV-2 COVID-19 2021-04-14 Completed [facility] PFIZER VACCINE 00:00:00 [facility] SARS-COV-2 COVID-19 2021-04-14 Completed [facility] PFIZER VACCINE 00:00:00 [facility] SARS-COV-2 COVID-19 2021-04-14 Completed [facility] PFIZER VACCINE 00:00:00 [facility] SARS-COV-2 COVID-19 2021-04-14 Completed [facility] PFIZER VACCINE 00:00:00 [facility] SARS-COV-2 COVID-19 2021-04-14 Completed [facility] PFIZER VACCINE 00:00:00 [facility] SARS-COV-2 COVID-19 2021-04-14 Completed [facility] PFIZER VACCINE 00:00:00 [facility] SARS-COV-2 COVID-19 2021-04-14 Completed [facility] PFIZER VACCINE 00:00:00 [facility] SARS-COV-2 COVID-19 2021-04-14 Completed [facility] PFIZER VACCINE 00:00:00 [facility] Influenza Virus 2021-04-11 Completed [facility] 00[facility] Influenza Virus 2021-04-11 Completed [facility] Vaccine,quad 00:00:00 [facility] 65+ Influenza Virus 2021-04-11 Completed [facility] Vaccine,quad 00:00:00 [facility] 65+ Influenza Virus 2021-04-11 Completed [facility] Vaccine,quad 00:00:00 [facility] 65+ Influenza Virus 2021-04-11 Completed [facility] Vaccine,quad 00:00:00 [facility] 65+ Influenza Virus 2021-04-11 Completed [facility] Vaccine,quad 00:00:00 [facility] 65+ Influenza Virus 2021-04-11 Completed [facility] Vaccine,quad 00:00:00 [facility] 65+ Influenza Virus 2021-04-11 Completed [facility] Vaccine,quad 00:00:00 [facility] 65+ Influenza Virus 2021-04-11 Completed [facility] Vaccine,quad 00:00:00 [facility] 65+ Influenza Virus 2021-04-11 Completed [facility] Vaccine,quad 00:00:00 [facility] 65+ Influenza Virus 2021-04-11 Completed [facility] Vaccine,quad 00:00:00 [facility] 65+ Influenza Virus 2021-04-11 Completed [facility] Vaccine,quad 00:00:00 [facility] 65+ Influenza Virus 2021-04-11 Completed [facility] Vaccine,quad 00:00:00 [facility] 65+ Influenza Virus 2021-04-11 Completed [facility] Vaccine,quad 00:00:00 [facility] 65+ Influenza Virus 2021-04-11 Completed [facility] Vaccine,quad 00:00:00 [facility] 65+ Influenza Virus 2021-04-11 Completed [facility] Vaccine,quad 00:00:00 [facility] 65+ Influenza Virus 2021-04-11 Completed [facility] Vaccine,quad 00:00:00 [facility] 65+ Influenza Virus 2021-04-11 Completed [facility] Vaccine,quad 00:00:00 [facility] 65+ Influenza Virus 2021-04-11 Completed [facility] Vaccine,quad 00:00:00 [facility] 65+ Influenza Virus 2021-04-11 Completed [facility] Vaccine,quad 00:00:00 [facility] 65+ Influenza Virus 2021-04-11 Completed [facility] Vaccine,quad 00:00:00 [facility] 65+ Influenza Virus 2021-04-11 Completed [facility] Vaccine,quad 00:00:00 [facility] 65+ Influenza Virus 2021-04-11 Completed [facility] Vaccine,quad 00:00:00 [facility] 65+ Influenza Virus 2021-04-11 Completed [facility] Vaccine,quad 00:00:00 [facility] 65+ Influenza Virus 2021-04-11 Completed [facility] Vaccine,quad 00:00:00 [facility] 65+ Influenza Virus 2021-04-11 Completed [facility] Vaccine,quad 00:00:00 [facility] 65+ Influenza Virus 2021-04-11 Completed [facility] Vaccine,quad 00:00:00 [facility] 65+ Influenza Virus 2021-04-11 Completed [facility] Vaccine,quad 00:00:00 [facility] 65+ Influenza Virus 2021-04-11 Completed [facility] Vaccine,quad 00:00:00 [facility] 65+ Influenza Virus 2021-04-11 Completed [facility] Vaccine,quad 00:00:00 [facility] 65+ Influenza Virus 2021-04-11 Completed [facility] Vaccine,quad 00:00:00 [facility] 65+ Influenza Virus 2021-04-11 Completed [facility] Vaccine,quad 00:00:00 [facility] 65+ Influenza Virus 2021-04-11 Completed [facility] Vaccine,quad 00:00:00 [facility] 65+ Influenza Virus 2021-04-11 Completed [facility] Vaccine,quad 00:00:00 [facility] 65+ Influenza Virus 2021-04-11 Completed [facility] Vaccine,quad 00:00:00 [facility] 65+ Influenza Virus 2021-04-11 Completed [facility] Vaccine,quad 00:00:00 [facility] 65+ Influenza Virus 2021-04-11 Completed [facility] Vaccine,quad 00:00:00 [facility] 65+ Influenza Virus 2021-04-11 Completed [facility] Vaccine,quad 00:00:00 [facility] 65+ Influenza Virus 2021-04-11 Completed [facility] Vaccine,quad 00:00:00 [facility]+ SARS-COV-2 COVID-19 2020-09-04 Completed [facility] PFIZER VACCINE 00:00:00 [facility] SARS-COV-2 COVID-19 2020-09-04 Completed [facility] PFIZER VACCINE 00:00:00 [facility] SARS-COV-2 COVID-19 2020-09-04 Completed [facility] PFIZER VACCINE 00:00:00 [facility] SARS-COV-2 COVID-19 2020-09-04 Completed [facility] PFIZER VACCINE 00:00:00 [facility] SARS-COV-2 COVID-19 2020-09-04 Completed [facility] PFIZER VACCINE 00:00:00 [facility] SARS-COV-2 COVID-19 2020-09-04 Completed [facility] PFIZER VACCINE 00:00:00 [facility] SARS-COV-2 COVID-19 2020-09-04 Completed [facility] PFIZER VACCINE 00:00:00 [facility] SARS-COV-2 COVID-19 2020-09-04 Completed [facility] PFIZER VACCINE 00:00:00 [facility] SARS-COV-2 COVID-19 2020-09-04 Completed [facility] PFIZER VACCINE 00:00:00 [facility] SARS-COV-2 COVID-19 2020-09-04 Completed [facility] PFIZER VACCINE 00:00:00 [facility] SARS-COV-2 COVID-19 2020-09-04 Completed [facility] PFIZER VACCINE 00:00:00 [facility] SARS-COV-2 COVID-19 2020-09-04 Completed [facility] PFIZER VACCINE 00:00:00 [facility] SARS-COV-2 COVID-19 2020-09-04 Completed [facility] PFIZER VACCINE 00:00:00 [facility] SARS-COV-2 COVID-19 2020-09-04 Completed [facility] PFIZER VACCINE 00:00:00 [facility] SARS-COV-2 COVID-19 2020-09-04 Completed [facility] PFIZER VACCINE 00:00:00 [facility] SARS-COV-2 COVID-19 2020-09-04 Completed [facility] PFIZER VACCINE 00:00:00 [facility] SARS-COV-2 COVID-19 2020-09-04 Completed [facility] PFIZER VACCINE 00:00:00 [facility] SARS-COV-2 COVID-19 2020-09-04 Completed [facility] PFIZER VACCINE 00:00:00 [facility] SARS-COV-2 COVID-19 2020-09-04 Completed [facility] PFIZER VACCINE 00:00:00 [facility] SARS-COV-2 COVID-19 2020-09-04 Completed [facility] PFIZER VACCINE 00:00:00 [facility] SARS-COV-2 COVID-19 2020-09-04 Completed [facility] PFIZER VACCINE 00:00:00 [facility] SARS-COV-2 COVID-19 2020-09-04 Completed [facility] PFIZER VACCINE 00:00:00 [facility] SARS-COV-2 COVID-19 2020-09-04 Completed [facility] PFIZER VACCINE 00:00:00 [facility] SARS-COV-2 COVID-19 2020-09-04 Completed [facility] PFIZER VACCINE 00:00:00 [facility] SARS-COV-2 COVID-19 2020-09-04 Completed [facility] PFIZER VACCINE 00:00:00 [facility] SARS-COV-2 COVID-19 2020-09-04 Completed [facility] PFIZER VACCINE 00:00:00 [facility] SARS-COV-2 COVID-19 2020-09-04 Completed [facility] PFIZER VACCINE 00:00:00 [facility] SARS-COV-2 COVID-19 2020-09-04 Completed [facility] PFIZER VACCINE 00:00:00 [facility] SARS-COV-2 COVID-19 2020-09-04 Completed [facility] PFIZER VACCINE 00:00:00 [facility] SARS-COV-2 COVID-19 2020-09-04 Completed [facility] PFIZER VACCINE 00:00:00 [facility] SARS-COV-2 COVID-19 2020-09-04 Completed [facility] PFIZER VACCINE 00:00:00 [facility] SARS-COV-2 COVID-19 2020-09-04 Completed [facility] PFIZER VACCINE 00:00:00 [facility] SARS-COV-2 COVID-19 2020-09-04 Completed [facility] PFIZER VACCINE 00:00:00 [facility] SARS-COV-2 COVID-19 2020-09-04 Completed [facility] PFIZER VACCINE 00:00:00 [facility] SARS-COV-2 COVID-19 2020-09-04 Completed [facility] PFIZER VACCINE 00:00:00 [facility] SARS-COV-2 COVID-19 2020-09-04 Completed [facility] PFIZER VACCINE 00:00:00 [facility] SARS-COV-2 COVID-19 2020-09-04 Completed [facility] PFIZER VACCINE 00:00:00 [facility] SARS-COV-2 COVID-19 2020-09-04 Completed [facility] PFIZER VACCINE 00:00:00 [facility] SARS-COV-2 COVID-19 2020-09-04 Completed [facility] PFIZER VACCINE 00:00:00 [facility] SARS-COV-2 COVID-19 2020-09-04 Completed [facility] PFIZER VACCINE 00:00:00 [facility] SARS-COV-2 COVID-19 2020-09-04 Completed [facility] PFIZER VACCINE 00:00:00 [facility] SARS-COV-2 COVID-19 2020-09-04 Completed [facility] PFIZER VACCINE 00:00:00 [facility] SARS-COV-2 COVID-19 2020-09-04 Completed [facility] PFIZER VACCINE 00:00:00 [facility] SARS-COV-2 COVID-19 2020-09-04 Completed [facility] PFIZER VACCINE 00:00:00 [facility] SARS-COV-2 COVID-19 2020-09-04 Completed [facility] PFIZER VACCINE 00:00:00 [facility] SARS-COV-2 COVID-19 2020-09-04 Completed [facility] PFIZER VACCINE 00:00:00 [facility] SARS-COV-2 COVID-19 2020-09-04 Completed [facility] PFIZER VACCINE 00:00:00 [facility] SARS-COV-2 COVID-19 2020-09-04 Completed [facility] PFIZER VACCINE 00:00:00 [facility] SARS-COV-2 COVID-19 2020-09-04 Completed [facility] PFIZER VACCINE 00:00:00 [facility] SARS-COV-2 COVID-19 2020-09-04 Completed [facility] PFIZER VACCINE 00:00:00 [facility] SARS-COV-2 COVID-19 2020-09-04 Completed [facility] PFIZER VACCINE 00:00:00 [facility] SARS-COV-2 COVID-19 2020-09-04 Completed [facility] PFIZER VACCINE 00:00:00 [facility] SARS-COV-2 COVID-19 2020-09-04 Completed [facility] PFIZER VACCINE 00:00:00 [facility] SARS-COV-2 COVID-19 2020-09-04 Completed [facility] PFIZER VACCINE 00:00:00 [facility] SARS-COV-2 COVID-19 2020-09-04 Completed [facility] PFIZER VACCINE 00:00:00 [facility] SARS-COV-2 COVID-19 2020-09-04 Completed [facility] PFIZER VACCINE 00:00:00 [facility] SARS-COV-2 COVID-19 2020-09-04 Completed [facility] PFIZER VACCINE 00:00:00 [facility] SARS-COV-2 COVID-19 2020-09-04 Completed [facility] PFIZER VACCINE 00:00:00 [facility] SARS-COV-2 COVID-19 2020-09-04 Completed [facility] PFIZER VACCINE 00:00:00 [facility] SARS-COV-2 COVID-19 2020-09-04 Completed [facility] PFIZER VACCINE 00:00:00 [facility] SARS-COV-2 COVID-19 2020-09-04 Completed [facility] PFIZER VACCINE 00:00:00 [facility] SARS-COV-2 COVID-19 2020-09-04 Completed [facility] PFIZER VACCINE 00:00:00 [facility] SARS-COV-2 COVID-19 2020-09-04 Completed [facility] PFIZER VACCINE 00:00:00 [facility] SARS-COV-2 COVID-19 2020-09-04 Completed [facility] PFIZER VACCINE 00:00:00 [facility] SARS-COV-2 COVID-19 2020-09-04 Completed [facility] PFIZER VACCINE 00:00:00 [facility] SARS-COV-2 COVID-19 2020-09-04 Completed [facility] PFIZER VACCINE 00:00:00 [facility] SARS-COV-2 COVID-19 2020-09-04 Completed [facility] PFIZER VACCINE 00:00:00 [facility] SARS-COV-2 COVID-19 2020-09-04 Completed [facility] PFIZER VACCINE 00:00:00 [facility] SARS-COV-2 COVID-19 2020-09-04 Completed [facility] PFIZER VACCINE 00:00:00 [facility] SARS-COV-2 COVID-19 2020-09-04 Completed [facility] PFIZER VACCINE 00:00:00 [facility] SARS-COV-2 COVID-19 2020-09-04 Completed [facility] PFIZER VACCINE 00:00:00 [facility] SARS-COV-2 COVID-19 2020-09-04 Completed [facility] PFIZER VACCINE 00:00:00 [facility] SARS-COV-2 COVID-19 2020-09-04 Completed [facility] PFIZER VACCINE 00:00:00 [facility] SARS-COV-2 COVID-19 2020-09-04 Completed [facility] PFIZER VACCINE 00:00:00 [facility] SARS-COV-2 COVID-19 2020-09-04 Completed [facility] PFIZER VACCINE 00:00:00 [facility] SARS-COV-2 COVID-19 2020-09-04 Completed [facility] PFIZER VACCINE 00:00:00 [facility] SARS-COV-2 COVID-19 2020-09-04 Completed [facility] PFIZER VACCINE 00:00:00 [facility] SARS-COV-2 COVID-19 2020-09-04 Completed [facility] PFIZER VACCINE 00:00:00 [facility] SARS-COV-2 COVID-19 2020-09-04 Completed [facility] PFIZER VACCINE 00:00:00 [facility] SARS-COV-2 COVID-19 2020-09-04 Completed [facility] PFIZER VACCINE 00:00:00 [facility] SARS-COV-2 COVID-19 2020-09-04 Completed [facility] PFIZER VACCINE 00:00:00 [facility] SARS-COV-2 COVID-19 2020-09-04 Completed [facility] PFIZER VACCINE 00:00:00 [facility] SARS-COV-2 COVID-19 2020-09-04 Completed [facility] PFIZER VACCINE 00:00:00 [facility] SARS-COV-2 COVID-19 2020-09-04 Completed [facility] PFIZER VACCINE 00:00:00 [facility] SARS-COV-2 COVID-19 2020-09-04 Completed [facility] PFIZER VACCINE 00:00:00 [facility] SARS-COV-2 COVID-19 2020-09-04 Completed [facility] PFIZER VACCINE 00:00:00 [facility] SARS-COV-2 COVID-19 2020-09-04 Completed [facility] PFIZER VACCINE 00:00:00 [facility] SARS-COV-2 COVID-19 2020-09-04 Completed [facility] PFIZER VACCINE 00:00:00 [facility] SARS-COV-2 COVID-19 2020-09-04 Completed [facility] PFIZER VACCINE 00:00:00 [facility] SARS-COV-2 COVID-19 2020-09-04 Completed [facility] PFIZER VACCINE 00:00:00 [facility] SARS-COV-2 COVID-19 2020-09-04 Completed [facility] PFIZER VACCINE 00:00:00 [facility] SARS-COV-2 COVID-19 2020-08-11 Completed [facility] PFIZER VACCINE 00:00:00 [facility] SARS-COV-2 COVID-19 2020-08-11 Completed [facility] PFIZER VACCINE 00:00:00 [facility] SARS-COV-2 COVID-19 2020-08-11 Completed [facility] PFIZER VACCINE 00:00:00 [facility] SARS-COV-2 COVID-19 2020-08-11 Completed [facility] PFIZER VACCINE 00:00:00 [facility] SARS-COV-2 COVID-19 2020-08-11 Completed [facility] PFIZER VACCINE 00:00:00 [facility] SARS-COV-2 COVID-19 2020-08-11 Completed [facility] PFIZER VACCINE 00:00:00 [facility] SARS-COV-2 COVID-19 2020-08-11 Completed [facility] PFIZER VACCINE 00:00:00 [facility] SARS-COV-2 COVID-19 2020-08-11 Completed [facility] PFIZER VACCINE 00:00:00 [facility] SARS-COV-2 COVID-19 2020-08-11 Completed [facility] PFIZER VACCINE 00:00:00 [facility] SARS-COV-2 COVID-19 2020-08-11 Completed [facility] PFIZER VACCINE 00:00:00 [facility] SARS-COV-2 COVID-19 2020-08-11 Completed [facility] PFIZER VACCINE 00:00:00 [facility] SARS-COV-2 COVID-19 2020-08-11 Completed [facility] PFIZER VACCINE 00:00:00 [facility] SARS-COV-2 COVID-19 2020-08-11 Completed [facility] PFIZER VACCINE 00:00:00 [facility] SARS-COV-2 COVID-19 2020-08-11 Completed [facility] PFIZER VACCINE 00:00:00 [facility] SARS-COV-2 COVID-19 2020-08-11 Completed [facility] PFIZER VACCINE 00:00:00 [facility] SARS-COV-2 COVID-19 2020-08-11 Completed [facility] PFIZER VACCINE 00:00:00 [facility] SARS-COV-2 COVID-19 2020-08-11 Completed [facility] PFIZER VACCINE 00:00:00 [facility] SARS-COV-2 COVID-19 2020-08-11 Completed [facility] PFIZER VACCINE 00:00:00 [facility] SARS-COV-2 COVID-19 2020-08-11 Completed [facility] PFIZER VACCINE 00:00:00 [facility] SARS-COV-2 COVID-19 2020-08-11 Completed [facility] PFIZER VACCINE 00:00:00 [facility] SARS-COV-2 COVID-19 2020-08-11 Completed [facility] PFIZER VACCINE 00:00:00 [facility] SARS-COV-2 COVID-19 2020-08-11 Completed [facility] PFIZER VACCINE 00:00:00 [facility] SARS-COV-2 COVID-19 2020-08-11 Completed [facility] PFIZER VACCINE 00:00:00 [facility] SARS-COV-2 COVID-19 2020-08-11 Completed [facility] PFIZER VACCINE 00:00:00 [facility] SARS-COV-2 COVID-19 2020-08-11 Completed [facility] PFIZER VACCINE 00:00:00 [facility] SARS-COV-2 COVID-19 2020-08-11 Completed [facility] PFIZER VACCINE 00:00:00 [facility] SARS-COV-2 COVID-19 2020-08-11 Completed [facility] PFIZER VACCINE 00:00:00 [facility] SARS-COV-2 COVID-19 2020-08-11 Completed [facility] PFIZER VACCINE 00:00:00 [facility] SARS-COV-2 COVID-19 2020-08-11 Completed [facility] PFIZER VACCINE 00:00:00 [facility] SARS-COV-2 COVID-19 2020-08-11 Completed [facility] PFIZER VACCINE 00:00:00 [facility] SARS-COV-2 COVID-19 2020-08-11 Completed [facility] PFIZER VACCINE 00:00:00 [facility] SARS-COV-2 COVID-19 2020-08-11 Completed [facility] PFIZER VACCINE 00:00:00 [facility] SARS-COV-2 COVID-19 2020-08-11 Completed [facility] PFIZER VACCINE 00:00:00 [facility] SARS-COV-2 COVID-19 2020-08-11 Completed [facility] PFIZER VACCINE 00:00:00 [facility] SARS-COV-2 COVID-19 2020-08-11 Completed [facility] PFIZER VACCINE 00:00:00 [facility] SARS-COV-2 COVID-19 2020-08-11 Completed [facility] PFIZER VACCINE 00:00:00 [facility] SARS-COV-2 COVID-19 2020-08-11 Completed [facility] PFIZER VACCINE 00:00:00 [facility] SARS-COV-2 COVID-19 2020-08-11 Completed [facility] PFIZER VACCINE 00:00:00 [facility] SARS-COV-2 COVID-19 2020-08-11 Completed [facility] PFIZER VACCINE 00:00:00 [facility] SARS-COV-2 COVID-19 2020-08-11 Completed [facility] PFIZER VACCINE 00:00:00 [facility] SARS-COV-2 COVID-19 2020-08-11 Completed [facility] PFIZER VACCINE 00:00:00 [facility] SARS-COV-2 COVID-19 2020-08-11 Completed [facility] PFIZER VACCINE 00:00:00 [facility] SARS-COV-2 COVID-19 2020-08-11 Completed [facility] PFIZER VACCINE 00:00:00 [facility] SARS-COV-2 COVID-19 2020-08-11 Completed [facility] PFIZER VACCINE 00:00:00 [facility] SARS-COV-2 COVID-19 2020-08-11 Completed [facility] PFIZER VACCINE 00:00:00 [facility] SARS-COV-2 COVID-19 2020-08-11 Completed [facility] PFIZER VACCINE 00:00:00 [facility] SARS-COV-2 COVID-19 2020-08-11 Completed [facility] PFIZER VACCINE 00:00:00 [facility] SARS-COV-2 COVID-19 2020-08-11 Completed [facility] PFIZER VACCINE 00:00:00 [facility] SARS-COV-2 COVID-19 2020-08-11 Completed [facility] PFIZER VACCINE 00:00:00 [facility] SARS-COV-2 COVID-19 2020-08-11 Completed [facility] PFIZER VACCINE 00:00:00 [facility] SARS-COV-2 COVID-19 2020-08-11 Completed [facility] PFIZER VACCINE 00:00:00 [facility] SARS-COV-2 COVID-19 2020-08-11 Completed [facility] PFIZER VACCINE 00:00:00 [facility] SARS-COV-2 COVID-19 2020-08-11 Completed [facility] PFIZER VACCINE 00:00:00 [facility] SARS-COV-2 COVID-19 2020-08-11 Completed [facility] PFIZER VACCINE 00:00:00 [facility] SARS-COV-2 COVID-19 2020-08-11 Completed [facility] PFIZER VACCINE 00:00:00 [facility] SARS-COV-2 COVID-19 2020-08-11 Completed [facility] PFIZER VACCINE 00:00:00 [facility] SARS-COV-2 COVID-19 2020-08-11 Completed [facility] PFIZER VACCINE 00:00:00 [facility] SARS-COV-2 COVID-19 2020-08-11 Completed [facility] PFIZER VACCINE 00:00:00 [facility] SARS-COV-2 COVID-19 2020-08-11 Completed [facility] PFIZER VACCINE 00:00:00 [facility] SARS-COV-2 COVID-19 2020-08-11 Completed [facility] PFIZER VACCINE 00:00:00 [facility] SARS-COV-2 COVID-19 2020-08-11 Completed [facility] PFIZER VACCINE 00:00:00 [facility] SARS-COV-2 COVID-19 2020-08-11 Completed [facility] PFIZER VACCINE 00:00:00 [facility] SARS-COV-2 COVID-19 2020-08-11 Completed [facility] PFIZER VACCINE 00:00:00 [facility] SARS-COV-2 COVID-19 2020-08-11 Completed [facility] PFIZER VACCINE 00:00:00 [facility] SARS-COV-2 COVID-19 2020-08-11 Completed [facility] PFIZER VACCINE 00:00:00 [facility] SARS-COV-2 COVID-19 2020-08-11 Completed [facility] PFIZER VACCINE 00:00:00 [facility] SARS-COV-2 COVID-19 2020-08-11 Completed [facility] PFIZER VACCINE 00:00:00 [facility] SARS-COV-2 COVID-19 2020-08-11 Completed [facility] PFIZER VACCINE 00:00:00 [facility] SARS-COV-2 COVID-19 2020-08-11 Completed [facility] PFIZER VACCINE 00:00:00 [facility] SARS-COV-2 COVID-19 2020-08-11 Completed [facility] PFIZER VACCINE 00:00:00 [facility] SARS-COV-2 COVID-19 2020-08-11 Completed [facility] PFIZER VACCINE 00:00:00 [facility] SARS-COV-2 COVID-19 2020-08-11 Completed [facility] PFIZER VACCINE 00:00:00 [facility] SARS-COV-2 COVID-19 2020-08-11 Completed [facility] PFIZER VACCINE 00:00:00 [facility] SARS-COV-2 COVID-19 2020-08-11 Completed [facility] PFIZER VACCINE 00:00:00 [facility] SARS-COV-2 COVID-19 2020-08-11 Completed [facility] PFIZER VACCINE 00:00:00 [facility] SARS-COV-2 COVID-19 2020-08-11 Completed [facility] PFIZER VACCINE 00:00:00 [facility] SARS-COV-2 COVID-19 2020-08-11 Completed [facility] PFIZER VACCINE 00:00:00 [facility] SARS-COV-2 COVID-19 2020-08-11 Completed [facility] PFIZER VACCINE 00:00:00 [facility] SARS-COV-2 COVID-19 2020-08-11 Completed [facility] PFIZER VACCINE 00:00:00 [facility] SARS-COV-2 COVID-19 2020-08-11 Completed [facility] PFIZER VACCINE 00:00:00 [facility] SARS-COV-2 COVID-19 2020-08-11 Completed [facility] PFIZER VACCINE 00:00:00 [facility] SARS-COV-2 COVID-19 2020-08-11 Completed [facility] PFIZER VACCINE 00:00:00 [facility] SARS-COV-2 COVID-19 2020-08-11 Completed [facility] PFIZER VACCINE 00:00:00 [facility] SARS-COV-2 COVID-19 2020-08-11 Completed [facility] PFIZER VACCINE 00:00:00 [facility] SARS-COV-2 COVID-19 2020-08-11 Completed [facility] PFIZER VACCINE 00:00:00 [facility] SARS-COV-2 COVID-19 2020-08-11 Completed [facility] PFIZER VACCINE 00:00:00 [facility] SARS-COV-2 COVID-19 2020-08-11 Completed [facility] PFIZER VACCINE 00:00:00 [facility] SARS-COV-2 COVID-19 2020-08-11 Completed [facility] PFIZER VACCINE 00:00:00 [facility] SARS-COV-2 COVID-19 2020-08-11 Completed [facility] PFIZER VACCINE 00:00:00 [facility] SARS-COV-2 COVID-19 2020-08-11 Completed [facility] PFIZER VACCINE 00:00:00 [facility] SARS-COV-2 COVID-19 2020-08-11 Completed [facility] PFIZER VACCINE 00:00:00 [facility] Influenza High Dose 2020-03-28 Completed [facility] 00[facility]00:00 [facility] Influenza High Dose 2020-03-28 Completed [facility] 00:00:00 [facility] Influenza High Dose 2020-03-28 Completed [facility] 00:00:00 [facility] Influenza High Dose 2020-03-28 Completed [facility] 00:00:00 [facility] Influenza High Dose 2020-03-28 Completed [facility] 00:00:00 [facility] Influenza High Dose 2020-03-28 Completed [facility] 00:00:00 [facility] Influenza High Dose 2020-03-28 Completed [facility] 00:00:00 [facility] Influenza High Dose 2020-03-28 Completed [facility] 00:00:00 [facility] Influenza High Dose 2020-03-28 Completed [facility] 00:00:00 [facility] Influenza High Dose 2020-03-28 Completed [facility] 00:00:00 [facility] Influenza High Dose 2020-03-28 Completed [facility] 00:00:00 [facility] Influenza High Dose 2020-03-28 Completed [facility] 00:00:00 [facility] Influenza High Dose 2020-03-28 Completed [facility] 00:00:00 [facility] Influenza High Dose 2020-03-28 Completed [facility] 00:00:00 [facility] Influenza High Dose 2020-03-28 Completed [facility] 00:00:00 [facility] Influenza High Dose 2020-03-28 Completed [facility] 00:00:00 [facility] Influenza High Dose 2020-03-28 Completed [facility] 00:00:00 [facility] Influenza High Dose 2020-03-28 Completed [facility] 00:00:00 [facility] Influenza High Dose 2020-03-28 Completed [facility] 00:00:00 [facility] Influenza High Dose 2020-03-28 Completed [facility] 00:00:00 [facility] Influenza High Dose 2020-03-28 Completed [facility] 00:00:00 [facility] Influenza High Dose 2020-03-28 Completed [facility] 00:00:00 [facility] Influenza High Dose 2020-03-28 Completed [facility] 00:00:00 [facility] Influenza High Dose 2020-03-28 Completed [facility] 00:00:00 [facility] Influenza High Dose 2020-03-28 Completed [facility] 00:00:00 [facility] Influenza High Dose 2020-03-28 Completed [facility] 00:00:00 [facility] Influenza High Dose 2020-03-28 Completed [facility] 00:00:00 [facility] Influenza High Dose 2020-03-28 Completed [facility] 00:00:00 [facility] Influenza High Dose 2020-03-28 Completed [facility] 00:00:00 [facility] Influenza High Dose 2020-03-28 Completed [facility] 00:00:00 [facility] Influenza High Dose 2020-03-28 Completed [facility] 00:00:00 [facility] Influenza High Dose 2020-03-28 Completed [facility] 00:00:00 [facility] Influenza High Dose 2020-03-28 Completed [facility] 00:00:00 [facility] Influenza High Dose 2020-03-28 Completed [facility] 00:00:00 [facility] Influenza High Dose 2020-03-28 Completed [facility] 00:00:00 [facility] Influenza High Dose 2020-03-28 Completed [facility] 00:00:00 [facility] Influenza High Dose 2020-03-28 Completed [facility] 00:00:00 [facility] Influenza High Dose 2020-03-28 Completed [facility] 00:00:00 [facility] Influenza High Dose 2020-03-28 Completed [facility] 00:00:00 [facility] Influenza High Dose 2020-03-28 Completed [facility] 00:00:00 [facility] Influenza High Dose 2020-03-28 Completed [facility] 00:00:00 [facility] Influenza High Dose 2020-03-28 Completed [facility] 00:00:00 [facility] Influenza High Dose 2020-03-28 Completed [facility] 00:00:00 [facility] Influenza High Dose 2020-03-28 Completed [facility] 00:00:00 [facility] Influenza High Dose 2020-03-28 Completed [facility] 00:00:00 [facility] Influenza High Dose 2020-03-28 Completed [facility] 00:00:00 [facility] Influenza High Dose 2020-03-28 Completed [facility] 00:00:00 [facility] Influenza High Dose 2020-03-28 Completed [facility] 00:00:00 [facility] Influenza High Dose 2020-03-28 Completed [facility] 00:00:00 [facility] Influenza High Dose 2020-03-28 Completed [facility] 00:00:00 [facility] Influenza High Dose 2020-03-28 Completed [facility] 00:00:00 [facility] Influenza High Dose 2020-03-28 Completed [facility] 00:00:00 [facility] Influenza High Dose 2020-03-28 Completed [facility] 00:00:00 [facility] Influenza High Dose 2020-03-28 Completed [facility] 00:00:00 [facility] Influenza High Dose 2020-03-28 Completed [facility] 00:00:00 [facility] Influenza High Dose 2020-03-28 Completed [facility] 00:00:00 [facility] Influenza High Dose 2020-03-28 Completed [facility] 00:00:00 [facility] Influenza High Dose 2020-03-28 Completed [facility] 00:00:00 [facility] Influenza High Dose 2020-03-28 Completed [facility] 00:00:00 [facility] Influenza High Dose 2020-03-28 Completed [facility] 00:00:00 [facility] Influenza High Dose 2020-03-28 Completed [facility] 00:00:00 [facility] Influenza High Dose 2020-03-28 Completed [facility] 00:00:00 [facility] Influenza High Dose 2020-03-28 Completed [facility] 00:00:00 [facility] Influenza High Dose 2020-03-28 Completed [facility] 00:00:00 [facility] Influenza High Dose 2020-03-28 Completed [facility] 00:00:00 [facility] Influenza High Dose 2020-03-28 Completed [facility] 00:00:00 [facility] Influenza High Dose 2020-03-28 Completed [facility] 00:00:00 [facility] Influenza High Dose 2020-03-28 Completed [facility] 00:00:00 [facility] Influenza High Dose 2020-03-28 Completed [facility] 00:00:00 [facility] Influenza High Dose 2020-03-28 Completed [facility] 00:00:00 [facility] Influenza High Dose 2020-03-28 Completed [facility] 00:00:00 [facility] Influenza High Dose 2020-03-28 Completed [facility] 00:00:00 [facility] Influenza High Dose 2020-03-28 Completed [facility] 00:00:00 [facility] Influenza High Dose 2020-03-28 Completed [facility] 00:00:00 [facility] Influenza High Dose 2020-03-28 Completed [facility] 00:00:00 [facility] Influenza High Dose 2020-03-28 Completed [facility] 00:00:00 [facility] Influenza High Dose 2020-03-28 Completed [facility] 00:00:00 [facility] Influenza High Dose 2020-03-28 Completed [facility] 00:00:00 [facility] Influenza High Dose 2020-03-28 Completed [facility] 00:00:00 [facility] Influenza High Dose 2020-03-28 Completed [facility] 00:00:00 [facility] Influenza High Dose 2020-03-28 Completed [facility] 00:00:00 [facility] Influenza High Dose 2020-03-28 Completed [facility] 00:00:00 [facility] Influenza High Dose 2020-03-28 Completed [facility] 00:00:00 [facility] Influenza High Dose 2020-03-28 Completed [facility] 00:00:00 [facility] Influenza High Dose 2020-03-28 Completed [facility] 00:00:00 [facility] Influenza High Dose 2020-03-28 Completed [facility] 00:00:00 [facility] Influenza High Dose 2020-03-28 Completed [facility] 00:00:00 [facility] Influenza High Dose 2020-03-28 Completed [facility] 00:00:00 [facility] Influenza High Dose 2020-03-28 Completed [facility] 00:00:00 [facility] Influenza High Dose 2020-03-28 Completed [facility] 00:00:00 [facility] Influenza High Dose 2020-03-28 Completed [facility] 00:00:00 [facility] Influenza High Dose 2019-05-07 Completed [facility] 00:00:00 [facility] Influenza High Dose 2019-05-07 Completed [facility] 00:00:00 [facility] Influenza High Dose 2019-05-07 Completed [facility] 00:00:00 [facility] Influenza High Dose 2019-05-07 Completed [facility] 00:00:00 [facility] Influenza High Dose 2019-05-07 Completed [facility] 00:00:00 [facility] Influenza High Dose 2019-05-07 Completed [facility] 00:00:00 [facility] Influenza High Dose 2019-05-07 Completed [facility] 00:00:00 [facility] Influenza High Dose 2019-05-07 Completed [facility] 00:00:00 [facility] Influenza High Dose 2019-05-07 Completed [facility] 00:00:00 [facility] Influenza High Dose 2019-05-07 Completed [facility] 00:00:00 [facility] Influenza High Dose 2019-05-07 Completed [facility] 00:00:00 [facility] Influenza High Dose 2019-05-07 Completed [facility] 00:00:00 [facility] Influenza High Dose 2019-05-07 Completed [facility] 00:00:00 [facility] Influenza High Dose 2019-05-07 Completed [facility] 00:00:00 [facility] Influenza High Dose 2019-05-07 Completed [facility] 00:00:00 [facility] Influenza High Dose 2019-05-07 Completed [facility] 00:00:00 [facility] Influenza High Dose 2019-05-07 Completed [facility] 00:00:00 [facility] Influenza High Dose 2019-05-07 Completed [facility] 00:00:00 [facility] Influenza High Dose 2019-05-07 Completed [facility] 00:00:00 [facility] Influenza High Dose 2019-05-07 Completed [facility] 00:00:00 [facility] Influenza High Dose 2019-05-07 Completed [facility] 00:00:00 [facility] Influenza High Dose 2019-05-07 Completed [facility] 00:00:00 [facility] Influenza High Dose 2019-05-07 Completed [facility] 00:00:00 [facility] Influenza High Dose 2019-05-07 Completed [facility] 00:00:00 [facility] Influenza High Dose 2019-05-07 Completed [facility] 00:00:00 [facility] Influenza High Dose 2019-05-07 Completed [facility] 00:00:00 [facility] Influenza High Dose 2019-05-07 Completed [facility] 00:00:00 [facility] Influenza High Dose 2019-05-07 Completed [facility] 00:00:00 [facility] Influenza High Dose 2019-05-07 Completed [facility] 00:00:00 [facility] Influenza High Dose 2019-05-07 Completed [facility] 00:00:00 [facility] Influenza High Dose 2019-05-07 Completed [facility] 00:00:00 [facility] Influenza High Dose 2019-05-07 Completed [facility] 00:00:00 [facility] Influenza High Dose 2019-05-07 Completed [facility] 00:00:00 [facility] Influenza High Dose 2019-05-07 Completed [facility] 00:00:00 [facility] Influenza High Dose 2019-05-07 Completed [facility] 00:00:00 [facility] Influenza High Dose 2019-05-07 Completed [facility] 00:00:00 [facility] Influenza High Dose 2019-05-07 Completed [facility] 00:00:00 [facility] Influenza High Dose 2019-05-07 Completed [facility] 00:00:00 [facility] Influenza High Dose 2019-05-07 Completed [facility] 00:00:00 [facility] Influenza High Dose 2019-05-07 Completed [facility] 00:00:00 [facility] Influenza High Dose 2019-05-07 Completed [facility] 00:00:00 [facility] Influenza High Dose 2019-05-07 Completed [facility] 00:00:00 [facility] Influenza High Dose 2019-05-07 Completed [facility] 00:00:00 [facility] Influenza High Dose 2019-05-07 Completed [facility] 00:00:00 [facility] Influenza High Dose 2019-05-07 Completed [facility] 00:00:00 [facility] Influenza High Dose 2019-05-07 Completed [facility] 00:00:00 [facility] Influenza High Dose 2019-05-07 Completed [facility] 00:00:00 [facility] Influenza High Dose 2019-05-07 Completed [facility] 00:00:00 [facility] Influenza High Dose 2019-05-07 Completed [facility] 00:00:00 [facility] Influenza High Dose 2019-05-07 Completed [facility] 00:00:00 [facility] Influenza High Dose 2019-05-07 Completed [facility] 00:00:00 [facility] Influenza High Dose 2019-05-07 Completed [facility] 00:00:00 [facility] Influenza High Dose 2019-05-07 Completed [facility] 00:00:00 [facility] Influenza High Dose 2019-05-07 Completed [facility] 00:00:00 [facility] Influenza High Dose 2019-05-07 Completed [facility] 00:00:00 [facility] Influenza High Dose 2019-05-07 Completed [facility] 00:00:00 [facility] Influenza High Dose 2019-05-07 Completed [facility] 00:00:00 [facility] Influenza High Dose 2019-05-07 Completed [facility] 00:00:00 [facility] Influenza High Dose 2019-05-07 Completed [facility] 00:00:00 [facility] Influenza High Dose 2019-05-07 Completed [facility] 00:00:00 [facility] Influenza High Dose 2019-05-07 Completed [facility] 00:00:00 [facility] Influenza High Dose 2019-05-07 Completed [facility] 00:00:00 [facility] Influenza High Dose 2019-05-07 Completed [facility] 00:00:00 [facility] Influenza High Dose 2019-05-07 Completed [facility] 00:00:00 [facility] Influenza High Dose 2019-05-07 Completed [facility] 00:00:00 [facility] Influenza High Dose 2019-05-07 Completed [facility] 00:00:00 [facility] Influenza High Dose 2019-05-07 Completed [facility] 00:00:00 [facility] Influenza High Dose 2019-05-07 Completed [facility] 00:00:00 [facility] Influenza High Dose 2019-05-07 Completed [facility] 00:00:00 [facility] Influenza High Dose 2019-05-07 Completed [facility] 00:00:00 [facility] Influenza High Dose 2019-05-07 Completed [facility] 00:00:00 [facility] Influenza High Dose 2019-05-07 Completed [facility] 00:00:00 [facility] Influenza High Dose 2019-05-07 Completed [facility] 00:00:00 [facility] Influenza High Dose 2019-05-07 Completed [facility] 00:00:00 [facility] Influenza High Dose 2019-05-07 Completed [facility] 00:00:00 [facility] Influenza High Dose 2019-05-07 Completed [facility] 00:00:00 [facility] Influenza High Dose 2019-05-07 Completed [facility] 00:00:00 [facility] Influenza High Dose 2019-05-07 Completed [facility] 00:00:00 [facility] Influenza High Dose 2019-05-07 Completed [facility] 00:00:00 [facility] Influenza High Dose 2019-05-07 Completed [facility] 00:00:00 [facility] Influenza High Dose 2019-05-07 Completed [facility] 00:00:00 [facility] Influenza High Dose 2019-05-07 Completed [facility] 00:00:00 [facility] Influenza High Dose 2019-05-07 Completed [facility] 00:00:00 [facility] Influenza High Dose 2019-05-07 Completed [facility] 00:00:00 [facility] Influenza High Dose 2019-05-07 Completed [facility] 00:00:00 [facility] Influenza High Dose 2019-05-07 Completed [facility] 00:00:00 [facility] Influenza High Dose 2019-05-07 Completed [facility] 00:00:00 [facility] Influenza High Dose 2019-05-07 Completed [facility] 00:00:00 [facility] Influenza High Dose 2019-05-07 Completed [facility] 00:00:00 [facility] Influenza High Dose 2019-05-07 Completed [facility] 00:00:00 [facility] Influenza High Dose 2019-05-07 Completed [facility] 00:00:00 [facility] Zoster(Zostavax)( 2018-10-10 Completed [facility] ingles) 00:00:00 [facility] Zoster(Zostavax)( 2018-10-10 Completed [facility] ingles) 00:00:00 [facility] Zoster(Zostavax)( 2018-10-10 Completed [facility] ingles) 00:00:00 [facility] Zoster(Zostavax)( 2018-10-10 Completed [facility] ingles) 00:00:00 [facility] Zoster(Zostavax)( 2018-10-10 Completed [facility] ingles) 00:00:00 [facility] Zoster(Zostavax)( 2018-10-10 Completed [facility] ingles) 00:00:00 [facility] Zoster(Zostavax)( 2018-10-10 Completed [facility] ingles) 00:00:00 [facility] Zoster(Zostavax)( 2018-10-10 Completed [facility] ingles) 00:00:00 [facility] Zoster(Zostavax)( 2018-10-10 Completed [facility] ingles) 00:00:00 [facility] Zoster(Zostavax)( 2018-10-10 Completed [facility] ingles) 00:00:00 [facility] Zoster(Zostavax)( 2018-10-10 Completed [facility] ingles) 00:00:00 [facility] Zoster(Zostavax)( 2018-10-10 Completed [facility] ingles) 00:00:00 [facility] Zoster(Zostavax)( 2018-10-10 Completed [facility] ingles) 00:00:00 [facility] Zoster(Zostavax)( 2018-10-10 Completed [facility] ingles) 00:00:00 [facility] Zoster(Zostavax)( 2018-10-10 Completed [facility] ingles) 00:00:00 [facility] Zoster(Zostavax)( 2018-10-10 Completed [facility] ingles) 00:00:00 [facility] Zoster(Zostavax)( 2018-10-10 Completed [facility] 00:00[facility]00 [facility] [facility] Zoster(Zostavax)( 2018-10-10 Completed [facility]) 00:00:00 [facility] Zoster(Zostavax)( 2018-10-10 Completed [facility]) 00:00:00 [facility] Zoster(Zostavax)( 2018-10-10 Completed [facility]) 00:00:00 [facility] Zoster(Zostavax)( 2018-10-10 Completed [facility]) 00:00:00 [facility] Zoster(Zostavax)( 2018-10-10 Completed [facility]) 00:00:00 [facility] Zoster(Zostavax)( 2018-10-10 Completed [facility] ing[facility]) 00:00:00 [facility] Zoster(Zostavax)( 2018-10-10 Completed [facility] ing[facility]) 00:00:00 [facility] Zoster(Zostavax)( 2018-10-10 Completed [facility]) 00:00:00 [facility] Zoster(Zostavax)( 2018-10-10 Completed [facility] ing[facility]) 00:00:00 [facility] Zoster(Zostavax)( 2018-10-10 Completed [facility] ing[facility]) 00:00:00 [facility] Zoster(Zostavax)( 2018-10-10 Completed [facility] ing[facility]) 00:00:00 [facility] Zoster(Zostavax)( 2018-10-10 Completed [facility]) 00:00:00 [facility] Zoster(Zostavax)( 2018-10-10 Completed [facility]) 00:00:00 [facility] Zoster(Zostavax)( 2018-10-10 Completed [facility] ing[facility]) 00:00:00 [facility] Zoster(Zostavax)( 2018-10-10 Completed [facility]) 00:00:00 [facility] Zoster(Zostavax)( 2018-10-10 Completed [facility] ing[facility]) 00:00:00 [facility] Zoster(Zostavax)( 2018-10-10 Completed [facility] ing[facility]) 00:00:00 [facility] Zoster(Zostavax)( 2018-10-10 Completed [facility] ing[facility]) 00:00:00 [facility] Zoster(Zostavax)( 2018-10-10 Completed [facility] ing[facility]) 00:00:00 [facility] Zoster(Zostavax)( 2018-10-10 Completed [facility]) 00:00:00 [facility] Zoster(Zostavax)( 2018-10-10 Completed [facility] ing[facility]) 00:00:00 [facility] Zoster(Zostavax)( 2018-10-10 Completed [facility]) 00:00:00 [facility] Zoster(Zostavax)( 2018-10-10 Completed [facility] ing[facility]) 00:00:00 [facility] Zoster(Zostavax)( 2018-10-10 Completed [facility] ing[facility]) 00:00:00 [facility] Zoster(Zostavax)( 2018-10-10 Completed [facility]) 00:00:00 [facility] Zoster(Zostavax)( 2018-10-10 Completed [facility] ing[facility]) 00:00:00 [facility] Zoster(Zostavax)( 2018-10-10 Completed [facility]) 00:00:00 [facility] Zoster(Zostavax)( 2018-10-10 Completed [facility] ing[facility]) 00:00:00 [facility] Zoster(Zostavax)( 2018-10-10 Completed [facility] ing[facility]) 00:00:00 [facility] Zoster(Zostavax)( 2018-10-10 Completed [facility]) 00:00:00 [facility] Zoster(Zostavax)( 2018-10-10 Completed [facility] ing[facility]) 00:00:00 [facility] Zoster(Zostavax)( 2018-10-10 Completed [facility] ing[facility]) 00:00:00 [facility] Zoster(Zostavax)( 2018-10-10 Completed [facility] ingles) 00:00:00 [facility] Zoster(Zostavax)( 2018-10-10 Completed [facility] ingles) 00:00:00 [facility] Zoster(Zostavax)( 2018-10-10 Completed [facility] ing[facility]) 00:00:00 [facility] Zoster(Zostavax)( 2018-10-10 Completed [facility] ing[facility]) 00:00:00 [facility] Zoster(Zostavax)( 2018-10-10 Completed [facility] ing[facility]) 00:00:00 [facility] Zoster(Zostavax)( 2018-10-10 Completed [facility] ing[facility]) 00:00:00 [facility] Zoster(Zostavax)( 2018-10-10 Completed [facility] ingles) 00:00:00 [facility] Zoster(Zostavax)( 2018-10-10 Completed [facility] ingles) 00:00:00 [facility] Zoster(Zostavax)( 2018-10-10 Completed [facility] ingles) 00:00:00 [facility] Zoster(Zostavax)( 2018-10-10 Completed [facility] ingles) 00:00:00 [facility] Zoster(Zostavax)( 2018-10-10 Completed [facility] ingles) 00:00:00 [facility] Zoster(Zostavax)( 2018-10-10 Completed [facility] ingles) 00:00:00 [facility] Zoster(Zostavax)( 2018-10-10 Completed [facility] ing[facility]) 00:00:00 [facility] Zoster(Zostavax)( 2018-10-10 Completed [facility] ing[facility]) 00:00:00 [facility] Zoster(Zostavax)( 2018-10-10 Completed [facility] ingles) 00:00:00 [facility] Zoster(Zostavax)( 2018-10-10 Completed [facility] ingles) 00:00:00 [facility] Zoster(Zostavax)( 2018-10-10 Completed [facility] ingles) 00:00:00 [facility] Zoster(Zostavax)( 2018-10-10 Completed [facility] ingles) 00:00:00 [facility] Zoster(Zostavax)( 2018-10-10 Completed [facility] ingles) 00:00:00 [facility] Zoster(Zostavax)( 2018-10-10 Completed [facility] ing[facility]) 00:00:00 [facility] Zoster(Zostavax)( 2018-10-10 Completed [facility] ingles) 00:00:00 [facility] Zoster(Zostavax)( 2018-10-10 Completed [facility] ingles) 00:00:00 [facility] Zoster(Zostavax)( 2018-10-10 Completed [facility] ingles) 00:00:00 [facility] Zoster(Zostavax)( 2018-10-10 Completed [facility] ingles) 00:00:00 [facility] Zoster(Zostavax)( 2018-10-10 Completed [facility] ingles) 00:00:00 [facility] Zoster(Zostavax)( 2018-10-10 Completed [facility] ingles) 00:00:00 [facility] Zoster(Zostavax)( 2018-10-10 Completed [facility] ing[facility]) 00:00:00 [facility] Zoster(Zostavax)( 2018-10-10 Completed [facility] ingles) 00:00:00 [facility] Zoster(Zostavax)( 2018-10-10 Completed [facility] ingles) 00:00:00 [facility] Zoster(Zostavax)( 2018-10-10 Completed [facility] ingles) 00:00:00 [facility] Zoster(Zostavax)( 2018-10-10 Completed [facility] ingles) 00:00:00 [facility] Zoster(Zostavax)( 2018-10-10 Completed [facility] ingles) 00:00:00 [facility] Zoster(Zostavax)( 2018-10-10 Completed [facility] ingles) 00:00:00 [facility] Zoster(Zostavax)( 2018-10-10 Completed [facility] ingles) 00:00:00 [facility] Zoster(Zostavax)( 2018-10-10 Completed [facility] ingles) 00:00:00 [facility] Zoster(Zostavax)( 2018-10-10 Completed [facility] ingles) 00:00:00 [facility] Zoster(Zostavax)( 2018-10-10 Completed [facility] ingles) 00:00:00 [facility] Zoster(Zostavax)( 2018-10-10 Completed [facility] ingles) 00:00:00 [facility] Zoster(Zostavax)( 2018-10-10 Completed [facility] ingles) 00:00:00 [facility] Zoster(Zostavax)( 2018-10-10 Completed [facility] ingles) 00:00:00 [facility] Zoster(Zostavax)( 2018-10-10 Completed [facility] ingles) 00:00:00 [facility] Zoster(Zostavax)( 2018-10-10 Completed [facility] ingles) 00:00:00 [facility] Influenza High Dose 2018-04-15 Completed [facility] of 00:00:00 [facility] Influenza High Dose 2018-04-15 Completed [facility] of 00:00:00 [facility] Influenza High Dose 2018-04-15 Completed [facility] of 00:00:00 [facility] Influenza High Dose 2018-04-15 Completed [facility] of 00:00:00 [facility] Influenza High Dose 2018-04-15 Completed [facility] of 00:00:00 [facility] Influenza High Dose 2018-04-15 Completed [facility] of 00:00:00 [facility] Influenza High Dose 2018-04-15 Completed [facility] of 00:00:00 [facility] Influenza High Dose 2018-04-15 Completed [facility] of 00:00:00 [facility] Influenza High Dose 2018-04-15 Completed [facility] of 00:00:00 [facility] Influenza High Dose 2018-04-15 Completed [facility] of 00:00:00 [facility] Influenza High Dose 2018-04-15 Completed [facility] of 00:00:00 [facility] Influenza High Dose 2018-04-15 Completed [facility] of 00:00:00 [facility] Influenza High Dose 2018-04-15 Completed [facility] of 00:00:00 [facility] Influenza High Dose 2018-04-15 Completed [facility] of 00:00:00 [facility] Influenza High Dose 2018-04-15 Completed [facility] of 00:00:00 [facility] Influenza High Dose 2018-04-15 Completed [facility] of 00:00:00 [facility] Influenza High Dose 2018-04-15 Completed [facility] of 00:00:00 [facility] Influenza High Dose 2018-04-15 Completed [facility] of 00:00:00 [facility] Influenza High Dose 2018-04-15 Completed [facility] of 00:00:00 [facility] Influenza High Dose 2018-04-15 Completed [facility] of 00:00:00 [facility] Influenza High Dose 2018-04-15 Completed [facility] of 00:00:00 [facility] Influenza High Dose 2018-04-15 Completed [facility] of 00:00:00 [facility] Influenza High Dose 2018-04-15 Completed [facility] of 00:00:00 [facility] Influenza High Dose 2018-04-15 Completed [facility] of 00:00:00 [facility] Influenza High Dose 2018-04-15 Completed [facility] of 00:00:00 [facility] Influenza High Dose 2018-04-15 Completed [facility] of 00:00:00 [facility] Influenza High Dose 2018-04-15 Completed [facility] of 00:00:00 [facility] Influenza High Dose 2018-04-15 Completed [facility] of 00:00:00 [facility] Influenza High Dose 2018-04-15 Completed [facility] of 00:00:00 [facility] Influenza High Dose 2018-04-15 Completed [facility] of 00:00:00 [facility] Influenza High Dose 2018-04-15 Completed [facility] of 00:00:00 [facility] Influenza High Dose 2018-04-15 Completed [facility] of 00:00:00 [facility] Influenza High Dose 2018-04-15 Completed [facility] of 00:00:00 [facility] Influenza High Dose 2018-04-15 Completed [facility] of 00:00:00 [facility] Influenza High Dose 2018-04-15 Completed [facility] of 00:00:00 [facility] Influenza High Dose 2018-04-15 Completed [facility] of 00:00:00 [facility] Influenza High Dose 2018-04-15 Completed [facility] of 00:00:00 [facility] Influenza High Dose 2018-04-15 Completed [facility] of 00:00:00 [facility] Influenza High Dose 2018-04-15 Completed [facility] of 00:00:00 [facility] Influenza High Dose 2018-04-15 Completed [facility] of 00:00:00 [facility] Influenza High Dose 2018-04-15 Completed [facility] of 00:00:00 [facility] Influenza High Dose 2018-04-15 Completed [facility] of 00:00:00 [facility] Influenza High Dose 2018-04-15 Completed [facility] of 00:00:00 [facility] Influenza High Dose 2018-04-15 Completed [facility] of 00:00:00 [facility] Influenza High Dose 2018-04-15 Completed [facility] of 00:00:00 [facility] Influenza High Dose 2018-04-15 Completed [facility] of 00:00:00 [facility] Influenza High Dose 2018-04-15 Completed [facility] of 00:00:00 [facility] Influenza High Dose 2018-04-15 Completed [facility] of 00:00:00 [facility] Influenza High Dose 2018-04-15 Completed [facility] of 00:00:00 [facility] Influenza High Dose 2018-04-15 Completed [facility] of 00:00:00 [facility] Influenza High Dose 2018-04-15 Completed [facility] of 00:00:00 [facility] Influenza High Dose 2018-04-15 Completed [facility] of 00:00:00 [facility] Influenza High Dose 2018-04-15 Completed [facility] of 00:00:00 [facility] Influenza High Dose 2018-04-15 Completed [facility] of 00:00:00 [facility] Influenza High Dose 2018-04-15 Completed [facility] of 00:00:00 [facility] Influenza High Dose 2018-04-15 Completed [facility] of 00:00:00 [facility] Influenza High Dose 2018-04-15 Completed [facility] of 00:00:00 [facility] Influenza High Dose 2018-04-15 Completed [facility] of 00:00:00 [facility] Influenza High Dose 2018-04-15 Completed [facility] of 00:00:00 [facility] Influenza High Dose 2018-04-15 Completed [facility] of 00:00:00 [facility] Influenza High Dose 2018-04-15 Completed [facility] of 00:00:00 [facility] Influenza High Dose 2018-04-15 Completed [facility] of 00:00:00 [facility] Influenza High Dose 2018-04-15 Completed [facility] of 00:00:00 [facility] Influenza High Dose 2018-04-15 Completed [facility] of 00:00:00 [facility] Influenza High Dose 2018-04-15 Completed [facility] of 00:00:00 [facility] Influenza High Dose 2018-04-15 Completed [facility] of 00:00:00 [facility] Influenza High Dose 2018-04-15 Completed [facility] of 00:00:00 [facility] Influenza High Dose 2018-04-15 Completed [facility] of 00:00:00 [facility] Influenza High Dose 2018-04-15 Completed [facility] of 00:00:00 [facility] Influenza High Dose 2018-04-15 Completed [facility] of 00:00:00 [facility] Influenza High Dose 2018-04-15 Completed [facility] of 00:00:00 [facility] Influenza High Dose 2018-04-15 Completed [facility] of 00:00:00 [facility] Influenza High Dose 2018-04-15 Completed [facility] of 00:00:00 [facility] Influenza High Dose 2018-04-15 Completed [facility] of 00:00:00 [facility] Influenza High Dose 2018-04-15 Completed [facility] of 00:00:00 [facility] Influenza High Dose 2018-04-15 Completed [facility] of 00:00:00 [facility] Influenza High Dose 2018-04-15 Completed [facility] of 00:00:00 [facility] Influenza High Dose 2018-04-15 Completed [facility] of 00:00:00 [facility] Influenza High Dose 2018-04-15 Completed [facility] of 00:00:00 [facility] Influenza High Dose 2018-04-15 Completed [facility] of 00:00:00 [facility] Influenza High Dose 2018-04-15 Completed [facility] of 00:00:00 [facility] Influenza High Dose 2018-04-15 Completed [facility] of 00:00:00 [facility] Influenza High Dose 2018-04-15 Completed [facility] of 00:00:00 [facility] Influenza High Dose 2018-04-15 Completed [facility] of 00:00:00 [facility] Influenza High Dose 2018-04-15 Completed [facility] of 00:00:00 [facility] Influenza High Dose 2018-04-15 Completed [facility] of 00:00:00 [facility] Influenza High Dose 2018-04-15 Completed [facility] of 00:00:00 [facility] Influenza High Dose 2018-04-15 Completed [facility] of 00:00:00 [facility] Influenza High Dose 2018-04-15 Completed [facility] of 00:00:00 [facility] Influenza High Dose 2018-04-15 Completed [facility] of 00:00:00 [facility] Influenza High Dose 2018-04-15 Completed [facility] of 00:00:00 [facility] Influenza High Dose 2017-04-08 Completed [facility] of 00:00:00 [facility] Influenza High Dose 2017-04-08 Completed [facility] of 00:00:00 [facility] Influenza High Dose 2017-04-08 Completed [facility] of 00:00:00 [facility] Influenza High Dose 2017-04-08 Completed [facility] of 00:00:00 [facility] Influenza High Dose 2017-04-08 Completed [facility] of 00:00:00 [facility] Influenza High Dose 2017-04-08 Completed [facility] of 00:00:00 [facility] Influenza High Dose 2017-04-08 Completed [facility] of 00:00:00 [facility] Influenza High Dose 2017-04-08 Completed [facility] of 00:00:00 [facility] Influenza High Dose 2017-04-08 Completed [facility] of 00:00:00 [facility] Influenza High Dose 2017-04-08 Completed [facility] of 00:00:00 [facility] Influenza High Dose 2017-04-08 Completed [facility] of 00:00:00 [facility] Influenza High Dose 2017-04-08 Completed [facility] of 00:00:00 [facility] Influenza High Dose 2017-04-08 Completed [facility] of 00:00:00 [facility] Influenza High Dose 2017-04-08 Completed [facility] of 00:00:00 [facility] Influenza High Dose 2017-04-08 Completed [facility] of 00:00:00 [facility] Influenza High Dose 2017-04-08 Completed [facility] of 00:00:00 [facility] Influenza High Dose 2017-04-08 Completed [facility] of 00:00:00 [facility] Influenza High Dose 2017-04-08 Completed [facility] of 00:00:00 [facility] Influenza High Dose 2017-04-08 Completed [facility] of 00:00:00 [facility] Influenza High Dose 2017-04-08 Completed [facility] of 00:00:00 [facility] Influenza High Dose 2017-04-08 Completed [facility] of 00:00:00 [facility] Influenza High Dose 2017-04-08 Completed [facility] of 00:00:00 [facility] Influenza High Dose 2017-04-08 Completed [facility] of 00:00:00 [facility] Influenza High Dose 2017-04-08 Completed [facility] of 00:00:00 [facility] Influenza High Dose 2017-04-08 Completed [facility] of 00:00:00 [facility] Influenza High Dose 2017-04-08 Completed [facility] of 00:00:00 [facility] Influenza High Dose 2017-04-08 Completed [facility] of 00:00:00 [facility] Influenza High Dose 2017-04-08 Completed [facility] of 00:00:00 [facility] Influenza High Dose 2017-04-08 Completed [facility] of 00:00:00 [facility] Influenza High Dose 2017-04-08 Completed [facility] of 00:00:00 [facility] Influenza High Dose 2017-04-08 Completed [facility] of 00:00:00 [facility] Influenza High Dose 2017-04-08 Completed [facility] of 00:00:00 [facility] Influenza High Dose 2017-04-08 Completed [facility] of 00:00:00 [facility] Influenza High Dose 2017-04-08 Completed [facility] of 00:00:00 [facility] Influenza High Dose 2017-04-08 Completed [facility] of 00:00:00 [facility] Influenza High Dose 2017-04-08 Completed [facility] of 00:00:00 [facility] Influenza High Dose 2017-04-08 Completed [facility] of 00:00:00 [facility] Influenza High Dose 2017-04-08 Completed [facility] of 00:00:00 [facility] Influenza High Dose 2017-04-08 Completed [facility] of 00:00:00 [facility] Influenza High Dose 2017-04-08 Completed [facility] of 00:00:00 [facility] Influenza High Dose 2017-04-08 Completed [facility] of 00:00:00 [facility] Influenza High Dose 2017-04-08 Completed [facility] of 00:00:00 [facility] Influenza High Dose 2017-04-08 Completed [facility] of 00:00:00 [facility] Influenza High Dose 2017-04-08 Completed [facility] of 00:00:00 [facility] Influenza High Dose 2017-04-08 Completed [facility] of 00:00:00 [facility] Influenza High Dose 2017-04-08 Completed [facility] of 00:00:00 [facility] Influenza High Dose 2017-04-08 Completed [facility] of 00:00:00 [facility] Influenza High Dose 2017-04-08 Completed [facility] of 00:00:00 [facility] Influenza High Dose 2017-04-08 Completed [facility] of 00:00:00 [facility] Influenza High Dose 2017-04-08 Completed [facility] 00:00:00 [facility] Influenza High Dose 2017-04-08 Completed [facility] 00:00:00 [facility] Influenza High Dose 2017-04-08 Completed [facility] 00:00:00 [facility] Influenza High Dose 2017-04-08 Completed [facility] of 00:00:00 [facility] Influenza High Dose 2017-04-08 Completed [facility] of 00:00:00 [facility] Influenza High Dose 2017-04-08 Completed [facility] of 00:00:00 [facility] Influenza High Dose 2017-04-08 Completed [facility] of 00:00:00 [facility] Influenza High Dose 2017-04-08 Completed [facility] of 00:00:00 [facility] Influenza High Dose 2017-04-08 Completed [facility] of 00:00:00 [facility] Influenza High Dose 2017-04-08 Completed [facility] of 00:00:00 [facility] Influenza High Dose 2017-04-08 Completed [facility] of 00:00:00 [facility] Influenza High Dose 2017-04-08 Completed [facility] of 00:00:00 [facility] Influenza High Dose 2017-04-08 Completed [facility] of 00:00:00 [facility] Influenza High Dose 2017-04-08 Completed [facility] of 00:00:00 [facility] Influenza High Dose 2017-04-08 Completed [facility] of 00:00:00 [facility] Influenza High Dose 2017-04-08 Completed [facility] 00:00:00 [facility] Influenza High Dose 2017-04-08 Completed [facility] of 00:00:00 [facility] Influenza High Dose 2017-04-08 Completed [facility] of 00:00:00 [facility] Influenza High Dose 2017-04-08 Completed [facility] of 00:00:00 [facility] Influenza High Dose 2017-04-08 Completed [facility] of 00:00:00 [facility] Influenza High Dose 2017-04-08 Completed [facility] of 00:00:00 [facility] Influenza High Dose 2017-04-08 Completed [facility] 00:00:00 [facility] Influenza High Dose 2017-04-08 Completed [facility] of 00:00:00 [facility] Influenza High Dose 2017-04-08 Completed [facility] 00:00:00 [facility] Influenza High Dose 2017-04-08 Completed [facility] of 00:00:00 [facility] Influenza High Dose 2017-04-08 Completed [facility] of 00:00:00 [facility] Influenza High Dose 2017-04-08 Completed [facility] 00:00:00 [facility] Influenza High Dose 2017-04-08 Completed [facility] 00:00:00 [facility] Influenza High Dose 2017-04-08 Completed [facility] of 00:00:00 [facility] Influenza High Dose 2017-04-08 Completed [facility] of 00:00:00 [facility] Influenza High Dose 2017-04-08 Completed [facility] of 00:00:00 [facility] Influenza High Dose 2017-04-08 Completed [facility] 00:00:00 [facility] Influenza High Dose 2017-04-08 Completed [facility] 00:00:00 [facility] Influenza High Dose 2017-04-08 Completed [facility] 00:00:00 [facility] Influenza High Dose 2017-04-08 Completed [facility] of 00:00:00 [facility] Influenza High Dose 2017-04-08 Completed [facility] of 00:00:00 [facility] Influenza High Dose 2017-04-08 Completed [facility] of 00:00:00 [facility] Influenza High Dose 2017-04-08 Completed [facility] 00:00:00 [facility] Influenza High Dose 2017-04-08 Completed [facility] of 00:00:00 [facility] Influenza High Dose 2017-04-08 Completed [facility] 00:00:00 [facility] Influenza High Dose 2017-04-08 Completed [facility] of 00:00:00 [facility] Influenza High Dose 2017-04-08 Completed [facility] 00:00:00 [facility] Zoster(Zostavax)( 2016-06-24 Completed [facility] of ingles) 00:00:00 [facility] Zoster(Zostavax)( 2016-06-24 Completed [facility] of ingles) 00:00:00 [facility] Zoster(Zostavax)( 2016-06-24 Completed [facility] of ingles) 00:00:00 [facility] Zoster(Zostavax)( 2016-06-24 Completed [facility] of ingles) 00:00:00 [facility] Zoster(Zostavax)( 2016-06-24 Completed [facility] of ingles) 00:00:00 [facility] Zoster(Zostavax)( 2016-06-24 Completed [facility] of ingles) 00:00:00 [facility] Zoster(Zostavax)( 2016-06-24 Completed [facility] of ingles) 00:00:00 [facility] Zoster(Zostavax)( 2016-06-24 Completed [facility] of ingles) 00:00:00 [facility] Zoster(Zostavax)( 2016-06-24 Completed [facility] of ingles) 00:00:00 [facility] Zoster(Zostavax)( 2016-06-24 Completed [facility] of ingles) 00:00:00 [facility] Zoster(Zostavax)( 2016-06-24 Completed [facility] of ingles) 00:00:00 [facility] Zoster(Zostavax)( 2016-06-24 Completed [facility] of ingles) 00:00:00 [facility] Zoster(Zostavax)( 2016-06-24 Completed [facility] of ingles) 00:00:00 [facility] Zoster(Zostavax)( 2016-06-24 Completed [facility] of ingles) 00:00:00 [facility] Zoster(Zostavax)( 2016-06-24 Completed [facility] of ingles) 00:00:00 [facility] Zoster(Zostavax)( 2016-06-24 Completed [facility] of ingles) 00:00:00 [facility] Zoster(Zostavax)( 2016-06-24 Completed [facility] of ingles) 00:00:00 [facility] Zoster(Zostavax)( 2016-06-24 Completed [facility] of ingles) 00:00:00 [facility] Zoster(Zostavax)( 2016-06-24 Completed [facility] of ingles) 00:00:00 [facility] Zoster(Zostavax)( 2016-06-24 Completed [facility] of ingles) 00:00:00 [facility] Zoster(Zostavax)( 2016-06-24 Completed [facility] of ingles) 00:00:00 [facility] Zoster(Zostavax)( 2016-06-24 Completed [facility] of ingles) 00:00:00 [facility] Zoster(Zostavax)( 2016-06-24 Completed [facility] of ingles) 00:00:00 [facility] Zoster(Zostavax)( 2016-06-24 Completed [facility] of ingles) 00:00:00 [facility] Zoster(Zostavax)( 2016-06-24 Completed [facility] of ingles) 00:00:00 [facility] Zoster(Zostavax)( 2016-06-24 Completed [facility] of ingles) 00:00:00 [facility] Zoster(Zostavax)( 2016-06-24 Completed [facility] of ingles) 00:00:00 [facility] Zoster(Zostavax)( 2016-06-24 Completed [facility] of ingles) 00:00:00 [facility] Zoster(Zostavax)( 2016-06-24 Completed [facility] of ingles) 00:00:00 [facility] Zoster(Zostavax)( 2016-06-24 Completed [facility] of ingles) 00:00:00 [facility] Zoster(Zostavax)( 2016-06-24 Completed [facility] of ingles) 00:00:00 [facility] Zoster(Zostavax)( 2016-06-24 Completed [facility] of ingles) 00:00:00 [facility] Zoster(Zostavax)( 2016-06-24 Completed [facility] of ingles) 00:00:00 [facility] Zoster(Zostavax)( 2016-06-24 Completed [facility] of ingles) 00:00:00 [facility] Zoster(Zostavax)( 2016-06-24 Completed [facility] of ingles) 00:00:00 [facility] Zoster(Zostavax)( 2016-06-24 Completed [facility] of ingles) 00:00:00 [facility] Zoster(Zostavax)( 2016-06-24 Completed [facility] of ingles) 00:00:00 [facility] Zoster(Zostavax)( 2016-06-24 Completed [facility] of ingles) 00:00:00 [facility] Zoster(Zostavax)( 2016-06-24 Completed [facility] of ingles) 00:00:00 [facility] Zoster(Zostavax)( 2016-06-24 Completed [facility] of ingles) 00:00:00 [facility] Zoster(Zostavax)( 2016-06-24 Completed [facility] of ingles) 00:00:00 [facility] Zoster(Zostavax)( 2016-06-24 Completed [facility] of ingles) 00:00:00 [facility] Zoster(Zostavax)( 2016-06-24 Completed [facility] of ingles) 00:00:00 [facility] Zoster(Zostavax)( 2016-06-24 Completed [facility] of ingles) 00:00:00 [facility] Zoster(Zostavax)( 2016-06-24 Completed [facility] of ingles) 00:00:00 [facility] Zoster(Zostavax)( 2016-06-24 Completed [facility] of ingles) 00:00:00 [facility] Zoster(Zostavax)( 2016-06-24 Completed [facility] of ingles) 00:00:00 [facility] Zoster(Zostavax)( 2016-06-24 Completed [facility] of ingles) 00:00:00 [facility] Zoster(Zostavax)( 2016-06-24 Completed [facility] of ingles) 00:00:00 [facility] Zoster(Zostavax)( 2016-06-24 Completed [facility] of ingles) 00:00:00 [facility] Zoster(Zostavax)( 2016-06-24 Completed [facility] of ingles) 00:00:00 [facility] Zoster(Zostavax)( 2016-06-24 Completed [facility] of ingles) 00:00:00 [facility] Zoster(Zostavax)( 2016-06-24 Completed [facility] of ingles) 00:00:00 [facility] Zoster(Zostavax)( 2016-06-24 Completed [facility]ive [facility] of ingles) 00:00:00 [facility] Zoster(Zostavax)( 2016-06-24 Completed [facility] of ingles) 00:00:00 [facility] Zoster(Zostavax)( 2016-06-24 Completed [facility] of ingles) 00:00:00 [facility] Zoster(Zostavax)( 2016-06-24 Completed [facility] of ingles) 00:00:00 [facility] Zoster(Zostavax)( 2016-06-24 Completed [facility] of ingles) 00:00:00 [facility] Zoster(Zostavax)( 2016-06-24 Completed [facility] of ingles) 00:00:00 [facility] Zoster(Zostavax)( 2016-06-24 Completed [facility] of ingles) 00:00:00 [facility] Zoster(Zostavax)( 2016-06-24 Completed [facility] of ingles) 00:00:00 [facility] Zoster(Zostavax)( 2016-06-24 Completed [facility] of ingles) 00:00:00 [facility] Zoster(Zostavax)( 2016-06-24 Completed [facility] of ingles) 00:00:00 [facility] Zoster(Zostavax)( 2016-06-24 Completed [facility] of ingles) 00:00:00 [facility] Zoster(Zostavax)( 2016-06-24 Completed [facility] of ingles) 00:00:00 [facility] Zoster(Zostavax)( 2016-06-24 Completed [facility] of ingles) 00:00:00 [facility] Zoster(Zostavax)( 2016-06-24 Completed [facility] of ingles) 00:00:00 [facility] Zoster(Zostavax)( 2016-06-24 Completed [facility] of ingles) 00:00:00 [facility] Zoster(Zostavax)( 2016-06-24 Completed [facility] of ingles) 00:00:00 [facility] Zoster(Zostavax)( 2016-06-24 Completed [facility] of ingles) 00:00:00 [facility] Zoster(Zostavax)( 2016-06-24 Completed [facility] of ingles) 00:00:00 [facility] Zoster(Zostavax)( 2016-06-24 Completed [facility] of ingles) 00:00:00 [facility] Zoster(Zostavax)( 2016-06-24 Completed [facility] of ingles) 00:00:00 [facility] Zoster(Zostavax)( 2016-06-24 Completed [facility] of ingles) 00:00:00 [facility] Zoster(Zostavax)( 2016-06-24 Completed [facility] of ingles) 00:00:00 [facility] Zoster(Zostavax)( 2016-06-24 Completed [facility] of ingles) 00:00:00 [facility] Zoster(Zostavax)( 2016-06-24 Completed [facility] of ingles) 00:00:00 [facility] Zoster(Zostavax)( 2016-06-24 Completed [facility] of ingles) 00:00:00 [facility] Zoster(Zostavax)( 2016-06-24 Completed [facility] of ingles) 00:00:00 [facility] Zoster(Zostavax)( 2016-06-24 Completed [facility] of ingles) 00:00:00 [facility] Zoster(Zostavax)( 2016-06-24 Completed [facility] of ingles) 00:00:00 [facility] Zoster(Zostavax)( 2016-06-24 Completed [facility] of ingles) 00:00:00 [facility] Zoster(Zostavax)( 2016-06-24 Completed [facility] of ingles) 00:00:00 [facility] Zoster(Zostavax)( 2016-06-24 Completed [facility] of ingles) 00:00:00 [facility] Zoster(Zostavax)( 2016-06-24 Completed [facility] of ingles) 00:00:00 [facility] Zoster(Zostavax)( 2016-06-24 Completed [facility] of ingles) 00:00:00 [facility] Zoster(Zostavax)( 2016-06-24 Completed [facility] of ingles) 00:00:00 [facility] Zoster(Zostavax)( 2016-06-24 Completed [facility] of ingles) 00:00:00 [facility] Zoster(Zostavax)( 2016-06-24 Completed [facility] of ingles) 00:00:00 [facility] Zoster(Zostavax)( 2016-06-24 Completed [facility] of ingles) 00:00:00 [facility] Zoster(Zostavax)( 2016-06-24 Completed [facility] of ingles) 00:00:00 [facility] Pneumococcal 13 2016-04-29 Completed Universit y of Conjugate, PCV13 00:00:00 [facility] (Prevnar 13) Branch Influenza High Dose 2016-04-29 Completed [facility] of 00:00:00 [facility] Pneumococcal 13 2016-04-29 Completed Univers[facility] of Conjugate, PCV13 00:00:00 [facility] (Prevnar 13) Branch Influenza High Dose 2016-04-29 Completed [facility] of 00:00:00 [facility] Pneumococcal 13 2016-04-29 Completed Universit y of Conjugate, PCV13 00:00:00 [facility] (Prevnar 13) Branch Influenza High Dose 2016-04-29 Completed [facility] of 00:00:00 [facility] Pneumococcal 13 2016-04-29 Completed Universit y of Conjugate, PCV13 00:00:00 [facility] (Prevnar 13) Branch Influenza High Dose 2016-04-29 Completed [facility] of 00:00:00 [facility] Pneumococcal 13 2016-04-29 Completed Universit [facility] of Conjugate, PCV13 00:00:00 [facility] (Prevnar 13) Branch Influenza High Dose 2016-04-29 Completed [facility] of 00:00:00 [facility] Pneumococcal 13 2016-04-29 Completed [facility] Conjugate, PCV13 00:00:00 [facility] (Prevnar 13) [facility] Influenza High Dose 2016-04-29 Completed [facility] of 00:00:00 [facility] Pneumococcal 13 2016-04-29 Completed [facility] of Conjugate, PCV13 00:00:00 [facility] (Prevnar 13) [facility] Influenza High Dose 2016-04-29 Completed [facility] 00:00:00 [facility] Pneumococcal 13 2016-04-29 Completed [facility] of Conjugate, PCV13 00:00:00 [facility] (Prevnar 13) [facility] Influenza High Dose 2016-04-29 Completed [facility] of 00:00:00 [facility] Pneumococcal 13 2016-04-29 Completed [facility] of Conjugate, PCV13 00:00:00 [facility] (Prevnar 13) [facility] Influenza High Dose 2016-04-29 Completed [facility] 00:00:00 [facility] Pneumococcal 13 2016-04-29 Completed [facility] of Conjugate, PCV13 00:00:00 [facility] (Prevnar 13) [facility] Influenza High Dose 2016-04-29 Completed [facility] of 00:00:00 [facility] Pneumococcal 13 2016-04-29 Completed [facility] of Conjugate, PCV13 00:00:00 [facility] (Prevnar 13) [facility] Influenza High Dose 2016-04-29 Completed [facility] of 00:00:00 [facility] Pneumococcal 13 2016-04-29 Completed [facility] of Conjugate, PCV13 00:00:00 [facility] (Prevnar 13) [facility] Influenza High Dose 2016-04-29 Completed [facility] of 00:00:00 [facility] Pneumococcal 13 2016-04-29 Completed [facility] of Conjugate, PCV13 00:00:00 [facility] (Prevnar 13) [facility] Influenza High Dose 2016-04-29 Completed [facility] 00:00:00 [facility] Pneumococcal 13 2016-04-29 Completed [facility] of Conjugate, PCV13 00:00:00 [facility] (Prevnar 13) [facility] Influenza High Dose 2016-04-29 Completed [facility] of 00:00:00 [facility] Pneumococcal 13 2016-04-29 Completed [facility] of Conjugate, PCV13 00:00:00 [facility] (Prevnar 13) [facility] Influenza High Dose 2016-04-29 Completed [facility] 00:00:00 [facility] Pneumococcal 13 2016-04-29 Completed [facility] of Conjugate, PCV13 00:00:00 [facility] (Prevnar 13) [facility] Influenza High Dose 2016-04-29 Completed [facility] 00:00:00 [facility] Pneumococcal 13 2016-04-29 Completed [facility] of Conjugate, PCV13 00:00:00 [facility] (Prevnar 13) [facility] Influenza High Dose 2016-04-29 Completed [facility] 00:00:00 [facility] Pneumococcal 13 2016-04-29 Completed [facility] of Conjugate, PCV13 00:00:00 [facility] (Prevnar 13) [facility] Influenza High Dose 2016-04-29 Completed [facility] 00:00:00 [facility] Pneumococcal 13 2016-04-29 Completed [facility] of Conjugate, PCV13 00:00:00 [facility] (Prevnar 13) [facility] Influenza High Dose 2016-04-29 Completed [facility] of 00:00:00 [facility] Pneumococcal 13 2016-04-29 Completed [facility] of Conjugate, PCV13 00:00:00 [facility] (Prevnar 13) [facility] Influenza High Dose 2016-04-29 Completed [facility] of 00:00:00 [facility] Pneumococcal 13 2016-04-29 Completed [facility] of Conjugate, PCV13 00:00:00 [facility] (Prevnar 13) [facility] Influenza High Dose 2016-04-29 Completed [facility] of 00:00:00 [facility] Pneumococcal 13 2016-04-29 Completed [facility] of Conjugate, PCV13 00:00:00 [facility] (Prevnar 13) [facility] Influenza High Dose 2016-04-29 Completed [facility] 00:00:00 [facility] Pneumococcal 13 2016-04-29 Completed [facility] of Conjugate, PCV13 00:00:00 [facility] (Prevnar 13) [facility] Influenza High Dose 2016-04-29 Completed [facility] 00:00:00 [facility] Pneumococcal 13 2016-04-29 Completed [facility] of Conjugate, PCV13 00:00:00 [facility] (Prevnar 13) [facility] Influenza High Dose 2016-04-29 Completed [facility] 00:00:00 [facility] Pneumococcal 13 2016-04-29 Completed [facility] of Conjugate, PCV13 00:00:00 [facility] (Prevnar 13) [facility] Influenza High Dose 2016-04-29 Completed [facility] 00:00:00 [facility] Pneumococcal 13 2016-04-29 Completed [facility] of Conjugate, PCV13 00:00:00 [facility] (Prevnar 13) [facility] Influenza High Dose 2016-04-29 Completed [facility] 00:00:00 [facility] Pneumococcal 13 2016-04-29 Completed [facility] of Conjugate, PCV13 00:00:00 [facility] (Prevnar 13) [facility] Influenza High Dose 2016-04-29 Completed [facility] of 00:00:00 [facility] Pneumococcal 13 2016-04-29 Completed [facility] of Conjugate, PCV13 00:00:00 [facility] (Prevnar 13) [facility] Influenza High Dose 2016-04-29 Completed [facility] 00:00:00 [facility] Pneumococcal 13 2016-04-29 Completed [facility] of Conjugate, PCV13 00:00:00 [facility] (Prevnar 13) [facility] Influenza High Dose 2016-04-29 Completed [facility] of 00:00:00 [facility] Pneumococcal 13 2016-04-29 Completed [facility] of Conjugate, PCV13 00:00:00 [facility] (Prevnar 13) [facility] Influenza High Dose 2016-04-29 Completed [facility] of 00:00:00 [facility] Pneumococcal 13 2016-04-29 Completed [facility] of Conjugate, PCV13 00:00:00 [facility] (Prevnar 13) [facility] Influenza High Dose 2016-04-29 Completed [facility] 00:00:00 [facility] Pneumococcal 13 2016-04-29 Completed [facility] of Conjugate, PCV13 00:00:00 [facility] (Prevnar 13) [facility] Influenza High Dose 2016-04-29 Completed [facility] 00:00:00 [facility] Pneumococcal 13 2016-04-29 Completed [facility] of Conjugate, PCV13 00:00:00 [facility] (Prevnar 13) [facility] Influenza High Dose 2016-04-29 Completed [facility] of 00:00:00 [facility] Pneumococcal 13 2016-04-29 Completed [facility] of Conjugate, PCV13 00:00:00 [facility] (Prevnar 13) [facility] Influenza High Dose 2016-04-29 Completed [facility] 00:00:00 [facility] Pneumococcal 13 2016-04-29 Completed [facility] of Conjugate, PCV13 00:00:00 [facility] (Prevnar 13) [facility] Influenza High Dose 2016-04-29 Completed [facility] of 00:00:00 [facility] Pneumococcal 13 2016-04-29 Completed [facility] of Conjugate, PCV13 00:00:00 [facility] (Prevnar 13) [facility] Influenza High Dose 2016-04-29 Completed [facility] 00:00:00 [facility] Pneumococcal 13 2016-04-29 Completed [facility] of Conjugate, PCV13 00:00:00 [facility] (Prevnar 13) [facility] Influenza High Dose 2016-04-29 Completed [facility] of 00:00:00 [facility] Pneumococcal 13 2016-04-29 Completed [facility] of Conjugate, PCV13 00:00:00 [facility] (Prevnar 13) [facility] Influenza High Dose 2016-04-29 Completed [facility] of 00:00:00 [facility] Pneumococcal 13 2016-04-29 Completed [facility] of Conjugate, PCV13 00:00:00 [facility] (Prevnar 13) Branch Influenza High Dose 2016-04-29 Completed [facility] 00:00:00 [facility] Pneumococcal 13 2016-04-29 Completed [facility] of Conjugate, PCV13 00:00:00 [facility] (Prevnar 13) [facility] Influenza High Dose 2016-04-29 Completed [facility] of 00:00:00 [facility] Pneumococcal 13 2016-04-29 Completed [facility] of Conjugate, PCV13 00:00:00 [facility] (Prevnar 13) [facility] Influenza High Dose 2016-04-29 Completed [facility] 00:00:00 [facility] Pneumococcal 13 2016-04-29 Completed Universit y of Conjugate, PCV13 00:00:00 [place] [facility] (Prevnar 13) Branch Influenza High Dose 2016-04-29 Completed Unive rsity of 00:00:00 [facility] Pneumococcal 13 2016-04-29 Completed Universit y of Conjugate, PCV13 00:00:00 [place] [facility] (Prevnar 13) Branch Influenza High Dose 2016-04-29 Completed Unive rsity of 00:00:00 [facility] Pneumococcal 13 2016-04-29 Completed Universit y of Conjugate, PCV13 00:00:00 [place] [facility] (Prevnar 13) Branch Influenza High Dose 2016-04-29 Completed Unive rsity of 00:00:00 [facility] Pneumococcal 13 2016-04-29 Completed Universit y of Conjugate, PCV13 00:00:00 [place] [facility] (Prevnar 13) Branch Influenza High Dose 2016-04-29 Completed Unive rsity of 00:00:00 [facility] Pneumococcal 13 2016-04-29 Completed Universit y of Conjugate, PCV13 00:00:00 [place] [facility] (Prevnar 13) Branch Influenza High Dose 2016-04-29 Completed Unive rsity of 00:00:00 [facility] Pneumococcal 13 2016-04-29 Completed Universit y of Conjugate, PCV13 00:00:00 [place] [facility] (Prevnar 13) Branch Influenza High Dose 2016-04-29 Completed Unive rsity of 00:00:00 [facility] Pneumococcal 13 2016-04-29 Completed Universit y of Conjugate, PCV13 00:00:00 [place] [facility] (Prevnar 13) Branch Influenza High Dose 2016-04-29 Completed Unive rsity of 00:00:00 [facility] Pneumococcal 13 2016-04-29 Completed Universit y of Conjugate, PCV13 00:00:00 [place] [facility] (Prevnar 13) Branch Influenza High Dose 2016-04-29 Completed Unive rsity of 00:00:00 [facility] Pneumococcal 13 2016-04-29 Completed Universit y of Conjugate, PCV13 00:00:00 [place] [facility] (Prevnar 13) Branch Influenza High Dose 2016-04-29 Completed Unive rsity of 00:00:00 [facility] Pneumococcal 13 2016-04-29 Completed Universit y of Conjugate, PCV13 00:00:00 [place] [facility] (Prevnar 13) Branch Influenza High Dose 2016-04-29 Completed Unive rsity of 00:00:00 [facility] Pneumococcal 13 2016-04-29 Completed Universit y of Conjugate, PCV13 00:00:00 [place] [facility] (Prevnar 13) Branch Influenza High Dose 2016-04-29 Completed Unive rsity of 00:00:00 [facility] Pneumococcal 13 2016-04-29 Completed Universit y of Conjugate, PCV13 00:00:00 [place] [facility] (Prevnar 13) Branch Influenza High Dose 2016-04-29 Completed Unive rsity of 00:00:00 [facility] Pneumococcal 13 2016-04-29 Completed Universit y of Conjugate, PCV13 00:00:00 [place] [facility] (Prevnar 13) Branch Influenza High Dose 2016-04-29 Completed Unive rsity of 00:00:00 [facility] Pneumococcal 13 2016-04-29 Completed Universit y of Conjugate, PCV13 00:00:00 [place] [facility] (Prevnar 13) Branch Influenza High Dose 2016-04-29 Completed Unive rsity of 00:00:00 [facility] Pneumococcal 13 2016-04-29 Completed Universit y of Conjugate, PCV13 00:00:00 [place] [facility] (Prevnar 13) Branch Influenza High Dose 2016-04-29 Completed Unive rsity of 00:00:00 [facility] Pneumococcal 13 2016-04-29 Completed Universit y of Conjugate, PCV13 00:00:00 [place] [facility] (Prevnar 13) Branch Influenza High Dose 2016-04-29 Completed Unive rsity of 00:00:00 [facility] Pneumococcal 13 2016-04-29 Completed Universit y of Conjugate, PCV13 00:00:00 [place] [facility] (Prevnar 13) Branch Influenza High Dose 2016-04-29 Completed Unive rsity of 00:00:00 [facility] Pneumococcal 13 2016-04-29 Completed Universit y of Conjugate, PCV13 00:00:00 [place] [facility] (Prevnar 13) Branch Influenza High Dose 2016-04-29 Completed Unive rsity of 00:00:00 [facility] Pneumococcal 13 2016-04-29 Completed Universit y of Conjugate, PCV13 00:00:00 [place] [facility] (Prevnar 13) Branch Influenza High Dose 2016-04-29 Completed Unive rsity of 00:00:00 [facility] Pneumococcal 13 2016-04-29 Completed Universit y of Conjugate, PCV13 00:00:00 [place] [facility] (Prevnar 13) Branch Influenza High Dose 2016-04-29 Completed Unive rsity of 00:00:00 [facility] Pneumococcal 13 2016-04-29 Completed Universit y of Conjugate, PCV13 00:00:00 [place] [facility] (Prevnar 13) Branch Influenza High Dose 2016-04-29 Completed Unive rsity of 00:00:00 [facility] Pneumococcal 13 2016-04-29 Completed Universit y of Conjugate, PCV13 00:00:00 [place] [facility] (Prevnar 13) Branch Influenza High Dose 2016-04-29 Completed Unive rsity of 00:00:00 [facility] Pneumococcal 13 2016-04-29 Completed Universit y of Conjugate, PCV13 00:00:00 [place] [facility] (Prevnar 13) Branch Influenza High Dose 2016-04-29 Completed Unive rsity of 00:00:00 [facility] Pneumococcal 13 2016-04-29 Completed Universit y of Conjugate, PCV13 00:00:00 [place] [facility] (Prevnar 13) Branch Influenza High Dose 2016-04-29 Completed Unive rsity of 00:00:00 [facility] Pneumococcal 13 2016-04-29 Completed Universit y of Conjugate, PCV13 00:00:00 [place] [facility] (Prevnar 13) Branch Influenza High Dose 2016-04-29 Completed Unive rsity of 00:00:00 [facility] Pneumococcal 13 2016-04-29 Completed Universit y of Conjugate, PCV13 00:00:00 [place] [facility] (Prevnar 13) Branch Influenza High Dose 2016-04-29 Completed Unive rsity of 00:00:00 [facility] Pneumococcal 13 2016-04-29 Completed Universit y of Conjugate, PCV13 00:00:00 [place] [facility] (Prevnar 13) Branch Influenza High Dose 2016-04-29 Completed Unive rsity of 00:00:00 [facility] Pneumococcal 13 2016-04-29 Completed Universit y of Conjugate, PCV13 00:00:00 [place] [facility] (Prevnar 13) Branch Influenza High Dose 2016-04-29 Completed Unive rsity of 00:00:00 [facility] Pneumococcal 13 2016-04-29 Completed Universit y of Conjugate, PCV13 00:00:00 [place] [facility] (Prevnar 13) Branch Influenza High Dose 2016-04-29 Completed Unive rsity of 00:00:00 [facility] Pneumococcal 13 2016-04-29 Completed Universit y of Conjugate, PCV13 00:00:00 [place] [facility] (Prevnar 13) Branch Influenza High Dose 2016-04-29 Completed Unive rsity of 00:00:00 [facility] Pneumococcal 13 2016-04-29 Completed Universit y of Conjugate, PCV13 00:00:00 [place] [facility] (Prevnar 13) Branch Influenza High Dose 2016-04-29 Completed Unive rsity of 00:00:00 [facility] Pneumococcal 13 2016-04-29 Completed Universit y of Conjugate, PCV13 00:00:00 [place] [facility] (Prevnar 13) Branch Influenza High Dose 2016-04-29 Completed Unive rsity of 00:00:00 [facility] Pneumococcal 13 2016-04-29 Completed Universit y of Conjugate, PCV13 00:00:00 [place] [facility] (Prevnar 13) Branch Influenza High Dose 2016-04-29 Completed Unive rsity of 00:00:00 [facility] Pneumococcal 13 2016-04-29 Completed Universit y of Conjugate, PCV13 00:00:00 [place] [facility] (Prevnar 13) Branch Influenza High Dose 2016-04-29 Completed Unive rsity of 00:00:00 [facility] Pneumococcal 13 2016-04-29 Completed Universit y of Conjugate, PCV13 00:00:00 [place] [facility] (Prevnar 13) Branch Influenza High Dose 2016-04-29 Completed Unive rsity of 00:00:00 [facility] Pneumococcal 13 2016-04-29 Completed Universit y of Conjugate, PCV13 00:00:00 [place] [facility] (Prevnar 13) Branch Influenza High Dose 2016-04-29 Completed Unive rsity of 00:00:00 [facility] Pneumococcal 13 2016-04-29 Completed Universit y of Conjugate, PCV13 00:00:00 [place] [facility] (Prevnar 13) Branch Influenza High Dose 2016-04-29 Completed Unive rsity of 00:00:00 [facility] Pneumococcal 13 2016-04-29 Completed Universit y of Conjugate, PCV13 00:00:00 [place] [facility] (Prevnar 13) Branch Influenza High Dose 2016-04-29 Completed Unive rsity of 00:00:00 [facility] Pneumococcal 13 2016-04-29 Completed Universit y of Conjugate, PCV13 00:00:00 [place] [facility] (Prevnar 13) Branch Influenza High Dose 2016-04-29 Completed Unive rsity of 00:00:00 [facility] Pneumococcal 13 2016-04-29 Completed Universit y of Conjugate, PCV13 00:00:00 [place] [facility] (Prevnar 13) Branch Influenza High Dose 2016-04-29 Completed Unive rsity of 00:00:00 [facility] Pneumococcal 13 2016-04-29 Completed Universit y of Conjugate, PCV13 00:00:00 [place] [facility] (Prevnar 13) Branch Influenza High Dose 2016-04-29 Completed Unive rsity of 00:00:00 [facility] Pneumococcal 13 2016-04-29 Completed Universit y of Conjugate, PCV13 00:00:00 [place] [facility] (Prevnar 13) Branch Influenza High Dose 2016-04-29 Completed Unive rsity of 00:00:00 [facility] Pneumococcal 13 2016-04-29 Completed Universit y of Conjugate, PCV13 00:00:00 [place] [facility] (Prevnar 13) Branch Influenza High Dose 2016-04-29 Completed Unive rsity of 00:00:00 [facility] Pneumococcal 13 2016-04-29 Completed Universit y of Conjugate, PCV13 00:00:00 [place] [facility] (Prevnar 13) Branch Influenza High Dose 2016-04-29 Completed Unive rsity of 00:00:00 [facility] Pneumococcal 13 2016-04-29 Completed Universit y of Conjugate, PCV13 00:00:00 [place] [facility] (Prevnar 13) Branch Influenza High Dose 2016-04-29 Completed Unive rsity of 00:00:00 [facility] Pneumococcal 13 2016-04-29 Completed Universit y of Conjugate, PCV13 00:00:00 [place] [facility] (Prevnar 13) Branch Influenza High Dose 2016-04-29 Completed Unive rsity of 00:00:00 [facility] Pneumococcal 13 2016-04-29 Completed Universit y of Conjugate, PCV13 00:00:00 [place] [facility] (Prevnar 13) Branch Influenza High Dose 2016-04-29 Completed Unive rsity of 00:00:00 [facility] Pneumococcal 13 2016-04-29 Completed Universit y of Conjugate, PCV13 00:00:00 [place] [facility] (Prevnar 13) Branch Influenza High Dose 2016-04-29 Completed Unive rsity of 00:00:00 [facility] Pneumococcal 13 2016-04-29 Completed Universit y of Conjugate, PCV13 00:00:00 [place] [facility] (Prevnar 13) Branch Influenza High Dose 2016-04-29 Completed Unive rsity of 00:00:00 [facility] Pneumococcal 13 2016-04-29 Completed Universit y of Conjugate, PCV13 00:00:00 [facility] dical (Prevnar 13) Branch Influenza High Dose 2016-04-29 Completed Unive rsity of 00:00:00 [facility] Vital Signs Vital Name Observation Time Observation Value Comments Source Systolic blood 2022-10-07 20:59:00 141 mm[Hg] Univer sity of pressure [facility] Diastolic blood 2022-10-07 20:59:00 84 mm[Hg] Unive rsity of pressure [facility] Heart rate 2022-10-07 20:58:00 91 /min [facility] [place] [facility] Body temperature 2022-10-07 20:58:00 36.56 Dianne Univ ersity of [facility] Respiratory rate 2022-10-07 20:58:00 18 /min Univ ersity of [place] [facility] Body height 2022-10-07 20:58:00 157.5 cm [facility] [place] [facility] Body weight 2022-10-07 20:58:00 87.181 kg [facility] [place] [facility] BMI 2022-10-07 20:58:00 35.15 kg/m2 [facility] [place] [facility] Oxygen saturation in 2022-10-07 20:58:00 96 /min University of Arterial blood by [place] [employer] kass[facility] Pulse oximetry Branch Systolic blood 2022-09-09 20:49:00 152 mm[Hg] Univer sity of pressure [facility] Diastolic blood 2022-09-09 20:49:00 76 mm[Hg] Unive rsity of pressure [facility] Heart rate 2022-09-09 20:42:00 101 /min [facility] [place] [facility] Body temperature 2022-09-09 20:42:00 36.67 Dianne Univ ers[facility] of [place] [facility] Respiratory rate 2022-09-09 20:42:00 18 /min Univ ersity of [place] [facility] Body height 2022-09-09 20:42:00 157.5 cm [facility] [place] [facility] Body weight 2022-09-09 20:42:00 87 kg [facility] [place] [facility] BMI 2022-09-09 20:42:00 35.08 kg/m2 [facility] [place] [facility] Oxygen saturation in 2022-09-09 20:42:00 94 /min University of Arterial blood by [place] [employer] [facility] Pulse oxim[facility] Branch Systolic blood 2022-09-09 20:49:00 152 mm[Hg] Univer sity of pressure [place] [facility] Diastolic blood 2022-09-09 20:49:00 76 mm[Hg] Unive rsity of pressure [facility] Heart rate 2022-09-09 20:44:00 101 /min [facility] [place] [facility] Body temperature 2022-09-09 20:44:00 36.67 Dianne Univ ers[facility] [place] [facility] Respiratory rate 2022-09-09 20:44:00 18 /min Univ ersity of [place] [facility] Body height 2022-09-09 20:44:00 157.5 cm [facility] [place] [facility] Body weight 2022-09-09 20:44:00 87 kg [facility] [place] [facility] BMI 2022-09-09 20:44:00 35.08 kg/m2 [facility] [place] [facility] Oxygen saturation in 2022-09-09 20:44:00 94 /min University of Arterial blood by [place] [employer] [facility] Pulse oxim[facility] Branch Systolic blood 2022-08-12 19:31:00 144 mm[Hg] Univer sity of pressure [place] [facility] Diastolic blood 2022-08-12 19:31:00 83 mm[Hg] Unive rsity of pressure [facility] Heart rate 2022-08-12 19:31:00 93 /min [facility] [place] [facility] Body temperature 2022-08-12 19:31:00 37.11 Dianne Univ ers[facility] [place] [facility] Respiratory rate 2022-08-12 19:31:00 18 /min Univ ers[facility] [place] [facility] Body height 2022-08-12 19:31:00 157.5 cm [facility] [place] [facility] Body weight 2022-08-12 19:31:00 84.596 kg [facility] [place] [facility] BMI 2022-08-12 19:31:00 34.11 kg/m2 [facility] [place] [facility] Oxygen saturation in 2022-08-12 19:31:00 98 /min University of Arterial blood by [place] [employer] [facility] Pulse oxim[facility] Branch Systolic blood 2022-05-26 21:54:00 152 mm[Hg] Univer sity of pressure [place] [facility] Diastolic blood 2022-05-26 21:54:00 76 mm[Hg] Unive rsity of pressure [facility] Heart rate 2022-05-26 21:53:00 98 /min [facility] [place] [facility] Respiratory rate 2022-05-26 21:53:00 18 /min Univ ersity [facility] [place] [facility] Body height 2022-05-26 21:53:00 157.5 cm [facility] [place] [facility] Body weight 2022-05-26 21:53:00 85.276 kg [facility] [place] [facility] BMI 2022-05-26 21:53:00 34.39 kg/m2 [facility] [place] [facility] Oxygen saturation in 2022-05-26 21:53:00 94 /min University of Arterial blood by [facility] kassandra Pulse oximetry Branch Systolic blood 2022-04-15 19:04:00 158 mm[Hg] Univer sity of pressure [place] [facility] Diastolic blood 2022-04-15 19:04:00 71 mm[Hg] Unive rsity of pressure [place] [facility] Heart rate 2022-04-15 19:04:00 88 /min [facility] [place] [facility] Respiratory rate 2022-04-15 19:04:00 17 /min Univ ers[facility] [place] [facility] Oxygen saturation in 2022-04-15 19:04:00 94 /min University of Arterial blood by [facility] Pulse oximetry Branch Body temperature 2022-04-15 19:02:00 36.89 Dianne Univ ers[facility] [place] [facility] Body height 2022-04-15 19:02:00 157.5 cm [facility] [place] [facility] Body weight 2022-04-15 19:02:00 85.548 kg [facility] [place] [facility] BMI 2022-04-15 19:02:00 34.50 kg/m2 [facility] [place] [facility] Systolic blood 2022-02-26 19:11:00 127 mm[Hg] Univer sity of pressure [place] [facility] Diastolic blood 2022-02-26 19:11:00 74 mm[Hg] Unive rsity of pressure [facility] Heart rate 2022-02-26 19:11:00 85 /min [facility] [place] [facility] Body temperature 2022-02-26 19:11:00 36.33 Dianne Univ [facility] [place] [facility] Respiratory rate 2022-02-26 19:11:00 20 /min Univ [facility] [place] [facility] Body height 2022-02-26 19:11:00 157.5 cm [facility] [place] [facility] Body weight 2022-02-26 19:11:00 89.585 kg [facility] [place] [facility] BMI 2022-02-26 19:11:00 36.12 kg/m2 [facility] [place] [facility] Oxygen saturation in 2022-02-26 19:11:00 97 /min University of Arterial blood by [facility] Pulse oximetry Branch Systolic blood 2021-09-26 18:50:00 102 mm[Hg] Univer sity of pressure [place] [facility] Diastolic blood 2021-09-26 18:50:00 49 mm[Hg] Unive rsity of pressure [place] [facility] Heart rate 2021-09-26 18:45:00 75 /min [facility] [place] [facility] Body temperature 2021-09-26 18:45:00 36.44 [facility] Respiratory rate 2021-09-26 18:45:00 18 /min [facility] [place] [facility] Body height 2021-09-26 18:45:00 157.5 cm [facility] [place] [facility] Body weight 2021-09-26 18:45:00 89.359 kg [facility] [place] [facility] BMI 2021-09-26 18:45:00 36.03 kg/m2 [facility] [place] [facility] Oxygen saturation in 2021-09-26 18:45:00 95 /min University of Arterial blood by [facility] Pulse oximetry Branch Procedures Procedure Date / Time Performing Clinician Source Performed HOME HEALTH 485 2023-01-20 05:01:00 Doctor Lilianigned, [facility] [place] [facility] HOME HEALTH - OTHER 2022-12-28 05:01:00 Doctor Kiersten Lopez [facility] [place] [facility] HOME HEALTH - OTHER 2022-11-26 05:01:00 Doctor Kiersten Lopez [facility] [place] [facility] HOME HEALTH - OTHER 2022-10-21 05:01:00 [facility] [place] [facility] - OTHER 2022-09-23 05:01:00 Doctor Kiersten Lopez [facility] Name Medical Branch XR SHOULDER 2+ VW 2022-08-26 20:11:00 Ann-Marie Bolanos [facility] BILATERAL Medical Branch HOME HEALTH - OTHER 2022-08-19 06:01:00 Doctor [facility] [place] [facility] HOME HEALTH - OTHER 2022-08-05 06:01:00 Doctor Kiersten Lopez [facility] [place] [facility] HOME HEALTH - OTHER 2022-07-22 06:01:00 Doctor [facility] [place] [facility] HOME HEALTH - OTHER 2022-06-29 06:01:00 Doctor Kiersten Lopez [facility] [place] [facility] HOME HEALTH - OTHER 2022-06-11 06:01:00 Doctor [facility] [place] [facility] HOME HEALTH 485 2022-05-25 06:01:00 Doctor Jessica [facility] [place] [facility] HOME HEALTH - OTHER 2022-04-17 05:01:00 Doctor Jessica [facility] [place] [facility] PHYSICIAN ORDERS 2022-03-26 05:01:00 Doctor Jessica [facility] [place] [facility] MR LUMBAR SPINE WO 2022-03-11 20:49:31 Gisela Diggs [facility] CONTRAST A Medical Branch MR CERVICAL SPINE WO 2022-03-11 20:48:39 Gisela Diggs [facility] CONTRAST A Medical Branch OUTPATIENT CARDIAC 2022-03-10 05:01:00 Doctor Jessica [facility] CATHETERIZATION DOCUMENTS [place] [facility] Encounters Start End Encounter Admission Attending Care Care Encounter Source Date/Time Date/Time Type Type Clinicians Facility Department ID 2021-04-19 Outpatient R PAUL [facility] DIEGO [id number] Univers 19:37:13 SHABNAM ity [facility] Medical Branch 2021-04-19 Emergency [facility] [id number] Univers 18:16:35 [facility] [place] [facility] 2021-04-17 Emergency [facility] [id number] Univers 12:15:48 [facility] [place] [facility] 2023-01-20 2023-01-20 Orders Doctor PARKER 1.2.840.114 [id number] Univers 00:00:00 00:00:00 Only Unassigned, YULISSA [id number] ity of [place] [facility] [id number] [place] as [id number] [address] 2022-12-28 2022-12-28 Telephone Yuri [facility] [id number] [id number] Univers 00:00:00 00:00:00 Ogenriquetanawaf GORMAN [id number] [facility]y [facility] [id number] [id number] Co dical NAL [address] [place] [address] 2022-12-28 2022-12-28 Orders Doctor KEITH 1.2.840.114 [id number] Univers 00:00:00 00:00:00 Only Unassigned, YULISSA [id number] ity of [place] [facility] [id number] [place] [id number] [address] 2022-12-16 2022-12-16 Outpatient R ANN-MARIE BOLANOS [facility] [id number] Univers 14:30:00 14:30:00 ANN-MARIE BOLANSO ity of [facility] 2022-12-14 2022-12-14 Outpatient R ANN-MARIE BOLANOS [facility] [id number] Univers 14:30:00 14:30:00 ANN-MARIE BOLANOS ity of [facility] 2022-11-26 2022-11-26 Orders Doctor KEITH 1.2.840.114 [id number] Univers 00:00:00 00:00:00 Only Unassigned, YULISSA [id number] ity of [place] [facility] [id number] [place] [id number] [address] 2022-11-20 2022-11-20 Telephone Yuri [facility] 1.2.840.114 [id number] Univers 00:00:00 00:00:00 Ogadilson GORMAN [id number] ity [facility] [id number] [id number] Co dicid NAL [address] [place] [address] 2022-10-232022-10-23 Letter Yrui [facility] 1.2.840.114 [id number] Univers 00:00:00 00:00:00 (Out) Ann-Marie GORMAN [id number] ity of [facility] [id number] [id number] [facility] 044 [facility] 2022-10-21 2022-10-21 Orders Doctor KEITH 1.2.840.114 [id number] Univers 00:00:00 00:00:00 Only Unassigned, YULISSA [id number] ity of [place] [facility] [id number] [place] [id number] [address] 2022-10-20 2022-10-20 Patient Doctor [facility] 1.2.840.114 [id number] Univers 00:00:00 00:00:00 Secure Msg Unassigned, ARANZADOMINGO [id number] ity of [id number] [id number] [address] 2022-10-14 2022-10-14 Telephone [facility] 1.2.840.114 [id number] Univers 00:00:00 00:00:00 Richard GORMAN [id number] i ty of [facility] [id number] [id number] [facility] 231 [facility] 2022-10-14 2022-10-14 Telephone [facility] 1.2.840.114 [id number] Univers 00:00:00 00:00:00 Richard GORMAN [id number] i ty [id number] [id number] [address] 2022-10-07 2022-10-07 Outpatient R ANN-MARIE BOLANOS [facility] [id number] Univers 15:30:00 16:27:44 ANN-MARIE BOLANOS ity of [facility] 2022-10-07 2022-10-07 Office [facility] 1.2.840.114 [id number] Univers 15:30:00 16:27:44 Visit Ann-Marie GORMAN [id number] ity [facility] [id number] [id number] [address] 2022-10-02 2022-10-02 Telephone [facility] 1.2.840.114 [id number] Univers 00:00:00 00:00:00 Ann-Marie GORMAN 350.1.13.10 it[facility] [place] [id number] [address] 2022-10-01 2022-10-01 Outpatient R CADEN [facility] [id number] Univers 16:00:00 16:00:00 LETTY ity [facility] 2022-09-30 2022-09-30 Outpatient R ANN-MARIE BOLANOS [facility] [id number] Univers 13:00:00 13:00:00 ANN-MARIE BOLANOS ity [facility] 2022-09-29 2022-09-29 Telephone [facility] 1.2.840.114 [id number] Univers 00:00:00 00:00:00 Ann-Marie GORMAN 350.1.13.10 ity [facility] [place] [phone] [address] 2022-09-23 2022-09-23 Telephone [facility] 1.2.840.114 102 [id number] Univers 00:00:00 00:00:00 Ann-Marie GORMAN 350.1.13.10 ity of [place] [phone] [address] 2022-09-23 2022-09-23 Orders Doctor PARKER 1.2.840.114 [id number] Univers 00:00:00 00:00:00 Only Unassigned, YULISSA 350.1.13.10 ity of [place] [facility] 4.2.7.2.686 Thiago as [id number] [address] 2022-09-21 2022-09-21 Telephone Yuri [facility] 1.2.840.114 [id number] Univers 00:00:00 00:00:00 Ogadilson GORMAN 350.1.13.10 ity [facility] [place] [id number] [address] 2022-09-10 2022-09-10 Patient Brent [facility] 1.2.840.114 [id number] Univers 00:00:00 00:00:00 Outreach Kacy GORMAN 350.1.13.10 ity of [place].2.[place] [phone] [address] 2022-09-09 2022-09-09 Outpatient R ANN-MARIE BOLANOS [facility] [id number] Univers 15:30:00 16:29:32 [facility] 2022-09-09 Office Yuri [facility] 1.2.840.114 [id number] Univers 15:30:00 16:29:32 Visit Ann-Marie GORMAN 350.1.13.10 ity of [facility] [place] [id number] [address] 2022-09-09 2022-09-09 Office Yuri [facility] 1.2.840.114 [id number] Univers 16:00:00 16:27:22 Visit Ann-Marie GORMAN 350.1.13.10 ity of [facility] 4.[place] [id number] [address] 2022-09-02 2022-09-02 Outpatient R ANN-MARIE BOLANOS [facility] [id number] Univers 13:30:00 13:30:00 ANN-MARIE BOLANOS itboom [facility] 2022-08-31 2022-08-31 Telephone Yuri [facility] 1.2.840.114 [id number] Univers 00:00:00 00:00:00 Ann-Marie GORMAN 350.1.13.10 ity [facility] 4.2.[place] [phone] Co dical NAL [address] [facility] 2022-08-26 2022-08-26 Outpatient R BREANNA BOLANOSADILSON [facility] [id number] Univers 13:05:38 23:59:00 ANN-MARIE BOLANOS ity of [facility] 2022-08-26 2022-08-26 [facility] Yuri [facility] 1.2.238.281 [id number] Univers 13:05:38 23:59:00 Encounter Ann-Marie GORMAN 350.1.13.10 ity of [place] 4.2.7.2.[place] [id number] [facility] [address] [place] 2022-08-26 2022-08-26 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, 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 [facility] 1.2.840.114 [id number] Univers 13:15:00 13:30:00 Visit Ann-Marie Bolanos 350.1.13.1 0 ity of [facility] 4.2.7.2.[place] [phone] Co dical NAL [address] [facility] 2022-08-19 2022-08-19 Orders Doctor KEITH 1.2.840.114 [id number] Univers 00:00:00 00:00:00 Only Unassigned, YULISSA 350.1.13.10 ity of [place] [facility] 4.2.7.2.686 [place] as [id number] [facility] [address] 2022-08-12 2022-08-12 Outpatient R BREANNA BOLANOSADILSON [facility] [id number] Univers 13:30:00 14:01:27 ANN-MARIE BOLANOS itboom [facility] 2022-08-12 2022-08-12 Office Yuri [facility] 1.2.840.114 [id number] Univers 13:30:00 14:01:27 Visit Ann-Marie GORMAN 350.1.13.10 ity of [facility] 4.2.[place] [phone] [address] 2022-08-12 2022-08-12 [facility] 1.2.840.114 [id number] Univers 00:00:00 00:00:00 Ann-Marie GORMAN 350.1.13.10 ity of [facility] 4.2.[place] [phone] [address] 2022-08-06 2022-08-06 Telephone [facility]obyjeisonNEW [facility] 1.2.840.114 1 [id number] Univers 00:00:00 00:00:00 Richard SHERIF 350.1.13.10 i ty of [facility] 4.2.[place].2.[place] [phone] [address] 2022-08-05 2022-08-05 Orders Doctor KEITH 1.2.840.114 [id number] Univers 00:00:00 00:00:00 Only Unassigned, YULISSA 350.1.13.10 ity of [place] [facility] 4.2.7.2.686 [place] as [phone] [address] 2022-07-30 2022-07-30 Telephone [facility] 1.2.840.114 100 [id number] Univers 00:00:00 00:00:00 Ann-Marie GORMAN 350.1.13.10 ity of [facility] 4.2.[place] [id number] [address] 2022-07-22 2022-07-22 Orders Doctor KEITH 1.2.840.114 [id number] Univers 00:00:00 00:00:00 Only Unassigned, YULISSA 350.1.13.10 ity of [place] [facility] 4.2.7.2.686 [place] [id number] [address] 2022-07-08 2022-07-08 Telephone [facility] 1.2.840.114 [id number] Univers 00:00:00 00:00:00 Ricardaherminio GORMAN 350.1.13.10 ity of [place].2.[place] [phone] Co dical NAL 044 [facility] 2022-07-03 2022-07-03 Telephone Yuri [facility] 1.2.840.114 [id number] Univers 00:00:00 00:00:00 Ogevau SHERIF 350.1.13.10 ity of [place] 4.2.[place].2.[place] [id number] Co dical NAL 231 [facility] 2022-07-03 2022-07-03 [facility]phone [facility] 1.2.840.114 [id number] Univers 00:00:00 00:00:00 Ricardaherminio GORMAN 350.1.13.10 ity of [place].7.2.[place] [phone] [facility] 044 [facility] 2022-06-29 2022-06-29 Orders Doctor KEITH 1.2.840.114 [id number] Univers 00:00:00 00:00:00 Only Unassigned, YULISSA 350.1.13.10 ity of [place] [facility] 4.2.7.2.686 [place] [id number] [address] 2022-06-24 2022-06-24 Outpatient R ANN-MARIE BOLANOS [facility] [id number] Univers 16:00:00 16:00:00 ANN-MARIE BOLANOS ity of [facility] 2022-06-11 2022-06-11 Orders Doctor KEITH 1.2.840.114 [id number] Univers 00:00:00 00:00:00 Only Unassigned, YULISSA 350.1.13.10 ity of [place] [facility] 4.2.7.2.686 [place] [phone] [address] 2022-05-28 2022-05-28 Telephone [facility] 1.2.840.114 [id number] Univers 00:00:00 00:00:00 Ogenriquetanawaf GORMAN 350.1.13.10 ity of [place].2.[place] [phone] Co dical NAL 044 [facility] 2022-05-26 2022-05-26 Outpatient R ANN-MARIE BOLANOS [facility] [id number] Univers 15:30:00 16:33:49 ANN-MARIE BOLANOS ity of [facility] 2022-05-26 2022-05-26 Office [facility] 1.2.840.114 [id number] [facility] 15:30:00 16:33:49 Visit [facility] 350.1.13.10 ity of [place] 4.2.7.2.[place] [phone] Co dicid NAL [address] [place] [address] 2022-05-26 2022-05-26 Telephone Yuri [facility] 1.2.840.114 [id number] Univers 00:00:00 00:00:00 Reyherminio [facility] 350.1.13.10 ity of [place] 4.[place].2.[place] [id number] Co dical NAL 044 [facility] 2022-05-25 2022-05-25 Orders Doctor KEITH 1.2.840.114 [id number] Univers 00:00:00 00:00:00 Only Unassigned, YULISSA 350.1.13.10 ity of [place] [facility] 4.2.7.2.686 [place] [id number] [address] 2022-05-21 2022-05-21 Telephone [facility] 1.2.973.836 [id number] Univers 00:00:00 00:00:00 Quan GORMAN 350.1.13.10 ity of [place].2.[place] [id number] Co dicid NAL 059 [facility] 2022-05-12 2022-05-12 Outpatient R JOSE [facility] [id number] Univers 00:00:00 00:00:00 QUAN levine o f [facility] 2022-05-01 2022-05-01 Outpatient R JOSE ROBERTOSELECT [facility] [id number] Univers 13:01:47 23:59:00 QUAN levine o f [facility] 2022-04-29 2022-04-29 [facility] 1.2.840.114 [id number] Univers 00:00:00 00:00:00 Gisela A [place] 350.1.13.10 ity of [place] 4[place]2.[place].2.[place] [id number] [facility] 231 [facility] 2022-04-27 2022-04-27 [facility] 1.2.840.114 [id number] Univers 00:00:00 00:00:00 Gisela A [place] 350.1.13.10 ity of [place] 4.2.7.2.[place] [phone] [facility] 044 [facility] 2022-04-20 2022-04-20 Outpatient R CATERINASELECT [facility]ICAL [facility] 1042 [id number] Univers 13:00:00 13:00:00 GISELA ity of [facility] 2022-04-17 2022-04-17 [place] [facility] 1.2.840.114 [id number] Univers 00:00:00 00:00:00 Gisela A [place] 350.1.13.10 ity of [place] 4[place].7.2.[place] [id number] [address] 2022-04-17 2022-04-17 Orders Doctor KEITH 1.2.840.114 [id number] Univers 00:00:00 00:00:00 Only Unassigned, YULISSA 350.1.13.10 ity of [place] [facility] 4.2.7.2.686 [place] [id number] [address] 2022-04-15 2022-04-15 Outpatient R JOSE ROBERTOSELECT [facility] [id number] Univers 14:00:00 14:26:29 QUAN retana f [facility] 2022-04-15 2022-04-15 Office Jose RobertoNEW [facility]EX[facility] 1.2.840.114 [id number] Univers 14:00:00 14:26:29 Visit Quan SHERIF 350.1.13.10 ity of [place].7.2.[place] [id number] Co dical NAL 059 [facility] 2022-04-09 2022-04-09 Telephone [facility] 1.2.840.114 [id number] [facility] 00:00:00 00:00:00 Giselagemma GORMAN 350.1.13.10 ity of [place].7.2.[place] [id number] Co dical NAL 044 [facility] 2022-04-08 2022-04-08 Telephone [facility] 1.2.840.114 [id number] [facility] 00:00:00 00:00:00 Gisela GORMAN 350.1.13.10 ity of [place].2.[place] [phone] Co dical NAL 231 [facility] 2022-03-31 2022-03-31 [facility] 1.2.840.114 [id number] [facility] 00:00:00 00:00:00 Outreach Kacy GORMAN 350.1.13.10 ity of [place] 4[place]2.7.2.[place] [phone] Co dical NAL 231 [facility] 2022-03-30 2022-03-30 [facility] 1.2.840.114 [id number] Univers 00:00:00 00:00:00 Gisela GORMAN 350.1.13.10 ity of [place].7.2.[place] [phone] Co dical NAL [address] [place] [address] 2022-03-26 2022-03-26 Outpatient R CATERINA [facility] [id number] Univers 15:00:00 16:10:21 GISELA levine of [facility] 2022-03-26 2022-03-26 Telemedici [facility]NEW [facility] 1.2.840.114 [id number] Univers 15:00:00 16:10:21 ne Visit Gisela GORMAN 350.1.13.10 ity of [place] 4[place].2.[place] [id number] [facility] 231 [facility] 2022-03-26 2022-03-26 Outpatient R CATERINA [facility] [id number] Univers 08:00:00 08:00:00 GISELA ity [facility] 2022-03-26 2022-03-26 Orders Doctor KEITH 1.2.840.114 [id number] Univers 00:00:00 00:00:00 Only Unassigned, YULISSA 350.1.13.10 ity of [place] [facility] 4.2.7.2.686 [place] [id number] [facility] [address] [place] 2022-03-20 2022-03-20 Patient [facility] 1.2.840.114 [id number] Univers 00:00:00 00:00:00 Outreach Kacy GORMAN 350.1.13.10 ity of [place].2.[place] [id number] [facility] 231 [facility] 2022-03-11 2022-03-11 Outpatient R CATERINASELECT [facility] [id number] Univers 13:52:51 23:59:00 GISELA levine [facility] 2022-03-11 2022-03-11 Film Editor Supervisor Leigh, Jens Lab Main [facility] 1.2.8 40.114 [id number] Univers 14:00:00 14:15:00 Visit Gisela Diggs 350.1. 13.10 ity of [facility] 4.2.7.2.[place] [phone] [facility] 353 [facility] 2022-03-11 2022-03-11 Hospital [facility] 1.2.840.114 [id number] Univers 13:50:13 13:51:00 Encounter Gisela GORMAN 350.1.13.10 ity of [facility] 4.2.7.2.[place] [id number] [facility] [address] [place] 2022-03-11 2022-03-11 [facility] 1.2.840.114 [id number] Univers 13:45:15 13:49:00 Encounter Gisela GORMAN 350.1.13.10 ity of [place]2.7.2.[place] [id number] [facility] [address] [place] 2022-03-10 2022-03-10 [facility] [id number] Univers 00:00:00 00:00:00 GISELA ity of [facility] 2022-03-10 2022-03-10 Orders Doctor KEITH 1.2.840.114 [id number] Univers 00:00:00 00:00:00 Only Unassigned, YULISSA 350.1.13.10 ity of [place] [facility] 4.2.7.2.686 [place] [id number] [facility] [address] [place] 2022-03-10 2022-03-10 [facility] 1.2.840.114 9 [id number] Univers 00:00:00 00:00:00 Richard GORMAN 350.1.13.10 i ty of [place].7.2.[place] [phone] Co dical NAL 044 [facility] 2022-03-09 2022-03-09 Telephone [facility] 1.2.840.114 [id number] Univers 00:00:00 00:00:00 Gisela GORMAN 350.1.13.10 ity of [place] 4[place].7.2.[place] [id number] Co dical NAL 044 [facility] 2022-03-03 2022-03-03 Telephone [facility] 1.2.840.114 [id number] Univers 00:00:00 00:00:00 Gisela GORMAN 350.1.13.10 ity of [place] 4[place].7.2.[place] [id number] Co dical NAL 231 [facility] 2022-02-26 2022-02-26 [facility] [id number] Univers 13:40:00 15:09:54 GISELA ity [facility] 2022-02-26 2022-02-26 Office [facility]NEW [facility] 1.2.840.114 [id number] Univers 13:40:00 15:09:54 Visit Gisela GORMAN 350.1.13.10 ity of [facility] 4.2.7.2.[place] [id number] [address] 2022-01-27 2022-01-27 [facility]mer[facility]NEW [facility] 1.2.840.114 [id number] Univers 00:00:00 00:00:00 Gisela A ARANZATON 350.1.13.10 ity of [place].2.[place] [id number] [address] 2021-11-13 2021-11-13 [facility] 1.2.840.114 [id number] Univers 00:00:00 00:00:00 Giselagemma [place] 350.1.13.10 ity of [place] 4[place].2.[place] [phone] [address] 2021-10-03 2021-10-03 Outpatient R CATERINA [facility] [id number] Univers 08:00:00 08:00:00 GISELAGEMMA levine [facility] 2021-09-26 2021-09-26 Hospital Radiology [facility] 1.2.840.114 [id number] Univers 15:03:30 23:59:00 Encounter SHERIF 350.1.13.10 ity of [facility] 4.2.7.2.[place] [id number] [facility] [address] [place] [address] 2021-09-26 2021-09-26 Outpatient R CATERINA [facility] [id number] Univers 13:40:00 14:30:16 GISELA ity [facility] 2021-09-26 2021-09-26 Office Diggs, [facility] 1.2.840.114 [id number] Univers 13:40:00 14:30:16 Visit Gisela GORMAN 350.1.13.10 ity of [place] [phone] Co dical [facility] 231 [facility] 2021-09-26 2021-09-26 Orders Doctor KEITH 1.2.840.114 [id number] Univers 00:00:00 00:00:00 Only Unassigned, YULISSA 350.1.13.10 ity of [place] [facility] 4.2.7.2.686 [place] as [id number] [address] 2021-09-06 2021-09-06 Refill Diggs, [facility] 1.2.840.114 [id number] Univers 00:00:00 00:00:00 Giselagemma GORMAN 350.1.13.10 ity [facility] 4.2.7.2.[place] [phone] Co dic[address] 2021-05-14 2021-05-14 Orders Doctor KEITH 1.2.840.114 [id number] Univers 00:00:00 00:00:00 Only Unassigned, YULISSA 350.1.13.10 ity of [place] [facility] 4.2.7.2.686 [place] as [id number] [address] 2021-05-12 2021-05-12 Telephone [facility] 1.2.840.114 [id number] Univers 00:00:00 00:00:00 Gisela GORMAN 350.1.13.10 ity of [facility] 4.2.7.2.[place] [phone] Co dical [facility] 044 [facility] 2021-04-17 2021-04-17 Telephone [facility]NEW [facility] 1.2.840.114 [id number] Univers 00:00:00 00:00:00 Gisela GORMAN 350.1.13.10 ity of [facility] 4.2.7.2.[place] [id number] [facility] 231 [facility] 2021-04-14 2021-04-14 Sanchez FREEMAN [facility] [id number] Univers 15:10:00 15:10:00 BERNARD boom [facility] 2021-04-11 2021-04-11 Outpatient R ALEXSELECT [facility] [id number] Univers 15:10:00 15:10:00 BERNARD levine [facility] 2021-04-11 2021-04-11 Outpatient R CATERINASELECT [facility]ICAL [facility] 1032 [id number] Univers 13:40:00 14:45:00 GISELA levine [facility] 2021-04-11 2021-04-11 Office [facility] 1.2.840.114 [id number] Univers 13:30:15 14:45:00 Visit Gisela G[place] 350.1.13.10 ity [facility] 4.2.7.2.[place] [id number] [facility] 231 [facility] 2021-04-11 2021-04-11 Outpatient R CATERINASELECT [facility] [id number] Univers 13:40:00 13:40:00 GISELA [facility] 2021-04-01 2021-04-01 Outpatient R [facility] [id number] Univers 09:00:00 09:00:00 [facility] 2021-03-18 2021-03-18 [facility] 1.2.840.114 [id number] Univers 00:00:00 00:00:00 Ashley Gorman 350.1.13.10 ity [facility] [place] [phone] Co dical nal 044 [facility] 2021-01-08 2021-01-08 Refill [facility] 1.2.840.114 [id number] Univers 00:00:00 00:00:00 Ashley Gorman 350.1.13.10 ity of [place] [id number] Co dical nal 044 [facility] 2020-12-04 2020-12-04 [facility] 1.2.840.114 [id number] Univers 11:20:00 23:59:00 Encounter Giselagemma Gorman 350.1.13.10 ity of [place] 4.2.7.2.686 [facility] [id number] [facility] [address] 2020-12-04 2020-12-04 Outpatient R CATERINA [facility] [id number] Univers 00:00:00 00:00:00 GISELA stolly of [facility] 2020-12-04 2020-12-04 Orders Doctor KEITH 1.2.840.114 [id number] Univers 00:00:00 00:00:00 Only Unassigned, YULISSA 350.1.13.10 ity of [place] [facility] 4.2.7.2.[address] [facility] [id number] [facility] [address] 2020-11-27 2020-11-[address] [facility] 1.2.053.621 [id number] Univers 10:04:26 23:59:00 Encounter Ashley Gorman 350.1.13.10 ity of [place] 4.2.7.2.686 [facility] [id number] [facility] [address] 2020-11-27 2020-11-[address] [facility] 1.2.140.085 [id number] Univers 09:38:36 10:03:00 Encounter Ashley Gorman 350.1.13.10 ity of [place] 4.2.7.2.686 [facility] [id number] [facility] [address] 2020-11-27 2020-11-27 Film Editor Supervisor Leigh, Jens Lab Main [facility] 1.2.8 40.114 [id number] Univers 09:37:22 09:52:22 Visit Bailee Ashley Gorman 350.1.13.10 ity of [place] 4.[address].7.[address] [place] [address] [phone] Co dical [facility] 353 [facility] 2020-11-27 2020-11-27 Outpatient R BAILEE [facility] [id number] Univers 00:00:00 00:00:00 ASHLEY stolly o f [facility] 2020-11-27 2020-11-27 Orders Doctor KEITH 1.2.840.114 [id number] Univers 00:00:00 00:00:00 Only Unassigned, YULISSA [id number] ity of [place] [facility] 4.2.7.2.686 [place] as [phone] [address] 2020-11-06 2020-11-06 Outpatient R CORNELIUS ANTHONY [facility] [id number] Univers 11:00:00 11:00:00 CORNELIUS ANTHONY ity of [facility] 2020-10-30 2020-10-30 Telephone [facility] 1.2.840.114 [id number] Univers 00:00:00 00:00:00 Ashley Gorman [id number] [place] [phone] Co dical [place]al [address] [place] [address] 2020-10-10 2020-10-10 Office [facility] 1.2.840.114 [id number] Univers 12:53:29 13:43:24 Visit Ashley Gorman 350.1.13.10 [place]2.[place] [phone] Co dic[address] 2020-10-10 2020-10-10 Office [facility] 1.2.840.114 [id number] Univers 12:52:50 13:22:50 Visit Ashley Gorman 350.1.13.10 [place].2.[place] [phone] Co dicid nal [address] [place] [address] 2020-10-10 2020-10-10 Outpatient R [facility] [id number] Univers 13:00:00 13:00:00 ASHLEY itboom o f [facility] 2020-10-04 2020-10-04 [facility] 1.2.840.114 [id number] Univers 14:07:51 15:24:51 Visit Gisela Gorman 350.1.13.10 [place] [phone] [facility] [address] [facility] 2020-10-04 2020-10-04 Office [facility] 1.2.840.114 [id number] Univers 14:00:00 14:20:00 Visit Gisela Gorman 350.1.13.10 [place] 4[place]2.7.2.[place] [phone] [address] 2020-10-04 2020-10-04 Outpatient R CATERIN[facility]LECT [facility] [id number] [facility] 14:00:00 14:00:00 GISELA levine of [facility] 2020-09-30 2020-09-30 Refill [facility] 1.2.840.114 [id number] Univers 00:00:00 00:00:00 Gisela Gorman 350.1.13.10 [place] [phone] [facility] [address] [facility] 2020-09-20 2020-09-20 Telephone [facility] 1.2.840.114 [id number] Univers 00:00:00 00:00:00 Strahil T [place] 350.1.13.10 [place]7.2.[place] [phone] [facility] 085 [facility] 2020-09-17 2020-09-17 Orders Doctor KEITH 1.2.840.114 [id number] Univers 00:00:00 00:00:00 Only Unassigned, YULISSA 350.1.13.10 ity of [place] [facility] 4.2.7.2.686 [place] as [phone] [address] 2020-09-16 2020-09-16 Telephone [facility] 1.2.840.114 [id number] Univers 00:00:00 00:00:00 Strahil T MULTISPEC 350.1.13.10 ity of [facility] [place].2.7.2.[place] [phone] [facility] AND [place] [address] [facility] 2020-09-04 2020-09-04 Office Raj [facility] 1.2.922.533 [id number] Univers 14:59:48 15:29:48 Visit Cornelius Gorman 350.1.13.10 ity of [place] [phone] Co dical nal 085 [facility] 2020-09-04 2020-09-04 Outpatient R CORNELIUS ANTHONY [facility] [id number] Univers 15:00:00 15:00:00 CORNELIUS ANTHONY [facility] 2020-09-04 2020-09-04 Orders Doctor KEITH 1.2.840.114 [id number] Univers 00:00:00 00:00:00 Only Unassigned, YULISSA 350.1.13.10 ity of [place] [facility] 4.2.7.2.686 [place] [phone] [facility] [address] 2020-08-26 2020-08-26 Patient Alex [facility] 1.2.840.114 [id number] Univers 00:00:00 00:00:00 Outreach Bernardpedro GRUBBS 350.1.13.10 i ty of [facility] [place].2.7.2.[place] [phone] [facility] [address] [place] 2020-08-13 2020-08-13 Office [facility] 1.2.760.278 [id number] Univers 15:25:40 16:26:34 Visit Shabnam Gorman 350.1.13.10 i ty of [place].2.[place] [phone] Co chaceid nal 188 [facility] 2020-08-13 2020-08-13 Outpatient R PAUL [facility] [id number] Univers 15:45:00 15:45:00 SHABNAM levine [facility] 2020-07-31 2020-07-31 Telemedici RajNEW [facility] 1.2.840.114 [id number] Univers 09:15:00 09:30:00 ne Visit Cornelius Medeiroston 350.1.13.10 ity of [place].2.[place] [phone] Co dical [facility] 085 [facility] 2020-07-31 2020-07-31 Outpatient R CORNELIUS ANTHONY [facility] [id number] Univers 09:15:00 09:15:00 [facility] 2020-07-22 2020-07-22 [facility] 1.2.840.114 [id number] Univers 10:47:00 14:48:00 Encounter Shabnam Gorman 350.1.13.10 ity of [place].2.[place] [phone] [place] 044411 [place] 2020-07-22 2020-07-22 Orders Doctor KEITH 1.2.840.114 [id number] Univers 00:00:00 00:00:00 Only Unassigned, YULISSA 350.1.13.10 ity of [place] [facility] 4.2.7.2.686 [place] [phone] [facility] [address] 2020-07-19 2020-07-19 [facility] [id number] Univers 14:00:00 14:00:00 SHABNAM boom [facility] 2020-07-19 2020-07-19 Laboratory Only, Adc Test [facility] 1.2.840. 114 [id number] Univers 13:25:07 13:40:07 Only Shabnam [place] 350.1.13.10 ity of [place] 4[place]2.7.2.[place] [phone] [facility] [address] 2020-07-19 2020-07-19 Orders Doctor KEITH 1.2.840.114 [id number] Univers 00:00:00 00:00:00 Only Unassigned, YULISSA 350.1.13.10 ity of [place] [facility] 4.2.7.2.686 [place] [phone] [facility] [address] 2020-07-18 2020-07-18 [facility] 1.2.840.114 [id number] Univers 13:49:13 23:59:00 Encounter Gisela Gorman 350.1.13.10 ity of [place]2.7.2.[place] [phone] [facility] [address] [place] 2020-07-18 2020-07-18 Outpatient R CATERINA [facility] [id number] Univers 00:00:00 00:00:00 GISELA levine [facility] 2020-07-17 2020-07-17 Outpatient R CORNELIUS ANTHONY [facility] [id number] Univers 13:30:00 13:30:00 CORNELIUS ANTHONY [facility] 2020-07-15 2020-07-15 Telemedici CaterinaNEW [facility] 1.2.840.114 [id number] Univers 11:17:59 11:57:59 ne Visit Gisela Gorman 350.1.13.10 ity [facility] 4.2.7.2.[place] [phone] Co dical nal 231 [facility] 2020-07-15 2020-07-15 Office [facility]NEW [facility] 1.2.391.274 [id number] Univers 09:35:14 10:36:24 Visit Shabnam Gorman 350.1.13.10 i ty of [place].2.[place] [phone] Co dical nal 188 [facility] 2020-07-15 2020-07-15 Outpatient R PAUL [facility] [id number] Univers 09:30:00 09:30:00 SHABNAM julianna [facility] 2020-07-15 2020-07-15 Prep For Alondra [facility] 1.2.840.114 [id number] Univers 00:00:00 00:00:00 Surgery Michell Gorman 350.1.13.10 ity of [place].2.[place] [phone] Co dical nal 204 [facility] 2020-07-15 2020-07-15 Orders Doctor PARKER 1.2.840.114 [id number] Univers 00:00:00 00:00:00 Only Unassigned, YULISSA 350.1.13.10 [facility] 4.2.7.2.686 [place] [phone] [facility] [address] 2020-07-10 2020-07-10 Emergency , [facility] 1.2.463.791 [id number] Univers 11:10:00 13:27:00 Darrenelan Gorman 350.1.13.10 i ty of [place] 4[place]2.7.2.[place] [phone] [facility] [address] 2020-07-05 2020-07-05 Patient Caterina [facility] 1.2.840.114 [id number] Univers 00:00:00 00:00:00 Secure Msg Gisela Leyva Sherif 350.1.13.10 ity of [place].2.[place] [phone] [facility] 231 [facility] 2020-07-03 2020-07-03 Outpatient R CORNELIUS ANTHONY [facility] [id number] Univers 13:00:00 13:00:00 CORNELIUS ANTHONY [facility] 2020-07-03 2020-07-03 Telemedici RajNEW [facility] 1.2.840.114 [id number] Univers 11:51:23 12:21:23 ne Visit [facility] Kassidy Gorman 350.1.13.10 ity of [place].7.2.[place] [phone] [facility] 085 [facility] 2020-07-03 2020-07-03 Outpatient R CORNELIUS ANTHONY [facility] [id number] Univers 11:30:00 11:30:00 CORNELIUS ANTHONY [facility] 2020-07-02 2020-07-02 Laboratory Lab, Adc Fam Pob I [facility] 1.2. 840.114 [id number] Univers 09:42:10 10:02:10 Only Dov Fuentes 350.1.13.10 ity of [place] 4.2.7.2.686 [place] Professio [phone] [address] One 2020-07-02 2020-07-02 Outpatient R DARRELLURIEL [facility] [id number] Univers 09:40:00 09:40:00 DOV julianna [facility] 2020-06-28 2020-06-28 Outpatient R DIGGS, [facility] [id number] Univers 16:40:00 16:40:00 GISELA levine [facility] 2020-06-28 2020-06-28 [facility] 1.2.840.114 [id number] Univers 08:50:39 09:10:39 ne Visit Gisela Gorman 350.1.13.10 ity of [place].2.[place] [phone] [address] 2020-06-27 2020-06-27 Telephone [facility] 1.2.840.114 [id number] Univers 00:00:00 00:00:00 Gisela Gorman 350.1.13.10 ity of [place].2.[place] [phone] [address] 2020-06-27 2020-06-27 Refill [facility]NEW [facility] 1.2.840.114 [id number] Univers 00:00:00 00:00:00 Molina Gorman 350.1.13.10 i ty of [place].2.[place] [phone] [address] 2020-06-27 2020-06-27 [facility] 1.2.840.114 [id number] Univers 00:00:00 00:00:00 Gisela Gorman 350.1.13.10 ity of [place].2.[place] [phone] [address] 2020-06-27 2020-06-27 Refill AllNEW [facility] 1.2.840.114 [id number] Univers 00:00:00 00:00:00 Richard Gorman 350.1.13.10 i ty of [place] 4[place]2.7.2.[place] [phone] Co denia [facility] 044 [facility] 2020-06-20 2020-06-20 Outpatient R CATERINA [facility] [id number] Univers 00:00:00 00:00:00 GISELA levine [facility] 2020-05-31 2020-05-31 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, Adc Lab [facility] 1.2.840.114 [id number] Univers 10:26:07 10:41:07 Visit Gisela Diggs 350.1. 13.10 ity of [place].2.[place] [phone] [facility] 353 [facility] 2020-05-31 2020-05-31 Office [facility]NEW [facility] 1.2.840.114 [id number] Univers 08:27:25 10:13:34 Visit Gisela Gorman 350.1.13.10 ity of [place]2.7.2.[place] [phone] [facility] 231 [facility] 2020-05-31 2020-05-31 Outpatient R DIGGS [facility] [id number] Univers 08:40:00 08:40:00 GISELA levine [facility] 2020-05-31 2020-05-31 Orders Doctor PARKER 1.2.840.114 [id number] Univers 00:00:00 00:00:00 Only Unassigned, YULISSA 350.1.13.10 ity of [place] [facility] 4.2.7.2.686 [place] [phone] [address] 2020-05-30 2020-05-30 Telephone Diggs, [facility] 1.2.840.114 [id number] Univers 00:00:00 00:00:00 Gisela Gorman 350.1.13.10 ity of [place].2.[place] [phone] Me dic[address] 2020-05-27 2020-05-27 [facility] 1.2.840.114 [id number] Univers 00:00:00 00:00:00 Management Gisela Gorman 350.1.13.10 ity of [place].7.2.[place] [phone] [address] 2020-05-21 2020-05-21 Refill [facility]NEW [facility] 1.2.840.114 [id number] Univers 00:00:00 00:00:00 Molina Gorman 350.1.13.10 i ty of [place].2.[place] [phone] [address] 2020-05-15 2020-05-15 [facility] 1.2.840.114 [id number] Univers 00:00:00 00:00:00 Gisela Gorman 350.1.13.10 ity of [place].7.2.[place] [phone] [address] 2020-03-08 2020-03-08 Outpatient R [facility]LECT [facility] [id number] Univers 08:20:00 08:20:00 GISELA levine [facility] 2020-01-29 2020-01-29 [facility]medici [facility] 1.2.840.114 [id number] Univers 08:41:57 16:01:58 ne Visit Richard Gorman 350.1.13.10 ity of [place] 4[place].7.2.[place] [phone] [address] 2020-01-29 2020-01-29 Outpatient R ALL [facility] [id number] Univers 15:00:00 15:00:00 RICHARD levine [facility] 2020-01-22 2020-01-22 Refill [facility]NEW [facility] 1.2.840.114 [id number] Univers 00:00:00 00:00:00 Richard Gorman 350.1.13.10 i ty of [place].7.2.[place] [phone] Co dical nal 044 [facility] 2020-01-22 2020-01-22 Telephone [facility] 1.2.840.114 [id number] Univers 00:00:00 00:00:00 Gisela Gorman 350.1.13.10 ity of [place] 4[place].7.2.[place] [phone] Co dical nal 044 [facility] 2020-01-20 2020-01-20 Refill [facility] 1.2.840.114 [id number] Univers 00:00:00 00:00:00 Gisela Gorman 350.1.13.10 ity of [place] 4[place].7.2.[place] [phone] Co dical nal 231 [facility] 2020-01-13 2020-01-13 [facility] 1.2.840.114 [id number] Univers 00:00:00 00:00:00 Richard Gorman 350.1.13.10 i ty of [place] 4.2.7.2.[place] [phone] Co dical nal 044 [facility] 2020-01-09 2020-01-09 Orders Doctor KEITH 1.2.840.114 [id number] Univers 00:00:00 00:00:00 Only Unassigned, YULISSA 350.1.13.10 ity of [place] [facility] 4.2.7.2.686 [place] [phone] [address] 2020-01-09 2020-01-09 Telephone [facility] 1.2.840.114 [id number] Univers 00:00:00 00:00:00 Molina Gorman 350.1.13.10 i ty of [place] 4[place]2.7.2.[place] [phone] Co dical nal 044 [facility] 2019-12-18 2019-12-18 Telephone [facility] 1.2.840.114 [id number] Univers 00:00:00 00:00:00 Gisela A [place] 350.1.13.10 ity of [place] 4.2.7.2.[place] [phone] Co dical nal 231 [facility] 2019-11-27 2019-11-27 Office Rhonda [facility] 1.2.840.114 [id number] Univers 14:21:39 14:51:39 Visit Molnia Gorman 350.1.13.10 i ty of [place] 4.2.7.2.[place] [phone] [facility] 044 [facility] 2019-11-27 2019-11-27 Outpatient R RHONDA [facility] [id number] Univers 14:15:00 14:15:00 MOLINA levine [facility] 2019-11-06 2019-11-06 Outpatient R CATERINA [facility] [id number] Univers 09:00:00 09:00:00 GISELA levine [facility] 2019-11-06 2019-11-06 Telemedici [facility] 1.2.840.114 [id number] [facility] 08:03:48 08:43:48 ne Visit Gisela Gorman 350.1.13.10 ity of [place].2.[place] [phone] [address] 2019-10-31 2019-10-31 Telephone Caterina [facility] 1.2.840.114 [id number] Univers 00:00:00 00:00:00 Gisela Gorman 350.1.13.10 ity of [place].7.2.[place] [phone] Co dical [facility] 231 [facility] 2019-09-19 2019-09-19 Telephone Raj [facility] 1.2.840.114 [id number] [facility] 00:00:00 00:00:00 Cornelius Gorman 350.1.13.10 ity of [place] 4[place].7.2.[place] [phone] Co dical nal 085 [facility] 2019-09-06 2019-09-06 Pre Visit Caterina [facility] 1.2.840.114 [id number] Univers 00:00:00 00:00:00 Outreach Gisela Gorman 350.1.13.10 it[place] of [place].2.[place] [phone] Co dical nal 044 [facility] 2019-09-05 2019-09-05 [facility]ici [facility] 1.2.840.114 [id number] Univers 14:51:59 14:54:16 ne Visit Gisela Gorman 350.1.13.10 it[place] of [place] 4[place].7.2.[place] [phone] Co dical nal 231 [facility] 2019-09-05 2019-09-05 Outpatient R [facility]IN[facility]LECT [facility] [id number] Univers 13:00:00 13:00:00 GISELA ity of [facility] 2019-08-22 2019-08-22 Emergency X Amanda TRIANA [facility] ERT [id number] Univers 12:17:26 15:09:00 ity of [facility] 2019-08-22 2019-08-22 Emergency Amanda Triana [facility] 1.2.840.114 [id number] Univers 12:17:26 15:09:00 Marah Gorman 350.1.13.10 i ty of [place].2.[place] [phone] [facility] [address] [place] 2019-08-22 2019-08-22 Orders Doctor KEITH 1.2.840.114 [id number] Univers 00:00:00 00:00:00 Only Unassigned, YULISSA 350.1.13.10 ity of [place] [facility] 4.2.7.2.686 [place] [phone] [facility] [address] 2019-08-08 2019-08-08 Emergency X [facility] E[facility] [id number] Univers 16:52:04 19:09:00 FOLUSHO ity [facility] 2019-08-08 2019-08-08 Emergency X YULY [facility] ERT [id number] Univers 16:52:04 19:09:00 FOLUSHO ity of [facility] 2019-08-08 2019-08-08 Emergency [facility] 1.2.840.114 [id number] Univers 16:52:04 19:09:00 Rj Krissy Sherif 350.1.13.10 it[place] of [place].2.[place] [phone] [facility] [address] [place] 2019-02-24 2019-02-24 Office [facility] 1.2.840.114 [id number] [facility] 08:44:14 09:52:58 Visit Richard Sherif 350.1.13.10 i ty of [place].2.[place] [phone] Co dical nal 044 [facility] 2019-01-20 2019-01-20 [facility] 1.2.840.114 [id number] [facility] 13:08:36 23:59:00 Encounter Richard Sherif 350.1.13.10 ity of [place] 4[place]2.[place].2.[place] [phone] [facility] [address] [place] 2019-01-20 2019-01-20 Office [facility] 1.2.840.114 [id number] [facility] 10:56:06 12:53:12 Visit Richard Medeiroston 350.1.13.10 i ty of [place] 4.2.7.2.[place] [phone] Co dical nal 044 [facility] 2019-01-20 2019-01-20 Orders Doctor KEITH 1.2.840.114 [id number] Univers 00:00:00 00:00:00 Only Unassigned, YULISSA 350.1.13.10 ity of [place] [facility] 4.2.7.2.686 [place] [phone] [facility] [address] 2019-01-18 2019-01-18 Molina Coffey [facility] 1.2.840.114 [id number] Univers 00:00:00 00:00:00 Anne-Marie Gorman 350.1.13.10 i ty [place]2.[place] [phone] [address] Results This patient has no known results.
[2023-02-02 16:13] LABS: Hematocrit 41.9 % (36.0-45.0); Lymphocytes % 21.8 % (15.3-44.8); MCV 97.5 fL (80-100); Platelets 230 thou/uL (152-406)
[2023-02-02] MEDS ORDERED: ASPIRIN 81 MG CHEWABLE TABLET ONE (16:17)
[2023-02-02 16:37] LABS: Magnesium 2.2 mg/dL (1.6-2.4); Potassium 3.7 mEq/L (3.5-5.1); Troponin High Sensitivity 6.4 pg/mL (<58.9)
--- NOTE | 2023-02-02 16:50 | RAD REPORT ---
EXAM DESCRIPTION: Vikramt Single View02/02/2023 4:36 pm CLINICAL HISTORY: DYSPNEA COMPARISON: Chest Single View dated 05/21/2022; Chest Single View dated 10/22/2015 TECHNIQUE: Portable AP view of the chest. FINDINGS: Mild central interstitial prominence and bibasilar atelectasis, stable. No acute airspace opacities. No pneumothorax or effusion. The cardiomediastinal contours are unremarkable. IMPRESSION: Stable mild central interstitial prominence which may reflect mild congestion. No other acute pulmonary process.
--- NOTE | 2023-02-02 18:13 | RAD REPORT ---
EXAM DESCRIPTION: CT - Chest For Pe Angio - 02/02/2023 5:36 pm CLINICAL HISTORY: DYSPNEA COMPARISON: THORAX WO CONTRAST dated 07/17/2015; Chest Single View dated 02/02/2023 TECHNIQUE: Thin axial CT images of the chest were obtained following administration of 100 mL Isovue 370 IV contrast. Multiplanar reconstructions, and maximum intensity projection reconstructions were generated and reviewed. Exam utilizes a protocol for optimal evaluation of pulmonary arterial tree. All CT scans are performed using dose optimization technique as appropriate and may include automated exposure control or mA/KV adjustment according to patient size. FINDINGS: Pulmonary arteries are normal. No emboli or other suspicious finding. No acute or signific ant aorta findings. No mass or infiltrate in the lung parenchyma. Mild central vascular prominence. No pleural thickening or pleural effusion. No pneumothorax. No abnormal mediastinal or hilar masses or lymphadenopathy seen. No chest wall mass or abnormal axill iary lymphadenopathy. Status post cholecystectomy. Prominent common bile duct may relate to for postcholecystectomy status . Nodular liver contour and mildly prominent gastrosplenic tortuous vessels suggesting early varices. IMPRESSION: No evidence of acute central pulmonary emboli. No other acute pulmonary process. Incidental abdominal findings as above.
--- NOTE | 2023-02-02 18:31 | EDPHYS ---
Physician Documentation [facility] Name: Fatoumata Velazquez Age: 72 yrs Sex: Female : 1950 Arrival Date: 02/02/2023 Time: 15:42 Bed 15 Private MD: ED Physician Lopez Goodman HPI: 02/02 15:52 This 72 yrs old Female presents to ER via Unassigned with complaints of ms3 Shortness of breath. 15:53 72-year-old female with past medical history of asthma, hypertension presents for ms3 shortness of breath that began 5 minutes prior to arrival. Patient states shortness of breath began after she learned her 's heart was shocked as it had stopped. Patient endorses headache 30 minutes prior to learning of this news. Patient denies nausea, vomiting, diaphoresis. Patient notes she did not have her inhaler with her.. Historical: - Allergies: 15:53 No Known Allergies; ap3 - PMHx: 15:53 Chronic pain; Diabetes - NIDDM; Hyperlipidemia; Hypertension; Hypothyroidism; ap3 - PSHx: 15:53 back; neck; knee; ap3 - Immunization history:: Client reports receiving the 2nd dose of the Covid vaccine. - Social history:: Smoking status: Patient denies any tobacco usage or history of. ROS: 15:53 Constitutional: Negative for fever, and chills. Eyes: Negative for injury, pain, ms3 redness, and discharge, Neck: Negative for injury, pain, and swelling, Cardiovascular: Negative for chest pain, and palpitations. 15:53 Abdomen/GI: Negative for abdominal pain, nausea, vomiting, diarrhea, and constipation, MS/Extremity: Negative for injury and deformity, Skin: Negative for injury, rash, and discoloration, Psych: Negative for depression, anxiety, suicide ideation, homicidal ideation, and hallucinations. 15:53 Respiratory: Positive for shortness of breath. 15:53 All other systems are negative. Exam: 15:53 Constitutional: This is a well developed, well nourished patient who is awake, alert, ms3 and in no acute distress. Head/Face: Normocephalic, atraumatic. Neck: Trachea midline, no cervical lymphadenopathy. Supple, full range of motion without nuchal rigidity, or vertebral point tenderness. No Meningismus. Chest/axilla: Normal chest wall appearance and motion. Nontender with no deformity. Cardiovascular: Regular rate and rhythm with a normal S1 and S2. No gallops, murmurs, or rubs. Normal PMI, no JVD. No pulse deficits. 15:53 Skin: Warm, dry with normal turgor. Normal color with no rashes, no lesions, and no evidence of cellulitis. 15:53 Respiratory: mild respiratory distress is noted, Respirations: Breath sounds: rales, that are mild, are located in both bases. 16:43 ECG was reviewed by the Attending Physician. ms3 Vital Signs: 15:44 BP 197 / 93; Pulse 99; Resp 14; Pulse Ox 99% on R/A; db 15:52 BP 190 / 92; Pulse 102; Resp 21; Pulse Ox 99% ; Weight 89.81 kg; Pain 0/10; ap3 16:00 BP 154 / 82; Pulse 98; Resp 14; Pulse Ox 99% ; db 17:35 BP 110 / 90; Pulse 90; Resp 16; Pulse Ox 99% ; db 18:30 BP 130 / 77; Pulse 95; Resp 16; Pulse Ox 99% on R/A; db 15:52 Pain Scale: Adult ap3 MDM: 15:53 Differential diagnosis: asthma, CHF exacerbation, pneumonia. ms3 16:20 Patient medically screened. ms3 18:31 Data reviewed: vital signs, nurses notes, lab test result(s), EKG, radiologic studies, ms3 CT scan, plain films, and as a result, I will discharge patient. Consideration of Admission/Observation Escalation of care including admission/observation considered. Troponin negative. I considered the following discharge prescriptions or medication management in the emergency department Medications were administered in the Emergency Department. See MAR. Independent interpretation of the following test(s) in the Emergency Department EKG: See my EKG interpretation above X-Ray: My interpretation is CXR image reviewed by me negative for PNA or PTX. Historians other than the Patient: Daughter/Son: Patient's daughter. Counseling: I had a detailed discussion with the patient and/or guardian regarding: the historical points, exam findings, and any diagnostic results supporting the discharge/admit diagnosis, lab results, radiology results, the need for outpatient follow up, to return to the emergency department if symptoms worsen or persist or if there are any questions or concerns that arise at home. Response to treatment: the patient's symptoms have markedly improved after treatment. Special discussion: Based on the patient's history, exam, and Dx evaluation, there is no indication for emergent intervention or inpatient Tx. It is understood by the patient/guardian that if the Sx's persist or worsen they need to return immediately for re-evaluation. ED course: Patient states that her symptoms have improved, patient is alert and orient x4, no apparent distress, nontoxic-appearing, ambulatory in the emergency department, speaking full sentences. Patient to follow-up with Dr. Salinas in 2 to 3 days. Patient understands and agrees with plan. All questions were answered. Return precautions discussed include worsening symptoms, or any other concerns.. 02/02 15:52 Order name: Basic Metabolic Panel; Complete Time: 16:43 ms3 02/02 15:52 Order name: CBC with Diff; Complete Time: 16:20 ms3 02/02 15:52 Order name: D-Dimer; Complete Time: 16:20 ms3 02/02 15:52 Order name: Magnesium; Complete Time: 16:43 ms3 02/02 15:52 Order name: NT PRO-BNP; Complete Time: 16:43 ms3 02/02 15:52 Order name: Troponin HS; Complete Time: 16:43 ms3 02/02 15:52 Order name: XRAY Chest (1 view); Complete Time: 18:13 ms3 02/02 16:20 Order name: CT Chest For PE Angio; Complete Time: 18:18 ms3 02/02 15:52 Order name: EKG; Complete Time: 15:53 ms3 02/02 15:52 Order name: Cardiac monitoring; Complete Time: 16:00 ms3 02/02 15:52 Order name: EKG - Nurse/Tech; Complete Time: 16:01 ms3 02/02 15:52 Order name: IV Saline Lock; Complete Time: 16:09 ms3 02/02 15:52 Order name: Labs collected and sent; Complete Time: 16:09 ms3 02/02 15:52 Order name: O2 Per Protocol; Complete Time: 16:09 ms3 02/02 15:52 Order name: O2 Sat Monitoring; Complete Time: 16:09 ms3 EC:43 Rate is 97 beats/min. Rhythm is regular. QRS [place] is Normal. [place] interval is normal. QRS ms3 interval is normal. Clinical impression: NSR w/ Non-specific ST/T Changes. Interpreted by me. Reviewed by me. Administered Medications: 16:09 Drug: Aspirin PO Chewable Tablet 324 mg Route: PO; db 18:50 Follow up: Response: No adverse reaction db 18:48 Drug: Ketorolac IVP 10 mg 10 mg Route: IVP; Site: right antecubital; db 18:51 Follow up: Response: No adverse reaction db 19:06 Follow up: Response: No adverse reaction db Disposition Summary: 02/02/23 18:30 Discharge Ordered Location: Home ms3 Condition: Stable ms3 Diagnosis - Shortness of breath ms3 Followup: ms3 - With: Wali Almanzar MD - When: 2 - 3 days - Reason: Recheck today's complaints Discharge Instructions: - Discharge Summary Sheet rs5 Forms: - Medication Reconciliation Form ms3 - Thank You Letter ms3 - Antibiotic Education ms3 - Prescription Opioid Use ms3 - Patient Portal Instructions ms3 - Leadership Thank You Letter ms3 - Work release form rs5 Signatures: Dispatcher [employer] Sangeeta Slade, RN RN ap3 Lopez Goodman DO DO ms3 Ellie Zhao, RN RN db
--- NOTE | 2023-02-02 18:31 | ER ---
Nurse's Notes [facility] Name: Fatoumata Velazquez Age: 72 yrs Sex: Female : 1950 Arrival Date: 02/02/2023 Time: 15:42 Bed 15 Private MD: Diagnosis: Shortness of breath Presentation: 02/02 15:52 Chief complaint: Patient states: she was visiting her in the hospital, and ap3 during the update she started feeling SOB and realized she didn't have her inhaler. Coronavirus screen: At this time, the client does not indicate any symptoms associated with coronavirus-19. Ebola Screen: No symptoms or risks identified at this time. Initial Sepsis Screen: Does the patient meet any 2 criteria? No. Patient's initial sepsis screen is negative. Does the patient have a suspected source of infection? No. Patient's initial sepsis screen is negative. Risk Assessment: Do you want to hurt yourself or someone else? Patient reports no desire to harm self or others. Onset of symptoms was February 02, 2023. 15:52 Method Of Arrival: Wheelchair ap3 15:52 Acuity: RAFAEL 2 ap3 Triage Assessment: 15:54 General: Appears distressed, Behavior is cooperative. Pain: Denies pain. Neuro: Level ap3 of Consciousness is awake, alert, obeys commands, Oriented to person, place, time, situation. Cardiovascular: Patient's skin is warm and dry. Respiratory: Reports shortness of breath Airway is patent Respiratory effort is even, unlabored, Respiratory pattern is regular, symmetrical. Historical: - Allergies: 15:53 No Known Allergies; ap3 - PMHx: 15:53 Chronic pain; Diabetes - NIDDM; Hyperlipidemia; Hypertension; Hypothyroidism; ap3 - PSHx: 15:53 back; neck; knee; ap3 - Immunization history:: Client reports receiving the 2nd dose of the Covid vaccine. - Social history:: Smoking status: Patient denies any tobacco usage or history of. Screenin:[facility] ED Fall Risk Assessment (Adult) History of falling in the last 3 months, db including since admission No falls in past 3 months (0 pts) Confusion or Disorientation No (0 pts) Intoxicated or Sedated No (0 pts) Impaired Gait No (0 pts) Mobility Assist Device Used No (0 pt) Altered Elimination No (0 pt) Score/Fall Risk Level 0 - 2 = Low Risk Oriented to surroundings, Maintained a safe environment. Abuse screen: Denies threats or abuse. Denies injuries from another. Nutritional screening: No deficits noted. Tuberculosis screening: No symptoms or risk factors identified. Assessment: 16:10 Reassessment: Patient appears in no apparent distress at this time. Patient and/or db family updated on plan of care and expected duration. Pain level reassessed. Patient is alert, oriented x 3, equal unlabored respirations, skin warm/dry/pink. General: Appears in no apparent distress. comfortable, Behavior is calm, cooperative. Pain: Complains of pain in chest. Neuro: Level of Consciousness is awake, alert, obeys commands, Oriented to person, place, time, situation. Cardiovascular: Reports chest pain. Respiratory: Airway is patent Respiratory effort is even, unlabored, Respiratory pattern is regular, symmetrical. 18:04 Reassessment: Patient appears in no apparent distress at this time. Patient and/or db family updated on plan of care and expected duration. Pain level reassessed. Patient is alert, oriented x 3, equal unlabored respirations, skin warm/dry/pink. General: Appears in no apparent distress. comfortable, Behavior is calm, cooperative. 18:55 Reassessment: Patient appears in no apparent distress at this time. Patient and/or db family updated on plan of care and expected duration. Pain level reassessed. Patient is alert, oriented x 3, equal unlabored respirations, skin warm/dry/pink. Patient states feeling better. Vital Signs: 15:44 BP 197 / 93; Pulse 99; Resp 14; Pulse Ox 99% on R/A; db 15:52 BP 190 / 92; Pulse 102; Resp 21; Pulse Ox 99% ; Weight 89.81 kg; Pain 0/10; ap3 16:00 BP 154 / 82; Pulse 98; Resp 14; Pulse Ox 99% ; db 17:35 BP 110 / 90; Pulse 90; Resp 16; Pulse Ox 99% ; db 18:30 BP 130 / 77; Pulse 95; Resp 16; Pulse Ox 99% on R/A; db 15:52 Pain Scale: Adult ap3 ED Course: 15:43 Patient arrived in ED. rg4 15:44 Lopez Goodman DO is Attending Physician. ms3 15:53 Triage completed. ap3 15:54 Patient has correct armband on for positive identification. Bed in low position. Call ap3 light in reach. Side rails up X2. Adult w/ patient. 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 Pulse ox on. NIBP on. 15:54 Arm band placed on right wrist. ap3 15:55 Ellie Zhao, RN is Primary Nurse. db 16:05 Inserted saline lock: 20 gauge in right antecubital area, using aseptic technique. db Blood collected. 16:38 XRAY Chest (1 view) In Process Unspecified. EDMS 17:37 CT Chest For PE Angio In Process Unspecified. EDMS 18:30 Wali Almanzar MD is Referral Physician. ms3 19:05 Provided Education on: DISCHARGE. db 19:05 No provider procedures requiring assistance completed. IV discontinued, intact, db bleeding controlled, No redness/swelling at site. Administered Medications: 16:09 Drug: Aspirin PO Chewable Tablet 324 mg Route: PO; db 18:50 Follow up: Response: No adverse reaction db 18:48 Drug: Ketorolac IVP 10 mg 10 mg Route: IVP; Site: right antecubital; db 18:51 Follow up: Response: No adverse reaction db 19:06 Follow up: Response: No adverse reaction db Medication: 19:05 VIS not applicable for this client. db Outcome: 18:30 Discharge ordered by . ms3 19:05 Discharged to home via wheelchair, with family. db 19:05 Condition: stable 19:05 Discharge instructions given to patient, family, Instructed on discharge instructions, follow up and referral plans. 19:06 Patient left the ED. db Signatures: Dispatcher [employer] Yoko Helm rg4 Sangeeta Bah, RN RN ap3 Lopez Goodman, DO DO ms3 Ellie Zhao, RN RN db
[2023-02-02] MEDS ORDERED: KETOROLAC 30 MG/ML INJ ONE (18:54)
[2023-02-02 20:21] VITALS: O2SAT 99
[2023-02-02 20:28] VITALS: BP 130/77
--- NOTE | 2023-02-03 18:28 | EKG ---
Test Date: 2023-02-02 Test Time: 15:57:29 Nailer Operator: DIANE MEASUREMENT RESULTS: Intervals: Rate: 97 AK: 144 QRSD: 74 QT: 346 QTc: 439 [place]: P: 52 AK: 144 QRS: 13 T: 70 INTERPRETIVE STATEMENTS: Normal sinus rhythm Nonspecific ST and T wave abnormality Abnormal ECG Compared to ECG 05/21/2022 16:21:40 ST (T wave) deviation now present Accelerated junctional rhythm no longer present Electronically Signed On 02-03-23 18:25:43 CDT by Wali Almanzar
== END 2023-02-02 19:06 | disposition home or self-care (01) ==
LOC: ER 15:42
DX: R06.02 Shortness of breath (principal); J45.909 Unspecified asthma, uncomplicated; I10 Essential (primary) hypertension; E11.9 Type 2 diabetes mellitus without complications; G89.29 Other chronic pain
CPT/HCPCS: 85025; 80048; 36415; 83735; 85379; 84484; 83880; 71275; 71045; Q9967; 93005; 96374; 99285